=== PATIENT | male | born 1960 | race Caucasian/White ===

== ENCOUNTER 2017-05-21 11:45 | Inpatient (IN) | payer OTHER ==
[2017-05-21 11:50] VITALS: BMI 25.8
--- NOTE | 2017-05-21 14:55 | PDOC ---
History of Present Illness - General Chief Complaint: Wound Infection Stated Complaint: LT TOE INFECTION Time Seen by Provider: 05/21/17 14:30 History Source: Patient Exam Limitations: No Limitations - History of Present Illness Initial Comments: 05/21/17 14:59 56 y.o. M with pmh of cerebellar CVA (residual gait defect) presents with left great toe infection. Patient states 1 month ago he stubbed his toe on a dresser. He began having redness and pain. He went to [facility] and was admitted for 10 days and given IV abx. He underwent xray and MRI and was told he has "fracture and infarction." He also underwent arterial doppler and was told he has arterial insufficiency. He was discharged with plavix. His infection and pain worsened over the last 2 weeks prompting him to come to the ED. Patient also complaining of right lower extremity edema since he was in the hospital. Patient denies fever, chills, n/v/d/c, chest pain, sob, abdominal pain, dysuria , PSH: Left patella surgery Social hx: 40 year smoking hx, 1 ppd, no alcohol use, no drug use PCP:Chasity Aguilar Allergies: nkda Past History - Past Medical History Allergies/Adverse Reactions: Allergies Allergy/AdvReac Type Severity Reaction Status Date / Time No Known Drug Allergies Allergy Verified 05/21/17 11:50 Home Medications: Ambulatory Orders NK [No Known Home Medication] 05/21/17 Anemia: No Asthma: No Cancer: No Cardiac Disorders: No CVA: Yes COPD: No CHF: No Dementia: No Diabetes: No GI Disorders: No Disorders: No HTN: No Hypercholesterolemia: No Liver Disease: No Seizures: No Thyroid Disease: No - Suicide/Smoking/Psychosocial Hx Smoking History: Current every day smoker Have you smoked in the past 12 months: Yes Number of Cigarettes Smoked Daily: 10 Information on smoking cessation initiated: No 'Breaking Loose' booklet given: 03/01/16 Hx Alcohol Use: Yes (SOCIAL) Drug/Substance Use Hx: No Substance Use Type: None Hx Substance Use Treatment: No Review of Systems - Review of Systems Comments:: GENERAL/CONSTITUTIONAL: No fever or chills. No weakness. HEAD, EYES, EARS, NOSE AND THROAT: No change in vision. No ear pain or discharge. No sore throat. CARDIOVASCULAR: No chest pain or shortness of breath RESPIRATORY: No cough, wheezing, or hemoptysis. GASTROINTESTINAL: No nausea, vomiting, diarrhea or constipation. GENITOURINARY: No dysuria, frequency, or change in urination. MUSCULOSKELETAL: No joint or muscle swelling or pain. No neck or back pain. + toe pain, +toe infection SKIN: No rash NEUROLOGIC: No headache, vertigo, loss of consciousness, or change in strength/ sensation. ENDOCRINE: No increased thirst. No abnormal weight change HEMATOLOGIC/LYMPHATIC: No anemia, easy bleeding, or history of blood clots. ALLERGIC/IMMUNOLOGIC: No hives or skin allergy. *Physical Exam - Vital Signs Last Vital Signs Temp Pulse Resp BP Pulse Ox 98.7 F 116 H 20 104/75 97 05/21/17 11:46 05/21/17 11:46 05/21/17 11:46 05/21/17 11:46 05/21/17 11:46 - Physical Exam Comments: 05/21/17 15:11 GENERAL: Awake, alert, and fully oriented, in no acute distress HEAD: No signs of trauma, normocephalic, atraumatic EYES: PERRLA, EOMI, sclera anicteric, conjunctiva clear ENT: Auricles normal inspection, hearing grossly normal, nares patent, oropharynx clear without exudates. Moist mucosa NECK: Normal ROM, supple, no lymphadenopathy, JVD, or masses LUNGS: No distress, speaks full sentences, clear to auscultation bilaterally HEART: Regular rate and rhythm, normal S1 and S2, no murmurs, rubs or gallops, peripheral pulses normal in UE, no palpable pulses in lower extremities. ABDOMEN: Soft, nontender, normoactive bowel sounds. No guarding, no rebound. No masses EXTREMITIES: +necrotic left toe with serosanguinous drainage. 1+ pitting edema in b/l lower extremities, Left foot-cold NEUROLOGICAL: Cranial nerves II through XII grossly intact. Normal speech, no focal sensorimotor deficits ED Treatment Course - LABORATORY CBC & Chemistry Diagram: 05/21/17 16:20 05/21/17 16:20 Medical Decision Making - Medical Decision Making 05/21/17 15:13 A: 56 y.o. M with pmh of cerebellar cva presenting with left toe infection. VS- HR- 118 ddx: Sepsis, wet gangrene of left great toe, DVT, PE, Arterial insufficiency P: CBC, CMP, Lactic acid, Arterial doppler of L leg, b/l venous dopplers, left great toe x ray, Chest CTA, EKG, IVF NS 1 L bolus, 1 dose of vancomycin 05/21/17 17:18 WBC- 11.4, CRP-7.8, BNP-832.06, lactic acid 1.3 05/21/17 17:50 EKG- NSR with occasional PVC, RBBB, HR-87, qtc-480, 05/21/17 18:14 Patient to be admitted. Call placed to hospitalist. Awaiting call back 05/21/17 18:[address] Leach. Patient to be admitted to med-surg. *DC/Admit/Observation/Transfer Diagnosis at time of Disposition: Arterial insufficiency - Discharge Dispostion Admit: Yes
[2017-05-21] MEDS ORDERED: VANCOMYCIN 1 GRAM (PRE-DOCKED) 1,000 MG/250 ML BAG IVPB ONE (14:56)
[2017-05-21] MEDS ORDERED: SODIUM CHLORIDE 1,000 ML IV STA (14:56)
[2017-05-21 16:33] LABS: BASOPHIL 0.5 % (0-2.0); EOSINOPHIL 0.9 % (0-4.5); MCH 34.7 pg (25.7-33.7); MCHC 33.8 g/dl (32.0-35.9); MEAN CELL VOLUME 102.9 fl (80-96); MEAN PLT VOLUME 6.3 fl (7.5-11.1); PLATELET COUNT 663 K/MM3 (134-434); RDW 14.3 % (11.9-15.9); WHITE BLOOD COUNT 11.4 K/mm3 (4.0-10.0)
[2017-05-21] MEDS ORDERED: VANCOMYCIN 1 GRAM (PRE-DOCKED) 250 ML IVPB ONE (16:52)
[2017-05-21 16:58] LABS: ALBUMIN 3.5 g/dl (3.4-5.0); ALK PHOS 105 U/L (45-117); ANION GAP 7 (8-16); BILIRUBIN,TOTAL 0.8 mg/dL (0.2-1.0); CALCIUM 9.1 mg/dL (8.5-10.1); CO2 26 mmol/L (21-32); CREATININE 0.7 mg/dL (0.7-1.3); GLUCOSE,RANDOM 92 mg/dL (74-106); SGOT/AST 10 U/L (15-37); SGPT/ALT 22 U/L (12-78); TOT PROT 7.5 g/dl (6.4-8.2)
--- NOTE | 2017-05-21 17:00 | PDOC ---
Attending Attestation - Resident Resident Name: Santhosh Eason - ED Attending Attestation I have performed the following: I have examined & evaluated the patient, The case was reviewed & discussed with the resident, I agree w/resident's findings & plan, Exceptions are as noted - HPI HPI: 05/21/17 16:54 56 M with h/o prior CVA presents to ER with L 1st toe infection. Pt initially injured it 1 month ago when he stubbed it. It started as a small wound that progressively worsened and reddened. Pt was admitted to [facility] for 1 week and discharged 10 days ago after receiving IV antibiotics. He states that the redness and pain subsided somewhat during admission but over the past 10 days it flared up again. He endorses subjective fevers. - Physicial Exam PE: 05/21/17 16:58 "GENERAL: Awake, alert, and fully oriented, in no acute distress HEAD: No signs of trauma EYES: PERRLA, EOMI, sclera anicteric, conjunctiva clear ENT: Auricles normal inspection, hearing grossly normal, nares patent, oropharynx clear without exudates. Moist mucosa NECK: Nontender, no stepoffs, Normal ROM, supple, no lymphadenopathy, JVD, or masses LUNGS: Breath sounds equal, clear to auscultation bilaterally. No wheezes, and no crackles HEART: Regular rate and rhythm, normal S1 and S2, no murmurs, rubs or gallops ABDOMEN: Soft, nontender, normoactive bowel sounds. No guarding, no rebound. No masses EXTREMITIES: L great toe necrotic with surrounding erythema and crusty serosanguinous discharge, +2 pitting edema in BLE extending to knees NEUROLOGICAL: Cranial nerves II through XII intact. 5/5 strength and sensation in all extremities, Normal speech, normal gait SKIN: Warm, Dry, normal turgor, no rashes or lesions noted. " - Medical Decision Making 05/21/17 17:00 56 M with infected necrotic L 1st toe. Likely 2/2 severe vascular disease. Will evaluate for acute thrombosis. - BLE venous dopplers - Arterial doppler LLE - Labs - XR L foot - Vascular surgery consult - Admit for IV abx 05/21/17 18:51 Dr. Doug Fernández, vascular surgeon motion pictures cartoonist, aware of patient. Agrees with plan to begin empiric abx. Will see pt in AM.
--- NOTE | 2017-05-21 20:18 | PDOC ---
*Physical Exam - Vital Signs Last Vital Signs Temp Pulse Resp BP Pulse Ox 98.7 F 116 H 20 104/75 97 05/21/17 11:46 05/21/17 11:46 05/21/17 11:46 05/21/17 11:46 05/21/17 11:46 ED Treatment Course - LABORATORY CBC & Chemistry Diagram: 05/21/17 16:20 05/21/17 16:20 - ADDITIONAL ORDERS Additional order review: Laboratory Results 05/21/17 05/21/17 05/21/17 16:20 16:20 16:20 Sodium Potassium Chloride Carbon Dioxide Anion Gap BUN Creatinine Creat Clearance w eGFR Random Glucose Lactic Acid 1.3 Calcium Total Bilirubin AST ALT Alkaline Phosphatase C-Reactive Protein 7.8 H B-Natriuretic Peptide 832.06 H Total Protein Albumin 05/21/17 16:20 Sodium 132 L Potassium 4.4 Chloride 99 Carbon Dioxide 26 Anion Gap 7 L BUN 8 D Creatinine 0.7 Creat Clearance w eGFR > 60 Random Glucose 92 Lactic Acid Calcium 9.1 Total Bilirubin 0.8 D AST 10 L D ALT 22 D Alkaline Phosphatase 105 D C-Reactive Protein B-Natriuretic Peptide Total Protein 7.5 Albumin 3.5 05/21/17 16:20 RBC 4.05 MCV 102.9 H MCHC 33.8 RDW 14.3 MPV 6.3 L D Neutrophils % 75.0 Lymphocytes % 17.3 D Monocytes % 6.3 Eosinophils % 0.9 Basophils % 0.5 - Medications Given in the ED: ED Medications Discontinued Medications Generic Name Dose Route Start Last Admin Trade Name Freq PRN Reason Stop Dose Admin Sodium Chloride 1,000 mls @ 1,000 mls/hr 05/21/17 14:56 05/21/17 16:35 Normal Saline - IV 05/21/17 15:55 1,000 mls/hr ASDIR STA Administration Oxycodone/Acetaminophen 1 combo 05/21/17 16:39 05/21/17 16:44 Percocet 5/325 - PO 05/21/17 16:40 1 combo ONCE ONE Administration Vancomycin HCl 1,000 mg 05/21/17 14:56 05/21/17 16:35 Vancomycin (Pre-Docked) IVPB 05/21/17 14:57 1,000 mg ONCE ONE Administration Protocol Medical Decision Making - Medical Decision Making 05/21/17 20:[address] Wall re: this patient's Ultrasound He was unable to reach the primary care team This patient has an arterial US which demonstrated no flow in the distal popliteal artery This was relayed to the Admitting hospitalist at 8:[address] vibha duval aware 05/21/17 20:18 *DC/Admit/Observation/Transfer Diagnosis at time of Disposition: Arterial insufficiency
[2017-05-21] MEDS ORDERED: HEPARIN NA (PORCINE) 5,000 UNITS/ML 1ML VIAL IVPUSH PRN (20:42)
--- NOTE | 2017-05-21 21:04 | HP ---
CHIEF COMPLAINT: Left great toe infection HISTORY OF PRESENT ILLNESS: 56yo M with PMH of CVA in 02/2016 with residual gait disturbance, hypercholesterolemia, current 1 ppd smoker, presents c/o Left great toe infection. Pt stubbed his toe 1 mo ago on a dresser and was admitted to [facility] for IV antibiotics x 7 days. He was discharged on Plavix 2 weeks ago, with the wound healing but not healed. Pt reports pain and infection have been worsening x 2 weeks. Pt stopped taking the Plavix 2 days ago because he was afraid the toe might start bleeding. Pt received a Percocet in the ER which alleviated the pain for a couple hours. Pt c/o tee LE edema to the knees and intense, non-radiating pain to Left foot originating in Left great toe. Pt denies recent travel, sick contacts, fever, chills, chest pain, palpitations, difficulty breathing. ER course was notable for: (1) Percocet, empiric Vancomycin (2) Left LE Artery Duplex US -> occlusion of distal Left popliteal artery. Monophasic waveform in posterior Left tibial artery consistent with inflow obstruction. (3) Tee LE Venous Duplex US -> no DVTs PAST MEDICAL HISTORY: CVA 02/2016 with residual gait disturbance GERD hypercholesterolemia PAST SURGICAL HISTORY: Left patella surgery Social History: Smokin ppd x 40 yrs Alcohol: denies Drugs: denies Family History: mom - pacemaker dad - stroke Allergies No Known Drug Allergies Allergy (Verified 05/21/17 11:50) HOME MEDICATIONS: Home Medications Medication Instructions Recorded NK [No Known Home Medication] 05/21/17 REVIEW OF SYSTEMS CONSTITUTIONAL: Absent: fever, chills, diaphoresis, generalized weakness, malaise, loss of appetite, weight change HEENT: Absent: rhinorrhea, nasal congestion, throat pain, ear pain, eye pain, visual changes CARDIOVASCULAR: Absent: chest pain, syncope, palpitations, irregular heart rate, lightheadedness , peripheral edema RESPIRATORY: Absent: cough, shortness of breath, wheezing, stridor GASTROINTESTINAL: Absent: abdominal pain, abdominal distension, nausea, vomiting, diarrhea, constipation, melena, hematochezia GENITOURINARY: Absent: dysuria, hematuria, flank pain MUSCULOSKELETAL: Present: Left toe infection, Left foot pain Absent: myalgia, arthralgia, back pain, neck pain SKIN: Absent: rash, itching, pallor HEMATOLOGIC/IMMUNOLOGIC: Absent: easy bleeding, easy bruising NEUROLOGIC: Absent: headache, dizziness, mental status changes PHYSICAL EXAMINATION Last Vital Signs Temp Pulse Resp BP Pulse Ox 98.7 F 116 H 20 104/75 97 05/21/17 11:46 05/21/17 11:46 05/21/17 11:46 05/21/17 11:46 05/21/17 11:46 GENERAL: Awake, alert, and fully oriented, in mild distress. HEAD: Normal with no signs of trauma. EYES: Extraocular movements intact, sclera anicteric, conjunctiva clear. No lid lag. EARS, NOSE, THROAT: Moist mucous membranes. NECK: Normal range of motion, supple, trachea midline. LUNGS: Breath sounds equal, clear to auscultation bilaterally. No wheezes, and no crackles. No accessory muscle use. HEART: Regular rate and rhythm, normal S1 and S2 without murmur, rub or gallop. ABDOMEN: Soft, nontender, not distended, normoactive bowel sounds, no guarding, no rebound, no masses. MUSCULOSKELETAL: Normal range of motion. No bony deformities or tenderness. LOWER EXTREMITIES: Left LE - pulses not present, cold, 3+ pitting edema to knee. Sensation intact. Exquisitely painful to palpation. Unable to move toes. Left great toe appears consistent with wet gangrene. Right LE - dorsalis pedis pulse not able to be palpated, warm, 3+ pitting edema to knee. Sensation intact. Non-tender to palpation. Pt able to move all toes. PSYCHIATRIC: Cooperative. Good eye contact. Appropriate mood and affect. SKIN: Other than to tee LE - Warm, dry, normal turgor, no rashes or lesions noted. Laboratory Last Values WBC 11.4 K/mm3 (4.0-10.0) H D 05/21/17 16:20 RBC 4.05 M/mm3 (4.00-5.60) 05/21/17 16:20 Hgb 14.1 GM/dL (11.7-16.9) 05/21/17 16:20 Hct 41.7 % (35.4-49) 05/21/17 16:20 MCV 102.9 fl (80-96) H 05/21/17 16:20 MCH 34.7 pg (25.7-33.7) H 05/21/17 16:20 MCHC 33.8 g/dl (32.0-35.9) 05/21/17 16:20 RDW 14.3 % (11.9-15.9) 05/21/17 16:20 Plt Count 663 K/MM3 (134-434) H D 05/21/17 16:20 MPV 6.3 fl (7.5-11.1) L D 05/21/17 16:20 Neutrophils % 75.0 % (42.8-82.8) 05/21/17 16:20 Lymphocytes % 17.3 % (8-40) D 05/21/17 16:20 Monocytes % 6.3 % (3.8-10.2) 05/21/17 16:20 Eosinophils % 0.9 % (0-4.5) 05/21/17 16:20 Basophils % 0.5 % (0-2.0) 05/21/17 16:20 ESR 80 mm/hr (0-20) H 05/21/17 16:20 Sodium 132 mmol/L (136-145) L 05/21/17 16:20 Potassium 4.4 mmol/L (3.5-5.1) 05/21/17 16:20 Chloride 99 mmol/L (98-107) 05/21/17 16:20 Carbon Dioxide 26 mmol/L (21-32) 05/21/17 16:20 Anion Gap 7 (8-16) L 05/21/17 16:20 BUN 8 mg/dL (7-18) D 05/21/17 16:20 Creatinine 0.7 mg/dL (0.7-1.3) 05/21/17 16:20 Creat Clearance w eGFR > 60 (>60) 05/21/17 16:20 Random Glucose 92 mg/dL (74-106) 05/21/17 16:20 Lactic Acid 1.3 mmol/L (0.4-2.0) 05/21/17 16:20 Calcium 9.1 mg/dL (8.5-10.1) 05/21/17 16:20 Total Bilirubin 0.8 mg/dL (0.2-1.0) D 05/21/17 16:20 AST 10 U/L (15-37) L D 05/21/17 16:20 ALT 22 U/L (12-78) D 05/21/17 16:20 Alkaline Phosphatase 105 U/L (45-117) D 05/21/17 16:20 C-Reactive Protein 7.8 MG/DL (0.00-0.3) H 05/21/17 16:20 B-Natriuretic Peptide 832.06 pg/ml (5-125) H 05/21/17 16:20 Total Protein 7.5 g/dl (6.4-8.2) 05/21/17 16:20 Albumin 3.5 g/dl (3.4-5.0) 05/21/17 16:20 IMAGIN05/21/17 EKG - NSR with occasional PVC, RBBB, QTc 480 05/21/17 CXR - no acute lung pathology 05/21/17 Xray Left foot - questionable osteomyelitis, no soft tissue gas noted. 05/21/17 Duplex US Artery Left LE - occlusion of distal Left popliteal artery. Monophasic waveform in posterior Left tibial artery consistent with inflow obstruction. 05/21/17 Duplex US Venous tee LE - no evidence of DVTs. ASSESSMENT/PLAN: 56yo M with PMH of CVA in 02/2016 with residual gait disturbance, hypercholesterolemia, current 1 ppd smoker, presents c/o Left great toe infection, arterial insufficiency/occlusion. 1) Arterial insufficiency - CTA: Aorta with tee LE runoff -> occlusion of Left popliteal artery in the popliteal fossa with some minimal reconstitution. - Heparin 5,000U bolus given - Heparin drip protocol initiated, 1,000U/hr with PTT and CBC series - Vascular Surgery Consult - type and screen, coags, stool for occult blood - hold Plavix - npo after midnight - Morphine 4mg IVpush q4hr prn for pain control 2) wet gangrene - elevated ESR, CRP - empiric Vancomycin given in ER, 2 doses of Zosyn ordered - ID Consult - Vascular Surgery Consult 3) possible new onset CHF - bnp 832, tee LE edema - echo 4) possible sepsis - tachycardia, continue to monitor - minimal leukocytosis, lactic acid wnl 5) thrombocytosis - continue Heparin 6) macrocytosis - MCV 102.9 - pt denies etoh use - f/u folate, B12 7) hypercholesterolemia - lipid panel - resume Crestor 5mg po daily 8) GERD - resume Pepcid 20mg BID 9) FEN - Fluids: NS @ 42ml/hr - Electrolytes: hyponatremia noted, continue IVFs, continue to monitor - Nutrition: npo after midnight 10) DVT Prophylaxis - Heparin drip Admit to Med-Surg. Visit type - Emergency Visit Emergency Visit: Yes ED Registration Date: 05/21/17 Care time: The patient presented to the Emergency Department on the above date and was hospitalized for further evaluation of their emergent condition. - New Patient This patient is new to me today: Yes Date on this admission: 05/22/17 - Critical Care Critical Care patient: No
--- NOTE | 2017-05-21 21:12 | HP ---
Admitting History and Physical - Admission History of Present Illness: 56M with history of CVA in the past with residual gait defect HLD PAD/PVD smoker presents to the ED with left great toe pain. Patient states he banged his toe a month ago was seen in [facility] ED discharged then seen again a few days later and admitted for about a week for IV Abx. He states the toe never completely fully healed but he showed me a picture from when he was discharged from [facility] and the toe looked like it was starting to heal but never completely healed per patient. he states since his discharge he has started having more pain and redness and started to become cooler. He has been having difficulty moving his toes without pain. He denies nausea vomiting feverc chills chest pain or shortness of breath denies orthopnea or recent change in exercise tolerance. Patient states he stopped taking his plavix 2 days ago. 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 PHYSICIAN: Yes: CVA Cardiovascular: Yes: Hyperlipdemia Additional Past Medical History: PVD/PAD - Smoking History Smoking history: Current every day smoker Have you smoked in the past 12 months: Yes Aproximately how many cigarettes per day: 20 - Alcohol/Substance Use Hx Alcohol Use: Yes (SOCIAL) Home Medications - Allergies Allergies/Adverse Reactions: Allergies Allergy/AdvReac Type Severity Reaction Status Date / Time No Known Drug Allergies Allergy Verified 05/21/17 11:50 - Home Medications Home Medications: Ambulatory Orders NK [No Known Home Medication] 05/21/17 Physical Examination Vital Signs: Vital Signs Temperature 98.7 F 05/21/17 11:46 Pulse Rate 116 H 05/21/17 11:46 Respiratory Rate 20 05/21/17 11:46 Blood Pressure 104/75 05/21/17 11:46 O2 Sat by Pulse Oximetry (%) 97 05/21/17 11:46 Constitutional: Yes: Well Nourished, No Distress Eyes: Yes: Conjunctiva Clear HENT: Yes: Atraumatic Neck: Yes: Supple, Trachea Midline Cardiovascular: Yes: Regular Rate and Rhythm. No: JVD, Murmur Respiratory: Yes: CTA Bilaterally, Diminished Gastrointestinal: Yes: Soft Extremities: Yes: Other (LLE left great toe gangrenous and necrotic other 4 toes with cellulitis extending on dorsal aspect of foot up to ankle. can see patient's toes attempt to move but very painful with minimal motopr strength of toes. Cold foot when compared to right no palpable pulses in B/L LE. no crepitus ). No: Calf Tenderness Edema: Yes Edema: LLE: 2+ (pitting up to knee), RLE: 2+ (pitting up to knee ) Imaging - Results Chest X-ray: Report Reviewed, Image Reviewed X-ray: Report Reviewed, Image Reviewed (toe) Ultrasound: Report Reviewed, Image Reviewed Other: Report Reviewed, Image Reviewed (arterial duples with occluded popliteal artery on left) Assessment/Plan 56M with peripheral arterial disease hld smoker presents with cold LLE and wet gangrene of left great toe Problem list: Peripheral vascular disease peripheral arterial disease HLD Macrocytosis history of CVA Possible new onset CHF Wet gangrene possible osteomyelitis critical limb ischemia Plan: Upon recieving results of arterial duplex Dr. Fernández from vascular immediately notified and receommended hep gtt 5000unit bolus with gtt starting @ 1000units/ hr and immediate CTA of aorta with Lower extremities run off NPO Possible OR in AM Admit to inpatient Trend PTT Trend CBC Admit to med surg ID consult start zosyn already recieved Vanco Hold plavix for now restart statin send lipid panel Case discussed with Attending Dr. Laurent, Dr. Fernández vascular surgeon and Admitting internship Full H&P to follow Visit type - Emergency Visit Emergency Visit: Yes ED Registration Date: 05/21/17 Care time: The patient presented to the Emergency Department on the above date and was hospitalized for further evaluation of their emergent condition. - New Patient This patient is new to me today: Yes Date on this admission: 05/21/17 - Critical Care Critical Care patient: No
[2017-05-21] MEDS ORDERED: HEPARIN NA (PORCINE) 5,000 UNITS/ML 1ML VIAL ONE (21:21)
[2017-05-21] MEDS ORDERED: HEPARIN INFUSION - 500 ML IVPB ONE (21:21)
[2017-05-21] MEDS ORDERED: PIPERACILLIN/TAZOB 3.375 GM/50 ML PRE-DOCKED IVPB SCH (21:30)
[2017-05-21] MEDS: HEPARIN - 25,000 UNIT in SODIUM CHLORIDE 495 ML IV SCH (21:44)
[2017-05-21] MEDS: HEPARIN NA (PORCINE) 5,000 UNITS/ML 1ML VIAL IVPUSH PRN (21:44)
[2017-05-21] MEDS ORDERED: FAMOTIDINE 20 MG/50 ML IVPB 50 ML IVPB ONE (22:39)
[2017-05-21] MEDS ORDERED: PIPERACILLIN/TAZOB 3.375 GM 50 ML IVPB ONE (22:39)
[2017-05-21] MEDS: morphine CARPU-JECT 4 MG/1 ML DISP.SYRIN IVPUSH PRN (22:40)
[2017-05-21] MEDS ORDERED: morphine CARPU-JECT 4 MG/1 ML DISP.SYRIN ONE (22:41)
[2017-05-21] MEDS: PIPERACILLIN/TAZOB 3.375 GM 3.375 GM in DEXTROSE 5%-WATER - 50 ML IVPB SCH (23:01)
--- NOTE | 2017-05-21 23:03 | PN ---
Teaching Attending Note Name of Resident: Diamante Powers ATTENDING PHYSICIAN STATEMENT I saw and evaluated the patient. I reviewed the resident's note and discussed the case with the resident. I agree with the resident's findings and plan as documented. SUBJECTIVE: 56 year old male presents c/o Left foot pain 10/10 associated with left great toe ulceration and dark discoloration x 1 month. It started with trauma to left great toe that was complicated by infection and patient was hospitalized to recieve 10 days of IVAB. At that time was diagnosed with arterial insufficiency . His pain has increased since then and he presented for further evaluation . PMH PVD Smoker CVA Home Medication List Medication Instructions Recorded Confirmed Type NK [No Known Home Medication] 05/21/17 05/21/17 History Active Medications Generic Name Dose Route Start Last Admin Trade Name Freq PRN Reason Stop Dose Admin Heparin Sodium (Porcine) 1,000 unit 05/21/17 20:42 05/21/17 21:44 Heparin - IVPUSH 1,000 unit PRN PRN Administration Heparin Heparin Sodium (Porcine) 5,000 unit 05/21/17 20:42 05/21/17 21:44 Heparin - IVPUSH 5,000 unit PRN PRN Administration Heparin Heparin Sodium (Porcine) 25, 500 mls @ 20 mls/hr 05/21/17 20:45 05/21/17 21:44 000 unit/ Sodium Chloride IV 20 mls/hr TITR KHALIF Administration Protocol 1,000 UNIT/HR Piperacillin Sod/Tazobactam 50 mls @ 100 mls/hr 05/21/17 21:45 05/21/17 23:01 Sod 3.375 gm/ Dextrose IVPB 05/22/17 06:14 100 mls/hr Q8H KHALIF Administration Famotidine/Sodium Chloride 50 mls @ 100 mls/hr 05/21/17 22:00 Pepcid 20 Mg Premixed Ivpb - IVPB BID KHALIF Morphine Sulfate 4 mg 05/21/17 21:56 05/21/17 22:40 Morphine Injection - IVPUSH 4 mg Q4H PRN Administration PAIN Rosuvastatin Calcium 5 mg 05/21/17 22:00 Crestor - PO HS KHALIF OBJECTIVE: Vital Signs Temperature 98.5 F 05/21/17 21:46 Pulse Rate 102 H 05/21/17 21:46 Respiratory Rate 18 05/21/17 21:46 Blood Pressure 103/69 05/21/17 21:46 O2 Sat by Pulse Oximetry (%) 99 05/21/17 21:46 GENERAL: Awake, alert, and fully oriented, in no acute distress HEAD: No signs of trauma, normocephalic, atraumatic EYES: PERRLA, EOMI, sclera anicteric, conjunctiva clear ENT: Auricles normal inspection, hearing grossly normal, nares patent, oropharynx clear without exudates. Moist mucosa NECK: Normal ROM, supple, no lymphadenopathy, JVD, or masses LUNGS: No distress, speaks full sentences, clear to auscultation bilaterally HEART: Regular rate and rhythm, normal S1 and S2, no murmurs, rubs or gallops, peripheral pulses normal in UE, no palpable pulses in lower extremities. ABDOMEN: Soft, nontender, normoactive bowel sounds. No guarding, no rebound. No masses EXTREMITIES: +necrotic left toe with serosanguinous drainage. 1+ pitting edema in b/l lower extremities, Left foot-cold NEUROLOGICAL: Cranial nerves II through XII grossly intact. Normal speech, no focal sensorimotor deficits CBC, BMP 05/21/17 16:20 05/21/17 16:20 Left LE Artery Duplex US -> occlusion of distal Left popliteal artery. Monophasic waveform in posterior Left tibial artery consistent with inflow obstruction. Tee LE Venous Duplex US -> no DVTs Chest X-ray: Report Reviewed, Image Reviewed X-ray: Report Reviewed, Image Reviewed (toe) Ultrasound: Report Reviewed, Image Reviewed Other: Report Reviewed, Image Reviewed (arterial dupplex with occluded popliteal artery on left) CTA - pending ASSESSMENT AND PLAN: 1. Acute arterial occlusion and gangrene of Left great toe - heparin drip initiated -CTA -vascular surgery evaluation / possible need for amputation or debridement - zosyn /vanco 2. Wet gangrene , suspected osteomyelitis - Zosyn /Vanco given 3. RLE pitting edema subacute - ECHO 4. Intractable pain - iv morphine prn while NPO 5. Smoking cessation counselling
[2017-05-21] MEDS: FAMOTIDINE 20 MG/50 ML IVPB 50 ML IVPB SCH (23:36)
[2017-05-22] MEDS: ROSUVASTATIN CA 5 MG TABLET (FP) PO SCH ×2 (00:01→22:09)
[2017-05-22] MEDS: morphine CARPU-JECT 4 MG/1 ML DISP.SYRIN IVPUSH PRN ×3 (02:39→10:30)
[2017-05-22] MEDS: HEPARIN NA (PORCINE) 5,000 UNITS/ML 1ML VIAL IVPUSH PRN (04:08)
[2017-05-22] MEDS: HEPARIN - 25,000 UNIT in SODIUM CHLORIDE 495 ML IV SCH ×2 (04:08→22:07)
[2017-05-22] MEDS ORDERED: PIPERACILLIN/TAZOBACTAM 3.375 GM VIAL IVPB ONE (05:30)
[2017-05-22] MEDS ORDERED: DEXTROSE 5%-WATER - 50 ML IVPB ONE (05:31)
[2017-05-22] MEDS: PIPERACILLIN/TAZOB 3.375 GM 3.375 GM in DEXTROSE 5%-WATER - 50 ML IVPB SCH (05:43)
[2017-05-22] MEDS ORDERED: ACETAMINOPHEN 325 MG TABLET (FP) PO PRN (05:47)
[2017-05-22 07:37] LABS: BASOPHIL 1.4 % (0-2.0); EOSINOPHIL 1.7 % (0-4.5); MCH 35.1 pg (25.7-33.7); MEAN CELL VOLUME 103.3 fl (80-96); MEAN PLT VOLUME 6.7 fl (7.5-11.1); NEUTROPHILS 65.3 % (42.8-82.8); PLATELET COUNT 675 K/MM3 (134-434); RDW 14.4 % (11.9-15.9); WHITE BLOOD COUNT 9.8 K/mm3 (4.0-10.0)
[2017-05-22 09:06] LABS: ALBUMIN 3.2 g/dl (3.4-5.0); ANION GAP 11 (8-16); BILIRUBIN,TOTAL 0.5 mg/dL (0.2-1.0); CALCIUM 8.9 mg/dL (8.5-10.1); CO2 21 mmol/L (21-32); CREATININE 0.8 mg/dL (0.7-1.3); GLUCOSE,RANDOM 96 mg/dL (74-106); SGOT/AST 11 U/L (15-37); SGPT/ALT 21 U/L (12-78); TOT PROT 7.1 g/dl (6.4-8.2)
[2017-05-22 09:07] LABS: ALK PHOS 98 U/L (45-117)
[2017-05-22] MEDS: FAMOTIDINE 20 MG/50 ML IVPB 50 ML IVPB SCH ×2 (10:42→22:10)
--- NOTE | 2017-05-22 10:43 | EKG ---
Test Reason : Blood Pressure : / mmHG Vent. Rate : 097 BPM Atrial Rate : 097 BPM P-R Int : 150 ms QRS Dur : 114 ms QT Int : 378 ms P-R-T Axes : 034 026 032 degrees QTc Int : 480 ms SINUS RHYTHM WITH OCCASIONAL PREMATURE VENTRICULAR COMPLEXES RIGHT BUNDLE BRANCH BLOCK ABNORMAL ECG WHEN COMPARED WITH ECG OF 01-MAR-2016 19:22, PREMATURE VENTRICULAR COMPLEXES ARE NOW PRESENT Confirmed by NEMESIO DAO, DUC ([id number]) on 05/22/2017 10:42:53 AM Referred By: Confirmed By:DUC HERR MD
[2017-05-22 11:46] LABS: PHOSPHOROUS 3.9 mg/dL (2.5-4.9)
[2017-05-22 11:55] LABS: MAGNESIUM 2.2 mg/dL (1.8-2.4)
--- NOTE | 2017-05-22 12:52 | PN ---
Physical Exam: SUBJECTIVE: Patient seen and examined No new complaints, still has pain in left foot. Anxious about what will be done for him Had CTA of aorta with LE runoff. OBJECTIVE: Vital Signs Period Temp Pulse Resp BP Sys/Castillo Pulse Ox Last 24 Hr 98.0 F-98.9 F 93-110 16-18 101-107/68-71 99 GENERAL: The patient is awake, alert, and fully oriented, in no acute distress. HEAD: Normal with no signs of trauma. EYES: PERRL, extraocular movements intact, sclera anicteric, conjunctiva clear. No ptosis. ENT: Ears normal, nares patent, oropharynx clear without exudates, moist mucous membranes. NECK: Trachea midline, full range of motion, supple. LUNGS: Breath sounds equal, clear to auscultation bilaterally, no wheezes, no crackles, no accessory muscle use. HEART: Regular rate and rhythm, S1, S2 without murmur, rub or gallop. ABDOMEN: Soft, nontender, nondistended, normoactive bowel sounds, no guarding, no rebound, no hepatosplenomegaly, no masses. EXTREMITIES: Ankle swelling bilaterally with some erythema . Left big toe is black, and gangrenous more towards the medial aspect, all distal aspect of foot to all five toes are red. Equal sensation both lower extremities up to proximal foot then mildly reduced sensation distally on L distal foot compared to R NEUROLOGICAL: No facial droop, power 5/5 UE bilaterally, and LE bilaterally except for limitation of movement of toes on the left. Normal speech, gait not observed. PSYCH: Normal mood, normal affect. Laboratory Results - last 24 hr 05/22/17 05/22/17 05/22/17 02:30 02:30 06:40 WBC 9.8 RBC 3.92 L Hgb 13.8 Hct 40.5 MCV 103.3 H MCH 35.1 H MCHC 34.0 RDW 14.4 Plt Count 675 H MPV 6.7 L Neutrophils % 65.3 Lymphocytes % 25.4 D Monocytes % 6.2 Eosinophils % 1.7 D Basophils % 1.4 PTT (Actin FS) 39.6 H D Sodium Potassium Chloride Carbon Dioxide Anion Gap BUN Creatinine Creat Clearance w eGFR Random Glucose Calcium Phosphorus Magnesium Total Bilirubin AST ALT Alkaline Phosphatase Total Protein Albumin Triglycerides Cholesterol Total LDL Cholesterol HDL Cholesterol Vitamin B12 Blood Type AB POSITIVE Antibody Screen Negative 05/22/17 05/22/17 05/22/17 06:40 06:40 06:40 WBC RBC Hgb Hct MCV MCH MCHC RDW Plt Count MPV Neutrophils % Lymphocytes % Monocytes % Eosinophils % Basophils % PTT (Actin FS) Sodium 136 Potassium 4.3 Chloride 104 Carbon Dioxide 21 Anion Gap 11 BUN 10 D Creatinine 0.8 Creat Clearance w eGFR > 60 Random Glucose 96 Calcium 8.9 Phosphorus 3.9 Magnesium 2.2 Total Bilirubin 0.5 D AST 11 L ALT 21 Alkaline Phosphatase 98 Total Protein 7.1 Albumin 3.2 L Triglycerides 106 D Cholesterol 146 D Total LDL Cholesterol 80 D HDL Cholesterol 44 Vitamin B12 824 D Blood Type Antibody Screen 05/22/17 07:40 WBC RBC Hgb Hct MCV MCH MCHC RDW Plt Count MPV Neutrophils % Lymphocytes % Monocytes % Eosinophils % Basophils % PTT (Actin FS) 98.4 H D Sodium Potassium Chloride Carbon Dioxide Anion Gap BUN Creatinine Creat Clearance w eGFR Random Glucose Calcium Phosphorus Magnesium Total Bilirubin AST ALT Alkaline Phosphatase Total Protein Albumin Triglycerides Cholesterol Total LDL Cholesterol HDL Cholesterol Vitamin B12 Blood Type Antibody Screen Active Medications Generic Name Dose Route Start Last Admin Trade Name Freq PRN Reason Stop Dose Admin Acetaminophen 650 mg 05/22/17 05:47 05/22/17 05:55 Tylenol - PO 650 mg Q4H PRN Administration PAIN Heparin Sodium (Porcine) 1,000 unit 05/21/17 20:42 05/21/17 21:44 Heparin - IVPUSH 1,000 unit PRN PRN Administration Heparin Heparin Sodium (Porcine) 5,000 unit 05/21/17 20:42 05/22/17 04:08 Heparin - IVPUSH 5,000 unit PRN PRN Administration Heparin Heparin Sodium (Porcine) 25, 500 mls @ 20 mls/hr 05/21/17 20:45 05/22/17 04:08 000 unit/ Sodium Chloride IV 23 mls/hr TITR KHALIF Administration Protocol 1,000 UNIT/HR Famotidine/Sodium Chloride 50 mls @ 100 mls/hr 05/21/17 22:00 05/22/17 10:42 Pepcid 20 Mg Premixed Ivpb - IVPB 100 mls/hr BID KHALIF Administration Morphine Sulfate 4 mg 05/21/17 21:56 05/22/17 10:30 Morphine Injection - IVPUSH 4 mg Q4H PRN Administration PAIN Rosuvastatin Calcium 5 mg 05/21/17 22:00 05/22/17 00:01 Crestor - PO 5 mg HS KHALIF Administration ASSESSMENT/PLAN: 56yo M with PMH of CVA in 02/2016 with residual gait disturbance, hypercholesterolemia, current 1 ppd smoker, presents c/o Left great toe infection, arterial insufficiency/occlusion. 1) Arterial insufficiency- in a chronic active smoker with critical limb ischemia - CTA: Aorta with magalie LE runoff -> occlusion of Left popliteal artery in the popliteal fossa with some minimal reconstitution. - Heparin 5,000U bolus given - Heparin drip protocol initiated, 1,000U/hr - with PTT and CBC series - type and screen, coags, stool for occult blood - hold Plavix - Morphine 4mg IVpush q4hr prn for pain control - Per Vascular Surgery -On angiogram, -- pt's left popliteal artery was occluded with no direct runoff in to foot. - On angiogram, it seems that pt's popliteal artery and beyond is thrombosed with visible clot on angiogram - Operation: Aortogram, LLE angiogram, Tibial artery, popliteal artery angioplasty, with thrombolysis. -. Patient to have tpa overnight to lyse thrombose with possibility of losing his leg -Alteplase 20mg in NaCl at 200mls/hr at once - zofran-4mg - 2) gangrene - elevated ESR, CRP - empiric Vancomycin given in ER, - ID Consult- Dr Son seeing - Patient received 1gm ceftriaxone - Vascular Surgery Consult- patient had angiogram as documented above - Pain max with dilaudid 3) Elevated BNP; - bnp 832, - magalie LE edema, patient has been sleeping with legs down because of the pain which may account for the edema - echo 4) possible sepsis - tachycardia, continue to monitor - minimal leukocytosis, lactic acid wnl 5) thrombocytosis - continue Heparin 6) macrocytosis - MCV 102.9 - pt denies etoh use - f/u folate, B12 7) hypercholesterolemia - lipid panel - Crestor 5mg po daily 8) GERD - resume Pepcid 20mg BID 9) FEN - Fluids: LR @ 42ml/hr - Electrolytes: repelte as needed - Nutrition: npo after midnight 10) DVT Prophylaxis - Heparin drip - GI-Pepcid 20mg IVPB Admit to Med-Surg. At this point it was decided we will lyse with tpa to dissolve thrombus and open outflow. Pt has critical limb ischemia, probably for over a week as a active smoker. Pt will receive 1mg of tpa a hour until duane. Will bring pt back for tpa check duane. A/P Critical limb ischemia 1. Pt understands he might lose his leg. 2. Will lyse overnight and bring pt back for angiogram. Visit type - Emergency Visit Emergency Visit: Yes ED Registration Date: 05/21/17 Care time: The patient presented to the Emergency Department on the above date and was hospitalized for further evaluation of their emergent condition. - New Patient This patient is new to me today: Yes Date on this admission: 05/22/17 - Critical Care Critical Care patient: No - Discharge Referral Referred to [facility] Med P.C.: No
[2017-05-22] MEDS ORDERED: MIDAZOLAM HCL 2 MG/2 ML SINGLE DOSE VIAL ONE ×2 (12:54→13:00)
[2017-05-22] MEDS ORDERED: PROPOFOL 20 ML ONE ×2 (13:01→13:12)
[2017-05-22] MEDS ORDERED: ceFAZolin SODIUM 1 GM VIAL IVPB ONE (13:08)
[2017-05-22] MEDS ORDERED: LIDOCAINE HCL 1%, 10 MG/ML (20ML VIAL) NR ONE (13:09)
[2017-05-22] MEDS ORDERED: ceFAZolin SODIUM 1 GM VIAL ONE ×2 (13:12→18:11)
[2017-05-22] MEDS ORDERED: HEPARIN NA (PORCINE) 5,000 UNITS/ML 1ML VIAL ONE (13:20)
[2017-05-22] MEDS ORDERED: DEXAMETHASONE SOD PHOSPHATE 4 MG/1 ML VIAL ONE (13:49)
[2017-05-22] MEDS ORDERED: HEPARIN INFUSION - 500 ML IVPB ONE (14:03)
[2017-05-22] MEDS ORDERED: ALTEPLASE CVP ONE ×2 (14:30)
[2017-05-22] MEDS ORDERED: SODIUM CHLORIDE CVP ONE ×2 (14:30)
--- NOTE | 2017-05-22 14:52 | PN ---
Progress Note (short form) - Note Progress Note: Vascular Surgery 56 year old male comes in with 2 week history of gangrene of left great and first toe. Pt claims has hospitalized at [facility] for a couple of weeks for infection in his left foot. He is a active smoker -- 1ppd for 40 years. He came to the hospital with pain in his left foot. CTA performed showed occlusion of left popliteal artery. On examination pt had good sensory, and limited motor of his left toes. It was decided he would need a angiogram. On angiogram, -- pt's left popliteal artery was occluded with no direct runoff in to foot. On angiogram, it seems that pt's popliteal artery and beyond is thrombosed with visible clot on angiogram. At this point it was decided we will lyse with tpa to dissolve thrombus and open outflow. Pt has critical limb ischemia, probably for over a week as a active smoker. Pt will receive 1mg of tpa a hour until duane. Will bring pt back for tpa check duane. A/P Critical limb ischemia 1. Pt understands he might lose his leg. 2. Will lyse overnight and bring pt back for angiogram. Doug hale DO
--- NOTE | 2017-05-22 14:54 | OP ---
Operative Note - Note: Operative Date: 05/22/17 Operation: Aortogram, LLE angiogram, Tibial artery, popliteal artery angioplasty , with. thrombolysis. Post-Operative Diagnosis: Same as Pre-op Anesthesia: Fractional Estimated Blood Loss (mls): 50 Operative Report Dictated: Yes
[2017-05-22] MEDS ORDERED: HYDROmorphone HCL CARPU-JECT 2 MG/1 ML DISP.SYRIN ONE ×2 (14:58→15:20)
[2017-05-22] MEDS ORDERED: ONDANSETRON 4 MG/2 ML VIAL IVPUSH PRN (15:02)
[2017-05-22] MEDS: HYDROmorphone HCL CARPU-JECT 1 MG/1 ML DISP.SYRIN IVPUSH PRN ×8 (15:10→16:00)
[2017-05-22] MEDS ORDERED: LORazepam 2 MG/ML SDV VIAL IVPUSH PRN (15:45)
--- NOTE | 2017-05-22 16:51 | PN ---
Progress Note (short form) - Note Progress Note: ID Consult dictated Arterial insufficiency / limb ischemia Gangrene L foot Possible cellulitis R LE Blood c/s Empiric cefazolin
--- NOTE | 2017-05-22 18:01 | CONS ---
INFECTIOUS DISEASE CONSULTATION DATE OF CONSULTATION: DATE OF DICTATION: 05/22/2017 HISTORY OF PRESENT ILLNESS: The patient is a 56-year-old male evaluated for gangrene of the left foot. 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 He was hospitalized at [facility] for approximately 1 week. At which time, he was treated with IV antibiotics for suspected toe infection. He reports being discharged home on a blood thinner. He developed progressively worsening pain in the left foot and began developing discoloration. He presented to the emergency room where he was found to have wet gangrene of the left foot. A CT angiogram was performed and showed complete occlusion of the left popliteal artery from below the knee. Today, he was taken to the operating room where he had catheters inserted and was started on tissue plasminogen activator. He received doses of vancomycin and Zosyn for gangrene of the left foot. He is also noted to have diffuse swelling, erythema, and warmth of the right lower extremity. He has been afebrile with a normal white blood cell count. PAST MEDICAL HISTORY: Positive for stroke and hyperlipidemia. ALLERGIES: No known allergies. MEDICATIONS: Include Zofran, Tylenol, heparin, Pepcid, Crestor, Dilaudid. SOCIAL HISTORY: He is a long-term smoker, approximately 40 years. Lives at home with his . SYSTEMS REVIEW: Neurologic: No loss of consciousness or seizure activity. Positive history of stroke with hemiparesis. Cardiac: Negative chest pain or palpitations. Respiratory: Negative cough or sputum production. Gastrointestinal: Negative vomiting or diarrhea. Genitourinary: Negative for urinary tract infection. LABORATORY DATA: White count 9.8, hematocrit 40.5, platelet count 675. BUN 10, creatinine 0.8. Sedimentation rate 80. C-reactive protein 7.8. Doppler exam negative for DVT. PHYSICAL EXAMINATION: General: He is awake and responsive. He is in no acute distress. Vital Signs: Temperature is 99.3; blood pressure 116/78; pulse 103, regular; respirations 24 per minute. HEENT: Sclerae are anicteric. Heart: Sounds S1, S2. Lungs: Clear. Abdomen: Soft. No tenderness elicited. No mass, rebound, or rigidity. Lower Extremities: There is diffuse swelling, erythema, and warmth of the right lower extremity from below the knee to the foot. Examination of the left lower extremity: There is gangrene present involving the great toe and several of the other toes. There does not appear to be a cellulitic component. IMPRESSION: 1. Gangrene of the left foot. 2. Severe peripheral vascular disease, status post tissue plasminogen activator. 3. Possible cellulitis of the right lower extremity. We will empirically treat for possible cellulitis of the right lower extremity with cefazolin 1 g IV piggyback every 8 hours. He will be transferred to ICU for intravenous tissue plasminogen activator and monitoring. We will follow. Thank you for the kind referral. CRISTAL ELLIOTT M.D. [id number]
--- NOTE | 2017-05-22 19:55 | PN ---
Teaching Attending Note Name of Resident: Tracie Almonte ATTENDING PHYSICIAN STATEMENT I saw and evaluated the patient. I reviewed the resident's note and discussed the case with the resident. I agree with the resident's findings and plan as documented. SUBJECTIVE: Patient is feeling better after the procedure. happy that his left leg got reperfused. OBJECTIVE: Vital Signs Temperature 99.3 F 05/22/17 14:51 Pulse Rate 106 H 05/22/17 18:20 Respiratory Rate 16 05/22/17 18:20 Blood Pressure 108/76 05/22/17 18:20 O2 Sat by Pulse Oximetry (%) 96 05/22/17 18:20 CBCD WBC 9.8 K/mm3 (4.0-10.0) 05/22/17 06:40 RBC 3.92 M/mm3 (4.00-5.60) L 05/22/17 06:40 Hgb 13.8 GM/dL (11.7-16.9) 05/22/17 06:40 Hct 40.5 % (35.4-49) 05/22/17 06:40 MCV 103.3 fl (80-96) H 05/22/17 06:40 MCHC 34.0 g/dl (32.0-35.9) 05/22/17 06:40 RDW 14.4 % (11.9-15.9) 05/22/17 06:40 Plt Count 675 K/MM3 (134-434) H 05/22/17 06:40 MPV 6.7 fl (7.5-11.1) L 05/22/17 06:40 CMP Sodium 136 mmol/L (136-145) 05/22/17 06:40 Potassium 4.3 mmol/L (3.5-5.1) 05/22/17 06:40 Chloride 104 mmol/L (98-107) 05/22/17 06:40 Carbon Dioxide 21 mmol/L (21-32) 05/22/17 06:40 Anion Gap 11 (8-16) 05/22/17 06:40 BUN 10 mg/dL (7-18) D 05/22/17 06:40 Creatinine 0.8 mg/dL (0.7-1.3) 05/22/17 06:40 Creat Clearance w eGFR > 60 (>60) 05/22/17 06:40 Random Glucose 96 mg/dL (74-106) 05/22/17 06:40 Calcium 8.9 mg/dL (8.5-10.1) 05/22/17 06:40 Total Bilirubin 0.5 mg/dL (0.2-1.0) D 05/22/17 06:40 AST 11 U/L (15-37) L 05/22/17 06:40 ALT 21 U/L (12-78) 05/22/17 06:40 Alkaline Phosphatase 98 U/L (45-117) 05/22/17 06:40 Total Protein 7.1 g/dl (6.4-8.2) 05/22/17 06:40 Albumin 3.2 g/dl (3.4-5.0) L 05/22/17 06:40 Current Medications Generic Name Dose Route Start Last Admin Trade Name Freq PRN Reason Stop Dose Admin Acetaminophen 650 mg 05/22/17 05:47 05/22/17 05:55 Tylenol - PO 650 mg Q4H PRN Administration PAIN Heparin Sodium (Porcine) 1,000 unit 05/21/17 20:42 05/21/17 21:44 Heparin - IVPUSH 1,000 unit PRN PRN Administration Heparin Heparin Sodium (Porcine) 5,000 unit 05/21/17 20:42 05/22/17 04:08 Heparin - IVPUSH 5,000 unit PRN PRN Administration Heparin Hydromorphone HCl 0.5 mg 05/22/17 15:02 05/22/17 16:00 Dilaudid Injection - IVPUSH 05/25/17 15:03 0.5 mg [id number] PRN Administration PAIN Hydromorphone HCl 2 mg 05/22/17 16:22 Dilaudid Injection - IVPUSH Q3H PRN PAIN Heparin Sodium (Porcine) 25, 500 mls @ 10 mls/hr 05/21/17 20:45 05/22/17 04:08 000 unit/ Sodium Chloride IV 23 mls/hr TITR KHALIF Administration Protocol 500 UNIT/HR Famotidine/Sodium Chloride 50 mls @ 100 mls/hr 05/21/17 22:00 05/22/17 10:42 Pepcid 20 Mg Premixed Ivpb - IVPB 100 mls/hr BID KHALIF Administration Alteplase, Recombinant 20 mg/ 200 mls @ 10 mls/hr 05/22/17 14:30 Sodium Chloride CVP 05/23/17 10:29 ONCE ONE Lactated Ringer's 1,000 mls @ 125 mls/hr 05/22/17 15:15 Lactated Ringers Solution IV ASDIR KHALIF Sodium Chloride 1,000 mls @ 75 mls/hr 05/22/17 16:30 Normal Saline - IV ASDIR KHALIF Cefazolin Sodium 1 gm/ 50 mls @ 100 mls/hr 05/22/17 18:00 Dextrose IVPB Q8H-IV KHALIF Lorazepam 0.5 mg 05/22/17 15:45 Ativan Injection - IVPUSH 05/24/17 10:01 DAILY PRN AGITATION Morphine Sulfate 4 mg 05/21/17 21:56 05/22/17 10:30 Morphine Injection - IVPUSH 4 mg Q4H PRN Administration PAIN Ondansetron HCl 4 mg 05/22/17 15:02 Zofran Injection IVPUSH 05/22/17 21:03 Q6H PRN NAUSEA AND/OR VOMITING Rosuvastatin Calcium 5 mg 05/21/17 22:00 05/22/17 00:01 Crestor - PO 5 mg HS KHALIF Administration Home Medications Medication Instructions Recorded NK [No Known Home Medication] 05/21/17 PE: gangerous of left big toe, pulses are palpable, warm extremities R>L, cellulitic changes on the right rest of PE per Resident's note CTA performed showed occlusion of left popliteal artery. 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 #Acute left lower extrimity Ischemia with hx of active smoking for 40yrs, As per On angiogram, -- pt's left popliteal artery was occluded with no direct runoff into the foot and was decided by to start TPA 1mg/hr ; treatment to lyse and dissolve the thrombus and open the outflow. Patient transferred to ICU for further care and management. Prior to the procedure patient was initiated Heparin drip. # Tobacco smoking ; discussed with the patient to cease the smoking and patient stated that after this will not smoke any cigarette anymore. # Hx of PAD continue statins # Sepsis due to RLE cellulitis and LLE gangrene on IV antibiotic ,Id on the case #HTN hold BP meds for now # thrombocytosis monitor # Macrocytosis check b12/folic acid level # GERD on Pepcid 20mg BID continue DVT Px: On TPA drip for now
[2017-05-22] MEDS: LACTATED RINGERS SOLUTION 1,000 ML IV SCH (20:15)
[2017-05-22] MEDS: CEFAZOLIN 1 GM in DEXTROSE 5%-WATER - 50 ML IVPB SCH (20:16)
[2017-05-22] MEDS: SODIUM CHLORIDE 1,000 ML IV SCH (20:16)
[2017-05-22] MEDS: HYDROmorphone HCL CARPU-JECT 2 MG/1 ML DISP.SYRIN IVPUSH PRN (20:17)
--- NOTE | 2017-05-22 20:42 | CONSULT ---
Consult Consult Specialty:: Critical Care Reason for Consultation:: Limb ischemia - History of Present Illness History of Present Illness: This is a 56 year old man with HTN, PAD/PVD, active smoker, CVA in the past with residual gait defect who presented to the ED with pain to his left great toe. Reported stubbing his toe approximately 1 month ago and had visited the ED at the time and had been discharged. Re-presented days later with concern for infection and was hospitalized for a week and received IV antibiotics. After he was discharged pain and erythema worsened and his toe became cool to touch. Denied nausea, vomiting, fevers, chillds chest pain, and shortness of breath at time of admission. CTA was performed revealing occlusion of left popliteal artery. No direct runoff to foot. Underwent LLE angiogram, tibial and popliteal artery angioplasty, with thrombolysis. Received Cefazolin intraoperatively. 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 Cardio/Vascular: Yes: Hyperlipdemia - Alcohol/Substance Use Hx Alcohol Use: Yes (SOCIAL) - Smoking History Smoking history: Current every day smoker Have you smoked in the past 12 months: Yes Aproximately how many cigarettes per day: 20 Home Medications - Allergies Allergies/Adverse Reactions: Allergies Allergy/AdvReac Type Severity Reaction Status Date / Time No Known Drug Allergies Allergy Verified 05/21/17 11:50 - Home Medications Home Medications: Ambulatory Orders NK [No Known Home Medication] 05/21/17 Physical Exam Vital Signs: Vital Signs Temperature 98.2 F 05/22/17 19:30 Pulse Rate 108 H 05/22/17 19:30 Respiratory Rate 16 05/22/17 19:30 Blood Pressure 101/70 05/22/17 19:30 O2 Sat by Pulse Oximetry (%) 96 05/22/17 18:20 Constitutional: Yes: Well Nourished, Pallor Eyes: Yes: WNL HENT: Yes: WNL Neck: Yes: WNL Cardiovascular: Yes: Regular Rate and Rhythm Respiratory: Yes: Regular, CTA Bilaterally Gastrointestinal: Yes: Normal Bowel Sounds, Soft Renal/: Yes: WNL Extremities: Yes: Cool (L great toe with ulceration and discoloration. Other toes to LLE are pale. L foot is cool to touch.) Edema: LUE: Trace, RUE: Trace, LLE: Trace, RLE: Trace Wound/Incision: Yes: Reddened Neurological: Yes: WNL, Alert, Oriented ...Motor Strength: WNL Labs: CBC, BMP 05/22/17 06:40 05/22/17 06:40 Assessment/Plan This is a 56 year old man with HTN, PVD/PAD, active smoker with L great toe ulcer found to have arterial thrombosis and critical limb ischemia. S/p LLE angiogram, tibial and popliteal artery angioplasty with thrombolysis. Patient is hemodynamically stable with no respiratory compromise. He is here for close monitoring during TPA. No concerning laboratory values. Good renal function. No lactate. No signs of sepsis. Limb ischemia -Lyse with TPA at 1mg/hr -Angiogram tomorrow -Pain control with Morphine and Dilaudid PRN -Pepcid for GI ppx -Statin
[2017-05-22 21:50] LABS: MCH 35.5 pg (25.7-33.7); MCHC 34.1 g/dl (32.0-35.9); MEAN CELL VOLUME 104.1 fl (80-96); MEAN PLT VOLUME 7.2 fl (7.5-11.1); PLATELET COUNT 465 K/MM3 (134-434); RDW 14.4 % (11.9-15.9); WHITE BLOOD COUNT 7.4 K/mm3 (4.0-10.0)
--- NOTE | 2017-05-22 22:05 | CONSULT ---
Consultation: REQUESTING PROVIDER: Dr Aguilar CONSULT REQUEST: We have been asked to medically evaluate this patient for ( post op ccu management). HISTORY OF PRESENT ILLNESS: This is a 56 yo M current smoker with PMH of HTN, PVD/PAD, who presents with LLE critical limb ischemia and L great toe wet gangrene. CTA with runoff revealed occlusion of L pop artery. Patient underwent LLE angiogram, tibial and popliteal artery angioplasty with tpa thrombolysis. He has been transferred to CCU on Hep infusion for post op management. Patient is resting in bed comfortably NAD. Afebrile and hemodynamically stable. Pain is well controlled. Peripheral pulses dopplerable. Plan to f/u angiogram tomorrow AM. He denies chest pain, sob, palpitations, abd pain, droin pain or increased LLE pain or numbness. REVIEW OF SYSTEMS: CONSTITUTIONAL: Absent: fever, chills, diaphoresis, generalized weakness, malaise, loss of appetite, weight change HEENT: Absent: rhinorrhea, nasal congestion, throat pain, ear pain, eye pain, visual changes CARDIOVASCULAR: Absent: chest pain, syncope, palpitations, irregular heart rate, lightheadedness , peripheral edema RESPIRATORY: Absent: cough, shortness of breath, wheezing, stridor GASTROINTESTINAL: Absent: abdominal pain, abdominal distension, nausea, vomiting, diarrhea, constipation, melena, hematochezia GENITOURINARY: Absent: dysuria, hematuria, flank pain MUSCULOSKELETAL: Present: Left great toe pain Absent: myalgia, arthralgia, back pain, neck pain SKIN: Absent: rash, itching, pallor HEMATOLOGIC/IMMUNOLOGIC: Absent: easy bleeding, easy bruising NEUROLOGIC: Absent: headache, dizziness, mental status changes PHYSICAL EXAMINATION Vital Signs - 24 hr 05/21/17 05/22/17 05/22/17 23:47 06:00 09:00 Temperature 98.0 F 98.9 F Pulse Rate 110 H 104 H Respiratory 16 18 18 Rate Blood Pressure 107/71 101/68 O2 Sat by Pulse 94 L Oximetry (%) 05/22/17 05/22/17 05/22/17 10:00 14:51 15:05 Temperature 98.2 F 99.3 F Pulse Rate 93 H 100 H 99 H Respiratory 18 22 22 Rate Blood Pressure 105/69 131/90 133/77 O2 Sat by Pulse 95 99 Oximetry (%) 05/22/17 05/22/17 05/22/17 15:20 15:35 15:50 Temperature Pulse Rate 97 H 103 H 100 H Respiratory 20 24 14 Rate Blood Pressure 125/73 116/79 101/83 O2 Sat by Pulse 95 98 97 Oximetry (%) 05/22/17 05/22/17 05/22/17 16:05 16:20 16:35 Temperature Pulse Rate 111 H 114 H 108 H Respiratory 16 20 20 Rate Blood Pressure 106/75 105/69 108/76 O2 Sat by Pulse 98 98 99 Oximetry (%) 05/22/17 05/22/17 05/22/17 16:50 17:05 17:20 Temperature Pulse Rate 109 H 108 H 107 H Respiratory 20 20 18 Rate Blood Pressure 103/68 115/69 116/68 O2 Sat by Pulse 99 98 96 Oximetry (%) 05/22/17 05/22/17 05/22/17 17:35 17:50 18:05 Temperature Pulse Rate 103 H 106 H 106 H Respiratory 16 16 16 Rate Blood Pressure 115/70 107/76 101/70 O2 Sat by Pulse 96 96 96 Oximetry (%) 05/22/17 05/22/17 05/22/17 18:20 19:30 21:00 Temperature 98.2 F 98.4 F Pulse Rate 106 H 108 H 112 H Respiratory 16 16 18 Rate Blood Pressure 108/76 101/70 127/84 O2 Sat by Pulse 96 96 Oximetry (%) GENERAL: Awake, alert, and fully oriented, nad HEAD: Normal with no signs of trauma. EYES: Extraocular movements intact, sclera anicteric, conjunctiva clear. EARS, NOSE, THROAT: Moist mucous membranes. NECK: Normal range of motion, supple, trachea midline. LUNGS: Breath sounds equal, clear to auscultation bilaterally. No wheezes, and no crackles. No accessory muscle use. HEART: Regular rate and rhythm, normal S1 and S2 ABDOMEN: Soft, nontender, not distended, normoactive bowel sounds, no guarding, no rebound, no masses. MUSCULOSKELETAL: Normal range of motion. No bony deformities or tenderness. LOWER EXTREMITIES: LLE DP, PT dopplerable, cool foot, Great toe wet gangrene, trace edema to knee. Sensation intact. Exquisitely painful to palpation. Unable to move toes. RLE DP, PT dopplearable, warm, trace pitting edema to knee. Sensation intact. Non-tender to palpation. Pt able to move all toes. PSYCHIATRIC: Cooperative. Good eye contact. Appropriate mood and affect. SKIN: Warm, dry, LLE lesions noted above Laboratory Results - last 24 hr 05/22/17 05/22/17 05/22/17 02:30 02:30 06:40 WBC 9.8 RBC 3.92 L Hgb 13.8 Hct 40.5 MCV 103.3 H MCH 35.1 H MCHC 34.0 RDW 14.4 Plt Count 675 H MPV 6.7 L Neutrophils % 65.3 Lymphocytes % 25.4 D Monocytes % 6.2 Eosinophils % 1.7 D Basophils % 1.4 PTT (Actin FS) 39.6 H D Sodium Potassium Chloride Carbon Dioxide Anion Gap BUN Creatinine Creat Clearance w eGFR Random Glucose Calcium Phosphorus Magnesium Total Bilirubin AST ALT Alkaline Phosphatase Total Protein Albumin Triglycerides Cholesterol Total LDL Cholesterol HDL Cholesterol Vitamin B12 Blood Type AB POSITIVE Antibody Screen Negative 05/22/17 05/22/17 05/22/17 06:40 06:40 06:40 WBC RBC Hgb Hct MCV MCH MCHC RDW Plt Count MPV Neutrophils % Lymphocytes % Monocytes % Eosinophils % Basophils % PTT (Actin FS) Sodium 136 Potassium 4.3 Chloride 104 Carbon Dioxide 21 Anion Gap 11 BUN 10 D Creatinine 0.8 Creat Clearance w eGFR > 60 Random Glucose 96 Calcium 8.9 Phosphorus 3.9 Magnesium 2.2 Total Bilirubin 0.5 D AST 11 L ALT 21 Alkaline Phosphatase 98 Total Protein 7.1 Albumin 3.2 L Triglycerides 106 D Cholesterol 146 D Total LDL Cholesterol 80 D HDL Cholesterol 44 Vitamin B12 824 D Blood Type Antibody Screen 05/22/17 05/22/17 07:40 21:30 WBC 7.4 RBC 3.53 L Hgb 12.5 Hct 36.8 MCV 104.1 H MCH 35.5 H MCHC 34.1 RDW 14.4 Plt Count 465 H D MPV 7.2 L Neutrophils % Lymphocytes % Monocytes % Eosinophils % Basophils % PTT (Actin FS) 98.4 H D Sodium Potassium Chloride Carbon Dioxide Anion Gap BUN Creatinine Creat Clearance w eGFR Random Glucose Calcium Phosphorus Magnesium Total Bilirubin AST ALT Alkaline Phosphatase Total Protein Albumin Triglycerides Cholesterol Total LDL Cholesterol HDL Cholesterol Vitamin B12 Blood Type Antibody Screen Active Medications Generic Name Dose Route Start Last Admin Trade Name Freq PRN Reason Stop Dose Admin Acetaminophen 650 mg 05/22/17 05:47 05/22/17 05:55 Tylenol - PO 650 mg Q4H PRN Administration PAIN Heparin Sodium (Porcine) 1,000 unit 05/21/17 20:42 05/21/17 21:44 Heparin - IVPUSH 1,000 unit PRN PRN Administration Heparin Heparin Sodium (Porcine) 5,000 unit 05/21/17 20:42 05/22/17 04:08 Heparin - IVPUSH 5,000 unit PRN PRN Administration Heparin Hydromorphone HCl 0.5 mg 05/22/17 15:02 05/22/17 16:00 Dilaudid Injection - IVPUSH 05/25/17 15:03 0.5 mg [id number] PRN Administration PAIN Hydromorphone HCl 2 mg 05/22/17 16:22 05/22/17 20:17 Dilaudid Injection - IVPUSH 2 mg Q3H PRN Administration PAIN Heparin Sodium (Porcine) 25, 500 mls @ 10 mls/hr 05/21/17 20:45 05/22/17 04:08 000 unit/ Sodium Chloride IV 23 mls/hr TITR KHALIF Administration Protocol 500 UNIT/HR Famotidine/Sodium Chloride 50 mls @ 100 mls/hr 05/21/17 22:00 05/22/17 10:42 Pepcid 20 Mg Premixed Ivpb - IVPB 100 mls/hr BID KHALIF Administration Alteplase, Recombinant 20 mg/ 200 mls @ 10 mls/hr 05/22/17 14:30 05/22/17 20:14 Sodium Chloride CVP 05/23/17 10:29 Not Given ONCE ONE Lactated Ringer's 1,000 mls @ 125 mls/hr 05/22/17 15:15 05/22/17 20:15 Lactated Ringers Solution IV Not Given ASDIR KHALIF Sodium Chloride 1,000 mls @ 75 mls/hr 05/22/17 16:30 05/22/17 20:16 Normal Saline - IV Not Given ASDIR KHALIF Cefazolin Sodium 1 gm/ 50 mls @ 100 mls/hr 05/22/17 18:00 05/22/17 20:16 Dextrose IVPB Not Given Q8H-IV KHALIF Lorazepam 0.5 mg 05/22/17 15:45 Ativan Injection - IVPUSH 05/24/17 10:01 DAILY PRN AGITATION Morphine Sulfate 4 mg 05/21/17 21:56 05/22/17 10:30 Morphine Injection - IVPUSH 4 mg Q4H PRN Administration PAIN Nicotine 14 mg 05/22/17 21:30 Nicoderm Patch - TD DAILY KHALIF Rosuvastatin Calcium 5 mg 05/21/17 22:00 05/22/17 00:01 Crestor - PO 5 mg HS KHALIF Administration ASSESSMENT/PLAN: This is a 56 yo M current smoker with PMH of HTN, PVD/PAD, who presents with LLE critical limb ischemia and L great toe wet gangrene. CTA with runoff revealed occlusion of L pop artery. Patient underwent LLE angiogram, tibial and popliteal artery angioplasty with tpa thrombolysis. He has been transferred to CCU on Hep infusion for post op management. Neuro -AAOx3 Pulm -stable *smoker -cessation counseling CV *PAD -day 0 s/p LLE angiogram, angioplasty, tpa thrombolysis -continue hep drip -monitor vitals for reperfusion syndrome -periheral pulses to be dopplered q 1 h -pain management with IV morphine 4 q 4 hr and dilaudid 2 q 3 h -plan angiogram in the AM -cefazolin IV -IV hydration *L great toe wet gangrene -monitor for healing with reperfusion -abx as above *HTN -hold BP meds to assure adequate perfusion *HLD -Crestor *Possible CHF -bnp 832, possibly attributable to sepsis -TTE Heme *thrombocytosis -continue Hep -may be attributable to infectious process -evaluate further outpatient *macrocytosis -MCV 102.9 -f/u folate, B12 ID: *sepsis -leukocytosis resolved -abx as above -f/u cultures -ID on case GI *GERD -Pepcid 20mg BID FEN LR @ 125 lytes stable NPO pepcid, hep Dispo: We will continue to follow the patient. Thank you for this consultative opportunity. Problem List - Problems (1) Arterial insufficiency Code(s): I77.1 - STRICTURE OF ARTERY (2) CVA (cerebral vascular accident) Code(s): I63.9 - CEREBRAL INFARCTION, UNSPECIFIED Qualifiers: CVA mechanism: unspecified Qualified Code(s): I63.9 - Cerebral infarction, unspecified (3) Left leg weakness Code(s): M62.81 - MUSCLE WEAKNESS (GENERALIZED) (4) PAD (peripheral artery disease) Code(s): I73.9 - PERIPHERAL VASCULAR DISEASE, UNSPECIFIED (5) Critical lower limb ischemia Code(s): I99.8 - OTHER DISORDER OF CIRCULATORY SYSTEM (6) GERD (gastroesophageal reflux disease) Code(s): K21.9 - GASTRO-ESOPHAGEAL REFLUX DISEASE WITHOUT ESOPHAGITIS (7) HTN (hypertension) Code(s): I10 - ESSENTIAL (PRIMARY) HYPERTENSION (8) HLD (hyperlipidemia) Code(s): E78.5 - HYPERLIPIDEMIA, UNSPECIFIED (9) Smoker Code(s): F17.200 - NICOTINE DEPENDENCE, UNSPECIFIED, UNCOMPLICATED Visit type - Emergency Visit Emergency Visit: Yes ED Registration Date: 05/21/17 Care time: The patient presented to the Emergency Department on the above date and was hospitalized for further evaluation of their emergent condition. - New Patient This patient is new to me today: Yes Date on this admission: 05/22/17 - Critical Care Critical Care patient: Yes Total Critical Care Time (in minutes): 35 Critical Care Statement: The care of this patient involved high complexity decision making to prevent further life threatening deterioration of the patient 's condition and/or to evaluate & treat vital organ system(s) failure or risk of failure.
[2017-05-22] MEDS: NICOTINE 14 MG/24 HOURS TOPICAL PATCH TD SCH (22:10)
[2017-05-22] MEDS ORDERED: HYDROmorphone HCL CARPU-JECT 2 MG/1 ML DISP.SYRIN IVPUSH ONE (22:15)
[2017-05-22 22:35] LABS: ANION GAP 8 (8-16); CALCIUM 8.6 mg/dL (8.5-10.1); CO2 23 mmol/L (21-32); CREATININE 0.5 mg/dL (0.7-1.3); GLUCOSE,RANDOM 111 mg/dL (74-106)
[2017-05-23] MEDS: CEFAZOLIN 1 GM in DEXTROSE 5%-WATER - 50 ML IVPB SCH (01:09)
[2017-05-23] MEDS: HYDROmorphone HCL CARPU-JECT 2 MG/1 ML DISP.SYRIN IVPUSH PRN ×7 (03:01→23:42)
[2017-05-23 03:23] LABS: MCH 35.1 pg (25.7-33.7); MCHC 33.9 g/dl (32.0-35.9); MEAN CELL VOLUME 103.5 fl (80-96); PLATELET COUNT 494 K/MM3 (134-434); RDW 14.5 % (11.9-15.9); WHITE BLOOD COUNT 8.4 K/mm3 (4.0-10.0)
[2017-05-23 03:40] LABS: ANION GAP 9 (8-16); CALCIUM 8.2 mg/dL (8.5-10.1); CO2 26 mmol/L (21-32); CREATININE 0.5 mg/dL (0.7-1.3); GLUCOSE,RANDOM 106 mg/dL (74-106)
[2017-05-23] MEDS ORDERED: PT OWN MED DRAWER 7, Y5N ONE ×3 (09:19→21:57)
[2017-05-23] MEDS: FAMOTIDINE 20 MG/50 ML IVPB 50 ML IVPB SCH ×2 (09:26→22:01)
[2017-05-23] MEDS: NICOTINE 14 MG/24 HOURS TOPICAL PATCH TD SCH (09:26)
[2017-05-23] MEDS ORDERED: SODIUM CHLORIDE CVP ONE (09:30)
[2017-05-23] MEDS ORDERED: ALTEPLASE CVP ONE (09:30)
[2017-05-23] MEDS ORDERED: NICOTINE 14 MG/24 HOURS TOPICAL PATCH TD SCH (10:00)
--- NOTE | 2017-05-23 10:41 | PN ---
Progress Note, Physician History of Present Illness: Complains of pain L foot Receiving tPA infusion No fever/ chills R LE erythema resolved Blood c/s ordered yesterday. Not done. - Current Medication List Current Medications: Active Medications Acetaminophen (Tylenol -) 650 mg PO Q4H PRN PRN Reason: PAIN Last Admin: 05/22/17 05:55 Dose: 650 mg Heparin Sodium (Porcine) (Heparin -) 1,000 unit IVPUSH PRN PRN PRN Reason: Heparin Last Admin: 05/21/17 21:44 Dose: 1,000 unit Heparin Sodium (Porcine) (Heparin -) 5,000 unit IVPUSH PRN PRN PRN Reason: Heparin Last Admin: 05/22/17 04:08 Dose: 5,000 unit Hydromorphone HCl (Dilaudid Injection -) 0.5 mg IVPUSH [id number] PRN PRN Reason: PAIN Stop: 05/25/17 15:03 Last Admin: 05/22/17 16:00 Dose: 0.5 mg Hydromorphone HCl (Dilaudid Injection -) 2 mg IVPUSH Q2H PRN PRN Reason: PAIN Last Admin: 05/23/17 09:00 Dose: 2 mg Heparin Sodium (Porcine) 25, (000 unit/ Sodium Chloride) 500 mls @ 10 mls/hr IV TITR KHALIF; 500 UNIT/HR PRN Reason: Protocol Last Admin: 05/22/17 22:07 Dose: Not Given Famotidine/Sodium Chloride (Pepcid 20 Mg Premixed Ivpb -) 50 mls @ 100 mls/hr IVPB BID KHALIF Last Admin: 05/23/17 09:26 Dose: 100 mls/hr Lactated Ringer's (Lactated Ringers Solution) 1,000 mls @ 125 mls/hr IV ASDIR KHALIF Last Admin: 05/22/17 20:15 Dose: Not Given Sodium Chloride (Normal Saline -) 1,000 mls @ 75 mls/hr IV ASDIR KHALIF Last Admin: 05/22/17 20:16 Dose: Not Given Alteplase, Recombinant 20 mg/ (Sodium Chloride) 200 mls @ 20 mls/hr CVP ONCE ONE Stop: 05/23/17 19:29 Cefazolin Sodium (Ancef 1gm Ivpb (Pre-Docked)) 50 mls @ 100 mls/hr IVPB Q8H-IV KHALIF Lorazepam (Ativan Injection -) 0.5 mg IVPUSH DAILY PRN PRN Reason: AGITATION Stop: 05/24/17 10:01 Morphine Sulfate (Morphine Injection -) 4 mg IVPUSH Q4H PRN PRN Reason: PAIN Last Admin: 05/22/17 10:30 Dose: 4 mg Nicotine (Nicoderm Patch -) 14 mg TD DAILY KHALIF Last Admin: 05/23/17 09:26 Dose: 14 mg Rosuvastatin Calcium (Crestor -) 5 mg PO HS [facility] Last Admin: 05/22/17 22:09 Dose: Not Given - Objective Vital Signs: Vital Signs Temperature 98.4 F 05/23/17 06:00 Pulse Rate 100 H 05/23/17 08:00 Respiratory Rate 16 05/23/17 08:10 Blood Pressure 99/60 05/23/17 08:00 O2 Sat by Pulse Oximetry (%) 96 05/22/17 21:00 Constitutional: Yes: No Distress Cardiovascular: Yes: Regular Rate and Rhythm, S1, S2 Respiratory: Yes: CTA Bilaterally Gastrointestinal: Yes: Normal Bowel Sounds, Soft. No: Tenderness Extremities: Yes: Other (decreased swelling R LE. Erythema resolved. + dry gangrene L foot) Labs: CBC, BMP 05/23/17 03:00 05/23/17 03:00 INR, PTT Fibrinogen 565.0 mg/dL (238-498) H D 05/23/17 03:00 Assessment/Plan Gangrene L foot Ischemic L LE Possible cellulitis R LE- improved Continue cefazolin x 24h
[2017-05-23 10:51] LABS: MCH 35.1 pg (25.7-33.7); MCHC 33.5 g/dl (32.0-35.9); MEAN CELL VOLUME 104.7 fl (80-96); MEAN PLT VOLUME 6.9 fl (7.5-11.1); PLATELET COUNT 483 K/MM3 (134-434); RDW 14.2 % (11.9-15.9); WHITE BLOOD COUNT 10.8 K/mm3 (4.0-10.0)
[2017-05-23 11:05] LABS: ANION GAP 10 (8-16); CALCIUM 8.6 mg/dL (8.5-10.1); CO2 26 mmol/L (21-32); CREATININE 0.5 mg/dL (0.7-1.3); GLUCOSE,RANDOM 80 mg/dL (74-106)
[2017-05-23] MEDS: CEFAZOLIN (PRE-DOCKED) 50 ML IVPB SCH ×2 (11:14→18:02)
--- NOTE | 2017-05-23 12:43 | PN ---
Teaching Attending Note Name of Resident: Kylie Suárez ATTENDING PHYSICIAN STATEMENT I saw and evaluated the patient. I reviewed the resident's note and discussed the case with the resident. I agree with the resident's findings and plan as documented. SUBJECTIVE: Patient seen and examined in the ICU. Awake and alert. Some discomfort and tingling in his right foot. No CP or SOB. For repeat imaging today. Intake & Output 05/20/17 05/21/17 05/22/17 05/23/17 23:59 23:59 23:59 23:59 Intake Total 1460 220 Output Total 1220 400 Balance 240 -180 Weight 169 lb 11.2 oz Last Vital Signs Temp Pulse Resp BP Pulse Ox 97.8 F 100 H 16 97/52 96 05/23/17 10:00 05/23/17 12:00 05/23/17 12:00 05/23/17 12:00 05/22/17 21:00 Active Medications Acetaminophen (Tylenol -) 650 mg PO Q4H PRN PRN Reason: PAIN Last Admin: 05/22/17 05:55 Dose: 650 mg Heparin Sodium (Porcine) (Heparin -) 1,000 unit IVPUSH PRN PRN PRN Reason: Heparin Last Admin: 05/21/17 21:44 Dose: 1,000 unit Heparin Sodium (Porcine) (Heparin -) 5,000 unit IVPUSH PRN PRN PRN Reason: Heparin Last Admin: 05/22/17 04:08 Dose: 5,000 unit Hydromorphone HCl (Dilaudid Injection -) 0.5 mg IVPUSH [id number] PRN PRN Reason: PAIN Stop: 05/25/17 15:03 Last Admin: 05/22/17 16:00 Dose: 0.5 mg Hydromorphone HCl (Dilaudid Injection -) 2 mg IVPUSH Q2H PRN PRN Reason: PAIN Last Admin: 05/23/17 11:08 Dose: 2 mg Heparin Sodium (Porcine) 25, (000 unit/ Sodium Chloride) 500 mls @ 10 mls/hr IV TITR KHALIF; 500 UNIT/HR PRN Reason: Protocol Last Admin: 05/22/17 22:07 Dose: Not Given Famotidine/Sodium Chloride (Pepcid 20 Mg Premixed Ivpb -) 50 mls @ 100 mls/hr IVPB BID KHALIF Last Admin: 05/23/17 09:26 Dose: 100 mls/hr Lactated Ringer's (Lactated Ringers Solution) 1,000 mls @ 125 mls/hr IV ASDIR KHALIF Last Admin: 05/22/17 20:15 Dose: Not Given Sodium Chloride (Normal Saline -) 1,000 mls @ 75 mls/hr IV ASDIR KHALIF Last Admin: 05/22/17 20:16 Dose: Not Given Alteplase, Recombinant 20 mg/ (Sodium Chloride) 200 mls @ 20 mls/hr CVP ONCE ONE Stop: 05/23/17 19:29 Last Admin: 05/23/17 11:09 Dose: 20 mls/hr Cefazolin Sodium (Ancef 1gm Ivpb (Pre-Docked)) 50 mls @ 100 mls/hr IVPB Q8H-IV KHALIF Last Admin: 05/23/17 11:14 Dose: 100 mls/hr Lorazepam (Ativan Injection -) 0.5 mg IVPUSH DAILY PRN PRN Reason: AGITATION Stop: 05/24/17 10:01 Morphine Sulfate (Morphine Injection -) 4 mg IVPUSH Q4H PRN PRN Reason: PAIN Last Admin: 05/22/17 10:30 Dose: 4 mg Nicotine (Nicoderm Patch -) 14 mg TD DAILY [facility] Last Admin: 05/23/17 09:26 Dose: 14 mg Rosuvastatin Calcium (Crestor -) 5 mg PO HS [facility] Last Admin: 05/22/17 22:09 Dose: Not Given Constitutional: Yes: NAD Eyes: Yes: WNL HENT: Yes: WNL Neck: Yes: WNL Cardiovascular: Yes: Regular Rate and Rhythm Respiratory: Yes: CTA Bilaterally Gastrointestinal: Yes: Normal Bowel Sounds, Soft Renal/: Yes: WNL Extremities: Yes: Cool (L great toe with ulceration and discoloration. Other toes to LLE are pale. L foot is cool to touch.) Edema: LUE: Trace, RUE: Trace, LLE: Trace, RLE: Trace Wound/Incision: Yes: Reddened Neurological: Yes: WNL, Alert, Oriented ...Motor Strength: WNL Labs: Laboratory Results - last 24 hr 05/22/17 05/22/17 05/22/17 21:30 21:30 21:30 WBC 7.4 RBC 3.53 L Hgb 12.5 Hct 36.8 MCV 104.1 H MCH 35.5 H MCHC 34.1 RDW 14.4 Plt Count 465 H D MPV 7.2 L PTT (Actin FS) Fibrinogen 403.0 Sodium 133 L Potassium 5.0 Chloride 102 Carbon Dioxide 23 Anion Gap 8 BUN 7 D Creatinine 0.5 L D Random Glucose 111 H Calcium 8.6 05/23/17 05/23/17 05/23/17 03:00 03:00 03:00 WBC 8.4 RBC 3.42 L Hgb 12.0 Hct 35.4 MCV 103.5 H MCH 35.1 H MCHC 33.9 RDW 14.5 Plt Count 494 H MPV 7.0 L PTT (Actin FS) 24.3 L D Fibrinogen 565.0 H D Sodium Potassium Chloride Carbon Dioxide Anion Gap BUN Creatinine Random Glucose Calcium 05/23/17 05/23/17 05/23/17 03:00 09:00 09:00 WBC 10.8 H RBC 3.61 L Hgb 12.7 Hct 37.8 MCV 104.7 H MCH 35.1 H MCHC 33.5 RDW 14.2 Plt Count 483 H MPV 6.9 L PTT (Actin FS) Fibrinogen Sodium 135 L 134 L Potassium 4.8 4.9 Chloride 100 98 Carbon Dioxide 26 26 Anion Gap 9 10 BUN 6 L 6 L Creatinine 0.5 L 0.5 L Random Glucose 106 80 D Calcium 8.2 L 8.6 05/23/17 09:00 WBC RBC Hgb Hct MCV MCH MCHC RDW Plt Count MPV PTT (Actin FS) Fibrinogen 582.0 H Sodium Potassium Chloride Carbon Dioxide Anion Gap BUN Creatinine Random Glucose Calcium Assessment/Plan Arterial Thrombosis and critical limb ischemia HTN PVD/PAD Active smoker with L great toe ulcer S/P LLE angiogram, tibial and popliteal artery angioplasty with thrombolysis. -Lyse with TPA at 1mg/hr -Angiogram today -Pain control with Morphine and Dilaudid PRN -Pepcid for GI ppx -Statin therapy -ICU monitoring Dr Taylor Critical care time spent in reviewing chart, evaluating patient and formulating plan - 35 minutes.
[2017-05-23] MEDS ORDERED: LIDOCAINE HCL 1%, 10 MG/ML (20ML VIAL) ONE (14:23)
[2017-05-23] MEDS ORDERED: HEPARIN NA (PORCINE) 5,000 UNITS/ML 1ML VIAL ONE (14:23)
--- NOTE | 2017-05-23 15:19 | PN ---
Physical Exam: SUBJECTIVE: Patient seen and examined in ICU. C/o of mild L great toe tingling/ discomfort, but overall states pain is well controlled. No fever, chills, SOB or chest pain. OBJECTIVE: Vital Signs Period Temp Pulse Resp BP Sys/Castillo Pulse Ox Last 24 Hr 97.8 F-99.3 F 97-116 14-24 97-133/52-90 95-99 Intake & Output 05/20/17 05/21/17 05/22/17 05/23/17 23:59 23:59 23:59 23:59 Intake Total 1460 1460 Output Total 1220 1100 Balance 240 360 Weight 76.975 kg GENERAL: aaox3, nad EYES: sclera anicteric, conjunctiva clear ENT: moist mucous membranes LUNGS: CTAB, no wheezes, no rhonchi, or rales HEART: rrr, normal S1/S2, no murmur, rub or gallop ABDOMEN: Soft, ntnd LOWER EXTREMITIES: L foot cool to touch, L great toe ulcerated/dark discoloration CBC, BMP 05/23/17 09:00 05/23/17 09:00 Ca - 8.6 Hepatic Panel Total Bilirubin 0.5 mg/dL (0.2-1.0) D 05/22/17 06:40 AST 11 U/L (15-37) L 05/22/17 06:40 ALT 21 U/L (12-78) 05/22/17 06:40 Alkaline Phosphatase 98 U/L (45-117) 05/22/17 06:40 Albumin 3.2 g/dl (3.4-5.0) L 05/22/17 06:40 INR, PTT Fibrinogen 582.0 mg/dL (238-498) H 05/23/17 09:00 Active Medications Acetaminophen (Tylenol -) 650 mg PO Q4H PRN PRN Reason: PAIN Last Admin: 05/22/17 05:55 Dose: 650 mg Heparin Sodium (Porcine) (Heparin -) 1,000 unit IVPUSH PRN PRN PRN Reason: Heparin Last Admin: 05/21/17 21:44 Dose: 1,000 unit Heparin Sodium (Porcine) (Heparin -) 5,000 unit IVPUSH PRN PRN PRN Reason: Heparin Last Admin: 05/22/17 04:08 Dose: 5,000 unit Hydromorphone HCl (Dilaudid Injection -) 0.5 mg IVPUSH [id number] PRN PRN Reason: PAIN Stop: 05/25/17 15:03 Last Admin: 05/22/17 16:00 Dose: 0.5 mg Hydromorphone HCl (Dilaudid Injection -) 2 mg IVPUSH Q2H PRN PRN Reason: PAIN Last Admin: 05/23/17 13:08 Dose: 2 mg Heparin Sodium (Porcine) 25, (000 unit/ Sodium Chloride) 500 mls @ 10 mls/hr IV TITR KHALIF; 500 UNIT/HR PRN Reason: Protocol Last Admin: 05/22/17 22:07 Dose: Not Given Famotidine/Sodium Chloride (Pepcid 20 Mg Premixed Ivpb -) 50 mls @ 100 mls/hr IVPB BID KHALIF Last Admin: 05/23/17 09:26 Dose: 100 mls/hr Lactated Ringer's (Lactated Ringers Solution) 1,000 mls @ 125 mls/hr IV ASDIR KHALIF Last Admin: 05/22/17 20:15 Dose: Not Given Sodium Chloride (Normal Saline -) 1,000 mls @ 75 mls/hr IV ASDIR KHALIF Last Admin: 05/22/17 20:16 Dose: Not Given Alteplase, Recombinant 20 mg/ (Sodium Chloride) 200 mls @ 20 mls/hr CVP ONCE ONE Stop: 05/23/17 19:29 Last Admin: 05/23/17 11:09 Dose: 20 mls/hr Cefazolin Sodium (Ancef 1gm Ivpb (Pre-Docked)) 50 mls @ 100 mls/hr IVPB Q8H-IV KHALIF Last Admin: 05/23/17 11:14 Dose: 100 mls/hr Lorazepam (Ativan Injection -) 0.5 mg IVPUSH DAILY PRN PRN Reason: AGITATION Stop: 05/24/17 10:01 Morphine Sulfate (Morphine Injection -) 4 mg IVPUSH Q4H PRN PRN Reason: PAIN Last Admin: 05/22/17 10:30 Dose: 4 mg Nicotine (Nicoderm Patch -) 14 mg TD DAILY [facility] Last Admin: 05/23/17 09:26 Dose: 14 mg Rosuvastatin Calcium (Crestor -) 5 mg PO HS KHALIF Last Admin: 05/22/17 22:09 Dose: Not Given ASSESSMENT/PLAN: 56yo M current smoker with PMH of HTN, PVD/PAD, who presents with LLE critical limb ischemia and L great toe ulcer. CTA with runoff revealed occlusion of L pop artery. Patient POD1 s/p LLE angiogram, tibial and popliteal artery angioplasty with tpa thrombolysis. ICU monitoring for heparin infusion, and plan for LLE angiogram later today. #CV -tPa lysis at 2mg/hr -Monitor for signs of bleeding -doppler peripheral pulses q1h -angiogram later today -Continue crestor for HLD -Hold home BP meds for now #Neuro -morphine and dilaudid prn for pain #Pulm -O2 therapy to maintain SpO2 >90 -cessation counseling #ID -ID consulted -Antibiotics per ID: Cefazolin IV q8h for 24hr --> d/c tomorrow #Heme -f/u folate, B12 #FEN -LR @ 125cc/hr -lytes wnl -NPO #PPX -DVT - on heparin -GI - pepcid 20mg BID #Dispo: continue ICU monitoring FULL code d/w Dr. Claudia Suárez MD PGY-1 Visit type - Emergency Visit Emergency Visit: No - New Patient This patient is new to me today: Yes Date on this admission: 05/23/17 - Critical Care Critical Care patient: Yes Total Critical Care Time (in minutes): 35 Critical Care Statement: The care of this patient involved high complexity decision making to prevent further life threatening deterioration of the patient 's condition and/or to evaluate & treat vital organ system(s) failure or risk of failure.
[2017-05-23] MEDS ORDERED: MIDAZOLAM HCL 2 MG/2 ML SINGLE DOSE VIAL ONE ×4 (15:36→16:22)
[2017-05-23] MEDS ORDERED: PROPOFOL 20 ML ONE ×2 (15:40→16:13)
[2017-05-23] MEDS ORDERED: ceFAZolin SODIUM 1 GM VIAL IVPB ONE (15:44)
--- NOTE | 2017-05-23 16:09 | PN ---
Physical Exam: SUBJECTIVE: Patient seen and examined Patient had angioplasty yesterday. Still receiving alteplase and heparin this am. Thinks the L foot is colder today than it was immediately after the procedure yesterday. OBJECTIVE: Vital Signs Period Temp Pulse Resp BP Sys/Castillo Pulse Ox Last 24 Hr 97.8 F-98.7 F 99-116 14-20 97-127/52-84 96-99 GENERAL: The patient is awake, alert, and fully oriented, in no acute distress. HEAD: Normal with no signs of trauma. EYES: PERRL, extraocular movements intact, sclera anicteric, conjunctiva clear. No ptosis. ENT: Ears normal, nares patent, oropharynx clear without exudates, moist mucous membranes. NECK: Trachea midline, full range of motion, supple. LUNGS: Breath sounds equal, clear to auscultation bilaterally, no wheezes, no crackles, no accessory muscle use. HEART: Regular rate and rhythm, S1, S2 without murmur, rub or gallop. ABDOMEN: Soft, nontender, nondistended, normoactive bowel sounds, no guarding, no rebound, no hepatosplenomegaly, no masses. EXTREMITIES: Ankle swelling resolved bilaterally. No ankle erythema on R. L foot is cold , left big toe is black, and gangrenous more towards the medial aspect, reduced redness on distal aspect of L foot. Equal sensation both lower extremities up to proximal foot then mildly reduced sensation distally on L distal foot compared to R NEUROLOGICAL: No facial droop, power 5/5 UE bilaterally, and LE bilaterally except for limitation of movement of toes on the left. Normal speech, gait not observed. PSYCH: Normal mood, normal affect. Laboratory Results - last 24 hr 05/22/17 05/22/17 05/22/17 21:30 21:30 21:30 WBC 7.4 RBC 3.53 L Hgb 12.5 Hct 36.8 MCV 104.1 H MCH 35.5 H MCHC 34.1 RDW 14.4 Plt Count 465 H D MPV 7.2 L PTT (Actin FS) Fibrinogen 403.0 Sodium 133 L Potassium 5.0 Chloride 102 Carbon Dioxide 23 Anion Gap 8 BUN 7 D Creatinine 0.5 L D Random Glucose 111 H Calcium 8.6 05/23/17 05/23/17 05/23/17 03:00 03:00 03:00 WBC 8.4 RBC 3.42 L Hgb 12.0 Hct 35.4 MCV 103.5 H MCH 35.1 H MCHC 33.9 RDW 14.5 Plt Count 494 H MPV 7.0 L PTT (Actin FS) 24.3 L D Fibrinogen 565.0 H D Sodium Potassium Chloride Carbon Dioxide Anion Gap BUN Creatinine Random Glucose Calcium 05/23/17 05/23/17 05/23/17 03:00 09:00 09:00 WBC 10.8 H RBC 3.61 L Hgb 12.7 Hct 37.8 MCV 104.7 H MCH 35.1 H MCHC 33.5 RDW 14.2 Plt Count 483 H MPV 6.9 L PTT (Actin FS) Fibrinogen Sodium 135 L 134 L Potassium 4.8 4.9 Chloride 100 98 Carbon Dioxide 26 26 Anion Gap 9 10 BUN 6 L 6 L Creatinine 0.5 L 0.5 L Random Glucose 106 80 D Calcium 8.2 L 8.6 05/23/17 09:00 WBC RBC Hgb Hct MCV MCH MCHC RDW Plt Count MPV PTT (Actin FS) Fibrinogen 582.0 H Sodium Potassium Chloride Carbon Dioxide Anion Gap BUN Creatinine Random Glucose Calcium Active Medications Generic Name Dose Route Start Last Admin Trade Name Freq PRN Reason Stop Dose Admin Acetaminophen 650 mg 05/22/17 05:47 05/22/17 05:55 Tylenol - PO 650 mg Q4H PRN Administration PAIN Heparin Sodium (Porcine) 1,000 unit 05/21/17 20:42 05/21/17 21:44 Heparin - IVPUSH 1,000 unit PRN PRN Administration Heparin Heparin Sodium (Porcine) 5,000 unit 05/21/17 20:42 05/22/17 04:08 Heparin - IVPUSH 5,000 unit PRN PRN Administration Heparin Hydromorphone HCl 0.5 mg 05/22/17 15:02 05/22/17 16:00 Dilaudid Injection - IVPUSH 05/25/17 15:03 0.5 mg [id number] PRN Administration PAIN Hydromorphone HCl 2 mg 05/23/17 09:05 05/23/17 13:08 Dilaudid Injection - IVPUSH 2 mg Q2H PRN Administration PAIN Heparin Sodium (Porcine) 25, 500 mls @ 10 mls/hr 05/21/17 20:45 05/22/17 22:07 000 unit/ Sodium Chloride IV Not Given TITR KHALIF Protocol 500 UNIT/HR Famotidine/Sodium Chloride 50 mls @ 100 mls/hr 05/21/17 22:00 05/23/17 09:26 Pepcid 20 Mg Premixed Ivpb - IVPB 100 mls/hr BID KHALIF Administration Lactated Ringer's 1,000 mls @ 125 mls/hr 05/22/17 15:15 05/22/17 20:15 Lactated Ringers Solution IV Not Given ASDIR KHALIF Sodium Chloride 1,000 mls @ 75 mls/hr 05/22/17 16:30 05/22/17 20:16 Normal Saline - IV Not Given ASDIR KHALIF Alteplase, Recombinant 20 mg/ 200 mls @ 20 mls/hr 05/23/17 09:30 05/23/17 11:09 Sodium Chloride CVP 05/23/17 19:29 20 mls/hr ONCE ONE Administration Cefazolin Sodium 50 mls @ 100 mls/hr 05/23/17 09:31 05/23/17 11:14 Ancef 1gm Ivpb (Pre-Docked) IVPB 100 mls/hr Q8H-IV KHALIF Administration Lorazepam 0.5 mg 05/22/17 15:45 Ativan Injection - IVPUSH 05/24/17 10:01 DAILY PRN AGITATION Morphine Sulfate 4 mg 05/21/17 21:56 05/22/17 10:30 Morphine Injection - IVPUSH 4 mg Q4H PRN Administration PAIN Nicotine 14 mg 05/22/17 21:30 05/23/17 09:26 Nicoderm Patch - TD 14 mg DAILY KHALIF Administration Rosuvastatin Calcium 5 mg 05/21/17 22:00 05/22/17 22:09 Crestor - PO Not Given HS KHALIF ASSESSMENT/PLAN: Arterial insufficiency- in a chronic active smoker with critical limb ischemia - Heparin 5,000U bolus given - Heparin drip protocol initiated, 1,000U/hr - with PTT and CBC series - hold Plavix - pain control - zofran-4mg - Per Vascular Surgery- patient had LLE angiogram, popliteal artery stent placement with angioplasty, tibial artery angioplasty with palpation of his pulses -Heparin 2)ischemic L big toe - patient had LLE angiogram, popliteal artery stent placement with angioplasty, tibial artery angioplasty with palpation of his pulses - ID Consult- Dr Son seeing - Continue 1gm ceftriaxone - Pain max 3) Elevated BNP; - bnp 832, - magalie LE edema, patient has been sleeping with legs down because of the pain which may account for the edema - echo 4) possible sepsis - tachycardia, continue to monitor - minimal leukocytosis, lactic acid wnl 5) thrombocytosis - continue Heparin 6) macrocytosis - MCV 102.9 - pt denies etoh use - f/u folate, B12 7) hypercholesterolemia - lipid panel - Crestor 5mg po daily 8) GERD - resume Pepcid 20mg BID 9) Nausea: - Zofran 10) FEN - Fluids: LR @ 42ml/hr - Electrolytes: replete as needed - Nutrition: npo after midnight 10) DVT Prophylaxis - Heparin drip - GI-Pepcid 20mg IVPB Visit type - Emergency Visit Emergency Visit: Yes ED Registration Date: 05/21/17 Care time: The patient presented to the Emergency Department on the above date and was hospitalized for further evaluation of their emergent condition. - New Patient This patient is new to me today: No - Critical Care Critical Care patient: Yes Total Critical Care Time (in minutes): 40 Critical Care Statement: The care of this patient involved high complexity decision making to prevent further life threatening deterioration of the patient 's condition and/or to evaluate & treat vital organ system(s) failure or risk of failure. - Discharge Referral Referred to [facility] No
[2017-05-23] MEDS: SODIUM CHLORIDE 1,000 ML IV SCH (17:00)
[2017-05-23] MEDS: LACTATED RINGERS SOLUTION 1,000 ML IV SCH ×2 (17:00→18:20)
--- NOTE | 2017-05-23 17:07 | OP ---
Operative Note - Note: Operative Date: 05/23/17 Pre-Operative Diagnosis: Left foot ischemia Operation: LLE angiogram, popliteal artery stent placement with angioplasty, tibial artery angioplasty Post-Operative Diagnosis: Same as Pre-op Surgeon: Doug Fernández Anesthesia: Fractional Estimated Blood Loss (mls): 50 Operative Report Dictated: Yes
[2017-05-23] MEDS ORDERED: ONDANSETRON 4 MG/2 ML VIAL IVPUSH PRN (17:09)
[2017-05-23] MEDS ORDERED: HEPARIN NA (PORCINE) 5,000 UNITS/ML 1ML VIAL IVPUSH PRN ×2 (17:09)
[2017-05-23] MEDS ORDERED: PROMETHAZINE HCL 25 MG/1 ML VIAL IVPUSH PRN (17:09)
--- NOTE | 2017-05-23 17:23 | PN ---
Progress Note (short form) - Note Progress Note: Vascular Surgery S/P popliteal artery stent with angioplasty. Palpable PT pulse. Started IV heparin at 1000 units a hour. follow protocol. Will need life long AC. Doug Fernández DO
[2017-05-23] MEDS: HEPARIN INFUSION - 500 ML IVPB SCH (18:05)
[2017-05-23] MEDS ORDERED: HYDROmorphone HCL CARPU-JECT 1 MG/1 ML DISP.SYRIN IVPUSH PRN (18:20)
[2017-05-23] MEDS ORDERED: ACETAMINOPHEN 325 MG TABLET (FP) PO PRN (18:20)
[2017-05-23] MEDS ORDERED: morphine CARPU-JECT 4 MG/1 ML DISP.SYRIN IVPUSH PRN (18:20)
[2017-05-23] MEDS ORDERED: SODIUM CHLORIDE 1,000 ML IV SCH (18:20)
[2017-05-23] MEDS ORDERED: LACTATED RINGERS SOLUTION 1,000 ML IV SCH (19:15)
--- NOTE | 2017-05-23 21:25 | PN ---
Teaching Attending Note Name of Resident: Tracie Almonte ATTENDING PHYSICIAN STATEMENT I saw and evaluated the patient. I reviewed the resident's note and discussed the case with the resident. I agree with the resident's findings and plan as documented. SUBJECTIVE: Patient's left foot feels cooler today . No fever or chills, no shortness of breath. OBJECTIVE: Vital Signs Temperature 97.9 F 05/23/17 18:37 Pulse Rate 91 H 05/23/17 18:37 Respiratory Rate 18 05/23/17 18:37 Blood Pressure 122/80 05/23/17 18:37 O2 Sat by Pulse Oximetry (%) 97 05/23/17 18:37 CBCD WBC 10.8 K/mm3 (4.0-10.0) H 05/23/17 09:00 RBC 3.61 M/mm3 (4.00-5.60) L 05/23/17 09:00 Hgb 12.7 GM/dL (11.7-16.9) 05/23/17 09:00 Hct 37.8 % (35.4-49) 05/23/17 09:00 MCV 104.7 fl (80-96) H 05/23/17 09:00 MCHC 33.5 g/dl (32.0-35.9) 05/23/17 09:00 RDW 14.2 % (11.9-15.9) 05/23/17 09:00 Plt Count 483 K/MM3 (134-434) H 05/23/17 09:00 MPV 6.9 fl (7.5-11.1) L 05/23/17 09:00 CMP Sodium 134 mmol/L (136-145) L 05/23/17 09:00 Potassium 4.9 mmol/L (3.5-5.1) 05/23/17 09:00 Chloride 98 mmol/L (98-107) 05/23/17 09:00 Carbon Dioxide 26 mmol/L (21-32) 05/23/17 09:00 Anion Gap 10 (8-16) 05/23/17 09:00 BUN 6 mg/dL (7-18) L 05/23/17 09:00 Creatinine 0.5 mg/dL (0.7-1.3) L 05/23/17 09:00 Creat Clearance w eGFR > 60 (>60) 05/22/17 06:40 Random Glucose 80 mg/dL (74-106) D 05/23/17 09:00 Calcium 8.6 mg/dL (8.5-10.1) 05/23/17 09:00 Total Bilirubin 0.5 mg/dL (0.2-1.0) D 05/22/17 06:40 AST 11 U/L (15-37) L 05/22/17 06:40 ALT 21 U/L (12-78) 05/22/17 06:40 Alkaline Phosphatase 98 U/L (45-117) 05/22/17 06:40 Total Protein 7.1 g/dl (6.4-8.2) 05/22/17 06:40 Albumin 3.2 g/dl (3.4-5.0) L 05/22/17 06:40 Current Medications Generic Name Dose Route Start Last Admin Trade Name Freq PRN Reason Stop Dose Admin Acetaminophen 650 mg 05/23/17 18:20 Tylenol - PO Q4H PRN PAIN Fentanyl 50 mcg 05/23/17 17:09 Sublimaze Injection - IVPUSH 05/26/17 17:10 [id number] PRN PAIN Heparin Sodium (Porcine) 1,000 unit 05/23/17 17:09 Heparin - IVPUSH PRN PRN Heparin Heparin Sodium (Porcine) 5,000 unit 05/23/17 17:09 Heparin - IVPUSH PRN PRN Heparin Hydromorphone HCl 0.5 mg 05/23/17 18:20 Dilaudid Injection - IVPUSH 05/25/17 15:03 [id number] PRN PAIN Hydromorphone HCl 2 mg 05/23/17 18:20 Dilaudid Injection - IVPUSH Q2H PRN PAIN Heparin Sodium/Dextrose 500 mls @ 20 mls/hr 05/23/17 17:15 05/23/17 18:05 Heparin Infusion - IVPB 20 mls/hr TITR KHALIF Administration Protocol 1,000 UNITS/HR Cefazolin Sodium 50 mls @ 100 mls/hr 05/24/17 02:00 Ancef 1gm Ivpb (Pre-Docked) IVPB Q8H-IV KHALIF Lactated Ringer's 1,000 mls @ 125 mls/hr 05/23/17 18:20 05/23/17 18:20 Lactated Ringers Solution IV 125 mls/hr ASDIR KHALIF Administration Famotidine/Sodium Chloride 50 mls @ 100 mls/hr 05/23/17 22:00 Pepcid 20 Mg Premixed Ivpb - IVPB BID KHALIF Morphine Sulfate 4 mg 05/23/17 18:20 Morphine Injection - IVPUSH Q4H PRN PAIN Nicotine 14 mg 05/24/17 10:00 Nicoderm Patch - TD DAILY KHALIF Ondansetron HCl 4 mg 05/23/17 17:09 Zofran Injection IVPUSH 05/23/17 23:10 Q6H PRN NAUSEA AND/OR VOMITING Promethazine HCl 12.5 mg 05/23/17 17:09 Phenergan Injection - IVPUSH 05/23/17 23:10 Q6H PRN NAUSEA-FOR RESCUE AFTER 15 MIN Rosuvastatin Calcium 5 mg 05/23/17 22:00 Crestor - PO HS KHALIF Home Medications Medication Instructions Recorded NK [No Known Home Medication] 05/21/17 Laboratory Tests 05/22/17 05/22/17 06:40 06:40 Vitamin B12 824 D Folate 1159 Folate Hemolysate 444.0 PE: gangerous of left big toe, pulses are palpable, warm extremities R>L, cellulitic changes on the right, left foot feels cooler today rest of PE per Resident's note CTA performed showed occlusion of left popliteal artery. 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 #Acute left lower extrimity Ischemia with hx of active smoking for 40yrs, Patient went back to OR s/p angioplasty. Patient was restarted heparin drip. will continue # Gangrene of left big toe , Antibiotic was stopped by ID s/p angioplasty of left foot. # Tobacco smoking ; discussed with the patient to cease the smoking and patient stated that after this will not smoke any cigarette anymore. # Hx of PAD continue statins #HTN hold BP meds for now # thrombocytosis monitor # Macrocytosis ,b12/folic acid are as above # GERD on Pepcid 20mg BID continue DVT Px: On heparin drip for now
[2017-05-23] MEDS: ROSUVASTATIN CA 5 MG TABLET (FP) PO SCH (22:48)
[2017-05-24] MEDS ORDERED: CEFAZOLIN (PRE-DOCKED) 50 ML IVPB SCH (02:00)
[2017-05-24] MEDS: HYDROmorphone HCL CARPU-JECT 2 MG/1 ML DISP.SYRIN IVPUSH PRN ×6 (04:10→22:00)
[2017-05-24 05:53] LABS: MCH 36.4 pg (25.7-33.7); MCHC 34.9 g/dl (32.0-35.9); MEAN CELL VOLUME 104.1 fl (80-96); MEAN PLT VOLUME 7.2 fl (7.5-11.1); PLATELET COUNT 442 K/MM3 (134-434); RDW 14.3 % (11.9-15.9); WHITE BLOOD COUNT 8.6 K/mm3 (4.0-10.0)
[2017-05-24 06:29] LABS: ALBUMIN 2.3 g/dl (3.4-5.0); ALK PHOS 80 U/L (45-117); ANION GAP 8 (8-16); BILIRUBIN,TOTAL 0.3 mg/dL (0.2-1.0); CALCIUM 7.9 mg/dL (8.5-10.1); CO2 30 mmol/L (21-32); CREATININE 0.5 mg/dL (0.7-1.3); GLUCOSE,RANDOM 98 mg/dL (74-106); MAGNESIUM 1.8 mg/dL (1.8-2.4); PHOSPHOROUS 3.1 mg/dL (2.5-4.9); SGOT/AST 10 U/L (15-37); SGPT/ALT 12 U/L (12-78); TOT PROT 5.4 g/dl (6.4-8.2)
--- NOTE | 2017-05-24 07:25 | PN ---
Progress Note, Physician Chief Complaint: ID S/P LLE angioplasty Still on antibiotic Cefazolin - Current Medication List Current Medications: Active Medications Acetaminophen (Tylenol -) 650 mg PO Q4H PRN PRN Reason: PAIN Fentanyl (Sublimaze Injection -) 50 mcg IVPUSH [id number] PRN PRN Reason: PAIN Stop: 05/26/17 17:10 Heparin Sodium (Porcine) (Heparin -) 1,000 unit IVPUSH PRN PRN PRN Reason: Heparin Heparin Sodium (Porcine) (Heparin -) 5,000 unit IVPUSH PRN PRN PRN Reason: Heparin Hydromorphone HCl (Dilaudid Injection -) 0.5 mg IVPUSH [id number] PRN PRN Reason: PAIN Stop: 05/25/17 15:03 Hydromorphone HCl (Dilaudid Injection -) 2 mg IVPUSH Q2H PRN PRN Reason: PAIN Last Admin: 05/24/17 04:10 Dose: 2 mg Heparin Sodium/Dextrose (Heparin Infusion -) 500 mls @ 20 mls/hr IVPB TITR KHALIF ; 1,000 UNITS/HR PRN Reason: Protocol Last Admin: 05/23/17 18:05 Dose: 20 mls/hr Cefazolin Sodium (Ancef 1gm Ivpb (Pre-Docked)) 50 mls @ 100 mls/hr IVPB Q8H-IV KHALIF Last Admin: 05/24/17 02:00 Dose: 100 mls/hr Lactated Ringer's (Lactated Ringers Solution) 1,000 mls @ 125 mls/hr IV ASDIR KHALIF Last Admin: 05/23/17 18:20 Dose: 125 mls/hr Famotidine/Sodium Chloride (Pepcid 20 Mg Premixed Ivpb -) 50 mls @ 100 mls/hr IVPB BID KHALIF Last Admin: 05/23/17 22:01 Dose: 100 mls/hr Morphine Sulfate (Morphine Injection -) 4 mg IVPUSH Q4H PRN PRN Reason: PAIN Nicotine (Nicoderm Patch -) 14 mg TD DAILY KHALIF Rosuvastatin Calcium (Crestor -) 5 mg PO HS KHALIF Last Admin: 05/23/17 22:48 Dose: 5 mg - Objective Vital Signs: Vital Signs Temperature 98.4 F 05/24/17 06:00 Pulse Rate 88 05/24/17 06:00 Respiratory Rate 16 05/24/17 06:00 Blood Pressure 136/78 05/24/17 06:00 O2 Sat by Pulse Oximetry (%) 97 05/23/17 21:00 Constitutional: Yes: No Distress Neck: Yes: WNL, Supple Cardiovascular: Yes: Regular Rate and Rhythm, S1, S2. No: Murmur Respiratory: Yes: WNL, Regular, CTA Bilaterally Gastrointestinal: Yes: WNL, Normal Bowel Sounds, Soft. No: Tenderness Extremities: Yes: Other (Gangrene great toe LLE erythema foot) Labs: CBC, BMP 05/24/17 05:00 05/24/17 05:00 INR, PTT Fibrinogen 582.0 mg/dL (238-498) H 05/23/17 09:00 Assessment/Plan Laboratory Tests 05/24/17 05/24/17 05:00 05:00 WBC 8.6 RBC 3.20 L Plt Count 442 H BUN 6 L Creatinine 0.5 L Creat Clearance w eGFR > 60 Assessment Vascular insufficiency post angioplasty Dr Fernández 05/22 Plan NO reason now to continue antibiotic will stop Kelsey DAO
[2017-05-24 08:07] LABS: HEMATOCRIT 38.3 % (37.5-51.0)
--- NOTE | 2017-05-24 09:23 | PN ---
Progress Note (short form) - Note Progress Note: PULM/CCM SUBJECTIVE: Patient seen and examined in the ICU. -S/p tPA -improved exam, doppler -pain controlled -cefzolin d/c by ID -sub therapeutic heparin, being uptitrated now Active Medications Acetaminophen (Tylenol -) 650 mg PO Q4H PRN PRN Reason: PAIN Fentanyl (Sublimaze Injection -) 50 mcg IVPUSH [id number] PRN PRN Reason: PAIN Stop: 05/26/17 17:10 Heparin Sodium (Porcine) (Heparin -) 1,000 unit IVPUSH PRN PRN PRN Reason: Heparin Heparin Sodium (Porcine) (Heparin -) 5,000 unit IVPUSH PRN PRN PRN Reason: Heparin Hydromorphone HCl (Dilaudid Injection -) 0.5 mg IVPUSH [id number] PRN PRN Reason: PAIN Stop: 05/25/17 15:03 Hydromorphone HCl (Dilaudid Injection -) 2 mg IVPUSH Q2H PRN PRN Reason: PAIN Last Admin: 05/24/17 07:19 Dose: 2 mg Heparin Sodium/Dextrose (Heparin Infusion -) 500 mls @ 20 mls/hr IVPB TITR KHALIF ; 1,000 UNITS/HR PRN Reason: Protocol Last Admin: 05/23/17 18:05 Dose: 20 mls/hr Lactated Ringer's (Lactated Ringers Solution) 1,000 mls @ 125 mls/hr IV ASDIR [facility] Last Admin: 05/23/17 18:20 Dose: 125 mls/hr Famotidine/Sodium Chloride (Pepcid 20 Mg Premixed Ivpb -) 50 mls @ 100 mls/hr IVPB BID [facility] Last Admin: 05/23/17 22:01 Dose: 100 mls/hr Morphine Sulfate (Morphine Injection -) 4 mg IVPUSH Q4H PRN PRN Reason: PAIN Nicotine (Nicoderm Patch -) 14 mg TD DAILY [facility] Rosuvastatin Calcium (Crestor -) 5 mg PO HS [facility] Last Admin: 05/23/17 22:48 Dose: 5 mg Constitutional: Yes: NAD Eyes: Yes: WNL HENT: Yes: WNL Neck: Yes: WNL Cardiovascular: Yes: Regular Rate and Rhythm Respiratory: Yes: CTA Bilaterally Gastrointestinal: Yes: Normal Bowel Sounds, Soft Renal/: Yes: WNL Extremities: Yes: L Warm, DP present, pink, L great toe with ulceration and necrotic tissue Edema: LUE: Trace, RUE: Trace, LLE: Trace, RLE: Trace Wound/Incision: Yes: Reddened Neurological: Yes: WNL, Alert, Oriented, pain controlled ...Motor Strength: WNL Labs: Assessment/Plan Arterial Thrombosis and critical limb ischemia, resolved HTN PVD/PAD Active smoker with L great toe ulcer S/P LLE angiogram, tibial and popliteal artery angioplasty s/p tPA thrombolysis. -heparin gtt for full therapeutic, transition to oral agent once clear no further re-op -cont reg doppler exam -Pain control with Morphine and Dilaudid PRN -Pepcid for GI ppx -Statin therapy -ok for med surg Omer Nichols ACNP [id number]
--- NOTE | 2017-05-24 09:41 | PN ---
Progress Note, Physician Chief Complaint: Pt. comfortable, pain controlled, no anesthesia complaints. - Current Medication List Current Medications: Active Medications Acetaminophen (Tylenol -) 650 mg PO Q4H PRN PRN Reason: PAIN Fentanyl (Sublimaze Injection -) 50 mcg IVPUSH [id number] PRN PRN Reason: PAIN Stop: 05/26/17 17:10 Heparin Sodium (Porcine) (Heparin -) 1,000 unit IVPUSH PRN PRN PRN Reason: Heparin Heparin Sodium (Porcine) (Heparin -) 5,000 unit IVPUSH PRN PRN PRN Reason: Heparin Hydromorphone HCl (Dilaudid Injection -) 0.5 mg IVPUSH [id number] PRN PRN Reason: PAIN Stop: 05/25/17 15:03 Hydromorphone HCl (Dilaudid Injection -) 2 mg IVPUSH Q2H PRN PRN Reason: PAIN Last Admin: 05/24/17 07:19 Dose: 2 mg Heparin Sodium/Dextrose (Heparin Infusion -) 500 mls @ 20 mls/hr IVPB TITR KHALIF ; 1,000 UNITS/HR PRN Reason: Protocol Last Admin: 05/23/17 18:05 Dose: 20 mls/hr Lactated Ringer's (Lactated Ringers Solution) 1,000 mls @ 125 mls/hr IV ASDIR KHALIF Last Admin: 05/23/17 18:20 Dose: 125 mls/hr Famotidine/Sodium Chloride (Pepcid 20 Mg Premixed Ivpb -) 50 mls @ 100 mls/hr IVPB BID KHALIF Last Admin: 05/23/17 22:01 Dose: 100 mls/hr Morphine Sulfate (Morphine Injection -) 4 mg IVPUSH Q4H PRN PRN Reason: PAIN Nicotine (Nicoderm Patch -) 14 mg TD DAILY KHALIF Rosuvastatin Calcium (Crestor -) 5 mg PO HS [facility] [place] Last Admin: 05/23/17 22:48 Dose: 5 mg - Objective Vital Signs: Vital Signs Temperature 98.4 F 05/24/17 06:00 Pulse Rate 88 05/24/17 06:00 Respiratory Rate 16 05/24/17 09:00 Blood Pressure 136/78 05/24/17 06:00 O2 Sat by Pulse Oximetry (%) 97 05/23/17 21:00 Constitutional: Yes: Well Nourished, No Distress, Calm Neurological: Yes: WNL, Alert, Oriented Labs: CBC, BMP 05/24/17 05:00 05/24/17 05:00 INR, PTT Fibrinogen 582.0 mg/dL (238-498) H 05/23/17 09:00 Assessment/Plan POD#1 s/p angiogram/angioplasty of left leg. Doing well. D/C from anesthesia care.
[2017-05-24] MEDS ORDERED: PT OWN MED DRAWER 7, Y5N ONE (10:04)
[2017-05-24] MEDS: NICOTINE 14 MG/24 HOURS TOPICAL PATCH TD SCH (10:05)
[2017-05-24] MEDS: FAMOTIDINE 20 MG/50 ML IVPB 50 ML IVPB SCH ×2 (10:05→21:25)
--- NOTE | 2017-05-24 10:30 | PN ---
Physical Exam: SUBJECTIVE: Patient seen and examined Patient is feeling better post procedure. No fever or chills, no shortness of breath. OBJECTIVE: Vital Signs Temperature 98.4 F 05/24/17 06:00 Pulse Rate 88 05/24/17 06:00 Respiratory Rate 16 05/24/17 09:00 Blood Pressure 136/78 05/24/17 06:00 O2 Sat by Pulse Oximetry (%) 97 05/23/17 21:00 GENERAL: The patient is awake, alert, and fully oriented, in no acute distress. HEAD: Normal with no signs of trauma. EYES: PERRL, extraocular movements intact, sclera anicteric, conjunctiva clear. ENT: Ears normal, oropharynx clear without exudates, moist mucous membranes. NECK: Trachea midline, full range of motion, supple. LUNGS: Breath sounds equal, clear to auscultation bilaterally, no wheezes, no crackles, no accessory muscle use. HEART: Regular rate and rhythm, S1, S2 without murmur, rub or gallop. ABDOMEN: Soft, nontender, nondistended, normoactive bowel sounds, no guarding, no rebound, no hepatosplenomegaly, no masses. EXTREMITIES: 2+ pulses, warm, well-perfused, no edema. NEUROLOGICAL: Cranial nerves II through XII grossly intact. Normal speech, gait not observed. PSYCH: Normal mood, normal affect. SKIN: Warm, dry, normal turgor, no rashes or lesions noted PE: gangerous of left big and 2nd toe, pulses are palpable, right leg is warm today with palpable pulses . CBCD WBC 8.6 K/mm3 (4.0-10.0) 05/24/17 05:00 RBC 3.20 M/mm3 (4.00-5.60) L 05/24/17 05:00 Hgb 11.6 GM/dL (11.7-16.9) L 05/24/17 05:00 Hct 33.3 % (35.4-49) L 05/24/17 05:00 MCV 104.1 fl (80-96) H 05/24/17 05:00 MCHC 34.9 g/dl (32.0-35.9) 05/24/17 05:00 RDW 14.3 % (11.9-15.9) 05/24/17 05:00 Plt Count 442 K/MM3 (134-434) H 05/24/17 05:00 MPV 7.2 fl (7.5-11.1) L 05/24/17 05:00 CMP Sodium 136 mmol/L (136-145) 05/24/17 05:00 Potassium 4.2 mmol/L (3.5-5.1) 05/24/17 05:00 Chloride 98 mmol/L (98-107) 05/24/17 05:00 Carbon Dioxide 30 mmol/L (21-32) 05/24/17 05:00 Anion Gap 8 (8-16) 05/24/17 05:00 BUN 6 mg/dL (7-18) L 05/24/17 05:00 Creatinine 0.5 mg/dL (0.7-1.3) L 05/24/17 05:00 Creat Clearance w eGFR > 60 (>60) 05/24/17 05:00 Random Glucose 98 mg/dL (74-106) D 05/24/17 05:00 Calcium 7.9 mg/dL (8.5-10.1) L 05/24/17 05:00 Total Bilirubin 0.3 mg/dL (0.2-1.0) D 05/24/17 05:00 AST 10 U/L (15-37) L 05/24/17 05:00 ALT 12 U/L (12-78) D 05/24/17 05:00 Alkaline Phosphatase 80 U/L (45-117) 05/24/17 05:00 Total Protein 5.4 g/dl (6.4-8.2) L D 05/24/17 05:00 Albumin 2.3 g/dl (3.4-5.0) L D 05/24/17 05:00 Active Medications Generic Name Dose Route Start Last Admin Trade Name Freq PRN Reason Stop Dose Admin Acetaminophen 650 mg 05/23/17 18:20 Tylenol - PO Q4H PRN PAIN Fentanyl 50 mcg 05/23/17 17:09 Sublimaze Injection - IVPUSH 05/26/17 17:10 [id number] PRN PAIN Heparin Sodium (Porcine) 1,000 unit 05/23/17 17:09 Heparin - IVPUSH PRN PRN Heparin Heparin Sodium (Porcine) 5,000 unit 05/23/17 17:09 05/24/17 10:01 Heparin - IVPUSH 5,000 unit PRN PRN Administration Heparin Hydromorphone HCl 0.5 mg 05/23/17 18:20 Dilaudid Injection - IVPUSH 05/25/17 15:03 [id number] PRN PAIN Hydromorphone HCl 2 mg 05/23/17 18:20 05/24/17 07:19 Dilaudid Injection - IVPUSH 2 mg Q2H PRN Administration PAIN Heparin Sodium/Dextrose 500 mls @ 20 mls/hr 05/23/17 17:15 05/23/17 18:05 Heparin Infusion - IVPB 20 mls/hr TITR KHALIF Administration Protocol 1,000 UNITS/HR Lactated Ringer's 1,000 mls @ 125 mls/hr 05/23/17 18:20 05/23/17 18:20 Lactated Ringers Solution IV 125 mls/hr ASDIR KHALIF Administration Famotidine/Sodium Chloride 50 mls @ 100 mls/hr 05/23/17 22:00 05/24/17 10:05 Pepcid 20 Mg Premixed Ivpb - IVPB 100 mls/hr BID KHALIF Administration Morphine Sulfate 4 mg 05/23/17 18:20 05/24/17 10:00 Morphine Injection - IVPUSH 4 mg Q4H PRN Administration PAIN Nicotine 14 mg 05/24/17 10:00 05/24/17 10:05 Nicoderm Patch - TD 14 mg DAILY KHALIF Administration Rosuvastatin Calcium 5 mg 05/23/17 22:00 05/23/17 22:48 Crestor - PO 5 mg HS KHALIF Administration Home Medications Medication Instructions Recorded NK [No Known Home Medication] 05/21/17 CTA performed showed occlusion of left popliteal artery. 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 #Acute left lower extremity Ischemia with hx of active smoking for 40yrs, Patient went back to OR s/p angioplasty. Patient was restarted heparin drip by Dr. Fernández further management by vascular surgeon # Gangrene of left big and 2nd toe , Antibiotic was stopped by ID s/p angioplasty of left foot. # Tobacco smoking ; discussed with the patient to cease the smoking and patient stated that after this will not smoke any cigarette anymore. # Hx of PAD continue statins #HTN hold BP meds for now, monitor for now # Macrocytosis ,b12/folic acid level within normal level # GERD on Pepcid 20mg BID continue DVT Px: On heparin drip for now Visit type - Emergency Visit Emergency Visit: Yes ED Registration Date: 05/21/17 Care time: The patient presented to the Emergency Department on the above date and was hospitalized for further evaluation of their emergent condition. - New Patient This patient is new to me today: No - Critical Care Critical Care patient: No
--- NOTE | 2017-05-24 11:33 | PN ---
Progress Note (short form) - Note Progress Note: [facility] Pt seen and examined. Left foot warm, pink. Palpable PT pulse. Motor and sensory intact. Cont iv heparin. start coumadin. Doug hale DO
[2017-05-24 15:17] LABS: INR 1.15 (0.82-1.09); PROTHROMBIN TIME (PATIENT) 12.7 SEC (9.98-11.88)
[2017-05-24] MEDS ORDERED: WARFARIN NA 5 MG TABLET (UD) PO ONE (18:00)
[2017-05-24] MEDS: HEPARIN INFUSION - 500 ML IVPB SCH (18:46)
[2017-05-24] MEDS: LACTATED RINGERS SOLUTION 1,000 ML IV SCH (18:48)
[2017-05-24] MEDS: ROSUVASTATIN CA 5 MG TABLET (FP) PO SCH (21:25)
[2017-05-25] MEDS: HYDROmorphone HCL CARPU-JECT 2 MG/1 ML DISP.SYRIN IVPUSH PRN ×7 (01:39→21:19)
[2017-05-25 06:12] LABS: MCH 35.4 pg (25.7-33.7); MEAN CELL VOLUME 104.1 fl (80-96); MEAN PLT VOLUME 7.2 fl (7.5-11.1); PLATELET COUNT 445 K/MM3 (134-434); RDW 14.4 % (11.9-15.9); WHITE BLOOD COUNT 7.5 K/mm3 (4.0-10.0)
[2017-05-25 06:32] LABS: INR 1.24 (0.82-1.09); PROTHROMBIN TIME (PATIENT) 13.7 SEC (9.98-11.88)
[2017-05-25] MEDS ORDERED: PT OWN MED DRAWER 7, Y5N ONE ×3 (08:49→21:15)
[2017-05-25] MEDS: FAMOTIDINE 20 MG/50 ML IVPB 50 ML IVPB SCH (09:30)
[2017-05-25] MEDS: HEPARIN INFUSION - 500 ML IVPB SCH ×3 (09:36→18:40)
[2017-05-25] MEDS ORDERED: PANTOPRAZOLE 20 MG TABLET (FP) PO SCH (10:00)
--- NOTE | 2017-05-25 10:42 | PN ---
Progress Note, Physician Chief Complaint: Patient feels improved less pain and swelling no fevewr. History of Present Illness: 56 yrs old man smoker H/O CVA and Dyslipedemia admitted with Left Ist and 2nd toe gangrene with acute arterial insufficiency underwent angiplasty currently on AC - Current Medication List Current Medications: Active Medications Acetaminophen (Tylenol -) 650 mg PO Q4H PRN PRN Reason: PAIN Fentanyl (Sublimaze Injection -) 50 mcg IVPUSH [id number] PRN PRN Reason: PAIN Stop: 05/26/17 17:10 Heparin Sodium (Porcine) (Heparin -) 1,000 unit IVPUSH PRN PRN PRN Reason: Heparin Last Admin: 05/25/17 08:51 Dose: 1,000 unit Heparin Sodium (Porcine) (Heparin -) 5,000 unit IVPUSH PRN PRN PRN Reason: Heparin Last Admin: 05/24/17 10:01 Dose: 5,000 unit Hydromorphone HCl (Dilaudid Injection -) 0.5 mg IVPUSH [id number] PRN PRN Reason: PAIN Stop: 05/25/17 15:03 Hydromorphone HCl (Dilaudid Injection -) 2 mg IVPUSH Q2H PRN PRN Reason: PAIN Last Admin: 05/25/17 08:44 Dose: 2 mg Heparin Sodium/Dextrose (Heparin Infusion -) 500 mls @ 20 mls/hr IVPB TITR KHALIF ; 1,000 UNITS/HR PRN Reason: Protocol Last Admin: 05/25/17 09:36 Dose: 27 mls/hr Lactated Ringer's (Lactated Ringers Solution) 1,000 mls @ 125 mls/hr IV ASDIR KHALIF Last Admin: 05/24/17 18:48 Dose: Not Given Morphine Sulfate (Morphine Injection -) 4 mg IVPUSH Q4H PRN PRN Reason: PAIN Last Admin: 05/24/17 10:00 Dose: 4 mg Nicotine (Nicoderm Patch -) 14 mg TD DAILY KHALIF Last Admin: 05/24/17 10:05 Dose: 14 mg Pantoprazole Sodium (Protonix -) 20 mg PO BID KHAL[facility] Rosuvastatin Calcium (Crestor -) 5 mg PO HS [facility] Last Admin: 05/24/17 21:25 Dose: 5 mg - Objective Vital Signs: Vital Signs Temperature 98.9 F 05/25/17 06:00 Pulse Rate 111 H 05/25/17 08:11 Respiratory Rate 20 05/25/17 08:11 Blood Pressure 102/71 05/25/17 08:11 O2 Sat by Pulse Oximetry (%) 97 05/24/17 20:00 Constitutional: Yes: Well Nourished, No Distress Eyes: Yes: WNL, EOM Intact HENT: Yes: WNL, Atraumatic, Normocephalic Neck: Yes: WNL, Supple, Trachea Midline Cardiovascular: Yes: Regular Rate and Rhythm, S1, S2. No: Bruit, JVD, Murmur, Rub Respiratory: Yes: WNL, Regular, CTA Bilaterally Gastrointestinal: Yes: Normal Bowel Sounds, Soft. No: Tenderness, Epigastrium Extremities: Yes: Other (Left Ist and 2nd Toe gangrenous changes Pulses + at marked area) Edema: Yes Edema: LLE: 1+, RLE: 1+ Integumentary: Yes: Other (Rt Foot 1sst and 2nd Toe Gangrenous changes) Labs: CBC, BMP 05/25/17 05:00 05/24/17 05:00 INR, PTT INR 1.24 (0.82-1.09) H 05/25/17 05:00 Fibrinogen 582.0 mg/dL (238-498) H 05/23/17 09:00 Assessment/Plan ASSESSMENT AND PLAN: 56 yrs old man with H/O CVS , smoker admitted with Left LE gangrene s/p angioplasty on Heparin drip 1. Acute left lower extremity Ischemia: S/P angiplast, circulation is improving on Heparin drip and Coumadin overlap cont coumadin 5 mg F/U INR in am. with hx of active smoking for 40yrs, Patient went back to OR s/p angioplasty. Patient was restarted heparin drip by Dr. Fernández further management by vascular surgeon, on Statin 2.Gangrene of Left Ist and 2nd toe: due to ischemia off abx. 3. High MCV: on Thiamine and Folic acid 4. HTN : Off BP meds for now, monitor for now 5. HERD on Famotidine F/U CBC, BMP INR in am
[2017-05-25] MEDS: NICOTINE 14 MG/24 HOURS TOPICAL PATCH TD SCH (11:43)
--- NOTE | 2017-05-25 13:35 | PN ---
Progress Note (short form) - Note Progress Note: PULM / CCM Pt Seen & Examined in the ICU, CA+OX3, ORA, NAD, pt confirms good pain control w / Dilaudid regimen Active Medications Acetaminophen (Tylenol -) 650 mg PO Q4H PRN PRN Reason: PAIN Fentanyl (Sublimaze Injection -) 50 mcg IVPUSH [id number] PRN PRN Reason: PAIN Stop: 05/26/17 17:10 Heparin Sodium (Porcine) (Heparin -) 1,000 unit IVPUSH PRN PRN PRN Reason: Heparin Last Admin: 05/25/17 08:51 Dose: 1,000 unit Heparin Sodium (Porcine) (Heparin -) 5,000 unit IVPUSH PRN PRN PRN Reason: Heparin Last Admin: 05/24/17 10:01 Dose: 5,000 unit Hydromorphone HCl (Dilaudid Injection -) 2 mg IVPUSH Q2H PRN PRN Reason: PAIN Last Admin: 05/25/17 15:11 Dose: 2 mg Heparin Sodium/Dextrose (Heparin Infusion -) 500 mls @ 20 mls/hr IVPB TITR KAHLIF ; 1,000 UNITS/HR PRN Reason: Protocol Last Admin: 05/25/17 11:46 Dose: 27 mls/hr Lactated Ringer's (Lactated Ringers Solution) 1,000 mls @ 125 mls/hr IV ASDIR [facility] Last Admin: 05/24/17 18:48 Dose: Not Given Morphine Sulfate (Morphine Injection -) 4 mg IVPUSH Q4H PRN PRN Reason: PAIN Last Admin: 05/24/17 10:00 Dose: 4 mg Nicotine (Nicoderm Patch -) 14 mg TD DAILY KHALIF Last Admin: 05/25/17 11:43 Dose: 14 mg Pantoprazole Sodium (Protonix -) 20 mg PO BID KHAL[facility] Last Admin: 05/25/17 15:12 Dose: Not Given Rosuvastatin Calcium (Crestor -) 5 mg PO HS [facility] Last Admin: 05/24/17 21:25 Dose: 5 mg V/S Temp 98.3 F 05/25/17 14:21 Pulse 98 H 05/25/17 14:21 Resp 20 05/25/17 14:21 BP 106/73 05/25/17 14:21 Pulse Ox 97 05/24/17 20:00 I's & O's 05/24/17 05/25/17 05/25/17 23:59 11:59 23:59 Intake Total 350 400 461 Output Total 825 1250 375 Balance -475 -850 86 Intake: IV 300 261 heparin drip 300 salien lock 261 IVPB 50 50 Oral 300 50 200 Output: Urine 825 1250 375 Void 825 1250 375 Other: Voiding Method Urinal Urinal Urinal # Unmeasured Voids Void 2 Bowel Movement No No Yes # Bowel Movements 0 0 1 GEN: Middle Aged man sitting upright in bed, C + A, NAD HEENT: PERRL, an-icteric, poor dentition PULM: CTAB CV: nml S1 S2, RR, no m/r/g EXT: Left 1st and 2nd toe w/ obvious gangrene --> L foot otherwise warm & pink w/ palpable PT pulse, motor & sensory intact CBC, BMP 05/25/17 05:00 05/24/17 05:00 MICRO 05/23/17 10:41 Blood - Peripheral Venous Blood Culture - Preliminary NO GROWTH OBTAINED AFTER 48 HOURS, INCUBATION TO CONTINUE FOR 3 DAYS. 05/23/17 10:41 Blood - Peripheral Venous Blood Culture - Preliminary NO GROWTH OBTAINED AFTER 48 HOURS, INCUBATION TO CONTINUE FOR 3 DAYS. RECENT STUDIES TO NOTE: CTA 05/21: L popliteal artery occlusion. ASSESS: -HTN -HL -PVD/PAD -CVA -Active smoker w/ L foot gangrene -S/P LLE angiogram, tibial and popliteal artery angioplasty s/p tPA thrombolysis PLAN: -Cont heparin gtt for full therapeutic -Start Coumadin PO today -Trend L foot doppler exam -Pain control with Morphine and Dilaudid PRN -Pepcid for GI ppx -Statin therapy -Transfer immediately out of the ICU --> med surg Merlin Sue, ACNP-[facility] ICU [id number] PULM / CCM Critical Care Total Critical Care Time (in minutes): 38 Critical Care Statement: The care of this patient involved high complexity decision making to prevent further life threatening deterioration of the patient 's condition and/or to evaluate & treat vital organ system(s) failure or risk of failure.
[2017-05-25] MEDS ORDERED: ACETAMINOPHEN 325 MG TABLET (FP) PO PRN (17:02)
[2017-05-25] MEDS ORDERED: LACTATED RINGERS SOLUTION 1,000 ML IV SCH (17:02)
[2017-05-25] MEDS ORDERED: HEPARIN NA (PORCINE) 5,000 UNITS/ML 1ML VIAL IVPUSH PRN ×4 (17:02)
[2017-05-25] MEDS ORDERED: morphine CARPU-JECT 4 MG/1 ML DISP.SYRIN IVPUSH PRN (17:02)
[2017-05-25] MEDS ORDERED: WARFARIN NA 5 MG TABLET (UD) PO SCH ×2 (18:00)
[2017-05-25] MEDS: PANTOPRAZOLE 20 MG TABLET (FP) PO SCH (21:19)
[2017-05-25] MEDS ORDERED: ROSUVASTATIN CA 5 MG TABLET (FP) PO SCH (22:00)
[2017-05-26] MEDS: HYDROmorphone HCL CARPU-JECT 2 MG/1 ML DISP.SYRIN IVPUSH PRN ×5 (00:23→11:01)
[2017-05-26 05:36] LABS: BASOPHIL 0.9 % (0-2.0); EOSINOPHIL 1.3 % (0-4.5); MCH 35.5 pg (25.7-33.7); MCHC 34.2 g/dl (32.0-35.9); MEAN CELL VOLUME 103.7 fl (80-96); MEAN PLT VOLUME 7.3 fl (7.5-11.1); NEUTROPHILS 62.4 % (42.8-82.8); PLATELET COUNT 460 K/MM3 (134-434); RDW 14.4 % (11.9-15.9); WHITE BLOOD COUNT 8.2 K/mm3 (4.0-10.0)
[2017-05-26 05:44] LABS: INR 2.82 (0.82-1.09); PROTHROMBIN TIME (PATIENT) 31.7 SEC (9.98-11.88)
[2017-05-26 06:06] LABS: ANION GAP 11 (8-16); CALCIUM 8.7 mg/dL (8.5-10.1); CO2 28 mmol/L (21-32); CREATININE 0.5 mg/dL (0.7-1.3); GLUCOSE,RANDOM 103 mg/dL (74-106)
[2017-05-26] MEDS: HEPARIN INFUSION - 500 ML IVPB SCH ×2 (08:03→14:35)
--- NOTE | 2017-05-26 09:14 | PN ---
Progress Note (short form) - Note Progress Note: [facility]scular Surgery Pt seen and examined. Left foot warm, pink. Palpable Pt pulse. Cont IV heparin. Even though InR is 2.8, the jump is inappropriate from 1.24 in one day. Repeat INR to make sure its between 2-3 before we discontinue the IV heparin. Transfer to floor Doug Fernández DO
[2017-05-26] MEDS ORDERED: PT OWN MED DRAWER 7, Y5N ONE ×3 (09:19→21:12)
[2017-05-26] MEDS ORDERED: NICOTINE 14 MG/24 HOURS TOPICAL PATCH TD SCH (10:00)
--- NOTE | 2017-05-26 12:37 | PN ---
Teaching Attending Note Name of Resident: Tracie Almonte ATTENDING PHYSICIAN STATEMENT I saw and evaluated the patient. I reviewed the resident's note and discussed the case with the resident. I agree with the resident's findings and plan as documented. SUBJECTIVE:c/o intermittent L foot pain that is controlled with pain medications. denies CP, SOB, fever, chills, N/V/C/D OBJECTIVE: Last Vital Signs Temp Pulse Resp BP Pulse Ox 98.2 F 94 H 16 104/66 96 05/26/17 10:00 05/26/17 12:16 05/26/17 12:16 05/26/17 12:16 05/26/17 09:46 General NAD CV S1 S2 RRR no murmur/rub/gallop Lungs CTA B/L No wheezing/rales/rhonchi Extremities LLE dry gangrene to 1st and 2nd digit. + Post tibial pulse with doppler. 1+ pitting edema limited to foot. digits and forefoot are tender. RLE warm, non tender +DP pulse with doppler ASSESSMENT AND PLAN: 56 yrs old man with H/O CVS , smoker admitted with Left LE gangrene s/p angioplasty on Heparin drip 1. Acute left lower extremity Ischemia: S/P angioplasty x2 (05/22 and 05/23) on hep ggt. started on coumadin yesterday with INR therapeutic after 1 dose. will reduce coumadin to 2.5mg monitor for bleeding. cont hep ggt for now. vascular surgery on board. OOB to chair. PT evaluation. pain control. on statin 2. Macrocytic anemia- Hgb remains stable. folate and Vit B12 stable. monitor for bleeding. no indicaton for txn 3. HTN- controlled off medicaton. monitor 4. GERD- Famotidine 5. continuous nicotine dependence- counseled on need to stop smoking. nicotine patch 6. DVT ppx- hep- coumadin bridge 7. stable for trasnfer to floors The care of this patient involved high complexity decision making to prevent further life threatening deterioration of the patient's condition and/or to evaluate & treat vital organ system(s) failure or risk of failure. 40 minutes
--- NOTE | 2017-05-26 12:59 | PN ---
Teaching Attending Note Name of Resident: Ronald James ATTENDING PHYSICIAN STATEMENT I saw and evaluated the patient. I reviewed the resident's note and discussed the case with the resident. I agree with the resident's findings and plan as documented. SUBJECTIVE: Patient seen and examined in the ICU. Awake and alert. Some discomfort and tingling in his foot. Appears pink and warm. No CP or SOB. Intake & Output 05/23/17 05/24/17 05/25/17 05/26/17 23:59 23:59 23:59 23:59 Intake Total 1860 1704 1011 374 Output Total 1100 1825 2125 900 Balance 760 -121 -1114 -526 Last Vital Signs Temp Pulse Resp BP Pulse Ox 98.2 F 94 H 16 104/66 96 05/26/17 10:00 05/26/17 12:16 05/26/17 12:16 05/26/17 12:16 05/26/17 09:46 Active Medications Acetaminophen (Tylenol -) 650 mg PO Q4H PRN PRN Reason: PAIN Fentanyl (Sublimaze Injection -) 50 mcg IVPUSH [id number] PRN PRN Reason: PAIN Stop: 05/26/17 17:10 Heparin Sodium (Porcine) (Heparin -) 1,000 unit IVPUSH PRN PRN PRN Reason: Heparin Heparin Sodium (Porcine) (Heparin -) 5,000 unit IVPUSH PRN PRN PRN Reason: Heparin Heparin Sodium/Dextrose (Heparin Infusion -) 500 mls @ 20 mls/hr IVPB TITR KHALIF ; 1,000 UNITS/HR PRN Reason: Protocol Last Admin: 05/26/17 08:03 Dose: 0.54 mls/hr Lactated Ringer's (Lactated Ringers Solution) 1,000 mls @ 125 mls/hr IV ASDIR [facility] Last Admin: 05/25/17 17:47 Dose: Not Given Morphine Sulfate (Morphine Injection -) 4 mg IVPUSH Q4H PRN PRN Reason: PAIN Nicotine (Nicoderm Patch -) 14 mg TD DAILY [facility] Last Admin: 05/26/17 09:20 Dose: 14 mg Pantoprazole Sodium (Protonix -) 20 mg PO BID [facility] Last Admin: 05/25/17 21:19 Dose: 20 mg Rosuvastatin Calcium (Crestor -) 5 mg PO HS [facility] Last Admin: 05/25/17 21:19 Dose: 5 mg Warfarin Sodium (Coumadin -) 2.5 mg PO DAILY@1800 KHAL[facility] Constitutional: Yes: NAD Eyes: Yes: WNL HENT: Yes: WNL Neck: Yes: WNL Cardiovascular: Yes: Regular Rate and Rhythm Respiratory: Yes: CTA Bilaterally Gastrointestinal: Yes: Normal Bowel Sounds, Soft Renal/: Yes: WNL Extremities: Yes: gangrene, other areas are warm/pink Edema: LUE: Trace, RUE: Trace, LLE: Trace, RLE: Trace Wound/Incision: Yes: Reddened Neurological: Yes: WNL, Alert, Oriented ...Motor Strength: WNL Labs: Laboratory Results - last 24 hr 05/25/17 05/26/17 05/26/17 19:30 05:00 05:00 WBC 8.2 RBC 3.45 L Hgb 12.3 Hct 35.8 MCV 103.7 H MCH 35.5 H MCHC 34.2 RDW 14.4 Plt Count 460 H MPV 7.3 L Neutrophils % 62.4 Lymphocytes % 25.4 Monocytes % 10.0 Eosinophils % 1.3 Basophils % 0.9 PT with INR INR PTT (Actin FS) 56.0 H 56.5 H Sodium Potassium Chloride Carbon Dioxide Anion Gap BUN Creatinine Random Glucose Calcium 05/26/17 05/26/17 05:00 05:00 WBC RBC Hgb Hct MCV MCH MCHC RDW Plt Count MPV Neutrophils % Lymphocytes % Monocytes % Eosinophils % Basophils % PT with INR 31.70 H INR 2.82 H D PTT (Actin FS) Sodium 135 L Potassium 4.3 Chloride 96 L Carbon Dioxide 28 Anion Gap 11 BUN 6 L Creatinine 0.5 L Random Glucose 103 Calcium 8.7 Assessment/Plan Arterial Thrombosis and critical limb ischemia HTN PVD/PAD Active smoker with L great toe ulcer S/P LLE angiogram, tibial and popliteal artery angioplasty with thrombolysis. -IV Heparin with Coumadin bridge for at least until tomorrow depending on INR -Pain control -Pepcid for GI ppx -Statin therapy -Floor Dr Taylor
--- NOTE | 2017-05-26 13:06 | PN ---
Physical Exam: SUBJECTIVE: 56 yo M with h/o CVA ( 05/21), HLD, 40 y PPD tobacco use, PAD, s/p left sided tibial/popliteal angioplasty and tPA thrombolysis following 2 weeks of gangrenous left big toe 2/2 arterial insufficiency as confirmed on CTA (05/21) with left popliteal artery occlusion. Overnight no acute events. Patients reports improvement of pain with 4 mg IV Morphine PRN. Endorses ongoing left sided distal extremity burning/tingling. Denies chest pain, fevers/chills, N/V, SOB, consitpation/diahrrea. Tolerating PO intake. OBJECTIVE: Vital Signs Period Temp Pulse Resp BP Sys/Castillo Pulse Ox Last 24 Hr 98.2 F-98.9 F 94-112 16-22 101-130/63-86 96-96 GENERAL: The patient is awake, alert, and fully oriented, in no acute distress. HEAD: Normal with no signs of trauma. NECK: Trachea midline, full range of motion, supple. LUNGS: Breath sounds equal, clear to auscultation bilaterally, no wheezes, no crackles, no accessory muscle use. HEART: Regular rate and rhythm, S1, S2 without murmur, rub or gallop. EXTREMITIES: Palpable 2+ dorsal pedal and posterior tibial pulses BL. 1 + pitting edema BL LE. Left foot is warm and slightly erythematous. Gangrenous color change of 1st and 2nd toes. NEUROLOGICAL: Cranial nerves II through XII grossly intact. Normal speech, gait not observed. PSYCH: Normal mood, normal affect. SKIN: Warm, dry, normal turgor, no rashes or lesions noted Laboratory Results - last 24 hr 05/25/17 05/26/17 05/26/17 19:30 05:00 05:00 WBC 8.2 RBC 3.45 L Hgb 12.3 Hct 35.8 MCV 103.7 H MCH 35.5 H MCHC 34.2 RDW 14.4 Plt Count 460 H MPV 7.3 L Neutrophils % 62.4 Lymphocytes % 25.4 Monocytes % 10.0 Eosinophils % 1.3 Basophils % 0.9 PT with INR INR PTT (Actin FS) 56.0 H 56.5 H Sodium Potassium Chloride Carbon Dioxide Anion Gap BUN Creatinine Random Glucose Calcium 05/26/17 05/26/17 05:00 05:00 WBC RBC Hgb Hct MCV MCH MCHC RDW Plt Count MPV Neutrophils % Lymphocytes % Monocytes % Eosinophils % Basophils % PT with INR 31.70 H INR 2.82 H D PTT (Actin FS) Sodium 135 L Potassium 4.3 Chloride 96 L Carbon Dioxide 28 Anion Gap 11 BUN 6 L Creatinine 0.5 L Random Glucose 103 Calcium 8.7 Active Medications Generic Name Dose Route Start Last Admin Trade Name Freq PRN Reason Stop Dose Admin Acetaminophen 650 mg 05/25/17 17:02 Tylenol - PO Q4H PRN PAIN Fentanyl 50 mcg 05/25/17 17:02 Sublimaze Injection - IVPUSH 05/26/17 17:10 [id number] PRN PAIN Heparin Sodium (Porcine) 1,000 unit 05/25/17 17:02 Heparin - IVPUSH PRN PRN Heparin Heparin Sodium (Porcine) 5,000 unit 05/25/17 17:02 Heparin - IVPUSH PRN PRN Heparin Heparin Sodium/Dextrose 500 mls @ 20 mls/hr 05/25/17 17:02 05/26/17 08:03 Heparin Infusion - IVPB 0.54 mls/hr TITR KHALIF Administration Protocol 1,000 UNITS/HR Lactated Ringer's 1,000 mls @ 125 mls/hr 05/25/17 17:02 05/25/17 17:47 Lactated Ringers Solution IV Not Given ASDIR KHALIF Morphine Sulfate 4 mg 05/25/17 17:02 Morphine Injection - IVPUSH Q4H PRN PAIN Nicotine 14 mg 05/26/17 10:00 05/26/17 09:20 Nicoderm Patch - TD 14 mg DAILY KHALIF Administration Pantoprazole Sodium 20 mg 05/25/17 22:00 05/25/17 21:19 Protonix - PO 20 mg BID KHALIF Administration Rosuvastatin Calcium 5 mg 05/25/17 22:00 05/25/17 21:19 Crestor - PO 5 mg HS KHALIF Administration Warfarin Sodium 2.5 mg 05/26/17 18:00 Coumadin - PO DAILY@1800 [facility] ASSESSMENT/PLAN: ASSESSMENT AND PLAN: 56 yo M with h/o CVA ( 05/21), HLD, 40 y PPD tobacco use, PAD, s/p left sided tibial/popliteal angioplasty and tPA thrombolysis following 2 weeks of gangrenous left big toe 2/2 arterial insufficiency as confirmed on CTA (05/21) with left popliteal artery occlusion. LLE Ischemia: Day 2 left sided tibial/popliteal angioplasty. Patient on hep ggt. Started on Coumadin 2.5 mg PO QD (05/25). Plan: - INR 1.24--> 2.82 ( 05/26 ) - Pain control with Fentanyl 50 mcg Q5, Morphine 4 mg Q4 PRN. Macrocytic anemia: Hgb Stable. Folate and Vit. B12 stable. Plan: - Routine CBC HTN: Hypertension is controlled off of medication. SBP 101-130 Plan: - Continue to monitor BP Tobacco cessation: Patient with h/o ongoing nicotine dependence- Plan: - Cont nicotine patch FEN: IV fluids. Lytes PRN, PO intake Reg Diet PPx: Famotidine, Heparin, Coumadin brideg Dispo: Med/Surg transfer Visit type - Emergency Visit Emergency Visit: Yes ED Registration Date: 05/21/17 Care time: The patient presented to the Emergency Department on the above date and was hospitalized for further evaluation of their emergent condition. - New Patient This patient is new to me today: Yes Date on this admission: 05/26/17 - Critical Care Critical Care patient: Yes Total Critical Care Time (in minutes): 30 Critical Care Statement: The care of this patient involved high complexity decision making to prevent further life threatening deterioration of the patient 's condition and/or to evaluate & treat vital organ system(s) failure or risk of failure.
[2017-05-26] MEDS: PANTOPRAZOLE 20 MG TABLET (FP) PO SCH ×2 (13:10→21:16)
[2017-05-26] MEDS ORDERED: HEPARIN NA (PORCINE) 5,000 UNITS/ML 1ML VIAL IVPUSH PRN ×4 (13:42)
[2017-05-26] MEDS ORDERED: LACTATED RINGERS SOLUTION 1,000 ML IV SCH (13:42)
--- NOTE | 2017-05-26 16:11 | PN ---
Physical Exam: SUBJECTIVE: Patient seen and examined c/o of pain of L foot controlled with pain medication OBJECTIVE: Vital Signs Period Temp Pulse Resp BP Sys/Castillo Pulse Ox Last 24 Hr 97.7 F-98.9 F 94-112 16-22 101-130/63-86 96-96 GENERAL: The patient is awake, alert, and fully oriented, in no acute distress. HEAD: Normal with no signs of trauma. EYES: PERRL, extraocular movements intact, sclera anicteric, conjunctiva clear. No ptosis. ENT: Ears normal, nares patent, oropharynx clear without exudates, moist mucous membranes. NECK: Trachea midline, full range of motion, supple. LUNGS: Breath sounds equal, clear to auscultation bilaterally, no wheezes, no crackles, no accessory muscle use. HEART: Regular rate and rhythm, S1, S2 without murmur, rub or gallop. ABDOMEN: Soft, nontender, nondistended, normoactive bowel sounds, no guarding, no rebound, no hepatosplenomegaly, no masses. EXTREMITIES: Mild ankle swelling resolved bilaterally. No ankle erythema on R. L foot is cold , left big toe is black, and gangrenous more towards the medial aspect, reduced redness on distal aspect of L foot. Equal sensation both lower extremities up to proximal foot then mildly reduced sensation distally on L distal foot compared to R NEUROLOGICAL: No facial droop, power 5/5 UE bilaterally, and LE bilaterally except for limitation of movement of toes on the left. Normal speech, gait not observed. PSYCH: Normal mood, normal affect. Laboratory Results - last 24 hr 05/25/17 05/26/17 05/26/17 19:30 05:00 05:00 WBC 8.2 RBC 3.45 L Hgb 12.3 Hct 35.8 MCV 103.7 H MCH 35.5 H MCHC 34.2 RDW 14.4 Plt Count 460 H MPV 7.3 L Neutrophils % 62.4 Lymphocytes % 25.4 Monocytes % 10.0 Eosinophils % 1.3 Basophils % 0.9 PT with INR INR PTT (Actin FS) 56.0 H 56.5 H Sodium Potassium Chloride Carbon Dioxide Anion Gap BUN Creatinine Random Glucose Calcium 05/26/17 05/26/17 05:00 05:00 WBC RBC Hgb Hct MCV MCH MCHC RDW Plt Count MPV Neutrophils % Lymphocytes % Monocytes % Eosinophils % Basophils % PT with INR 31.70 H INR 2.82 H D PTT (Actin FS) Sodium 135 L Potassium 4.3 Chloride 96 L Carbon Dioxide 28 Anion Gap 11 BUN 6 L Creatinine 0.5 L Random Glucose 103 Calcium 8.7 Active Medications Generic Name Dose Route Start Last Admin Trade Name Freq PRN Reason Stop Dose Admin Acetaminophen 650 mg 05/26/17 13:42 Tylenol - PO Q4H PRN PAIN Fentanyl 50 mcg 05/26/17 13:42 Sublimaze Injection - IVPUSH 05/26/17 17:10 [id number] PRN PAIN Heparin Sodium (Porcine) 5,000 unit 05/26/17 13:42 Heparin - IVPUSH PRN PRN Heparin Heparin Sodium (Porcine) 1,000 unit 05/26/17 13:42 Heparin - IVPUSH PRN PRN Heparin Heparin Sodium/Dextrose 500 mls @ 20 mls/hr 05/26/17 13:42 05/26/17 14:35 Heparin Infusion - IVPB 27 mls/hr TITR [facility] Administration Protocol 1,000 UNITS/HR Morphine Sulfate 4 mg 05/26/17 13:42 Morphine Injection - IVPUSH Q4H PRN PAIN Nicotine 14 mg 05/27/17 10:00 Nicoderm Patch - TD DAILY [facility] Pantoprazole Sodium 20 mg 05/26/17 22:00 Protonix - PO BID KHALIF Rosuvastatin Calcium 5 mg 05/26/17 22:00 Crestor - PO HS [facility] Warfarin Sodium 2.5 mg 05/26/17 18:00 Coumadin - PO DAILY@1800 [facility] ASSESSMENT/PLAN: 56 year old smoker with PMHx of CVA, PAD, HLD, GERD, admitted for ischemia of L foot now s/p angioplasty #Arterial insufficiency- in a chronic active smoker with critical limb ischemia - Heparin IV - per vascular - with PTT and CBC series - pain control - zofran-4mg - coumadin reduced from 5mg to 2.5 because of rapid jump in INR, will continue to bridge with heparin #ischemic L big toe - patient had LLE angiogram, popliteal artery stent placement with angioplasty, tibial artery angioplasty with palpation of his pulses - ID Consult- Dr Son seeing - ceftriaxone completed - Pain management #Elevated BNP; - resolving magalie LE edema, patient has been sleeping with legs down because of the pain which may account for the edema - echo # sepsis : resolved #Hypoxemia: Sating well off oxygen #thrombocytosis - continue Heparin #macrocytosis - MCV 102.9 - pt denies etoh use - f/u folate, B12 #hypercholesterolemia - lipid panel - Crestor 5mg po daily #GERD - resume Pepcid 20mg BID #Nausea:resolved - Zofran # Deconditioning: -PT #Smoker: -Nicotine patch # FEN - Fluids: oral fluids - Electrolytes: replete as needed - Nutrition: regular diet #DVT Prophylaxis:Heparin iv - GI-Pepcid 20mg IVPB #Dispo: Transfer to Med -Surg Visit type - Emergency Visit Emergency Visit: Yes ED Registration Date: 05/21/17 Care time: The patient presented to the Emergency Department on the above date and was hospitalized for further evaluation of their emergent condition. - New Patient This patient is new to me today: No - Critical Care Critical Care patient: No - Discharge Referral [facility] No
[2017-05-26] MEDS: morphine CARPU-JECT 4 MG/1 ML DISP.SYRIN IVPUSH PRN ×2 (17:02→21:15)
[2017-05-26] MEDS ORDERED: WARFARIN NA 2.5 MG TABLET (FP) PO SCH (18:00)
[2017-05-26] MEDS ORDERED: WARFARIN NA 5 MG TABLET (UD) PO SCH (18:00)
[2017-05-26] MEDS: ROSUVASTATIN CA 5 MG TABLET (FP) PO SCH (21:48)
[2017-05-27] MEDS: HEPARIN INFUSION - 500 ML IVPB SCH ×2 (00:34→09:27)
[2017-05-27] MEDS: morphine CARPU-JECT 4 MG/1 ML DISP.SYRIN IVPUSH PRN ×4 (01:14→21:17)
[2017-05-27 06:57] LABS: MCH 34.8 pg (25.7-33.7); MCHC 33.7 g/dl (32.0-35.9); MEAN CELL VOLUME 103.4 fl (80-96); MEAN PLT VOLUME 7.2 fl (7.5-11.1); PLATELET COUNT 535 K/MM3 (134-434); RDW 14.4 % (11.9-15.9); WHITE BLOOD COUNT 10.3 K/mm3 (4.0-10.0)
[2017-05-27 08:04] LABS: ANION GAP 6 (8-16); CALCIUM 9.3 mg/dL (8.5-10.1); CO2 30 mmol/L (21-32); CREATININE 0.7 mg/dL (0.7-1.3); GLUCOSE,RANDOM 103 mg/dL (74-106)
[2017-05-27 08:12] LABS: PROTHROMBIN TIME (PATIENT) 49.1 SEC (9.98-11.88)
[2017-05-27] MEDS ORDERED: DOCUSATE SODIUM 100 MG CAPSULE (FP) PO PRN (08:30)
[2017-05-27] MEDS ORDERED: SODIUM CHLORIDE 1,000 ML IV SCH (08:45)
[2017-05-27 08:58] LABS: INR 4.33 (0.82-1.09)
[2017-05-27] MEDS ORDERED: HYDROmorphone HCL 2 MG TABLET ONE ×2 (09:19→13:14)
[2017-05-27] MEDS: PANTOPRAZOLE 20 MG TABLET (FP) PO SCH ×2 (09:26→21:12)
[2017-05-27] MEDS: NICOTINE 14 MG/24 HOURS TOPICAL PATCH TD SCH (09:34)
--- NOTE | 2017-05-27 13:09 | PN ---
Physical Exam: SUBJECTIVE: Patient seen and examined C/o of pain. OBJECTIVE: Vital Signs Period Temp Pulse Resp BP Sys/Castillo Pulse Ox Last 24 Hr 97.7 F-98.6 F 102-114 19-20 106-128/66-78 95-96 GENERAL: The patient is awake, alert, and fully oriented, in no acute distress. HEAD: Normal with no signs of trauma. EYES: PERRL, extraocular movements intact, sclera anicteric, conjunctiva clear. No ptosis. ENT: Ears normal, nares patent, oropharynx clear without exudates, moist mucous membranes. NECK: Trachea midline, full range of motion, supple. LUNGS: Breath sounds equal, clear to auscultation bilaterally, no wheezes, no crackles, no accessory muscle use. HEART: Regular rate and rhythm, S1, S2 without murmur, rub or gallop. ABDOMEN: Soft, nontender, nondistended, normoactive bowel sounds, no guarding, no rebound, no hepatosplenomegaly, no masses. EXTREMITIES: Ankle swelling resolved bilaterally. No ankle erythema on R. L foot is cold , left big toe is black, and gangrenous more towards the medial aspect, reduced redness on distal aspect of L foot. Equal sensation both lower extremities up to proximal foot then mildly reduced sensation distally on L distal foot compared to R. Pulse+ on doppler. NEUROLOGICAL: No facial droop, power 5/5 UE bilaterally, and LE bilaterally except for limitation of movement of toes on the left. Normal speech, gait not observed. PSYCH: Normal mood, normal affect. Laboratory Results - last 24 hr 05/27/17 05/27/17 05/27/17 06:15 06:15 07:45 WBC 10.3 H RBC 3.27 L Hgb 11.4 L Hct 33.9 L MCV 103.4 H MCH 34.8 H MCHC 33.7 RDW 14.4 Plt Count 535 H MPV 7.2 L PT with INR 49.10 H INR 4.33 H* D PTT (Actin FS) 50.0 H Sodium Potassium Chloride Carbon Dioxide Anion Gap BUN Creatinine Random Glucose Calcium 05/27/17 07:45 WBC RBC Hgb Hct MCV MCH MCHC RDW Plt Count MPV PT with INR INR PTT (Actin FS) Sodium 133 L Potassium 4.7 Chloride 97 L Carbon Dioxide 30 Anion Gap 6 L BUN 10 D Creatinine 0.7 D Random Glucose 103 Calcium 9.3 Active Medications Generic Name Dose Route Start Last Admin Trade Name Freq PRN Reason Stop Dose Admin Acetaminophen 650 mg 05/26/17 13:42 Tylenol - PO Q4H PRN PAIN Docusate Sodium 100 mg 05/27/17 08:30 Colace - PO Q8H PRN CONSTIPATION Furosemide 20 mg 05/27/17 12:45 Lasix Injection - IVPUSH DAILY KHALIF Hydromorphone HCl 4 mg 05/27/17 08:30 05/27/17 09:26 Dilaudid - PO 4 mg Q4H PRN Administration PAIN Morphine Sulfate 4 mg 05/26/17 13:42 05/27/17 05:13 Morphine Injection - IVPUSH 4 mg Q4H PRN Administration PAIN Nicotine 14 mg 05/27/17 10:00 05/27/17 09:34 Nicoderm Patch - TD 14 mg DAILY KHALIF Administration Pantoprazole Sodium 20 mg 05/26/17 22:00 05/27/17 09:26 Protonix - PO 20 mg BID KHALIF Administration Rosuvastatin Calcium 5 mg 05/26/17 22:00 05/26/17 21:48 Crestor - PO 5 mg HS KHALIF Administration Warfarin Sodium 2.5 mg 05/26/17 18:00 05/26/17 17:03 Coumadin - PO 2.5 mg DAILY@1800 KHALIF Administration ASSESSMENT/PLAN: A 56 year old smoker with PMHx of CVA, PAD, HLD admitted for Sepsis with ischemia of L great toe now s/p thrombectomy #Sepsis 2/2 to Arterial insufficiency- in a chronic active smoker with ischemic L big toe - Stop heparin drip -Hold warfarin - INR CBC - hold Plavix - pain control- Pain mx consult- Dr Lopez - zofran-4mg - Per Vascular Surgery- s/p thrombectomy - CBC #Intractable pain: Was unable to sleep at night on iv morphine -cont Iv morphine 4mg Q4H -add Tabs dilaudid 4mg Q4H -Consult-Pain Mx Dr Lopez #Smoker -Nicotine patch 14 mg TDS #Tachycardia _Likely secondary to pain -Pain mx -consult sent -Continue dilaudid and morphine for now -Monitor #Hyponatremia: With volume overload- has been on drips for about 5 days -IV lasix 20mg stat #Supratherapeutic on warfarin following heparin bridge - Stop Heparin - Hold warfarin 2.5 mg today to restart at 1mg daily -PT/INR # hypercholesterolemia - lipid panel - Crestor 5mg po daily # GERD - resume Pepcid 20mg BID # Nausea: resolved - Zofran #FEN - Oral fluids - Electrolytes: replete as needed - Nutrition: regular diet # Prophylaxis DVT-warfarin GI-Pepcid 20mg IVPB Visit type - Emergency Visit Emergency Visit: Yes ED Registration Date: 05/21/17 Care time: The patient presented to the Emergency Department on the above date and was hospitalized for further evaluation of their emergent condition. - New Patient This patient is new to me today: No - Critical Care Critical Care patient: No - Discharge Referral Referred to [facility] Med P.C.: No
[2017-05-27] MEDS: FUROSEMIDE 40 MG/4 ML INJECTABLE VIAL IVPUSH SCH (13:19)
[2017-05-27] MEDS ORDERED: HYDROmorphone HCL 2 MG TABLET PO PRN (13:24)
--- NOTE | 2017-05-27 13:24 | PN ---
Teaching Attending Note Name of Resident: Tracie Almonte ATTENDING PHYSICIAN STATEMENT I saw and evaluated the patient. I reviewed the resident's note and discussed the case with the resident. I agree with the resident's findings and plan as documented. SUBJECTIVE:c/o excruciating pain in the foot not relieved with pain medications. not aggravated with anything just sudden onset. no relief with pain medications so far. denies CP, SOB, fever, chills, N/V/C/D OBJECTIVE: Last Vital Signs Temp Pulse Resp BP Pulse Ox 98.2 F 102 H 20 106/73 95 05/27/17 08:46 05/27/17 08:46 05/27/17 10:00 05/27/17 08:46 05/27/17 10:00 General NAD Lungs CTA B/L no wheezing/rales/rhonchi Extremities dry gangrene of 1st and 2nd digit. +tender to light touch DP pulse appreciated with doppler. 2+ pitting edema limited to the foot, no calf tenderness or swelling ASSESSMENT AND PLAN: 56 yrs old man with H/O CVS , smoker admitted with Left LE gangrene s/p angioplasty on Heparin drip 1. Acute left lower extremity Ischemia: S/P angioplasty x2 (05/22 and 05/23) on hep- coumadin bridge. INR supratherapeutic after reduced dose of coumadin will hold tonights dose and repeat tomorrow. adjust coumadin accordingly. d/c hep ggt. OOB to chair. PT assessment. statin therapy. Vascular surgery on board. 2. Intractable foot pain- limited to the foot. likely reperfusion pain but this should be improving at this point. pt also has limited edema. will give lasix 20mg IVP x1 and monitor if improves. toes will eventually require amputation. spoke with surgical PA with no intervention at this time, will start dilaudid for now and monitor for improvement. pain management consult. no calf swelling or tenderness and low concern for DVT. 3. Tachycardia- likley pain induced. will attempt to improve pain control. 4. Macrocytic anemia- Hgb remains stable. folate and Vit B12 stable. monitor for bleeding. no indicaton for txn 5. HTN- controlled off medicaton. monitor 6. GERD- Famotidine 7. continuous nicotine dependence- counseled on need to stop smoking. nicotine patch 8. DVT ppx- coumadin
[2017-05-27] MEDS: ROSUVASTATIN CA 5 MG TABLET (FP) PO SCH (21:12)
--- NOTE | 2017-05-27 22:36 | CONSULT ---
Consult Consult Specialty:: pain medicine Reason for Consultation:: foot pain - History of Present Illness Chief Complaint: foot pain History of Present Illness: 56 yrs old man with H/O CVS , smoker admitted with Left LE gangrene : S/P angioplasty x2 (05/22 and 05/23) The patient reports the morphine IV is helping significantly. He continues to have pain despite recent angioplasty. Pain score 9/10 - Past Medical History [employer]: Yes: CVA Cardio/Vascular: Yes: Hyperlipdemia - Alcohol/Substance Use Hx Alcohol Use: Yes (SOCIAL) - Smoking History Smoking history: Current every day smoker Have you smoked in the past 12 months: Yes Aproximately how many cigarettes per day: 20 Home Medications - Allergies Allergies/Adverse Reactions: Allergies Allergy/AdvReac Type Severity Reaction Status Date / Time No Known Drug Allergies Allergy Verified 05/21/17 11:50 - Home Medications Home Medications: Ambulatory Orders Clopidogrel Bisulfate [Clopidogrel] 75 mg PO DAILY #30 tablet 05/27/17 Ranitidine [Zantac -] 150 mg PO BID #30 tablet 05/27/17 Physical Exam Vital Signs: Vital Signs Temperature 98.2 F 05/27/17 18:00 Pulse Rate 109 H 05/27/17 18:00 Respiratory Rate 22 05/27/17 20:05 Blood Pressure 106/56 05/27/17 18:00 O2 Sat by Pulse Oximetry (%) 96 05/27/17 20:05 Extremities: Yes: Other (left foot pain) Labs: CBC, BMP 05/27/17 06:15 05/27/17 07:45 Assessment/Plan Left foot pain secondary to ischemia/reperfusion 1. Patient is currently on IV morphine which is helping. I would continue with this until there is a outpatient plan. 2. Consider percocet 5/325 q4h PO prn pain when transitioning to orals 3. Bowel regimen 4. Vascular surgery follow up
[2017-05-28] MEDS: morphine CARPU-JECT 4 MG/1 ML DISP.SYRIN IVPUSH PRN ×5 (02:03→23:09)
[2017-05-28 08:08] LABS: EOSINOPHIL 1.8 % (0-4.5); MCH 34.8 pg (25.7-33.7); MCHC 33.9 g/dl (32.0-35.9); MEAN CELL VOLUME 102.9 fl (80-96); PLATELET COUNT 471 K/MM3 (134-434); RDW 14.2 % (11.9-15.9); WHITE BLOOD COUNT 9.3 K/mm3 (4.0-10.0)
[2017-05-28 08:44] LABS: ANION GAP 11 (8-16); CALCIUM 9.7 mg/dL (8.5-10.1); CO2 28 mmol/L (21-32); CREATININE 0.6 mg/dL (0.7-1.3); GLUCOSE,RANDOM 97 mg/dL (74-106); MAGNESIUM 2.4 mg/dL (1.8-2.4)
[2017-05-28 09:28] LABS: INR 2.79 (0.82-1.09); PROTHROMBIN TIME (PATIENT) 31.3 SEC (9.98-11.88)
[2017-05-28] MEDS: FUROSEMIDE 40 MG/4 ML INJECTABLE VIAL IVPUSH SCH (09:39)
[2017-05-28] MEDS: PANTOPRAZOLE 20 MG TABLET (FP) PO SCH ×2 (09:39→21:35)
[2017-05-28] MEDS: NICOTINE 14 MG/24 HOURS TOPICAL PATCH TD SCH (09:39)
--- NOTE | 2017-05-28 13:03 | PN ---
Progress Note (short form) - Note Progress Note: vascular Surgery Pt seen and examined. Doing well Left foot warm to touch. minimal pain. Palpable pulse -- PT Will watch foot as it heals. No need for amputation right now. Please dress foot with dry dressing. physical therapy. Cont AC Doug Fernández DO
[2017-05-28] MEDS: oxyCODONE HCL 5 MG TABLET PO PRN ×2 (14:26→20:30)
[2017-05-28] MEDS: ACETAMINOPHEN 325 MG TABLET (FP) PO PRN ×2 (14:26→20:30)
[2017-05-28] MEDS ORDERED: WARFARIN NA 2 MG TABLET (UD) PO SCH (18:00)
--- NOTE | 2017-05-28 18:10 | PN ---
Physical Exam: SUBJECTIVE: Patient seen and examined Still c/o of pain. Received the morphine around the clock. OBJECTIVE: Vital Signs Period Temp Pulse Resp BP Sys/Castillo Pulse Ox Last 24 Hr 97.6 F-98.1 F 95-110 20-22 115-138/74-75 96-96 GENERAL: The patient is awake, alert, and fully oriented, in mild painful distress. HEAD: Normal with no signs of trauma. NECK: Trachea midline, full range of motion, supple. LUNGS: Breath sounds equal, clear to auscultation bilaterally, no wheezes, no crackles, no accessory muscle use. HEART: Regular rate and rhythm, S1, S2 without murmur, rub or gallop. ABDOMEN: Soft, nontender, nondistended, normoactive bowel sounds, no guarding, no rebound, no hepatosplenomegaly, no masses. EXTREMITIES: Ankle edema on on R. Reduced edema on L foot/ankle. Warm L foot , tender to touch with gangrenous L big toe NEUROLOGICAL: Cranial nerves II through XII grossly intact. Normal speech, gait not observed. PSYCH: Normal mood, normal affect. Laboratory Results - last 24 hr 05/28/17 05/28/17 05/28/17 06:45 06:45 06:45 WBC 9.3 RBC 3.77 L Hgb 13.1 D Hct 38.8 MCV 102.9 H MCH 34.8 H MCHC 33.9 RDW 14.2 Plt Count 471 H MPV 7.0 L Neutrophils % 68.0 Lymphocytes % 17.0 D Monocytes % 12.2 H Eosinophils % 1.8 Basophils % 1.0 PT with INR 31.30 H INR 2.79 H D PTT (Actin FS) 36.9 H Sodium Potassium Chloride Carbon Dioxide Anion Gap BUN Creatinine Random Glucose Calcium Phosphorus Magnesium 05/28/17 06:45 WBC RBC Hgb Hct MCV MCH MCHC RDW Plt Count MPV Neutrophils % Lymphocytes % Monocytes % Eosinophils % Basophils % PT with INR INR PTT (Actin FS) Sodium 133 L Potassium 4.8 Chloride 94 L Carbon Dioxide 28 Anion Gap 11 BUN 14 D Creatinine 0.6 L Random Glucose 97 Calcium 9.7 Phosphorus 5.0 H D Magnesium 2.4 D Active Medications Generic Name Dose Route Start Last Admin Trade Name Freq PRN Reason Stop Dose Admin Acetaminophen 650 mg 05/26/17 13:42 Tylenol - PO Q4H PRN PAIN Acetaminophen 325 mg 05/28/17 11:38 05/28/17 14:26 Tylenol - PO 05/31/17 11:37 325 mg Q4H PRN Administration PAIN Docusate Sodium 100 mg 05/27/17 08:30 Colace - PO Q8H PRN CONSTIPATION Furosemide 20 mg 05/27/17 12:45 05/28/17 09:39 Lasix Injection - IVPUSH 20 mg DAILY KHALIF Administration Morphine Sulfate 4 mg 05/28/17 11:23 05/28/17 16:42 Morphine Injection - IVPUSH 4 mg Q6H PRN Administration PAIN Nicotine 14 mg 05/27/17 10:00 05/28/17 09:39 Nicoderm Patch - TD 14 mg DAILY KHALIF Administration Oxycodone HCl 5 mg 05/28/17 11:38 05/28/17 14:26 Roxicodone - PO 5 mg Q4H PRN Administration PAIN Pantoprazole Sodium 20 mg 05/26/17 22:00 05/28/17 09:39 Protonix - PO 20 mg BID KHALIF Administration Rosuvastatin Calcium 5 mg 05/26/17 22:00 05/27/17 21:12 Crestor - PO 5 mg HS KHALIF Administration Warfarin Sodium 2 mg 05/28/17 18:00 Coumadin - PO DAILY@1800 [facility] ASSESSMENT/PLAN: A 56 year old smoker with PMHx of CVA, PAD, HLD admitted for Sepsis with ischemia of L great toe now s/p thrombectomy #Sepsis 2/2 to Arterial insufficiency- in a chronic active smoker with ischemic L big toe - warfarin 2mg - INR CBC - hold Plavix - pain control - Pain mx per Dr Lopez- - percocet 5/325 q4h PO prn, - continue Morphine 4mg Q6H PRN - zofran-4mg - Podiatry consult- Dr. Simpson #Intractable pain: Improving on morphine, will watch with percocet -cont Iv morphine 4mg Q6H percocet 5/325 q4h PO prn, #Smoker -Nicotine patch 14 mg TDS #Tachycardia _Likely secondary to pain -Will monitor #Hyponatremia: -Will monitor #Supratherapeutic INR -Improved - Resume warfarin 2mg daily -PT/INR # hypercholesterolemia - Crestor 5mg po daily # GERD - resume Pepcid 20mg BID # Nausea: resolved - Zofran #FEN - Oral fluids - Electrolytes: replete as needed - Nutrition: regular diet # Prophylaxis DVT-warfarin GI-Pepcid 20mg IVPB Visit type - Emergency Visit Emergency Visit: Yes ED Registration Date: 05/21/17 Care time: The patient presented to the Emergency Department on the above date and was hospitalized for further evaluation of their emergent condition. - New Patient This patient is new to me today: No - Critical Care Critical Care patient: No - Discharge Referral Referred to [facility] Med P.C.: No
--- NOTE | 2017-05-28 18:24 | PN ---
Teaching Attending Note Name of Resident: Tracie Almonte ATTENDING PHYSICIAN STATEMENT I saw and evaluated the patient. I reviewed the resident's note and discussed the case with the resident. I agree with the resident's findings and plan as documented. SUBJECTIVE: no fever or chills. stil has pain in 1st, and second toes , and to a lesser extent in L foot OBJECTIVE: NAD CV : RRR Lungs : CTAB Ext: L leg circumference is smaller than R . decreased hair on L leg. DP 1+ b /l . PT 2+ b/l . erythema in L foot and lower leg. warm to touch, and has nl range of motion . TTP over foot and severely ovr 1st, 2nd toes which are colored black RLE with 1+ edema ASSESSMENT AND PLAN: 56 y/o man with h/o smoking, CVA , and HTN who presented with L foot pain and was found to have acute arterial insufficiency and a dry gangrene of L foot toes 1- Acute arterial insufficiency and a dry gangrene of L foot toes.Likely atherosclerotic in nature. S/p angioplasty and stent placement Echo with no - cont coumadin , give 2 mg - start percoet q 4 hr, and decrease frequency of morphine - due to persistent pain , will ask Podiatry if amputation will help 2- macrocytic anemia : monitor 3- h/o HTN: not on any meds 4- smoking: counseled - cont nicotine patch 5- Possible dc in 1-2 days. depending on pain control and Podiatry eval
[2017-05-28] MEDS: ROSUVASTATIN CA 5 MG TABLET (FP) PO SCH (21:35)
[2017-05-28] MEDS ORDERED: morphine CARPU-JECT 2 MG/1 ML DISP.SYRIN IVPUSH PRN (23:16)
[2017-05-29] MEDS: oxyCODONE HCL 5 MG TABLET PO PRN ×4 (02:58→21:26)
[2017-05-29] MEDS: ACETAMINOPHEN 325 MG TABLET (FP) PO PRN ×5 (02:58→21:27)
[2017-05-29 07:23] LABS: MCH 34.6 pg (25.7-33.7); MCHC 33.3 g/dl (32.0-35.9); MEAN CELL VOLUME 104.1 fl (80-96); PLATELET COUNT 503 K/MM3 (134-434); RDW 14.1 % (11.9-15.9); WHITE BLOOD COUNT 8.2 K/mm3 (4.0-10.0)
--- NOTE | 2017-05-29 07:24 | OP ---
DATE OF OPERATION: 05/22/2017 PREOPERATIVE DIAGNOSIS: Left lower extremity ischemia. POSTOPERATIVE DIAGNOSIS: Left lower extremity ischemia. PROCEDURE PERFORMED: Aortogram, left lower extremity angiogram, popliteal artery angioplasty, tibial artery angioplasty, thrombolysis. SURGEON: Doug Caban DO ANESTHESIA: Fractional. BLOOD LOSS: 50 mL. INDICATIONS: The patient is a 56-year-old male who came in with a 2-1/2-week history of left foot gangrene of his 1st and 2nd toes, with ischemia. He claims that he was at [facility] with cellulitis of his left foot and was in the hospital for about a week. They treated him with IV antibiotics. He then went home and started to develop discoloration of his toe which started to progress to gangrene. He said that his foot was starting to feel cold, and this probably started about 10 to 15 days ago. He now comes in to [facility], because he does not want to go back to [facility], for evaluation. The patient was examined and the patient's left foot was cool to touch. The patient had motor intact and sensory intact at the time. The patient had a preoperative CTA performed in the emergency room, showing that he has a popliteal artery occlusion and has no runoff beyond the popliteal artery in the left lower extremity. It was decided that he would need a diagnostic angiogram, with intervention. DESCRIPTION OF PROCEDURE: The patient was consented for the procedure, understanding all risks, benefits and alternatives. He was then taken to the operating room. Once in the operating suite, the patient was laid on the operating table in the supine manner. The areas of the right and left groin were prepped and draped in a sterile surgical manner. We then injected 10 mL of lidocaine 1% over the right common femoral artery. We then took our Micropuncture needle and punctured the right common femoral artery. Micropuncture wire was inserted. Micropuncture sheath was inserted. An additional 5-Faroese sheath was inserted. An 0.035 floppy guidewire was inserted into the aorta, followed by an Omni Flush catheter. We then shot an aortogram by hand injection, showing that aorta and iliac arteries were without any disease. We then placed an 0.035 floppy guidewire into the left common femoral artery and our Omni Flush catheter followed. We then shot an angiogram of the left lower extremity, showing that the common femoral artery and the profunda were patent. The SFA was patent. The above-knee popliteal artery down to the below-knee popliteal artery was completely occluded. There was minimal runoff. We could see a hint of the posterior tibial artery at its origin, and there was minimal runoff getting into the foot. At this point we went ahead and placed an 0.035 stiff guidewire into the SFA. We took out our Omni Flush catheter, and went ahead and placed a 6 x 45 Crossover sheath. Then 5000 units of IV heparin was administered to the patient. We then placed a 0.035 Quick-Cross catheter down to the popliteal artery, followed by an 0.035 stiff guidewire, and we were able to selectively cannulate the posterior tibial artery. The wire went in nice and smooth, making us think that there might be thrombosis in the artery and in the whole arterial system below the knee. We were able to place the wire into the posterior tibial artery into the foot. We then exchanged for an 0.014 wire. We then went ahead and ballooned with a 2 x 220 tibial balloon. We then brought the balloon up and exchanged the balloon for a 4 x 10 Ultraverse balloon and ballooned the popliteal artery. Completion angiogram now showed that there was still thrombosis, there was still occlusion below the knee and nothing had opened up. At this point we went ahead and placed a thrombolysis catheter to the above-knee popliteal artery, and then went ahead and ordered tPA. The tPA was ordered so that we can transfuse 1 mg of tPA an hour. We then went ahead and placed a sterile dressing over our catheter site in the right groin. With the tPA perfusing through the catheter and IV heparin perfusing peripherally, the patient was transferred to the intensive care unit. We will monitor the patient on tPA and bring the patient back for a thrombolysis check tomorrow. Total blood loss was 50 mL. The patient was transferred to the ICU in a stable manner. DOUG CABAN DO [id number]
--- NOTE | 2017-05-29 07:32 | OP ---
DATE OF OPERATION: 05/23/2017 PREOPERATIVE DIAGNOSIS: Left foot ischemia. POSTOPERATIVE DIAGNOSIS: Left foot ischemia. PROCEDURE PERFORMED: Left lower extremity angiogram, popliteal artery angioplasty with stent placement, tibial artery angioplasty. SURGEON: Doug Caban DO ANESTHESIA: Fractional. BLOOD LOSS: 50 mL. INDICATIONS: The patient is a 56-year-old male who came in with a 2-week history of left foot ischemia. He was taken to the operating room yesterday, where we found thrombosis of his entire arterial system below the knee, and he was started on tPA thrombolysis. He has now had thrombolysis for probably close to 20 hours, and is brought back now for a thrombolysis check. The patient's left foot is still cool to touch. DESCRIPTION OF PROCEDURE: At this point the patient was consented for the procedure, understanding all risks, benefits and alternatives. He was then brought to the operating room. Once in the operating room, the patient was laid on the operating table in the supine manner. Our thrombolysis catheter was removed. We then went ahead and placed a 0.035 floppy guidewire through our sheath and a Quick-Cross catheter was brought down to the above-knee popliteal artery. We then shot an aortogram of the left lower extremity, showing that there was still sluggish flow in the arterial system and the popliteal artery was still occluded. There was minimal flow in the tibial arteries. At this point we went ahead and placed an 0.035 floppy guidewire into the posterior tibial artery and went ahead and exchanged the wire for an 0.014 wire and performed angioplasty of the tibial artery using a 2.5 x 220 balloon. We were able to place the balloon all the way into the plantar foot and perform angioplasty. We then went ahead and used a 6 x 8 LifeStent and placed the stent across the popliteal artery occlusion, and ballooned that in place using a 5 x 8 balloon. Completion angiogram now showed that the popliteal artery was patent and there was good flow straight into the posterior tibial artery with good outflow into the plantar foot. At this point we examined the foot, and the foot was starting to change color and become nice and pink. The patient had a palpable PT pulse. At this point we bloused the patient another 5000 units of IV heparin and continued the IV heparin drip. We went ahead and removed our sheath, and a StarClose device was deployed in the right common femoral artery. The area was wet and dried, and Dermabond was placed. The patient tolerated the procedure with no complication. The patient was transferred to the PACU in stable condition, with a palpable pulse. DOUG CABAN DO [id number]
[2017-05-29 07:48] LABS: INR 1.77 (0.82-1.09); PROTHROMBIN TIME (PATIENT) 19.7 SEC (9.98-11.88)
[2017-05-29 07:50] LABS: ACTIVATED PTT 32.7 SECONDS (26.9-34.4)
[2017-05-29] MEDS ORDERED: WARFARIN NA 2 MG TABLET (UD) PO ONE (08:00)
[2017-05-29 08:02] LABS: ANION GAP 8 (8-16); CALCIUM 9.8 mg/dL (8.5-10.1); CO2 29 mmol/L (21-32); CREATININE 0.7 mg/dL (0.7-1.3); GLUCOSE,RANDOM 90 mg/dL (74-106); MAGNESIUM 2.6 mg/dL (1.8-2.4); PHOSPHOROUS 4.3 mg/dL (2.5-4.9)
[2017-05-29] MEDS: PANTOPRAZOLE 20 MG TABLET (FP) PO SCH ×2 (08:59→21:27)
[2017-05-29] MEDS: NICOTINE 14 MG/24 HOURS TOPICAL PATCH TD SCH (09:00)
[2017-05-29] MEDS ORDERED: HEPARIN NA (PORCINE) 5,000 UNITS/ML 1ML VIAL IVPUSH ONE (09:15)
[2017-05-29] MEDS ORDERED: HEPARIN NA (PORCINE) 5,000 UNITS/ML 1ML VIAL IVPUSH PRN (09:17)
[2017-05-29] MEDS: HEPARIN - 25,000 UNIT in SODIUM CHLORIDE 495 ML IV SCH (11:30)
--- NOTE | 2017-05-29 12:13 | CONSULT ---
Consult - text type - Consultation Consultation Note: Podiatry Consultation: 56 year old M, active smoker, presented to hospital for admission for acute pain secondary to critical limb ischemia. S/p LLE angio x [address] Fernández. Guarded prognosis for limb salvage given extent of occlusion in LLE. Denies F/V/N/C/SOB/CP. Does have persistent strikethrough pain L foot. Gangrenous changes to hallux and 2nd digit secondary to trauma about 4 weeks ago. PMHx: CVA, HTN, active smoker Meds: noted in chart ALL: NKMA SHARON: L foot: dry gangrenous changes to hallux and 2nd digit. Ischemic blistering to 3rd, 4th digits. Delayed capillary fill to all digits. There is duskiness exhibited to the plantar forefoot. There is mild erythema to the forefoot. There is no purulence, no fluctuance, no streaking cellulitis, no soft tissue crepitus, no signs of active infection. There is significant tenderness to palpation of the entire forefoot. WBC: 8.2 Blood Cx: no growth x 5 days Imp: 56 year old M, active smoker, with L foot gangrenous changes secondary to CLI LLE 1. IV abx per Infectious Disease 2. Discussed case at length with Dr. Fernández. Would like to allow gangrenous changes of the foot to demarcate. Hopefully things will improve now that he had revascularization. I discussed at length with patient guarded prognosis for limb salvage, and the fact he may need trans-metatarsal amputation in the future. He understands and is prepared. 3. Pain control. 4. Vascular management per Dr. Fernández. 5. Thank you for the courtesy of this consultation. Lillian Simpson DPM
[2017-05-29] MEDS ORDERED: oxyCODONE HCL 5 MG TABLET PO ONE (12:45)
[2017-05-29] MEDS ORDERED: ACETAMINOPHEN 325 MG TABLET (FP) PO ONE (12:45)
--- NOTE | 2017-05-29 14:25 | PN ---
Progress Note (short form) - Note Progress Note: VAscular Surgery Pt seen and examined. Left foot is warm. INR is not therapeutic. IV heparin restarted. Coumadin tonight. Palpable PT pulse. Doug Fernández DO
--- NOTE | 2017-05-29 15:41 | PN ---
Teaching Attending Note Name of Resident: Tracie Almonte ATTENDING PHYSICIAN STATEMENT I saw and evaluated the patient. I reviewed the resident's note and discussed the case with the resident. I agree with the resident's findings and plan as documented. SUBJECTIVE: no fever or chills, has improved pain in L foot . OBJECTIVE: NAD CV : RRR Lungs : CTAB Ext: L leg circumference is smaller than R. decreased hair on L leg. DP 1+ b/ l . PT 2+ b/l . erythema in L foot and lower leg improved. warm to touch, and has nl range of motion in ankle , limited in toes . TTP over foot and severely over 1st, 2nd toes which are colored black RLE with 1+ edema ASSESSMENT AND PLAN: 56 y/o man with h/o smoking, CVA , and HTN who presented with L foot pain and was found to have acute arterial insufficiency and a dry gangrene of L foot toes 1- Acute arterial insufficiency and a dry gangrene of L foot toes.Likely atherosclerotic in nature. S/p angioplasty and stent placement - Subtherapeutic INR today. start heparin gtt - coumadin tonight - increase percocet to 2 tab q 4 hr. Dc Morphine - D/W Dr. Fernández and Dr. Simpson 2- Macrocytic anemia: monitor 3- H/o HTN: not on any meds 4- Nicotine dependence - cont nicotine patch Remains HLOC due to subtherapeutic INR in setting of acute ischemia .
[2017-05-29] MEDS ORDERED: WARFARIN NA 2 MG TABLET (UD) PO SCH ×2 (18:00)
[2017-05-29] MEDS ORDERED: WARFARIN NA 3 MG TABLET PO SCH (18:00)
[2017-05-29] MEDS ORDERED: WARFARIN NA 5 MG TABLET (UD) PO SCH (18:00)
[2017-05-29] MEDS: HEPARIN NA (PORCINE) 5,000 UNITS/ML 1ML VIAL IVPUSH PRN (18:32)
[2017-05-29] MEDS ORDERED: PT OWN MED DRAWER 7, Y5N ONE (21:24)
[2017-05-29] MEDS: ROSUVASTATIN CA 5 MG TABLET (FP) PO SCH (21:27)
--- NOTE | 2017-05-29 21:31 | PN ---
Physical Exam: SUBJECTIVE: Patient seen and examined Had less pain overnight, now c/o of itch of left foot OBJECTIVE: Vital Signs Period Temp Pulse Resp BP Sys/Castillo Pulse Ox Last 24 Hr 97.6 F-98.4 F 100-107 20-22 117-121/64-81 97 GENERAL: The patient is awake, alert, and fully oriented, in no acute distress. ENT: moist mucous membranes. LUNGS: Breath sounds equal, clear to auscultation bilaterally, no wheezes, no crackles, no accessory muscle use. HEART: Regular rate and rhythm, S1, S2 without murmur, rub or gallop. ABDOMEN: Soft, nontender, nondistended, normoactive bowel sounds, no guarding, no rebound, no hepatosplenomegaly, no masses. EXTREMITIES: R ankle, slightly erythematous, non pitting edema, non tender. L foot, less hyperemic, non swollen, mild tenderness, palpable dorsales pedis pulse, warm to touch. L big toe gangrene. NEUROLOGICAL: Cranial nerves II through XII grossly intact. Normal speech, gait not observed. PSYCH: Normal mood, normal affect. Laboratory Results - last 24 hr 05/29/17 05/29/17 05/29/17 06:45 06:45 06:45 WBC 8.2 RBC 3.74 L Hgb 13.0 Hct 39.0 MCV 104.1 H MCH 34.6 H MCHC 33.3 RDW 14.1 Plt Count 503 H MPV 7.0 L PT with INR 19.70 H INR 1.77 H D PTT (Actin FS) 32.7 Sodium 132 L Potassium 5.0 Chloride 95 L Carbon Dioxide 29 Anion Gap 8 BUN 18 D Creatinine 0.7 Random Glucose 90 Calcium 9.8 Phosphorus 4.3 Magnesium 2.6 H 05/29/17 17:00 WBC RBC Hgb Hct MCV MCH MCHC RDW Plt Count MPV PT with INR INR PTT (Actin FS) 37.2 H Sodium Potassium Chloride Carbon Dioxide Anion Gap BUN Creatinine Random Glucose Calcium Phosphorus Magnesium Active Medications Generic Name Dose Route Start Last Admin Trade Name Freq PRN Reason Stop Dose Admin Acetaminophen 650 mg 05/26/17 13:42 05/29/17 16:52 Tylenol - PO 650 mg Q4H PRN Administration PAIN Acetaminophen 650 mg 05/29/17 12:14 Tylenol - PO 06/01/17 12:13 Q4H PRN PAIN Docusate Sodium 100 mg 05/27/17 08:30 05/29/17 09:00 Colace - PO 100 mg Q8H PRN Administration CONSTIPATION Heparin Sodium (Porcine) 1,000 unit 05/29/17 09:17 Heparin - IVPUSH PRN PRN Heparin Heparin Sodium (Porcine) 5,000 unit 05/29/17 09:17 05/29/17 18:32 Heparin - IVPUSH 5,000 unit PRN PRN Administration Heparin Heparin Sodium (Porcine) 25, 500 mls @ 20 mls/hr 05/29/17 09:30 05/29/17 18:32 000 unit/ Sodium Chloride IV 1,150 unit/hr TITR KHALIF Titration Protocol 1,000 UNIT/HR Nicotine 14 mg 05/27/17 10:00 05/29/17 09:00 Nicoderm Patch - TD 14 mg DAILY KHALIF Administration Oxycodone HCl 10 mg 05/29/17 12:14 05/29/17 16:52 Roxicodone - PO 10 mg Q4H PRN Administration PAIN LEVEL 6-10 Pantoprazole Sodium 20 mg 05/26/17 22:00 05/29/17 08:59 Protonix - PO 20 mg BID KHALIF Administration Rosuvastatin Calcium 5 mg 05/26/17 22:00 05/28/17 21:35 Crestor - PO 5 mg HS KHALIF Administration Warfarin Sodium 3 mg 05/29/17 18:00 05/29/17 17:55 Coumadin - PO 3 mg DAILY@1800 KHALIF Administration ASSESSMENT/PLAN: A 56 year old smoker with PMHx of CVA, PAD, HLD admitted for Sepsis with ischemia of L great toe now s/p thrombectomy #Sepsis 2/2 to Arterial insufficiency - in a chronic active smoker with ischemic L big toe s/p thrombectomy - warfarin fell off, INR subtherapeuti today - INR CBC - Heparin drip resumed per vascular - To resume 3mg warfarin tomorrow -PTT- heparin protocol #Intractable pain: - percocet 10/650 q4h PO prn, - pain better controlled -Stop Morphine 4mg Q6H PRN #Smoker -Nicotine patch 14 mg TDS #Tachycardia _Likely secondary to pain -Will monitor #Hyponatremia: -Will monitor # INR -Now subtherapeutic - warfarin fell off, INR subtherapeuti today - INR CBC - Heparin drip resumed per vascular - To resume 3mg warfarin tomorrow -PT/INR # hypercholesterolemia - Crestor 5mg po daily # GERD - resume Pepcid 20mg BID # Nausea: resolved - Zofran #FEN - Oral fluids - Electrolytes: replete as needed - Nutrition: regular diet # Prophylaxis DVT-warfarin GI-Tabs pantoprazole #Dispo -For discharge home when therapeutic INR Visit type - Emergency Visit Emergency Visit: Yes ED Registration Date: 05/21/17 Care time: The patient presented to the Emergency Department on the above date and was hospitalized for further evaluation of their emergent condition. - New Patient This patient is new to me today: No - Critical Care Critical Care patient: No - Discharge Referral Referred to [facility] Med P.C.: No
[2017-05-30] MEDS: HEPARIN - 25,000 UNIT in SODIUM CHLORIDE 495 ML IV SCH ×2 (01:20→09:35)
[2017-05-30] MEDS: ACETAMINOPHEN 325 MG TABLET (FP) PO PRN ×5 (01:23→23:36)
[2017-05-30] MEDS: oxyCODONE HCL 5 MG TABLET PO PRN ×5 (01:24→23:35)
[2017-05-30 08:56] LABS: ALBUMIN 2.9 g/dl (3.4-5.0); ANION GAP 6 (8-16); CALCIUM 9.1 mg/dL (8.5-10.1); CO2 28 mmol/L (21-32); CREATININE 0.7 mg/dL (0.7-1.3); GLUCOSE,RANDOM 83 mg/dL (74-106); SGOT/AST 22 U/L (15-37); SGPT/ALT 44 U/L (12-78)
[2017-05-30 08:58] LABS: ALK PHOS 87 U/L (45-117); BILIRUBIN,TOTAL 0.5 mg/dL (0.2-1.0); TOT PROT 6.9 g/dl (6.4-8.2)
[2017-05-30 09:29] LABS: INR 1.67 (0.82-1.09); PROTHROMBIN TIME (PATIENT) 18.6 SEC (9.98-11.88)
[2017-05-30] MEDS ORDERED: PT OWN MED DRAWER 7, Y5N ONE (09:33)
[2017-05-30] MEDS: PANTOPRAZOLE 20 MG TABLET (FP) PO SCH ×2 (10:17→22:07)
[2017-05-30] MEDS: NICOTINE 14 MG/24 HOURS TOPICAL PATCH TD SCH (10:17)
[2017-05-30] MEDS: HEPARIN NA (PORCINE) 5,000 UNITS/ML 1ML VIAL IVPUSH PRN (12:07)
[2017-05-30] MEDS ORDERED: morphine CARPU-JECT 2 MG/1 ML DISP.SYRIN IVPUSH ONE (13:42)
[2017-05-30 13:47] LABS: MCH 34.1 pg (25.7-33.7); MCHC 32.7 g/dl (32.0-35.9); MEAN CELL VOLUME 104.3 fl (80-96); MEAN PLT VOLUME 7.8 fl (7.5-11.1); PLATELET COUNT 491 K/MM3 (134-434); RDW 14.4 % (11.9-15.9); WHITE BLOOD COUNT 7.3 K/mm3 (4.0-10.0)
--- NOTE | 2017-05-30 13:49 | PN ---
Teaching Attending Note Name of Resident: Tracie Almonte ATTENDING PHYSICIAN STATEMENT I saw and evaluated the patient. I reviewed the resident's note and discussed the case with the resident. I agree with the resident's findings and plan as documented. SUBJECTIVE: cont with pain in L toes . no N/V , no fever . reports serosanguinous drainage from under skin of L 2nd toe. OBJECTIVE: NAD CV : RRR Lungs : CTAB Ext: L leg circumference is smaller than R. decreased hair on L leg. DP 1+ b/ l . erythema in L foot and lower leg much improved. warm to touch, and has nl range of motion in ankle , limited in toes . TTP over foot and severely over 1st , 2nd toes which are colored black . possible pus collection under skin at tip of L 3rd and 4th toes with increased tenderness. RLE with 1+ edema ASSESSMENT AND PLAN: 56 y/o man with h/o smoking, CVA , and HTN who presented with L foot pain and was found to have acute arterial insufficiency and a dry gangrene of L foot toes 1- Acute arterial insufficiency and a dry gangrene of L foot toes.Likely atherosclerotic in nature. S/p angioplasty and stent placement today there is a concern on exam for developing infection of the toes. INR is still subtherapeutic - COnt heparin gtt ,and cont with coumadin , give 3 mg today - cont percocet fro pain - will d/w Dr. Fernández and Josephine about the possible developing infection in toes. ? further surgical intervention - will d/w ID about Abx 2- Macrocytic anemia: monitor 3- Nicotine dependence - cont nicotine patch Remains HLOC due to subtherapeutic INR in setting of acute ischemia adn possible infection .
--- NOTE | 2017-05-30 14:33 | PN ---
Progress Note (short form) - Note Progress Note: asked to followup by hospitalist service complaining of severe foot pain no fevers or chills Vital Signs Period Temp Pulse Resp BP Sys/Castillo Pulse Ox Last 24 Hr 98.0 F-98.3 F 97-101 16-20 102-121/56-73 96 left foot is cool dp pulse not palpable first two toes are gangrenous third/fourth toes with ischemic blisters at the tips minimal erythema of the entire foot CBC, BMP 05/30/17 08:00 05/30/17 08:00 Microbiology 05/23/17 10:41 Blood - Peripheral Venous Blood Culture - Final NO GROWTH AFTER 5 DAYS INCUBATION 05/23/17 10:41 Blood - Peripheral Venous Blood Culture - Final NO GROWTH AFTER 5 DAYS INCUBATION a/p ongoing ischemia of the foot, doubt infection d/w Dr Fernández, he will evaluate
[2017-05-30] MEDS ORDERED: HYDROmorphone HCL CARPU-JECT 1 MG/1 ML DISP.SYRIN IVPB PRN (14:42)
--- NOTE | 2017-05-30 14:55 | HOSP ---
Subjective - Review of Symptoms Events since last encounter: Pt seen again. increased amount of pain. L foot is pale, cold and DP is not palpable. PT 1+ . Dr. hale at bedside. make NPO, for angiplasty this evening add dialudid for pain . Heparin gtt dose increased at 12:30 , now he is getting 18/unit/kg after the increase. repeat PTT at 6 pm D/W Dr. hale, will give lovenox after procedure monitor closely Physical Examination Vital Signs: Vital Signs Temperature 98.3 F 05/30/17 08:00 Pulse Rate 101 H 05/30/17 08:00 Respiratory Rate 16 05/30/17 08:00 Blood Pressure 105/56 05/30/17 08:00 O2 Sat by Pulse Oximetry (%) 96 05/29/17 22:00 Labs: CBC, BMP 05/30/17 08:00 05/30/17 08:00
--- NOTE | 2017-05-30 15:20 | PN ---
Progress Note (short form) - Note Progress Note: Vascular Surgery Pt seen and examined. Left foot pale and cool to touch Pt has 1+ PT pulse. Having rest pain. Will watch closely. Will need angiogram later tonight. Doug Fernández DO
--- NOTE | 2017-05-30 15:48 | PN ---
Physical Exam: SUBJECTIVE: Patient seen and examined Patient was seen several times today. In the am, he had improved pain on percocet alone and was seen using the stroller to walk with PT without weight bearing on the foot. This afternoon he was in so much pain, that he received intravenous pain medications and bolus heparin per Dr Fernández in addition to the heparin gtt and he seems to be improving. OBJECTIVE: Vital Signs Period Temp Pulse Resp BP Sys/Castillo Pulse Ox Last 24 Hr 98.0 F-98.3 F 97-101 16-20 102-121/56-73 96 GENERAL: The patient is awake, in mild painful distress. EYES: sclera anicteric, conjunctiva clear. ENT: moist mucous membranes. LUNGS: Breath sounds equal, clear to auscultation bilaterally HEART: Regular rate and rhythm, S1, S2 without murmur. ABDOMEN: Soft, nontender, nondistended, normoactive bowel sounds, no masses. EXTREMITIES: ankle edema on r foot. DP pulse was present with warmth in the am. Pale distal L foot this afternoon, cold really black great and second toe and extremely pale 3rd to 5th, before the heparin bolus. After the heparin bolus the L dorsalis pedis pulse is palpable and the foot is warmer and brighter pink in color. NEUROLOGICAL: Normal speech PSYCH: Normal mood, normal affect. Laboratory Results - last 24 hr 05/29/17 05/29/17 05/30/17 17:00 23:20 08:00 WBC 7.3 RBC 3.58 L Hgb 12.2 Hct 37.3 MCV 104.3 H MCH 34.1 H MCHC 32.7 RDW 14.4 Plt Count 491 H MPV 7.8 D PT with INR INR PTT (Actin FS) 37.2 H 40.8 H Sodium Potassium Chloride Carbon Dioxide Anion Gap BUN Creatinine Creat Clearance w eGFR Random Glucose Calcium Total Bilirubin AST ALT Alkaline Phosphatase Total Protein Albumin 05/30/17 05/30/17 05/30/17 08:00 08:00 08:00 WBC RBC Hgb Hct MCV MCH MCHC RDW Plt Count MPV PT with INR 18.60 H INR 1.67 H PTT (Actin FS) 36.8 H Sodium 133 L Potassium 4.6 Chloride 99 Carbon Dioxide 28 Anion Gap 6 L BUN 14 D Creatinine 0.7 Creat Clearance w eGFR > 60 Random Glucose 83 Calcium 9.1 Total Bilirubin 0.5 D AST 22 D ALT 44 D Alkaline Phosphatase 87 Total Protein 6.9 D Albumin 2.9 L D Active Medications Generic Name Dose Route Start Last Admin Trade Name Freq PRN Reason Stop Dose Admin Acetaminophen 650 mg 05/26/17 13:42 05/30/17 13:48 Tylenol - PO 650 mg Q4H PRN Administration PAIN Acetaminophen 650 mg 05/29/17 12:14 05/30/17 01:23 Tylenol - PO 06/01/17 12:13 650 mg Q4H PRN Administration PAIN Docusate Sodium 100 mg 05/27/17 08:30 05/29/17 09:00 Colace - PO 100 mg Q8H PRN Administration CONSTIPATION Heparin Sodium (Porcine) 1,000 unit 05/29/17 09:17 Heparin - IVPUSH PRN PRN Heparin Heparin Sodium (Porcine) 5,000 unit 05/29/17 09:17 05/30/17 12:07 Heparin - IVPUSH 5,000 unit PRN PRN Administration Heparin Hydromorphone HCl 1 mg 05/30/17 14:42 05/30/17 14:55 Dilaudid Injection - IVPB 1 mg Q3H PRN Administration PAIN Heparin Sodium (Porcine) 25, 500 mls @ 20 mls/hr 05/29/17 09:30 05/30/17 12:14 000 unit/ Sodium Chloride IV 1,400 unit/hr TITR KHALIF Titration Protocol 1,000 UNIT/HR Nicotine 14 mg 05/27/17 10:00 05/30/17 10:17 Nicoderm Patch - TD 14 mg DAILY KHALIF Administration Oxycodone HCl 10 mg 05/29/17 12:14 05/30/17 13:47 Roxicodone - PO 10 mg Q4H PRN Administration PAIN LEVEL 6-10 Pantoprazole Sodium 20 mg 05/26/17 22:00 05/30/17 10:17 Protonix - PO 20 mg BID KHALIF Administration Rosuvastatin Calcium 5 mg 05/26/17 22:00 05/29/17 21:27 Crestor - PO 5 mg HS KHALIF Administration Warfarin Sodium 4 mg 05/30/17 18:00 Coumadin - PO DAILY@1800 [facility] ASSESSMENT/PLAN: A 56 year old smoker with PMHx of CVA, PAD, HLD admitted for Sepsis with ischemia of L great toe now s/p thrombectomy #Sepsis 2/2 to Arterial insufficiency - in a chronic active smoker with ischemic L big toe s/p thrombectomy - Heparin drip contd per vascular - Received bolus heparin after the L foot pain and paleness increased - To resume 4mg warfarin -PTT- heparin protocol -For likely thrombectomy today -per vascular #Intractable pain: - percocet 10/650 q4h PO prn, - pain better controlled - 1mg dilaudid iv Q3H -Oxycodone 10mg PO given #Smoker -Nicotine patch 14 mg TDS #Tachycardia _Likely secondary to pain -Will monitor #Hyponatremia: -Will monitor # INR - warfarin 4mg for today - INR CBC - Heparin drip resumed per vascular - To resume 4mg warfarin tomorrow -PT/INR # hypercholesterolemia - Crestor 5mg po daily # GERD - resume pantoprazole 20mg BID #FEN - Oral fluids - Electrolytes: replete as needed - Nutrition: regular diet # Prophylaxis DVT-warfarin GI-Tabs pantoprazole #Dispo Med Surg Visit type - Emergency Visit Emergency Visit: Yes ED Registration Date: 05/21/17 Care time: The patient presented to the Emergency Department on the above date and was hospitalized for further evaluation of their emergent condition. - New Patient This patient is new to me today: No - Critical Care Critical Care patient: No
[2017-05-30] MEDS ORDERED: HEPARIN NA (PORCINE) 5,000 UNITS/ML 1ML VIAL SQ ONE (16:00)
[2017-05-30] MEDS ORDERED: MIDAZOLAM HCL 2 MG/2 ML SINGLE DOSE VIAL ONE ×2 (17:53→18:30)
[2017-05-30] MEDS ORDERED: LIDOCAINE HCL 1%, 10 MG/ML (20ML VIAL) ONE (17:55)
[2017-05-30] MEDS ORDERED: HEPARIN NA (PORCINE) 5,000 UNITS/ML 1ML VIAL ONE ×2 (17:55→18:46)
[2017-05-30] MEDS ORDERED: WARFARIN NA 2 MG TABLET (UD) PO SCH ×2 (18:00)
[2017-05-30] MEDS ORDERED: ceFAZolin SODIUM 1 GM VIAL IVPB ONE (18:25)
[2017-05-30] MEDS ORDERED: ceFAZolin SODIUM 1 GM VIAL ONE (18:27)
[2017-05-30] MEDS ORDERED: LIDOCAINE HCL 1%, 10 MG/ML (50 mL VIAL) IJ ONE (18:30)
[2017-05-30] MEDS ORDERED: HYDROmorphone HCL/PF 1 MG/ML VIAL (FOR PYXIS CHARGING ONLY) ONE ×2 (18:45→19:24)
--- NOTE | 2017-05-30 19:40 | OP ---
Operative Note - Note: Operative Date: 05/30/17 Pre-Operative Diagnosis: LLE ischemia Operation: Aortogram, LLE angiogram, Tibial artery angioplasty Post-Operative Diagnosis: Same as Pre-op Surgeon: Doug Fernández Anesthesia: Fractional Estimated Blood Loss (mls): 50 Operative Report Dictated: Yes
[2017-05-30] MEDS ORDERED: HEPARIN NA (PORCINE) 5,000 UNITS/ML 1ML VIAL IVPUSH PRN ×2 (19:41)
[2017-05-30] MEDS ORDERED: LACTATED RINGERS SOLUTION 1,000 ML IV SCH (19:45)
[2017-05-30] MEDS ORDERED: HYDROmorphone HCL CARPU-JECT 2 MG/1 ML DISP.SYRIN ONE (19:59)
[2017-05-30] MEDS: HYDROmorphone HCL CARPU-JECT 1 MG/1 ML DISP.SYRIN IVPUSH PRN ×4 (20:00→20:30)
[2017-05-30] MEDS ORDERED: ACETAMINOPHEN 325 MG TABLET (FP) PO PRN (20:04)
[2017-05-30] MEDS ORDERED: DOCUSATE SODIUM 100 MG CAPSULE (FP) PO PRN (20:04)
[2017-05-30] MEDS ORDERED: WARFARIN NA 2 MG TABLET (UD) PO ONE (21:37)
[2017-05-30] MEDS: HEPARIN INFUSION - 500 ML IVPB SCH (22:05)
[2017-05-30] MEDS: ROSUVASTATIN CA 5 MG TABLET (FP) PO SCH (22:07)
--- NOTE | 2017-05-30 22:22 | CONSULT ---
Consult Consult Specialty:: PULM / CCM Referred by:: Dr. Yinka Laurent Reason for Consultation:: LLE ischemia - History of Present Illness Chief Complaint: LLE ischemia History of Present Illness: Mr. Echols is a 56 y/o man w/ HTN, HL, PAD/PVD, active smoker, CVA in the past w/ residual gait defect who presented to the ED on 05/21 w/ 1010 pain to his L great toe. A/p report, the pt's Left foot pain started w/ trauma to the L great toe that was c/b infection requiring hospitalization & IV Abx X 10 Days. CTA showed occlusion of L popliteal artery. On 05/22 the pt underwent L tibial and popliteal artery angioplasty & thrombolysis and was doing well convalescing on the floor in process of Heparin --> Coumadin conversion when L foot suddenly became blue & cold once again. W/u revealed re-occlusion of the LLE Tibial artery. Pt is now s/p Re-Op: LLE Tibial artery angioplasty by Dr. Doug Fernández. 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 - Alcohol/Substance Use Hx Alcohol Use: Yes (SOCIAL) - Smoking History Smoking history: Current every day smoker Have you smoked in the past 12 months: Yes Aproximately how many cigarettes per day: 20 - Social History History of Recent Travel: No Home Medications - Allergies Allergies/Adverse Reactions: Allergies Allergy/AdvReac Type Severity Reaction Status Date / Time No Known Drug Allergies Allergy Verified 05/21/17 11:50 - Home Medications Home Medications: Ambulatory Orders Clopidogrel Bisulfate [Clopidogrel] 75 mg PO DAILY #30 tablet 05/27/17 Ranitidine [Zantac -] 150 mg PO BID #30 tablet 05/27/17 Family Disease History - Family Disease History Family History: Denies Review of Systems - Review of Systems Constitutional: reports: No Symptoms Eyes: reports: No Symptoms HENT: reports: No Symptoms Neck: reports: No Symptoms Cardiovascular: reports: No Symptoms Respiratory: reports: No Symptoms Gastrointestinal: reports: No Symptoms Genitourinary: reports: No Symptoms Breasts: reports: No Symptoms Reported Musculoskeletal: reports: Extremity Pain Integumentary: reports: Erythema (R LE) Neurological: reports: No Symptoms Endocrine: reports: No Symptoms Hematology/Lymphatic: reports: No Symptoms Psychiatric: reports: No Symptoms Pain Intensity: 10 Physical Exam Vital Signs: Vital Signs Temperature 98.2 F 05/30/17 20:55 Pulse Rate 102 H 05/30/17 20:55 Respiratory Rate 18 05/30/17 20:55 Blood Pressure 133/39 05/30/17 20:55 O2 Sat by Pulse Oximetry (%) 97 05/30/17 20:55 Constitutional: Yes: Well Nourished, No Distress, Calm Eyes: Yes: Conjunctiva Clear, EOM Intact HENT: Yes: WNL, Atraumatic, Normocephalic Neck: Yes: WNL, Supple, Trachea Midline Cardiovascular: Yes: WNL, Regular Rate and Rhythm Respiratory: Yes: WNL, Regular, CTA Bilaterally Gastrointestinal: Yes: WNL, Normal Bowel Sounds, Soft ...Rectal Exam: Yes: Deferred Renal/: Yes: WNL Breast(s): Yes: WNL Musculoskeletal: Yes: WNL Extremities: Yes: Other (Left 1st and 2nd toe w/ obvious gangrene --> L foot otherwise warm & pink w/ palpable PT pulse, motor & sensory intact.) Edema: Yes Edema: RLE: 4+ Peripheral Pulses WNL: Yes Integumentary: Yes: Tattoos Wound/Incision: Yes: Clean/Dry, Well Approximated Neurological: Yes: WNL, Alert, Oriented ...Motor Strength: WNL Psychiatric: Yes: WNL, Alert, Oriented Labs: CBC, BMP 05/30/17 08:00 05/30/17 08:00 INR, PTT INR 1.67 (0.82-1.09) H 05/30/17 08:00 Fibrinogen 582.0 mg/dL (238-498) H 05/23/17 09:00 Microbiology 05/23/17 10:41 Blood - Peripheral Venous Blood Culture - Final NO GROWTH AFTER 5 DAYS INCUBATION 05/23/17 10:41 Blood - Peripheral Venous Blood Culture - Final NO GROWTH AFTER 5 DAYS INCUBATION Imaging - Results Chest X-ray: Image Reviewed (05/24: COPD, otherwise Clear (My Read).) Cat Scan: Image Reviewed (CTA 05/21: L popliteal artery occlusion.) Problem List - Problems (1) Arterial insufficiency Code(s): I77.1 - STRICTURE OF ARTERY (2) Critical lower limb ischemia Code(s): I99.8 - OTHER DISORDER OF CIRCULATORY SYSTEM (3) Smoker Code(s): F17.200 - NICOTINE DEPENDENCE, UNSPECIFIED, UNCOMPLICATED (4) PAD (peripheral artery disease) Code(s): I73.9 - PERIPHERAL VASCULAR DISEASE, UNSPECIFIED (5) HLD (hyperlipidemia) Code(s): E78.5 - HYPERLIPIDEMIA, UNSPECIFIED Assessment/Plan ASSESS: This is a 56 y/o man w/ a long Hx/o smoking, (active smoker) HTN, CVA, PVD/PAD, HLD was on floor convalescing s/p L LE tibial and popliteal artery tPA thrombolysis & subsequent angioplasty admitted to the ICU now s/p re-op w/ a NEW fresh tibial artery angioplasty by Dr. Doug Fernández. PLAN: -Heparin drip for full therapeutic PTT -Resume PO Coumadin -Once INR is 2-3 X 2 Days --> D/c Heparin -Trend INR -Tylenol for mild Pain -Oxycodone for moderate pain -IV Dilaudid for breakthrough pain -Trend L foot doppler exam -R LE Duplex for swelling -IV Vanc for Red hot swollen RLE -Nicotine patch 14 mg TDS -Crestor 5mg po daily -Advanced Diet a/p Vasc -BR -PPI -Transfer immediately out of the ICU --> med surg -To be followed on Med-Surg for standard transition from IV Heparin --> PO Coumadin & D/c --> Home [facility] [id number] PULM / CCM
[2017-05-30] MEDS: HYDROmorphone HCL CARPU-JECT 1 MG/1 ML DISP.SYRIN IVPB PRN (22:42)
[2017-05-30] MEDS ORDERED: VANCOMYCIN 1 GRAM (PRE-DOCKED) 250 ML IVPB ONE (22:55)
[2017-05-31] MEDS: HYDROmorphone HCL CARPU-JECT 1 MG/1 ML DISP.SYRIN IVPB PRN ×3 (02:45→15:42)
[2017-05-31] MEDS: oxyCODONE HCL 5 MG TABLET PO PRN ×3 (05:50→18:00)
[2017-05-31] MEDS: ACETAMINOPHEN 325 MG TABLET (FP) PO PRN ×2 (05:51→18:00)
[2017-05-31] MEDS ORDERED: VANCOMYCIN 1,000 MG in DEXTROSE 5%-WATER - 250 ML IVPB ONE (06:00)
[2017-05-31] MEDS ORDERED: VANCOMYCIN 1 GRAM (PRE-DOCKED) 1,000 MG/250 ML BAG IVPB ONE (06:00)
[2017-05-31 06:07] LABS: MCH 34.9 pg (25.7-33.7); MCHC 33.6 g/dl (32.0-35.9); MEAN CELL VOLUME 103.9 fl (80-96); MEAN PLT VOLUME 7.1 fl (7.5-11.1); PLATELET COUNT 356 K/MM3 (134-434); RDW 14.2 % (11.9-15.9); WHITE BLOOD COUNT 6.8 K/mm3 (4.0-10.0)
[2017-05-31 06:18] LABS: INR 1.91 (0.82-1.09); PROTHROMBIN TIME (PATIENT) 21.3 SEC (9.98-11.88)
[2017-05-31 06:36] LABS: ANION GAP 7 (8-16); CALCIUM 9.1 mg/dL (8.5-10.1); CO2 30 mmol/L (21-32); CREATININE 0.6 mg/dL (0.7-1.3); GLUCOSE,RANDOM 81 mg/dL (74-106)
--- NOTE | 2017-05-31 07:38 | PN ---
Progress Note (short form) - Note Progress Note: PULM / CCM Pt Seen & examined in the ICU. Pt CA+OX3, on Heparin gtt. Pt states feeling much better. R LE Duplex O/N is NEGATIVE for ANY DVT. Pt started on PO Coumadin. Active Medications Acetaminophen (Tylenol -) 650 mg PO Q4H PRN PRN Reason: PAIN Last Admin: 05/31/17 05:51 Dose: 650 mg Acetaminophen (Tylenol -) 650 mg PO Q4H PRN PRN Reason: PAIN Stop: 06/01/17 12:13 Docusate Sodium (Colace -) 100 mg PO Q8H PRN PRN Reason: CONSTIPATION Heparin Sodium (Porcine) (Heparin -) 1,000 unit IVPUSH PRN PRN PRN Reason: Heparin Heparin Sodium (Porcine) (Heparin -) 5,000 unit IVPUSH PRN PRN PRN Reason: Heparin Hydromorphone HCl (Dilaudid Injection -) 1 mg IVPB Q3H PRN PRN Reason: PAIN Last Admin: 05/31/17 02:45 Dose: 1 mg Heparin Sodium/Dextrose (Heparin Infusion -) 500 mls @ 20 mls/hr IVPB TITR KHALIF ; 1,000 UNITS/HR PRN Reason: Protocol Last Admin: 05/30/17 22:05 Dose: Not Given Lactated Ringer's (Lactated Ringers Solution) 1,000 mls @ 125 mls/hr IV ASDIR KHALIF Last Admin: 05/30/17 22:00 Dose: 125 mls/hr Nicotine (Nicoderm Patch -) 14 mg TD DAILY KHALIF Oxycodone HCl (Roxicodone -) 10 mg PO Q4H PRN PRN Reason: PAIN LEVEL 6-10 Last Admin: 05/31/17 05:50 Dose: 10 mg Pantoprazole Sodium (Protonix -) 20 mg PO BID KHALIF Last Admin: 05/30/17 22:07 Dose: 20 mg Rosuvastatin Calcium (Crestor -) 5 mg PO HS [facility] Last Admin: 05/30/17 22:07 Dose: 5 mg Vancomycin HCl (Vancomycin (Pre-Docked)) 1,000 mg IVPB DAILY KHALIF PRN Reason: Protocol Stop: 06/24/17 07:00 Warfarin Sodium (Coumadin -) 4 mg PO DAILY@1800 KHALIF PE: V/S Temp 98.1 F 05/31/17 06:00 Pulse 82 05/31/17 06:00 Resp 10 L 05/31/17 06:00 BP 125/77 05/31/17 06:00 Pulse Ox 98 05/30/17 22:00 I'S & O's 05/30/17 05/30/17 05/31/17 11:59 23:59 11:59 Intake Total 588 1733 1530 Output Total 1400 650 400 Balance -812 1083 1130 Weight 73.482 kg 77.519 kg Intake: IV 288 1613 1160 Heparin - 25,000 Unit In 288 333 160 Normal Saline - 495 ml @ 1,000 UNIT/HR 20 mls/hr IV TITR KHALIF Rx#: [id number] Lactated Ringers Solution 250 1000 1,000 ml @ 125 mls/hr IV ASDIR KHALIF Rx#: [id number] IVPB 250 Oral 300 120 120 Output: Urine 1400 600 400 Void 1400 600 400 Estimated Blood Loss 50 Other: Voiding Method Urinal Bowel Movement No No # Bowel Movements 1 Weight Measurement Method Built in [facility] Built in [facility] GEN: Middle Aged man sitting upright in bed, C + A, NAD HEENT: PERRL, an-icteric, poor dentition PULM: CTAB CV: nml S1 S2, RR, no m/r/g ABD: + BS S/S N/T N/D X4Q EXT: Left 1st and 2nd toe w/ obvious gangrene --> L foot cool but pink w/ palpable PT pulses CBC, BMP 05/31/17 05:45 05/31/17 05:45 INR, PTT INR 1.91 (0.82-1.09) H 05/31/17 05:45 Fibrinogen 582.0 mg/dL (238-498) H 05/23/17 09:00 MICRO 05/23/17 10:41 Blood - Peripheral Venous Blood Culture - Final NO GROWTH AFTER 5 DAYS INCUBATION 05/23/17 10:41 Blood - Peripheral Venous Blood Culture - Final NO GROWTH AFTER 5 DAYS INCUBATION RECENT STUDIES TO NOTE: RLE DUPLEX: NEGATIVE DVT. CTA 05/21: L popliteal artery occlusion. ASSESS: -HTN -HL -PVD/PAD -CVA -Active smoker w/ L foot gangrene -S/P LLE angiogram, tibial and popliteal artery angioplasty s/p tPA thrombolysis (05/22) -Now s/p Re-Op (05/30) Repeat L tibial artery angioplasty by Dr. Doug Fernández. PLAN: -Cont heparin gtt for full therapeutic -PO Coumadin for an INR 2.5 - 3.0 -Once Target INR is achieved cont Heparin gtt X 24Hrs & then D/c -INR QD -PO Coumadin QD -Trend L foot doppler exam -Pain control w/ Morphine and Dilaudid PRN -Pepcid for GI ppx -Statin therapy -Vasc Surgery to follow -Transfer immediately out of the ICU --> med surg Merlin Sue, ACNP-[facility] ICU [id number] PULM / CCM Critical Care Total Critical Care Time (in minutes): 39 Critical Care Statement: The care of this patient involved high complexity decision making to prevent further life threatening deterioration of the patient 's condition and/or to evaluate & treat vital organ system(s) failure or risk of failure. Problem List - Problems (1) Arterial insufficiency Code(s): I77.1 - STRICTURE OF ARTERY (2) Critical lower limb ischemia Code(s): I99.8 - OTHER DISORDER OF CIRCULATORY SYSTEM (3) Smoker Code(s): F17.200 - NICOTINE DEPENDENCE, UNSPECIFIED, UNCOMPLICATED (4) PAD (peripheral artery disease) Code(s): I73.9 - PERIPHERAL VASCULAR DISEASE, UNSPECIFIED (5) HLD (hyperlipidemia) Code(s): E78.5 - HYPERLIPIDEMIA, UNSPECIFIED
--- NOTE | 2017-05-31 08:30 | PN ---
Teaching Attending Note Name of Resident: Israel Rodriguez ATTENDING PHYSICIAN STATEMENT I saw and evaluated the patient. I reviewed the resident's note and discussed the case with the resident. I agree with the resident's findings and plan as documented. SUBJECTIVE: no fever or chills, pain is minimal in L foot. has no SOB or CP OBJECTIVE: NAD Cv : RRR Lungs : CTAB Ext: L foot is warm, 1+ DP, 2+ PT, slight erythema from ankle down. pale/ whitish spots on tip of L 3rd, 4th toes. L 1st, 2nd toes with black discoloration. R leg with 2+ edema , DP 1+ , and 2+ PT ASSESSMENT AND PLAN: 56 y/o man with h/o smoking, CVA , and HTN who presented with L foot pain and was found to have acute arterial insufficiency and a dry gangrene of L foot toes 1- Acute arterial insufficiency : s/p revascularization x 2 . Foot is warm again, with decreased pain, and 1+ Dp, 2+ PT . - cont heparin gtt. will change PTT goal to 60-80. - give 4 mg of coumadin tonight . INR 1.9 - will start hypercoagulable w/u as he had CVA in past and now arterial ischemia . - can't check Protein C, S , antithrombin levels as on AC now . check Prthrombin II gene mutation, antiphospholipid Abs and Anti-cardiolipin abs. will obtain prior auth if possible. - d/w ID , no evidenc eof infection 2- 2- Macrocytic anemia: monitor 3- Nicotine dependence - cont nicotine patch
[2017-05-31] MEDS: PANTOPRAZOLE 20 MG TABLET (FP) PO SCH ×2 (09:04→21:34)
[2017-05-31] MEDS: NICOTINE 14 MG/24 HOURS TOPICAL PATCH TD SCH (10:00)
--- NOTE | 2017-05-31 10:45 | PN ---
Progress Note (short form) - Note Progress Note: s/p angioplasty last nigh much less pain today Vital Signs Period Temp Pulse Resp BP Sys/Castillo Pulse Ox Last 24 Hr 98.1 F-99.1 F 82-107 10-23 112-152/39-93 96-100 cor-rrr lungs clear abd soft,nt ext bilateral lower ext edema left foot now warm, +dry gangrene CBC, BMP 05/31/17 05:45 05/31/17 05:45 Microbiology 05/23/17 10:41 Blood - Peripheral Venous Blood Culture - Final NO GROWTH AFTER 5 DAYS INCUBATION 05/23/17 10:41 Blood - Peripheral Venous Blood Culture - Final NO GROWTH AFTER 5 DAYS INCUBATION Current Medications Acetaminophen (Tylenol -) 650 mg PO Q4H PRN PRN Reason: PAIN Last Admin: 05/31/17 05:51 Dose: 650 mg Acetaminophen (Tylenol -) 650 mg PO Q4H PRN PRN Reason: PAIN Stop: 06/01/17 12:13 Docusate Sodium (Colace -) 100 mg PO Q8H PRN PRN Reason: CONSTIPATION Heparin Sodium (Porcine) (Heparin -) 1,000 unit IVPUSH PRN PRN PRN Reason: Heparin Heparin Sodium (Porcine) (Heparin -) 5,000 unit IVPUSH PRN PRN PRN Reason: Heparin Hydromorphone HCl (Dilaudid Injection -) 1 mg IVPB Q3H PRN PRN Reason: PAIN Last Admin: 05/31/17 09:03 Dose: 1 mg Heparin Sodium/Dextrose (Heparin Infusion -) 500 mls @ 20 mls/hr IVPB TITR KHALIF ; 1,000 UNITS/HR PRN Reason: Protocol Last Admin: 05/30/17 22:05 Dose: Not Given Lactated Ringer's (Lactated Ringers Solution) 1,000 mls @ 125 mls/hr IV ASDIR KHALIF Last Admin: 05/30/17 22:00 Dose: 125 mls/hr Nicotine (Nicoderm Patch -) 14 mg TD DAILY KHALIF Oxycodone HCl (Roxicodone -) 10 mg PO Q4H PRN PRN Reason: PAIN LEVEL 6-10 Last Admin: 05/31/17 05:50 Dose: 10 mg Pantoprazole Sodium (Protonix -) 20 mg PO BID KHALIF Last Admin: 05/31/17 09:04 Dose: 20 mg Rosuvastatin Calcium (Crestor -) 5 mg PO HS [facility] Last Admin: 05/30/17 22:07 Dose: 5 mg Vancomycin HCl (Vancomycin (Pre-Docked)) 1,000 mg IVPB DAILY [facility] PRN Reason: Protocol Stop: 06/24/17 07:00 Warfarin Sodium (Coumadin -) 4 mg PO DAILY@1800 [facility] a/p s/p angioplasty of the left foot no signs cellulitis or infection received vancomycin this am can d/c antibiotics d/w Hospitalist
--- NOTE | 2017-05-31 11:45 | PN ---
Progress Note (short form) - Note Progress Note: POD #1 - s/p angiogram/angioplasty left lower extremity under MAC. Pt. doing better, sitting up comfortably in chair. No complaints. Good pain control. No apparent anesthetic complications noted. Continue current care.
[2017-05-31] MEDS: VANCOMYCIN 1 GRAM (PRE-DOCKED) 1,000 MG/250 ML BAG IVPB SCH (12:24)
[2017-05-31] MEDS ORDERED: PT OWN MED DRAWER 7, Y5N ONE (12:27)
[2017-05-31] MEDS ORDERED: WARFARIN NA 2 MG TABLET (UD) PO SCH (18:00)
--- NOTE | 2017-05-31 19:04 | PN ---
Physical Exam: SUBJECTIVE: Patient seen and examined. No acute events overnight. Pt reports that he has 5/10 pain in his L foot and is warm, markedly improved compared to before repeat angioplasty. OBJECTIVE: Vital Signs Period Temp Pulse Resp BP Sys/Castillo Pulse Ox Last 24 Hr 98.1 F-99.1 F 82-106 10-23 89-152/39-93 96-100 GENERAL: The patient is awake, alert, and fully oriented, in no acute distress. HEAD: Normal with no signs of trauma. EYES: PERRL, extraocular movements intact, sclera anicteric, conjunctiva clear. No ptosis. ENT: Ears normal, nares patent, oropharynx clear without exudates, moist mucous membranes. NECK: Trachea midline, full range of motion, supple. LUNGS: Breath sounds equal, clear to auscultation bilaterally, no wheezes, no crackles, no accessory muscle use. HEART: Regular rate and rhythm, S1, S2 without murmur, rub or gallop. ABDOMEN: Soft, nontender, nondistended, normoactive bowel sounds, no guarding, no rebound, no hepatosplenomegaly, no masses. EXTREMITIES: L foot 1st and 2nd digit are gangrenous, erythema over dorsal foot , very tender to palpation near gangrenous digits. foot is warm to touch. 1+ DP pulse and 2+ PT pulse. NEUROLOGICAL: Cranial nerves II through XII grossly intact. Normal speech, gait not observed. PSYCH: Normal mood, normal affect. Laboratory Results - last 24 hr 05/30/17 05/31/17 05/31/17 18:00 01:50 05:45 WBC RBC Hgb Hct MCV MCH MCHC RDW Plt Count MPV PT with INR INR PTT (Actin FS) 163.8 H D 69.0 H D Sodium Potassium Chloride Carbon Dioxide Anion Gap BUN Creatinine Random Glucose Calcium Vancomycin Pre-Dose < 0.800 L* 05/31/17 05/31/17 05/31/17 05:45 05:45 05:45 WBC 6.8 RBC 3.46 L Hgb 12.1 Hct 35.9 MCV 103.9 H MCH 34.9 H MCHC 33.6 RDW 14.2 Plt Count 356 D MPV 7.1 L PT with INR 21.30 H INR 1.91 H PTT (Actin FS) 57.3 H Sodium Potassium Chloride Carbon Dioxide Anion Gap BUN Creatinine Random Glucose Calcium Vancomycin Pre-Dose 05/31/17 05:45 WBC RBC Hgb Hct MCV MCH MCHC RDW Plt Count MPV PT with INR INR PTT (Actin FS) Sodium 136 Potassium 4.4 Chloride 99 Carbon Dioxide 30 Anion Gap 7 L BUN 8 D Creatinine 0.6 L Random Glucose 81 Calcium 9.1 Vancomycin Pre-Dose Active Medications Generic Name Dose Route Start Last Admin Trade Name Freq PRN Reason Stop Dose Admin Acetaminophen 650 mg 05/30/17 20:04 05/31/17 18:00 Tylenol - PO 650 mg Q4H PRN Administration PAIN Acetaminophen 650 mg 05/30/17 20:04 05/31/17 12:31 Tylenol - PO 06/01/17 12:13 650 mg Q4H PRN Administration PAIN Docusate Sodium 100 mg 05/30/17 20:04 Colace - PO Q8H PRN CONSTIPATION Heparin Sodium (Porcine) 1,000 unit 05/30/17 19:41 Heparin - IVPUSH PRN PRN Heparin Heparin Sodium (Porcine) 5,000 unit 05/30/17 19:41 Heparin - IVPUSH PRN PRN Heparin Hydromorphone HCl 0.5 mg 05/31/17 11:11 05/31/17 15:42 Dilaudid Injection - IVPB 0.5 mg Q8H PRN Administration PAIN Heparin Sodium/Dextrose 500 mls @ 20 mls/hr 05/30/17 19:45 05/30/17 22:05 Heparin Infusion - IVPB Not Given TITR [facility] Protocol 1,000 UNITS/HR Nicotine 14 mg 05/31/17 10:00 05/31/17 10:00 Nicoderm Patch - TD 14 mg DAILY KHALIF Administration Oxycodone HCl 10 mg 05/30/17 20:04 05/31/17 18:00 Roxicodone - PO 10 mg Q4H PRN Administration PAIN LEVEL 6-10 Pantoprazole Sodium 20 mg 05/30/17 22:00 05/31/17 09:04 Protonix - PO 20 mg BID KHALIF Administration Rosuvastatin Calcium 5 mg 05/30/17 22:00 05/30/17 22:07 Crestor - PO 5 mg HS KHALIF Administration Warfarin Sodium 4 mg 05/31/17 18:00 05/31/17 18:00 Coumadin - PO 4 mg DAILY@1800 KHALIF Administration ASSESSMENT/PLAN: 56M smoker with PMHx of CVA, PAD, HLD admitted for Sepsis with ischemia of L great toe, s/p angioplasty and thrombolysis on 05/22, developed increased pain and coldness in left foot on 05/30, underwent repeat L tibial artery angioplasty , is now improving. #Sepsis 2/2 to Arterial insufficiency - in a chronic active smoker with ischemic L big toe - continue Heparin drip and 4mg warfarin. PT 1.91 today -abx discontinued as per ID -hypercoagulability workup initiated, f/u results #Intractable pain: - percocet 10/650 q4h PO prn, - dilaudid changed to 0.5mg q8h #Smoker -Nicotine patch 14 mg TDS #Tachycardia Likely secondary to pain -Will monitor #Hyponatremia: -Na of 136 this am -Will monitor # INR - warfarin 4mg for today - INR CBC - Heparin drip resumed per vascular -PT/INR # hypercholesterolemia - Crestor 5mg po daily # GERD - continue pantoprazole 20mg BID #FEN - LR at 125cc/hr - Electrolytes wnl - Nutrition: regular diet # Prophylaxis DVT-warfarin GI-Tabs pantoprazole #Dispo -to remain in ICU as per vascular -Israel Rodriguez MD PGY1 Visit type - Emergency Visit Emergency Visit: Yes ED Registration Date: 05/21/17 Care time: The patient presented to the Emergency Department on the above date and was hospitalized for further evaluation of their emergent condition. - New Patient This patient is new to me today: Yes Date on this admission: 05/31/17 - Critical Care Critical Care patient: Yes Total Critical Care Time (in minutes): 39 Critical Care Statement: The care of this patient involved high complexity decision making to prevent further life threatening deterioration of the patient 's condition and/or to evaluate & treat vital organ system(s) failure or risk of failure.
[2017-05-31] MEDS: HEPARIN INFUSION - 500 ML IVPB SCH (20:40)
[2017-05-31] MEDS ORDERED: HYDROmorphone HCL CARPU-JECT 2 MG/1 ML DISP.SYRIN IVPUSH ONE (21:55)
[2017-05-31] MEDS: ROSUVASTATIN CA 5 MG TABLET (FP) PO SCH (22:10)
[2017-06-01] MEDS: oxyCODONE HCL 5 MG TABLET PO PRN ×5 (01:56→22:09)
[2017-06-01] MEDS: ACETAMINOPHEN 325 MG TABLET (FP) PO PRN ×5 (01:56→22:08)
[2017-06-01] MEDS: HYDROmorphone HCL CARPU-JECT 1 MG/1 ML DISP.SYRIN IVPB PRN ×3 (05:38→23:38)
[2017-06-01 06:17] LABS: BASOPHIL 0.8 % (0-2.0); EOSINOPHIL 1.2 % (0-4.5); MCH 34.8 pg (25.7-33.7); MCHC 33.7 g/dl (32.0-35.9); MEAN CELL VOLUME 103.2 fl (80-96); MEAN PLT VOLUME 7.3 fl (7.5-11.1); NEUTROPHILS 57.5 % (42.8-82.8); PLATELET COUNT 312 K/MM3 (134-434); RDW 14.3 % (11.9-15.9); WHITE BLOOD COUNT 7.5 K/mm3 (4.0-10.0)
[2017-06-01 06:38] LABS: INR 3.28 (0.82-1.09)
--- NOTE | 2017-06-01 08:15 | PN ---
Progress Note (short form) - Note Progress Note: Subjective: has mild pain in L foot. slept well , denies any SOB or fever , has no CP . Objective: Vital Signs: Last Vital Signs Temp Pulse Resp BP Pulse Ox 97.3 F L 86 19 126/95 98 06/01/17 06:00 06/01/17 06:00 06/01/17 06:00 06/01/17 06:00 06/01/17 08:00 Laboratory Results - last 24 hr 05/31/17 06/01/17 06/01/17 18:15 02:15 06:00 WBC RBC Hgb Hct MCV MCH MCHC RDW Plt Count MPV Neutrophils % Lymphocytes % Monocytes % Eosinophils % Basophils % PT with INR INR PTT (Actin FS) 36.6 H D 68.1 H D 59.4 H 06/01/17 06/01/17 06:00 06:00 WBC 7.5 RBC 3.05 L Hgb 10.6 L D Hct 31.5 L MCV 103.2 H MCH 34.8 H MCHC 33.7 RDW 14.3 Plt Count 312 MPV 7.3 L Neutrophils % 57.5 Lymphocytes % 28.6 D Monocytes % 11.9 H Eosinophils % 1.2 Basophils % 0.8 PT with INR 37.00 H INR 3.28 H D PTT (Actin FS) Physical Exam: NAD Cv : RRR Lungs : CTAB Ext: L foot is warm, 1+ DP, 2+ PT, slight erythema from ankle down. pale/ whitish spots on tip of L 3rd, 4th toes. L 1st, 2nd toes with black discoloration. R leg with 2+ edema , DP 1+, and 2+ PT. ASSESSMENT AND PLAN: 56 y/o man with h/o smoking, CVA , and HTN who presented with L foot pain and was found to have acute arterial insufficiency and a dry gangrene of L foot toes 1- Acute arterial insufficiency : s/p revascularization x 2 . Foot is warm today with 1+ DP, 2+ PT -INR 3.2 today, cont heparin gtt x 24h . - Give 2.5 mg of coumadin today - PTT goal 60-80 - given his stroke and now arterial LE thrombosis , hypercoagulable w/u started . prothrombin II gene mutation pending. V leiden gene mutation, anticardiolipin ABs and antiphospholipid Abs are pending autherization. Slick 2 and [facility] tests as out pt . - Can't check Protein C, S , antithrombin levels as on AC now . 2- 2- Macrocytic anemia: monitor . Hb dropped slightly, but no evidence of bleed 3- Nicotine dependence - cont nicotine patch Monitor in ICU Visit type - Emergency Visit Emergency Visit: Yes ED Registration Date: 05/21/17 Care time: The patient presented to the Emergency Department on the above date and was hospitalized for further evaluation of their emergent condition. - New Patient This patient is new to me today: No - Critical Care Critical Care patient: Yes Total Critical Care Time (in minutes): 35 Critical Care Statement: The care of this patient involved high complexity decision making to prevent further life threatening deterioration of the patient 's condition and/or to evaluate & treat vital organ system(s) failure or risk of failure.
--- NOTE | 2017-06-01 09:29 | PN ---
Progress Note (short form) - Note Progress Note: Seen and examined in ICU s/p angioplasty of foot w/ improved pain on heparin->coumadin bridge ABX d/c per ID Denies: GONZALEZ/CP/SOB/cough/n/v Current Medications Acetaminophen (Tylenol -) 650 mg PO Q4H PRN PRN Reason: PAIN Last Admin: 06/01/17 06:19 Dose: 650 mg Acetaminophen (Tylenol -) 650 mg PO Q4H PRN PRN Reason: PAIN Stop: 06/01/17 12:13 Last Admin: 05/31/17 12:31 Dose: 650 mg Docusate Sodium (Colace -) 100 mg PO Q8H PRN PRN Reason: CONSTIPATION Heparin Sodium (Porcine) (Heparin -) 1,000 unit IVPUSH PRN PRN PRN Reason: Heparin Heparin Sodium (Porcine) (Heparin -) 5,000 unit IVPUSH PRN PRN PRN Reason: Heparin Last Admin: 05/31/17 20:39 Dose: 5,000 unit Hydromorphone HCl (Dilaudid Injection -) 0.5 mg IVPB Q8H PRN PRN Reason: PAIN Last Admin: 06/01/17 05:38 Dose: 0.5 mg Heparin Sodium/Dextrose (Heparin Infusion -) 500 mls @ 20 mls/hr IVPB TITR KHALIF ; 1,000 UNITS/HR PRN Reason: Protocol Last Admin: 05/31/17 20:40 Dose: 23 mls/hr Nicotine (Nicoderm Patch -) 14 mg TD DAILY [facility] Last Admin: 05/31/17 10:00 Dose: 14 mg Oxycodone HCl (Roxicodone -) 10 mg PO Q4H PRN PRN Reason: PAIN LEVEL 6-10 Last Admin: 06/01/17 06:18 Dose: 10 mg Pantoprazole Sodium (Protonix -) 20 mg PO BID [facility] Last Admin: 05/31/17 21:34 Dose: 20 mg Rosuvastatin Calcium (Crestor -) 5 mg PO HS [facility] Last Admin: 05/31/17 22:10 Dose: 5 mg Warfarin Sodium (Coumadin -) 2.5 mg PO DAILY@1800 KHALIF Vital Signs Period Temp Pulse Resp BP Sys/Castillo Pulse Ox Last 24 Hr 97.3 F-98.8 F 85-108 12-19 89-149/65-95 98-98 Intake & Output 05/29/17 05/30/17 05/31/17 06/01/17 23:59 23:59 23:59 23:59 Intake Total 600 2491 2481 120 Output Total 1300 2049 2100 800 Balance -700 972 381 -680 Weight 73.709 kg 73.482 kg 77.519 kg 76.113 kg Gen: awake, alert and cooperative c/o mild foot pain CV: RRR Pulm: CTA Ext: LE edmea left foot: necrotic 1 &2 toes, erythemia mid foot, warm, + pulses CBCD WBC 7.5 K/mm3 (4.0-10.0) 06/01/17 06:00 RBC 3.05 M/mm3 (4.00-5.60) L 06/01/17 06:00 Hgb 10.6 GM/dL (11.7-16.9) L D 06/01/17 06:00 Hct 31.5 % (35.4-49) L 06/01/17 06:00 MCV 103.2 fl (80-96) H 06/01/17 06:00 MCHC 33.7 g/dl (32.0-35.9) 06/01/17 06:00 RDW 14.3 % (11.9-15.9) 06/01/17 06:00 Plt Count 312 K/MM3 (134-434) 06/01/17 06:00 MPV 7.3 fl (7.5-11.1) L 06/01/17 06:00 CMP Sodium 136 mmol/L (136-145) 05/31/17 05:45 Potassium 4.4 mmol/L (3.5-5.1) 05/31/17 05:45 Chloride 99 mmol/L (98-107) 05/31/17 05:45 Carbon Dioxide 30 mmol/L (21-32) 05/31/17 05:45 Anion Gap 7 (8-16) L 05/31/17 05:45 BUN 8 mg/dL (7-18) D 05/31/17 05:45 Creatinine 0.6 mg/dL (0.7-1.3) L 05/31/17 05:45 Creat Clearance w eGFR > 60 (>60) 05/30/17 08:00 Random Glucose 81 mg/dL (74-106) 05/31/17 05:45 Calcium 9.1 mg/dL (8.5-10.1) 05/31/17 05:45 Total Bilirubin 0.5 mg/dL (0.2-1.0) D 05/30/17 08:00 AST 22 U/L (15-37) D 05/30/17 08:00 ALT 44 U/L (12-78) D 05/30/17 08:00 Alkaline Phosphatase 87 U/L (45-117) 05/30/17 08:00 Total Protein 6.9 g/dl (6.4-8.2) D 05/30/17 08:00 Albumin 2.9 g/dl (3.4-5.0) L D 05/30/17 08:00 Problem List - Problems (1) Arterial insufficiency Code(s): I77.1 - STRICTURE OF ARTERY (2) Critical lower limb ischemia Code(s): I99.8 - OTHER DISORDER OF CIRCULATORY SYSTEM (3) Smoker Code(s): F17.200 - NICOTINE DEPENDENCE, UNSPECIFIED, UNCOMPLICATED (4) PAD (peripheral artery disease) Code(s): I73.9 - PERIPHERAL VASCULAR DISEASE, UNSPECIFIED (5) HLD (hyperlipidemia) Code(s): E78.5 - HYPERLIPIDEMIA, UNSPECIFIED ASSESS: -HTN -HL -PVD/PAD -CVA -Active smoker w/ L foot gangrene -S/P LLE angiogram, tibial and popliteal artery angioplasty s/p tPA thrombolysis (05/22) -Now s/p Re-Op (05/30) Repeat L tibial artery angioplasty by Dr. Doug Fernández. PLAN: -Cont heparin gtt w/ transition to coumadin -PO Coumadin for an INR 2.5 - 3.0 -INR QD -Trend L foot doppler exam -Pain control w/ Morphine and Dilaudid PRN -Pepcid for GI ppx -Statin therapy -Vasc Surgery to follow -stable for floor transfer NEGIN Araiza- PULM / [facility] Critical Care Total Critical Care Time (in minutes): 35 Critical Care Statement: The care of this patient involved high complexity decision making to prevent further life threatening deterioration of the patient 's condition and/or to evaluate & treat vital organ system(s) failure or risk of failure.
[2017-06-01] MEDS: NICOTINE 14 MG/24 HOURS TOPICAL PATCH TD SCH (10:30)
[2017-06-01] MEDS: PANTOPRAZOLE 20 MG TABLET (FP) PO SCH ×2 (10:33→22:10)
[2017-06-01] MEDS ORDERED: PT OWN MED DRAWER 7, Y5N ONE (13:17)
[2017-06-01] MEDS: HEPARIN INFUSION - 500 ML IVPB SCH ×2 (18:00→20:37)
[2017-06-01] MEDS ORDERED: WARFARIN NA 2.5 MG TABLET (FP) PO SCH (18:00)
[2017-06-01] MEDS: ROSUVASTATIN CA 5 MG TABLET (FP) PO SCH (22:10)
[2017-06-02] MEDS: oxyCODONE HCL 5 MG TABLET PO PRN ×5 (01:43→23:36)
[2017-06-02] MEDS: ACETAMINOPHEN 325 MG TABLET (FP) PO PRN ×5 (01:44→23:35)
[2017-06-02] MEDS ORDERED: HYDROmorphone HCL CARPU-JECT 1 MG/1 ML DISP.SYRIN IVPUSH ONE ×2 (04:56→05:15)
[2017-06-02 06:02] LABS: BASOPHIL 1.1 % (0-2.0); EOSINOPHIL 1.4 % (0-4.5); MCH 34.6 pg (25.7-33.7); MCHC 33.5 g/dl (32.0-35.9); MEAN CELL VOLUME 103.6 fl (80-96); MEAN PLT VOLUME 7.2 fl (7.5-11.1); NEUTROPHILS 58.5 % (42.8-82.8); PLATELET COUNT 327 K/MM3 (134-434); RDW 14.3 % (11.9-15.9); WHITE BLOOD COUNT 8.9 K/mm3 (4.0-10.0)
[2017-06-02 06:12] LABS: PROTHROMBIN TIME (PATIENT) 47.8 SEC (9.98-11.88)
[2017-06-02 06:33] LABS: INR 4.22 (0.82-1.09)
--- NOTE | 2017-06-02 08:54 | PN ---
Progress Note (short form) - Note Progress Note: Vascular Surgery Pt seen and examined. Left foot -- warm, palpable PT pulses. INR is 4.2. Forefoot cool to touch because not getting adequate flow there from collaterals of posterior tibial artery. Spoke to pt that in future will need toe amputations, but very concerned with whether that will heal. He understands that. Will watch for demarcation Cont RON hale DO
--- NOTE | 2017-06-02 08:55 | PN ---
Physical Exam: SUBJECTIVE: Patient seen and examined in ICU. Pain in L foot, but feels better controlled with oxycodone q6h to q4h with hydromorphone 0.5mg breakthrough. Denies SOB, chest pain, fever, chills. OBJECTIVE: Vital Signs Period Temp Pulse Resp BP Sys/Castillo Pulse Ox Last 24 Hr 98.1 F-98.7 F 86-110 12-20 98-140/69-99 95-100 Intake & Output 05/30/17 05/31/17 06/01/17 06/02/17 23:59 23:59 23:59 23:59 Intake Total 2321 2481 1728 324 Output Total 2050 2100 2650 1000 Balance [phone] -[phone] -941 Weight 73.482 kg 77.519 kg 76.113 kg 76.022 kg GENERAL: aaox3, nad EYES: sclera anicteric, conjunctiva clear ENT: moist mucous membranes LUNGS: CTAB, no no wheezes or crackles HEART: RRR, normal S1/S2, no murmur, rub or gallop ABDOMEN: Soft, ntnd LOWER EXTR: L leg warm, forefoot cool; L great toe & 2nd toe dark discoloration ; L PT palpable, DP dopplerable; RLE 1+ edema, 1+ palpable DP and PT CBC, BMP 06/02/17 05:40 05/31/17 05:45 INR, PTT INR 4.22 (0.82-1.09) H* 06/02/17 05:40 Fibrinogen 582.0 mg/dL (238-498) H 05/23/17 09:00 Hepatic Panel Total Bilirubin 0.5 mg/dL (0.2-1.0) D 05/30/17 08:00 AST 22 U/L (15-37) D 05/30/17 08:00 ALT 44 U/L (12-78) D 05/30/17 08:00 Alkaline Phosphatase 87 U/L (45-117) 05/30/17 08:00 Albumin 2.9 g/dl (3.4-5.0) L D 05/30/17 08:00 Active Medications Acetaminophen (Tylenol -) 650 mg PO Q4H PRN PRN Reason: PAIN Last Admin: 06/02/17 01:44 Dose: 650 mg Docusate Sodium (Colace -) 100 mg PO Q8H PRN PRN Reason: CONSTIPATION Last Admin: 06/01/17 10:33 Dose: 100 mg Heparin Sodium (Porcine) (Heparin -) 1,000 unit IVPUSH PRN PRN PRN Reason: Heparin Heparin Sodium (Porcine) (Heparin -) 5,000 unit IVPUSH PRN PRN PRN Reason: Heparin Last Admin: 05/31/17 20:39 Dose: 5,000 unit Hydromorphone HCl (Dilaudid Injection -) 0.5 mg IVPB Q8H PRN PRN Reason: PAIN Last Admin: 06/01/17 23:38 Dose: 0.5 mg Nicotine (Nicoderm Patch -) 14 mg TD DAILY KHALIF Last Admin: 06/01/17 10:30 Dose: 14 mg Oxycodone HCl (Roxicodone -) 10 mg PO Q4H PRN PRN Reason: PAIN LEVEL 6-10 Last Admin: 06/02/17 01:43 Dose: 10 mg Pantoprazole Sodium (Protonix -) 20 mg PO BID KHALIF Last Admin: 06/01/17 22:10 Dose: 20 mg Rosuvastatin Calcium (Crestor -) 5 mg PO HS KHALIF Last Admin: 06/01/17 22:10 Dose: 5 mg ASSESSMENT/PLAN: 56yo M current smoker with PMH of CVA, HTN, HLD, PVD/PAD, who presented with sepsis and LLE critical limb ischemia, s/p L tibial and popliteal angioplasty and thrombolysis on 05/22, developed increased pain and coldness in left foot on 05/30 requiring repeat L tibial artery angioplasty, and is now improving. Patient completed heparin to coumadin bridge (heparin gtt d/c); continue with Coumadin, INR goal 2-3. #Arterial insufficiency -heparin gtt d/c -held coumadin this AM - supratherapeutic with INR 4.22 -abx discontinued as per ID #Pain: - roxicodone 10mg PO q4h PRN - dilaudid 0.5 mg IVPB Q8H PRN #Smoker -Nicotine patch 14 mg TDS #HLD -Cont home Crestor 5mg po daily #GERD -cont pantoprazole 20mg BID #FEN -Hold IVF -lytes wnl -Na/Diabetic diet #PPX -DVT - on warfarin -GI - on pantoprazole #Dispo: transfer to M/S FULL code d/w Dr. Chris Suárez MD PGY-1 Visit type - Emergency Visit Emergency Visit: No - New Patient This patient is new to me today: No - Critical Care Critical Care patient: Yes Total Critical Care Time (in minutes): 35 Critical Care Statement: The care of this patient involved high complexity decision making to prevent further life threatening deterioration of the patient 's condition and/or to evaluate & treat vital organ system(s) failure or risk of failure.
[2017-06-02] MEDS ORDERED: PT OWN MED DRAWER 7, Y5N ONE ×3 (10:41→21:08)
[2017-06-02] MEDS: NICOTINE 14 MG/24 HOURS TOPICAL PATCH TD SCH (10:45)
[2017-06-02] MEDS: PANTOPRAZOLE 20 MG TABLET (FP) PO SCH ×2 (10:46→21:17)
--- NOTE | 2017-06-02 10:46 | PN ---
Physical Exam: SUBJECTIVE: Patient seen and examined. Complained about pain overnight, although receiving his pain medications. OBJECTIVE: Vital Signs Period Temp Pulse Resp BP Sys/Castillo Pulse Ox Last 24 Hr 98.1 F-98.7 F 88-110 12-20 98-140/69-99 95-100 GENERAL: The patient is awake, alert, and fully oriented, in mild painful distress. ENT: moist mucous membranes. LUNGS: Breath sounds equal, clear to auscultation bilaterally, no wheezes, no crackles, no accessory muscle use. Still had NC post procedure on. HEART: Regular rate and rhythm, S1, S2 without murmur, rub or gallop. ABDOMEN: Soft, nontender, nondistended, normoactive bowel sounds, no guarding, no rebound, no hepatosplenomegaly, no masses. EXTREMITIES: R ankle with 2+chronically pitting edema, warm to touch, no ulcers or gangrene seen, pink in color. Warm, L foot, TP pulse 2+ palpable pulses, DP pulse not palpable, but dopplerable. Tenderness to palpation over distal dorsal and plantar surfaces of L foot. Deep [place] color from L ankle fading gradually to security professionals pink in distal foot. Gangrene of L great toe, medially and on plantar surface, second L toe, Medially and on plantar surface and purplish discoloration of 3rd and 4th toes plantar surfaces, with purplish discoloration of L heel medially, and black patch on L heel laterally. No edema of L foot. NEUROLOGICAL: Normal speech, gait not observed. PSYCH: Normal mood, normal affect. Laboratory Results - last 24 hr 06/01/17 06/02/17 06/02/17 09:55 05:40 05:40 WBC 8.9 RBC 3.60 L Hgb 12.5 D Hct 37.3 D MCV 103.6 H MCH 34.6 H MCHC 33.5 RDW 14.3 Plt Count 327 MPV 7.2 L Neutrophils % 58.5 Lymphocytes % 27.1 Monocytes % 11.9 H Eosinophils % 1.4 Basophils % 1.1 PT with INR INR PTT (Actin FS) 65.4 H Vancomycin Pre-Dose 1.415 L* D 06/02/17 05:40 WBC RBC Hgb Hct MCV MCH MCHC RDW Plt Count MPV Neutrophils % Lymphocytes % Monocytes % Eosinophils % Basophils % PT with INR 47.80 H INR 4.22 H* PTT (Actin FS) Vancomycin Pre-Dose Active Medications Generic Name Dose Route Start Last Admin Trade Name Freq PRN Reason Stop Dose Admin Acetaminophen 650 mg 05/30/17 20:04 06/02/17 08:42 Tylenol - PO 650 mg Q4H PRN Administration PAIN Docusate Sodium 100 mg 05/30/17 20:04 06/01/17 10:33 Colace - PO 100 mg Q8H PRN Administration CONSTIPATION Hydromorphone HCl 0.5 mg 06/02/17 09:15 Dilaudid Injection - IVPB Q4H PRN PAIN Nicotine 14 mg 05/31/17 10:00 06/01/17 10:30 Nicoderm Patch - TD 14 mg DAILY KHALIF Administration Oxycodone HCl 10 mg 05/30/17 20:04 06/02/17 08:47 Roxicodone - PO 10 mg Q4H PRN Administration PAIN LEVEL 6-10 Pantoprazole Sodium 20 mg 05/30/17 22:00 06/01/17 22:10 Protonix - PO 20 mg BID KHALIF Administration Rosuvastatin Calcium 5 mg 05/30/17 22:00 06/01/17 22:10 Crestor - PO 5 mg HS KHALIF Administration Warfarin Sodium 2.5 mg 06/02/17 18:00 Coumadin - PO DAILY@1800 [facility] ASSESSMENT/PLAN: A 56 year old smoker with PMHx of CVA, PAD, HLD admitted for Sepsis with ischemia of L great toe now s/p thrombectomy # Arterial insufficiency - in a chronic active smoker with ischemic L big toe s/ p thrombectomy (05/22, 05/23, 05/30) - Heparin drip stopped - Supratherapeutic INR-4.22, likely due to interaction with heparin drip - received 2.5mg warfarin yesterday, D/W Dr Fernández and Dr Simpson- continue 2.5mg Coumadin today - Received percocet 10/650 q4h PO round the clock - pain not yet well controlled- due to reduced vascularization of limb - 0.5mg dilaudid increased to iv Q4H from Q8H #Nasal cannular:S/p thrombectomy -Not in acute respiratory distress, not hypoxic, discontinue #Smoker -Nicotine patch 14 mg TDS- not craving, continue #Tachycardia: Improved _Likely secondary to pain -Will monitor, on new pain med regimen # hypercholesterolemia - Crestor 5mg po daily # GERD - Continue pantoprazole 20mg BID #FEN - Oral fluids - Electrolytes: replete as needed - Nutrition: regular diet # Prophylaxis DVT-warfarin GI-Tabs pantoprazole #Dispo Transfer from ICU to Med Surg Visit type - Emergency Visit Emergency Visit: Yes ED Registration Date: 05/21/17 Care time: The patient presented to the Emergency Department on the above date and was hospitalized for further evaluation of their emergent condition. - New Patient This patient is new to me today: No - Critical Care Critical Care patient: No - Discharge Referral Referred to [facility] Med P.C.: No
--- NOTE | 2017-06-02 11:54 | PN ---
Teaching Attending Note Name of Resident: Tracie Almonte ATTENDING PHYSICIAN STATEMENT I saw and evaluated the patient. I reviewed the resident's note and discussed the case with the resident. I agree with the resident's findings and plan as documented. SUBJECTIVE: no fever or chills, has no abd pain , has no SOB. L foot with pain, poorly controlled on current regimen OBJECTIVE: NAD Cv : RRR Lungs : CTAB Ext: L foot is warm, cool over toes . 2+ PT, DP could not be palpated, but doplarable . Slight erythema from ankle down. pale/whitish spots on tip of L 3rd, 4th toes. L 1st, 2nd toes with black discoloration. R leg with 2+ edema , DP 1+, and 2+ PT. ASSESSMENT AND PLAN: 56 y/o man with h/o smoking, CVA , and HTN who presented with L foot pain and was found to have acute arterial insufficiency and a dry gangrene of L foot toes 1- Acute arterial insufficiency : s/p revascularization x 2 . Foot is warm today with 1+ DP, 2+ PT. -INR 4.22 . - DC Hepain gtt and give 2.5 of coumadin - Hypercoagulable w/u started . prothrombin II gene mutation pending. V leiden gene mutation, anticardiolipin ABs and antiphospholipid Abs are pending autherization. Slick 2 and [facility] tests as out pt . - Can't check Protein C, S , antithrombin levels as on AC now . - need heme f/u as out pt - increase frequency of dilaudid , cont oxycodone 2- Macrocytic anemia: stable HB 3- Nicotine dependence - cont nicotine patch Dispo : tx to med surg
[2017-06-02] MEDS: HYDROmorphone HCL CARPU-JECT 1 MG/1 ML DISP.SYRIN IVPB PRN ×3 (12:31→21:17)
--- NOTE | 2017-06-02 13:25 | PN ---
Teaching Attending Note Name of Resident: Kylie Suárez ATTENDING PHYSICIAN STATEMENT I saw and evaluated the patient. I reviewed the resident's note and discussed the case with the resident. I agree with the resident's findings and plan as documented. SUBJECTIVE: Pt seen and examined in the ICU. Pain controlled. No shortness of breath or chest pain. Dopplers positive. OBJECTIVE: Last Vital Signs Temp Pulse Resp BP Pulse Ox 98.4 F 96 H 12 107/69 96 06/02/17 10:33 06/02/17 12:07 06/02/17 12:07 06/02/17 12:07 06/02/17 09:59 Intake & Output 05/30/17 05/31/17 06/01/17 06/02/17 23:59 23:59 23:59 23:59 Intake Total 2321 2481 1728 324 Output Total 2050 2100 2650 1000 Balance 271 932 -922 -676 Weight 162 lb 170 lb 14.4 oz 167 lb 12.8 oz 167 lb 9.6 oz Gen: NAD at rest Heart: RRR Lung: decreased breath sounds at the bases Abd: soft, nontender Ext: L toes gangrenous CBC, BMP 06/02/17 05:40 05/31/17 05:45 Active Medications Acetaminophen (Tylenol -) 650 mg PO Q4H PRN PRN Reason: PAIN Last Admin: 06/02/17 08:42 Dose: 650 mg Docusate Sodium (Colace -) 100 mg PO Q8H PRN PRN Reason: CONSTIPATION Last Admin: 06/01/17 10:33 Dose: 100 mg Hydromorphone HCl (Dilaudid Injection -) 0.5 mg IVPB Q4H PRN PRN Reason: PAIN Last Admin: 06/02/17 12:31 Dose: 0.5 mg Nicotine (Nicoderm Patch -) 14 mg TD DAILY KHALIF Last Admin: 06/02/17 10:45 Dose: 14 mg Oxycodone HCl (Roxicodone -) 10 mg PO Q4H PRN PRN Reason: PAIN LEVEL 6-10 Last Admin: 06/02/17 08:47 Dose: 10 mg Pantoprazole Sodium (Protonix -) 20 mg PO BID KHALIF Last Admin: 06/02/17 10:46 Dose: 20 mg Rosuvastatin Calcium (Crestor -) 5 mg PO HS [facility] Last Admin: 06/01/17 22:10 Dose: 5 mg Warfarin Sodium (Coumadin -) 2.5 mg PO DAILY@1800 [facility] ASSESSMENT AND PLAN: PAD s/p LLE angiogram/angioplasty/thrombolysis s/p re-op L Tibial Angioplasty HTN h/o CVA Hyperlipidemia - continue anticoagulation - doppler checks - pain control - statin - surgery f/u - wound care - can monitor on floor
[2017-06-02] MEDS ORDERED: DOCUSATE SODIUM 100 MG CAPSULE (FP) PO PRN (17:22)
[2017-06-02] MEDS ORDERED: WARFARIN NA 2.5 MG TABLET (FP) PO SCH ×2 (18:00)
[2017-06-02] MEDS ORDERED: INSULIN (NOVOLOG) ASPART 100 UNITS/ML 10ML VIAL ONE (21:07)
[2017-06-02] MEDS: ROSUVASTATIN CA 5 MG TABLET (FP) PO SCH (21:17)
[2017-06-03] MEDS: HYDROmorphone HCL CARPU-JECT 1 MG/1 ML DISP.SYRIN IVPB PRN ×3 (02:02→20:18)
[2017-06-03] MEDS: ACETAMINOPHEN 325 MG TABLET (FP) PO PRN ×4 (04:33→22:20)
[2017-06-03] MEDS: oxyCODONE HCL 5 MG TABLET PO PRN ×5 (04:34→22:19)
[2017-06-03 08:14] LABS: MCH 33.9 pg (25.7-33.7); MCHC 33.2 g/dl (32.0-35.9); MEAN CELL VOLUME 102.3 fl (80-96); MEAN PLT VOLUME 7.1 fl (7.5-11.1); PLATELET COUNT 346 K/MM3 (134-434); RDW 14.2 % (11.9-15.9); WHITE BLOOD COUNT 8.8 K/mm3 (4.0-10.0)
[2017-06-03 08:16] LABS: BASOPHIL 1.1 % (0-2.0); EOSINOPHIL 1.5 % (0-4.5); MCH 34.1 pg (25.7-33.7); MCHC 33.3 g/dl (32.0-35.9); MEAN CELL VOLUME 102.3 fl (80-96); MEAN PLT VOLUME 7.1 fl (7.5-11.1); NEUTROPHILS 66.8 % (42.8-82.8); PLATELET COUNT 337 K/MM3 (134-434); RDW 14.4 % (11.9-15.9); WHITE BLOOD COUNT 8.5 K/mm3 (4.0-10.0)
[2017-06-03 08:35] LABS: ALBUMIN 3.1 g/dl (3.4-5.0); ANION GAP 10 (8-16); CALCIUM 9.4 mg/dL (8.5-10.1); CO2 27 mmol/L (21-32); CREATININE 0.6 mg/dL (0.7-1.3); GLUCOSE,RANDOM 95 mg/dL (74-106); INR 3.01 (0.82-1.09); MAGNESIUM 2.4 mg/dL (1.8-2.4); PHOSPHOROUS 4.8 mg/dL (2.5-4.9); PROTHROMBIN TIME (PATIENT) 33.1 SEC (9.98-11.88); SGOT/AST 16 U/L (15-37); SGPT/ALT 31 U/L (12-78)
[2017-06-03 08:36] LABS: ALK PHOS 97 U/L (45-117); BILIRUBIN,TOTAL 0.5 mg/dL (0.2-1.0); TOT PROT 7.2 g/dl (6.4-8.2)
[2017-06-03] MEDS: PANTOPRAZOLE 20 MG TABLET (FP) PO SCH ×2 (10:14→22:20)
[2017-06-03] MEDS: NICOTINE 14 MG/24 HOURS TOPICAL PATCH TD SCH (10:15)
--- NOTE | 2017-06-03 15:15 | PN ---
Physical Exam: SUBJECTIVE: Patient seen and examined Still having pain. Received both oral and iv pain meds. No new c/o, no fever or chills. OBJECTIVE: Vital Signs Period Temp Pulse Resp BP Sys/Castillo Pulse Ox Last 24 Hr 98.2 F-99 F 98-105 18-20 113-146/72-82 96-99 GENERAL: The patient is awake, alert, and fully oriented, in mild painful distress distress. ENT: moist mucous membranes. LUNGS: Breath sounds equal, clear to auscultation bilaterally HEART: Regular rate and rhythm, S1, S2 without murmur, rub or gallop. ABDOMEN: Soft, nontender, nondistended, normoactive bowel sounds, no guarding, no rebound, no hepatosplenomegaly, no masses. EXTREMITIES: Warm, 2+ TP pulse on R, with pitting pedal edema on R, normal pink color. L foot, warm, TP 2+ pulse, mild swelling mid foot with increased redness , 1+ palpable DP pulse. Gangrene of L great and second L toes, with cold digits. Tenderness to palpation from mid foot distally. NEUROLOGICAL: No facial droop. Normal speech, gait not observed. PSYCH: Normal mood, normal affect. Laboratory Results - last 24 hr 06/03/17 06/03/17 06/03/17 07:00 07:00 07:00 WBC 8.8 RBC 3.55 L Hgb 12.1 Hct 36.3 MCV 102.3 H MCH 33.9 H MCHC 33.2 RDW 14.2 Plt Count 346 MPV 7.1 L Neutrophils % Lymphocytes % Monocytes % Eosinophils % Basophils % PT with INR 33.10 H INR 3.01 H PTT (Actin FS) 37.8 H D Sodium Potassium Chloride Carbon Dioxide Anion Gap BUN Creatinine Creat Clearance w eGFR Random Glucose Calcium Phosphorus Magnesium Total Bilirubin AST ALT Alkaline Phosphatase Total Protein Albumin 06/03/17 06/03/17 07:00 07:00 WBC 8.5 RBC 3.53 L Hgb 12.0 Hct 36.1 MCV 102.3 H MCH 34.1 H MCHC 33.3 RDW 14.4 Plt Count 337 MPV 7.1 L Neutrophils % 66.8 Lymphocytes % 20.8 D Monocytes % 9.8 Eosinophils % 1.5 Basophils % 1.1 PT with INR INR PTT (Actin FS) Sodium 134 L Potassium 4.5 Chloride 97 L Carbon Dioxide 27 Anion Gap 10 BUN 12 D Creatinine 0.6 L Creat Clearance w eGFR > 60 Random Glucose 95 Calcium 9.4 Phosphorus 4.8 Magnesium 2.4 Total Bilirubin 0.5 AST 16 D ALT 31 D Alkaline Phosphatase 97 Total Protein 7.2 Albumin 3.1 L Active Medications Generic Name Dose Route Start Last Admin Trade Name Freq PRN Reason Stop Dose Admin Acetaminophen 650 mg 06/02/17 17:22 06/03/17 12:31 Tylenol - PO 650 mg Q4H PRN Administration PAIN Docusate Sodium 100 mg 06/02/17 17:22 Colace - PO Q8H PRN CONSTIPATION Hydromorphone HCl 0.5 mg 06/02/17 17:22 06/03/17 14:53 Dilaudid Injection - IVPB 0.5 mg Q4H PRN Administration PAIN Nicotine 14 mg 06/03/17 10:00 06/03/17 10:15 Nicoderm Patch - TD 14 mg DAILY KHALIF Administration Oxycodone HCl 10 mg 06/02/17 17:22 06/03/17 12:30 Roxicodone - PO 10 mg Q4H PRN Administration PAIN LEVEL 6-10 Pantoprazole Sodium 20 mg 06/02/17 22:00 06/03/17 10:14 Protonix - PO 20 mg BID KHALIF Administration Rosuvastatin Calcium 5 mg 06/02/17 22:00 06/02/17 21:17 Crestor - PO 5 mg HS KHALIF Administration Warfarin Sodium 4 mg 06/03/17 18:00 Coumadin - PO DAILY@1800 [facility] ASSESSMENT/PLAN: A 56 year old smoker with PMHx of CVA, PAD, HLD admitted for Sepsis with ischemia of L great toe now s/p thrombectomy # Arterial insufficiency - in a chronic active smoker with ischemic L big toe s/ p thrombectomy (05/22, 05/23, 05/30) - Supratherapeutic INR-3.01, likely due to interaction with heparin drip - received 2.5mg warfarin yesterday, continue 4mg Coumadin today - Continue percocet 10/650 q4h PO round the clock - Continue 0.5mg dilaudid increased to iv Q4H from Q8H - per Dr Simpson- given his stroke and now arterial LE thrombosis , hypercoagulable w/u started . - prothrombin II gene mutation pending. V leiden gene mutation, anticardiolipin ABs and antiphospholipid Abs are pending autherization. - Slick 2 and [facility] tests as out pt . - Can't check Protein C, S , antithrombin levels as on AC now . #Smoker -Nicotine patch 14 mg TDS- not craving, continue #Tachycardia: _Likely secondary to pain -Will monitor, on pain med regimen # hypercholesterolemia - Crestor 5mg po daily # GERD - Continue pantoprazole 20mg BID #FEN - Oral fluids - Electrolytes: replete as needed - Nutrition: regular diet # Prophylaxis DVT-warfarin GI-Tabs pantoprazole #Dispo Med Surg Visit type - Emergency Visit Emergency Visit: Yes ED Registration Date: 05/21/17 Care time: The patient presented to the Emergency Department on the above date and was hospitalized for further evaluation of their emergent condition. - New Patient This patient is new to me today: No - Critical Care Critical Care patient: No - Discharge Referral Referred to [facility] Med P.C.: No
[2017-06-03] MEDS: WARFARIN NA 2 MG TABLET (UD) PO SCH (17:43)
--- NOTE | 2017-06-03 18:26 | PN ---
Teaching Attending Note Name of Resident: Tracie Almonte ATTENDING PHYSICIAN STATEMENT I saw and evaluated the patient. I reviewed the resident's note and discussed the case with the resident. I agree with the resident's findings and plan as documented. SUBJECTIVE: no fever or chills, has pain in foot which being controlled by pain meds OBJECTIVE: NAD Cv : RRR Lungs : CTAB Ext: L foot is warm, cool over toes . 2+ PT, DP 1+ . Slight erythema from ankle down. darker erythema over anterior dorsal foot . pale/whitish spots on tip of L 3rd, 4th toes. L 1st, 2nd toes with black discoloration. R leg with 2+ edema , DP 1+, and 2+ PT. ASSESSMENT AND PLAN: 56 y/o man with h/o smoking, CVA , and HTN who presented with L foot pain and was found to have acute arterial insufficiency and a dry gangrene of L foot toes 1- Acute arterial insufficiency : s/p revascularization x 2 . stable exam. -INR 3.1 - give 4 mg of coumadin today - Hypercoagulable w/u started . prothrombin II gene mutation pending. V leiden gene mutation, anticardiolipin ABs and antiphospholipid Abs are pending autherization. Slick 2 and [facility] tests as out pt . - Can't check Protein C, S , antithrombin levels as on AC now . - need heme f/u as out pt - cont current pain regimen . dilaudid , cont oxycodone . hopefully dilaudid can be dc tomorrow 2- Macrocytic anemia: stable HB. 3- Nicotine dependence - cont nicotine patch Dispo :HLOC due to severe pain requiring iV pain meds and the need to stabilize his INR . at dc pt declines rehab and wants to go home with VNS hopefully in 1-2 days
--- NOTE | 2017-06-03 19:34 | PN ---
Progress Note (short form) - Note Progress Note: Vascular Surgery Pt seen and examined. Left foot warm. Demarcating. Palpable PT pulse. INR is 3.0 Awaiting demarcation for amputation of toes. Doug Fernández DO
[2017-06-03] MEDS: ROSUVASTATIN CA 5 MG TABLET (FP) PO SCH (22:20)
[2017-06-04] MEDS: HYDROmorphone HCL CARPU-JECT 1 MG/1 ML DISP.SYRIN IVPB PRN ×4 (00:41→21:38)
[2017-06-04] MEDS: ACETAMINOPHEN 325 MG TABLET (FP) PO PRN ×5 (02:20→19:49)
[2017-06-04] MEDS: oxyCODONE HCL 5 MG TABLET PO PRN ×5 (02:20→19:50)
[2017-06-04 06:49] LABS: MCH 33.9 pg (25.7-33.7); MCHC 32.8 g/dl (32.0-35.9); MEAN CELL VOLUME 103.3 fl (80-96); MEAN PLT VOLUME 6.8 fl (7.5-11.1); PLATELET COUNT 356 K/MM3 (134-434); RDW 14.5 % (11.9-15.9); WHITE BLOOD COUNT 8.1 K/mm3 (4.0-10.0)
[2017-06-04 07:14] LABS: INR 2.89 (0.82-1.09); PROTHROMBIN TIME (PATIENT) 31.8 SEC (9.98-11.88)
--- NOTE | 2017-06-04 07:30 | PN ---
Physical Exam: SUBJECTIVE: Patient seen and examined OBJECTIVE: Vital Signs Period Temp Pulse Resp BP Sys/Castillo Pulse Ox Last 24 Hr 97.6 F-99.4 F 90-99 20-20 115-128/72-80 97-97 GENERAL: The patient is awake, alert, and fully oriented, in no acute distress. EYES: sclera anicteric, conjunctiva clear. ENT: moist mucous membranes. LUNGS: Breath sounds equal, clear to auscultation bilaterally, no wheezes, no crackles HEART: Regular rate and rhythm, S1, S2 without murmur, rub or gallop. ABDOMEN: Soft, nontender, nondistended, normoactive bowel sounds EXTREMITIES: Evenly pink colored, non tender, warm 2+ pulses TP on R lower limb ankle pitting edema 2+. L foot, warm, TP pulse 2+. Dorsalis pedis difficult to palpate on L. More even color from proximal to distal foot. Resolving redness and mild swelling distal foot dorsally, proximal to toes. Healing bruises (from doppler use overnight). Mild tenderness from plantar surface of L midfoot. Gangrenous first, second toes and pale cold, colored 3rd to 5th toes. NEUROLOGICAL: Normal speech, gait not observed. PSYCH: Normal mood, normal affect. Laboratory Results - last 24 hr 06/03/17 06/03/17 06/03/17 07:00 07:00 07:00 WBC 8.8 RBC 3.55 L Hgb 12.1 Hct 36.3 MCV 102.3 H MCH 33.9 H MCHC 33.2 RDW 14.2 Plt Count 346 MPV 7.1 L Neutrophils % Lymphocytes % Monocytes % Eosinophils % Basophils % PT with INR 33.10 H INR 3.01 H PTT (Actin FS) 37.8 H D Sodium Potassium Chloride Carbon Dioxide Anion Gap BUN Creatinine Creat Clearance w eGFR Random Glucose Calcium Phosphorus Magnesium Total Bilirubin AST ALT Alkaline Phosphatase Total Protein Albumin 06/03/17 06/03/17 06/04/17 07:00 07:00 06:15 WBC 8.5 8.1 RBC 3.53 L 3.52 L Hgb 12.0 11.9 Hct 36.1 36.3 MCV 102.3 H 103.3 H MCH 34.1 H 33.9 H MCHC 33.3 32.8 RDW 14.4 14.5 Plt Count 337 356 MPV 7.1 L 6.8 L Neutrophils % 66.8 Lymphocytes % 20.8 D Monocytes % 9.8 Eosinophils % 1.5 Basophils % 1.1 PT with INR INR PTT (Actin FS) Sodium 134 L Potassium 4.5 Chloride 97 L Carbon Dioxide 27 Anion Gap 10 BUN 12 D Creatinine 0.6 L Creat Clearance w eGFR > 60 Random Glucose 95 Calcium 9.4 Phosphorus 4.8 Magnesium 2.4 Total Bilirubin 0.5 AST 16 D ALT 31 D Alkaline Phosphatase 97 Total Protein 7.2 Albumin 3.1 L 06/04/17 06:15 WBC RBC Hgb Hct MCV MCH MCHC RDW Plt Count MPV Neutrophils % Lymphocytes % Monocytes % Eosinophils % Basophils % PT with INR 31.80 H INR 2.89 H PTT (Actin FS) Sodium Potassium Chloride Carbon Dioxide Anion Gap BUN Creatinine Creat Clearance w eGFR Random Glucose Calcium Phosphorus Magnesium Total Bilirubin AST ALT Alkaline Phosphatase Total Protein Albumin Active Medications Generic Name Dose Route Start Last Admin Trade Name Freq PRN Reason Stop Dose Admin Acetaminophen 650 mg 06/02/17 17:22 06/04/17 06:38 Tylenol - PO 650 mg Q4H PRN Administration PAIN Docusate Sodium 100 mg 06/02/17 17:22 Colace - PO Q8H PRN CONSTIPATION Hydromorphone HCl 0.5 mg 06/02/17 17:22 06/04/17 04:49 Dilaudid Injection - IVPB 0.5 mg Q4H PRN Administration PAIN Nicotine 14 mg 06/03/17 10:00 06/03/17 10:15 Nicoderm Patch - TD 14 mg DAILY KHALIF Administration Oxycodone HCl 10 mg 06/02/17 17:22 06/04/17 06:37 Roxicodone - PO 10 mg Q4H PRN Administration PAIN LEVEL 6-10 Pantoprazole Sodium 20 mg 06/02/17 22:00 06/03/17 22:20 Protonix - PO 20 mg BID KHALIF Administration Rosuvastatin Calcium 5 mg 06/02/17 22:00 06/03/17 22:20 Crestor - PO 5 mg HS KHALIF Administration Warfarin Sodium 4 mg 06/03/17 18:00 06/03/17 17:43 Coumadin - PO 4 mg DAILY@1800 KHALIF Administration ASSESSMENT/PLAN: A 56 year old smoker with PMHx of CVA, PAD, HLD admitted for Sepsis with ischemia of L great toe now s/p thrombectomy # Arterial insufficiency - in a chronic active smoker with ischemic L big toe s/ p thrombectomy (05/22, 05/23, 05/30) - Therapeutic INR-2.89 today - On 4mg Coumadin D/W Dr Fernández- to observe closely on 4mg since the INR dropped today, and likely escalate to 5mg if it continues to drop - Continue percocet 10/650 q4h PO -patient received pain meds round the clock - To try to wean off 0.5mg dilaudid by reducing to Q8H - per Dr Simpson- hypercoagulable w/u , I needed preauthorization and had to speak with a Pathologist- Dr Echols who discouraged progressing with the tests - Per Dr Echols - Hypercoagulable work up is better done as an outpatient procedure, as the in patient has been on anticoagulation, and the results of the tests will not be accurate since the factors have been consumed or are being homeostatically compensated for - a color buffer on board is needed to advice as to the best tests - in the case of this patient, with gangrene of the toe, it is most likely due to artherosclerosis and the work up may not be useful - Any tests that were ordered on line would already have gone through #Smoker -Nicotine patch 14 mg TDS- not craving, continue #Tachycardia: _Likely secondary to pain -Will monitor, on pain med regimen # hypercholesterolemia - Crestor 5mg po daily # GERD - Continue pantoprazole 20mg BID #FEN - Oral fluids - Electrolytes: replete as needed - Nutrition: regular diet # Prophylaxis DVT-warfarin GI-Tabs pantoprazole #Dispo Med Surg Visit type - Emergency Visit Emergency Visit: Yes ED Registration Date: 05/21/17 Care time: The patient presented to the Emergency Department on the above date and was hospitalized for further evaluation of their emergent condition. - New Patient This patient is new to me today: No - Critical Care Critical Care patient: No - Discharge Referral Referred to [facility] Med P.C.: No
[2017-06-04 07:39] LABS: ANION GAP 9 (8-16); CALCIUM 9.6 mg/dL (8.5-10.1); CO2 30 mmol/L (21-32); CREATININE 0.8 mg/dL (0.7-1.3); GLUCOSE,RANDOM 91 mg/dL (74-106)
[2017-06-04] MEDS: NICOTINE 14 MG/24 HOURS TOPICAL PATCH TD SCH (09:52)
[2017-06-04] MEDS: PANTOPRAZOLE 20 MG TABLET (FP) PO SCH ×2 (09:52→21:40)
--- NOTE | 2017-06-04 13:07 | PN ---
Teaching Attending Note Name of Resident: Tracie Almonte ATTENDING PHYSICIAN STATEMENT I saw and evaluated the patient. I reviewed the resident's note and discussed the case with the resident. I agree with the resident's findings and plan as documented. SUBJECTIVE: Patient is feeling better with no acute distress. OBJECTIVE: Vital Signs Temperature 98.3 F 06/04/17 08:48 Pulse Rate 93 H 06/04/17 08:48 Respiratory Rate 14 06/04/17 08:48 Blood Pressure 115/71 06/04/17 08:48 O2 Sat by Pulse Oximetry (%) 97 06/03/17 21:00 CBCD WBC 8.1 K/mm3 (4.0-10.0) 06/04/17 06:15 RBC 3.52 M/mm3 (4.00-5.60) L 06/04/17 06:15 Hgb 11.9 GM/dL (11.7-16.9) 06/04/17 06:15 Hct 36.3 % (35.4-49) 06/04/17 06:15 MCV 103.3 fl (80-96) H 06/04/17 06:15 MCHC 32.8 g/dl (32.0-35.9) 06/04/17 06:15 RDW 14.5 % (11.9-15.9) 06/04/17 06:15 Plt Count 356 K/MM3 (134-434) 06/04/17 06:15 MPV 6.8 fl (7.5-11.1) L 06/04/17 06:15 CMP Sodium 135 mmol/L (136-145) L 06/04/17 06:15 Potassium 4.2 mmol/L (3.5-5.1) 06/04/17 06:15 Chloride 96 mmol/L (98-107) L 06/04/17 06:15 Carbon Dioxide 30 mmol/L (21-32) 06/04/17 06:15 Anion Gap 9 (8-16) 06/04/17 06:15 BUN 13 mg/dL (7-18) 06/04/17 06:15 Creatinine 0.8 mg/dL (0.7-1.3) D 06/04/17 06:15 Creat Clearance w eGFR > 60 (>60) 06/03/17 07:00 Random Glucose 91 mg/dL (74-106) 06/04/17 06:15 Calcium 9.6 mg/dL (8.5-10.1) 06/04/17 06:15 Total Bilirubin 0.5 mg/dL (0.2-1.0) 06/03/17 07:00 AST 16 U/L (15-37) D 06/03/17 07:00 ALT 31 U/L (12-78) D 06/03/17 07:00 Alkaline Phosphatase 97 U/L (45-117) 06/03/17 07:00 Total Protein 7.2 g/dl (6.4-8.2) 06/03/17 07:00 Albumin 3.1 g/dl (3.4-5.0) L 06/03/17 07:00 Current Medications Generic Name Dose Route Start Last Admin Trade Name Freq PRN Reason Stop Dose Admin Acetaminophen 650 mg 06/02/17 17:22 06/04/17 10:00 Tylenol - PO 650 mg Q4H PRN Administration PAIN Docusate Sodium 100 mg 06/02/17 17:22 Colace - PO Q8H PRN CONSTIPATION Hydromorphone HCl 0.5 mg 06/04/17 10:09 Dilaudid Injection - IVPB Q8H PRN PAIN Nicotine 14 mg 06/03/17 10:00 06/04/17 09:52 Nicoderm Patch - TD 14 mg DAILY KHALIF Administration Oxycodone HCl 10 mg 06/02/17 17:22 06/04/17 09:53 Roxicodone - PO 10 mg Q4H PRN Administration PAIN LEVEL 6-10 Pantoprazole Sodium 20 mg 06/02/17 22:00 06/04/17 09:52 Protonix - PO 20 mg BID KHALIF Administration Rosuvastatin Calcium 5 mg 06/02/17 22:00 06/03/17 22:20 Crestor - PO 5 mg HS KHALIF Administration Warfarin Sodium 4 mg 06/03/17 18:00 06/03/17 17:43 Coumadin - PO 4 mg DAILY@1800 KHALIF Administration Home Medications Medication Instructions Recorded Clopidogrel Bisulfate [Clopidogrel] 75 mg PO DAILY #30 tablet 05/27/17 Ranitidine [Zantac -] 150 mg PO BID #30 tablet 05/27/17 PE: per resident's note ASSESSMENT AND PLAN: Patient is a 56 y/o man with h/o smoking, CVA , and HTN who presented with L foot pain and was found to have acute arterial insufficiency and a dry gangrenous of Left foot toes (4th and 5th) # Acute arterial Iscemia : s/p revascularization x 3 . stable at this time. Needs life long AC. Vascular surgeon on the case to continue with warfarin with 4mg po daily for now, will repeat INR in am. Hypercoagulable w/u started . prothrombin II gene mutation pending. V leiden gene mutation, anticardiolipin ABs and antiphospholipid Abs as an outpatient Slick 2 and PN tests as out pt , Protein C, S , antithrombin levels As per pathologist the work up will not be accurate if we order the tests since the patient is on anticoagulation. cont current pain regimen .will decrease his pain meds IV dilaudid to every 8hrs , cont oxycodone. Hem.consult appreciated . # Macrocytic anemia: stable HB. check ,b12,folic acid level, TSh # Nicotine dependence cont nicotine patch pt would like to go home. with VNS .
[2017-06-04] MEDS ORDERED: DOCUSATE SODIUM 100 MG CAPSULE (FP) PO PRN (14:15)
[2017-06-04] MEDS: WARFARIN NA 2 MG TABLET (UD) PO SCH (17:35)
[2017-06-04] MEDS ORDERED: PT OWN MED DRAWER 7, Y5N ONE (21:33)
[2017-06-04] MEDS: ROSUVASTATIN CA 5 MG TABLET (FP) PO SCH (21:40)
[2017-06-04] MEDS: DOCUSATE SODIUM 100 MG CAPSULE (FP) PO SCH (21:40)
[2017-06-05] MEDS: oxyCODONE HCL 5 MG TABLET PO PRN ×6 (00:13→21:19)
[2017-06-05] MEDS: ACETAMINOPHEN 325 MG TABLET (FP) PO PRN ×6 (00:14→21:20)
[2017-06-05] MEDS: DOCUSATE SODIUM 100 MG CAPSULE (FP) PO SCH ×3 (05:43→21:18)
[2017-06-05] MEDS: HYDROmorphone HCL CARPU-JECT 1 MG/1 ML DISP.SYRIN IVPB PRN (05:43)
[2017-06-05 07:26] LABS: MCH 33.7 pg (25.7-33.7); MEAN CELL VOLUME 102.2 fl (80-96); MEAN PLT VOLUME 6.9 fl (7.5-11.1); PLATELET COUNT 413 K/MM3 (134-434); RDW 14.2 % (11.9-15.9); WHITE BLOOD COUNT 8.7 K/mm3 (4.0-10.0)
[2017-06-05 07:31] LABS: INR 3.73 (0.82-1.09); PROTHROMBIN TIME (PATIENT) 42.1 SEC (9.98-11.88)
[2017-06-05 08:01] LABS: ANION GAP 9 (8-16); CALCIUM 9.4 mg/dL (8.5-10.1); CO2 27 mmol/L (21-32); CREATININE 0.7 mg/dL (0.7-1.3); GLUCOSE,RANDOM 91 mg/dL (74-106)
--- NOTE | 2017-06-05 10:34 | PN ---
Progress Note (short form) - Note Progress Note: Still with pain issues. No CP or SOB. No acute events overnight. Intake & Output 06/02/17 06/03/17 06/04/17 06/05/17 23:59 23:59 23:59 23:59 Intake Total 804 1320 1750 50 Output Total 2650 601 500 200 Balance -3114 183 3137 -150 Weight 167 lb 9.6 oz 163 lb 6 oz 164 lb 1 oz Last Vital Signs Temp Pulse Resp BP Pulse Ox 98.2 F 88 20 133/79 96 06/05/17 08:59 06/05/17 08:59 06/05/17 08:59 06/05/17 08:59 06/04/17 21:00 Active Medications Acetaminophen (Tylenol -) 650 mg PO Q4H PRN PRN Reason: PAIN Last Admin: 06/05/17 08:26 Dose: 650 mg Docusate Sodium (Colace -) 100 mg PO TID [facility] Last Admin: 06/05/17 05:43 Dose: 100 mg Nicotine (Nicoderm Patch -) 14 mg TD DAILY [facility] Last Admin: 06/04/17 09:52 Dose: 14 mg Oxycodone HCl (Roxicodone -) 10 mg PO Q4H PRN PRN Reason: PAIN LEVEL 6-10 Last Admin: 06/05/17 08:27 Dose: 10 mg Pantoprazole Sodium (Protonix -) 20 mg PO BID [facility] Last Admin: 06/04/17 21:40 Dose: 20 mg Rosuvastatin Calcium (Crestor -) 5 mg PO HS [facility] Last Admin: 06/04/17 21:40 Dose: 5 mg Warfarin Sodium (Coumadin -) 3 mg PO DAILY@1800 [facility] Gen: NAD at rest Heart: RRR Lung: decreased breath sounds at the bases Abd: soft, nontender Ext: gangrene Laboratory Results - last 24 hr 06/05/17 06/05/17 06/05/17 06:25 06:25 06:25 WBC 8.7 RBC 3.55 L Hgb 12.0 Hct 36.3 MCV 102.2 H MCH 33.7 MCHC 33.0 RDW 14.2 Plt Count 413 MPV 6.9 L PT with INR 42.10 H INR 3.73 H Sodium 134 L Potassium 4.4 Chloride 98 Carbon Dioxide 27 Anion Gap 9 BUN 13 Creatinine 0.7 Random Glucose 91 Calcium 9.4 ASSESSMENT AND PLAN: PAD s/p LLE angiogram/angioplasty/thrombolysis s/p re-op L Tibial Angioplasty HTN h/o CVA Hyperlipidemia - continue anticoagulation - doppler checks - pain control - statin - local wound care per surgery Dr Taylor
[2017-06-05] MEDS: PANTOPRAZOLE 20 MG TABLET (FP) PO SCH ×2 (10:59→21:19)
[2017-06-05] MEDS: NICOTINE 14 MG/24 HOURS TOPICAL PATCH TD SCH (11:00)
[2017-06-05] MEDS ORDERED: WARFARIN NA 3 MG TABLET PO SCH (18:00)
--- NOTE | 2017-06-05 18:02 | PN ---
Teaching Attending Note Name of Resident: Tracie Almonte ATTENDING PHYSICIAN STATEMENT I saw and evaluated the patient. I reviewed the resident's note and discussed the case with the resident. I agree with the resident's findings and plan as documented. SUBJECTIVE: Patient has no complains, comfortable with no acute distress. OBJECTIVE: Vital Signs Temperature 97.9 F 06/05/17 14:49 Pulse Rate 104 H 06/05/17 14:49 Respiratory Rate 20 06/05/17 14:49 Blood Pressure 159/85 06/05/17 14:49 O2 Sat by Pulse Oximetry (%) 96 06/04/17 21:00 CBCD WBC 8.7 K/mm3 (4.0-10.0) 06/05/17 06:25 RBC 3.55 M/mm3 (4.00-5.60) L 06/05/17 06:25 Hgb 12.0 GM/dL (11.7-16.9) 06/05/17 06:25 Hct 36.3 % (35.4-49) 06/05/17 06:25 MCV 102.2 fl (80-96) H 06/05/17 06:25 MCHC 33.0 g/dl (32.0-35.9) 06/05/17 06:25 RDW 14.2 % (11.9-15.9) 06/05/17 06:25 Plt Count 413 K/MM3 (134-434) 06/05/17 06:25 MPV 6.9 fl (7.5-11.1) L 06/05/17 06:25 CMP Sodium 134 mmol/L (136-145) L 06/05/17 06:25 Potassium 4.4 mmol/L (3.5-5.1) 06/05/17 06:25 Chloride 98 mmol/L (98-107) 06/05/17 06:25 Carbon Dioxide 27 mmol/L (21-32) 06/05/17 06:25 Anion Gap 9 (8-16) 06/05/17 06:25 BUN 13 mg/dL (7-18) 06/05/17 06:25 Creatinine 0.7 mg/dL (0.7-1.3) 06/05/17 06:25 Creat Clearance w eGFR > 60 (>60) 06/03/17 07:00 Random Glucose 91 mg/dL (74-106) 06/05/17 06:25 Calcium 9.4 mg/dL (8.5-10.1) 06/05/17 06:25 Total Bilirubin 0.5 mg/dL (0.2-1.0) 06/03/17 07:00 AST 16 U/L (15-37) D 06/03/17 07:00 ALT 31 U/L (12-78) D 06/03/17 07:00 Alkaline Phosphatase 97 U/L (45-117) 06/03/17 07:00 Total Protein 7.2 g/dl (6.4-8.2) 06/03/17 07:00 Albumin 3.1 g/dl (3.4-5.0) L 06/03/17 07:00 Current Medications Generic Name Dose Route Start Last Admin Trade Name Freq PRN Reason Stop Dose Admin Acetaminophen 650 mg 06/02/17 17:22 06/05/17 17:05 Tylenol - PO 650 mg Q4H PRN Administration PAIN Docusate Sodium 100 mg 06/04/17 22:00 06/05/17 13:11 Colace - PO Not Given TID KHALIF Nicotine 14 mg 06/03/17 10:00 06/05/17 11:00 Nicoderm Patch - TD 14 mg DAILY KHALIF Administration Oxycodone HCl 10 mg 06/02/17 17:22 06/05/17 17:04 Roxicodone - PO 10 mg Q4H PRN Administration PAIN LEVEL 6-10 Pantoprazole Sodium 20 mg 06/02/17 22:00 06/05/17 10:59 Protonix - PO 20 mg BID KHALIF Administration Rosuvastatin Calcium 5 mg 06/02/17 22:00 06/04/17 21:40 Crestor - PO 5 mg HS KHALIF Administration Warfarin Sodium 3 mg 06/05/17 18:00 06/05/17 17:05 Coumadin - PO 3 mg DAILY@1800 KHALIF Administration Home Medications Medication Instructions Recorded Clopidogrel Bisulfate [Clopidogrel] 75 mg PO DAILY #30 tablet 05/27/17 Ranitidine [Zantac -] 150 mg PO BID #30 tablet 05/27/17 Laboratory Tests 05/22/17 05/22/17 06:40 06:40 Vitamin B12 824 D Folate 1159 Folate Hemolysate 444.0 PE: per resident's note LLE: positive for faint doppler pulse, warm to touch. ASSESSMENT AND PLAN: Patient is a 56 y/o man with h/o smoking, CVA , and HTN who presented with L foot pain and was found to have acute arterial insufficiency and a dry gangrenous of Left foot toes (4th and 5th) # Acute left arterial Iscemia : s/p revascularization x 3 . stable at this time. Needs life long AC. Vascular surgeon on the case. INR 3.73 today will lower coumadin to 3mg po daily for now, will repeat INR in am. Hypercoagulable w/u started . prothrombin II gene mutation pending. V leiden gene mutation, anticardiolipin ABs and antiphospholipid Abs as an outpatient Slick 2 and [facility] tests as out pt , Protein C, S , antithrombin levels As per pathologist the work up will not be accurate if we order the tests since the patient is on anticoagulation. cont current pain regimen .will d/c IV dilaudid ,will cont oxycodone. Hem.consult appreciated . # Macrocytic anemia: stable HB. # Nicotine dependence cont nicotine patch pt would like to go home. with VNS .
--- NOTE | 2017-06-05 18:28 | PN ---
Progress Note (short form) - Note Progress Note: VAscular surgery Pt seen and examined. Left foot warm, pink. foot is demarcating. Still has pain. INR is 3.7 coumadin dose now 3mg. Will follow Doug Fernández DO
[2017-06-05] MEDS ORDERED: PT OWN MED DRAWER 7, Y5N ONE (20:08)
[2017-06-05] MEDS: ROSUVASTATIN CA 5 MG TABLET (FP) PO SCH (21:18)
[2017-06-06] MEDS: oxyCODONE HCL 5 MG TABLET PO PRN ×7 (01:18→23:08)
[2017-06-06] MEDS: ACETAMINOPHEN 325 MG TABLET (FP) PO PRN ×5 (01:19→23:08)
[2017-06-06] MEDS: DOCUSATE SODIUM 100 MG CAPSULE (FP) PO SCH ×3 (05:28→21:10)
--- NOTE | 2017-06-06 07:01 | PN ---
Physical Exam: SUBJECTIVE: Patient seen and examined Pain was relatively well manged with both iv and po meds. Noticed redddish substance between L first and second toes OBJECTIVE: Vital Signs Period Temp Pulse Resp BP Sys/Castillo Pulse Ox Last 24 Hr 97.9 F-98.9 F 85-104 18-20 118-159/64-85 96 GENERAL: The patient is awake, alert, and fully oriented, in mild painful distress. HEAD: Normal with no signs of trauma. EYES: sclera anicteric, conjunctiva clear ENT: moist mucous membranes. LUNGS: Breath sounds equal, clear to auscultation bilaterally, no wheezes, no crackles HEART: Regular rate and rhythm, S1, S2 without murmur ABDOMEN: Soft, nontender, nondistended, normoactive bowel sounds EXTREMITIES: 2+ pulses, warm, well-perfused, ankle edema on R foot. L foot- PT pulse 2+, warm up to midfoot. Distal foot and toes cold, gangrene of 1st, 2nd and medial aspect of third toe. Pale 4th and 5th toes. DP on L dopplerable, not palpable. Dark hard substance between 1st and second toes, likely demarcated. NEUROLOGICAL: No facial droop. Normal speech, gait not observed. PSYCH: Normal mood, normal affect. Laboratory Results - last 24 hr 05/31/17 06/05/17 06/05/17 08:35 06:25 06:25 WBC 8.7 RBC 3.55 L Hgb 12.0 Hct 36.3 MCV 102.2 H MCH 33.7 MCHC 33.0 RDW 14.2 Plt Count 413 MPV 6.9 L PT with INR 42.10 H INR 3.73 H Sodium Potassium Chloride Carbon Dioxide Anion Gap BUN Creatinine Random Glucose Calcium Prothrombin [id number] Mut Factor II DNA Comment 06/05/17 06:25 WBC RBC Hgb Hct MCV MCH MCHC RDW Plt Count MPV PT with INR INR Sodium 134 L Potassium 4.4 Chloride 98 Carbon Dioxide 27 Anion Gap 9 BUN 13 Creatinine 0.7 Random Glucose 91 Calcium 9.4 Prothrombin [id number] Mut Factor II DNA Comment Active Medications Generic Name Dose Route Start Last Admin Trade Name Freq PRN Reason Stop Dose Admin Acetaminophen 650 mg 06/02/17 17:22 06/06/17 05:29 Tylenol - PO 650 mg Q4H PRN Administration PAIN Docusate Sodium 100 mg 06/04/17 22:00 06/06/17 05:28 Colace - PO 100 mg TID KHALIF Administration Nicotine 14 mg 06/03/17 10:00 06/05/17 11:00 Nicoderm Patch - TD 14 mg DAILY KHALIF Administration Oxycodone HCl 10 mg 06/02/17 17:22 06/06/17 05:28 Roxicodone - PO 10 mg Q4H PRN Administration PAIN LEVEL 6-10 Pantoprazole Sodium 20 mg 06/02/17 22:00 06/05/17 21:19 Protonix - PO 20 mg BID KHALIF Administration Rosuvastatin Calcium 5 mg 06/02/17 22:00 06/05/17 21:18 Crestor - PO 5 mg HS KHALIF Administration Warfarin Sodium 3 mg 06/05/17 18:00 06/05/17 17:05 Coumadin - PO 3 mg DAILY@1800 KHALIF Administration ASSESSMENT/PLAN: A 56 year old smoker with PMHx of CVA, PAD, HLD admitted for Sepsis with ischemia of L great toe now s/p thrombectomy # Arterial insufficiency - in a chronic active smoker with ischemic L big toe s/ p thrombectomy (05/22, 05/23, 05/30) - Supratherapeutic INR-3.73 - Give 3mg Coumadin - Continue percocet 10/650 q4h PO -patient received pain meds round the clock - Stopped iv 0.5mg dilaudid - per Dr Simpson-will follow up outpatient with hematology #Smoker -Nicotine patch 14 mg TDS- not craving, continue #Tachycardia: _Likely secondary to pain -Will monitor, on pain med regimen # hypercholesterolemia - Crestor 5mg po daily # GERD - Continue pantoprazole 20mg BID #FEN - Oral fluids - Electrolytes: replete as needed - Nutrition: regular diet # Prophylaxis DVT-warfarin GI-Tabs pantoprazole Visit type - Emergency Visit Emergency Visit: Yes ED Registration Date: 05/21/17 Care time: The patient presented to the Emergency Department on the above date and was hospitalized for further evaluation of their emergent condition. - New Patient This patient is new to me today: No - Critical Care Critical Care patient: No - Discharge Referral Referred to [facility] No
[2017-06-06 07:17] LABS: BASOPHIL 0.9 % (0-2.0); EOSINOPHIL 1.3 % (0-4.5); MCH 34.2 pg (25.7-33.7); MCHC 33.6 g/dl (32.0-35.9); MEAN CELL VOLUME 101.7 fl (80-96); MEAN PLT VOLUME 7.1 fl (7.5-11.1); NEUTROPHILS 71.2 % (42.8-82.8); PLATELET COUNT 455 K/MM3 (134-434); RDW 14.5 % (11.9-15.9); WHITE BLOOD COUNT 9.4 K/mm3 (4.0-10.0)
[2017-06-06 07:30] LABS: ANION GAP 8 (8-16); CALCIUM 9.4 mg/dL (8.5-10.1); CO2 31 mmol/L (21-32); CREATININE 0.7 mg/dL (0.7-1.3); GLUCOSE,RANDOM 91 mg/dL (74-106); MAGNESIUM 2.4 mg/dL (1.8-2.4); PHOSPHOROUS 4.3 mg/dL (2.5-4.9)
[2017-06-06 07:39] LABS: PROTHROMBIN TIME (PATIENT) 46.1 SEC (9.98-11.88)
[2017-06-06 07:57] LABS: INR 4.08 (0.82-1.09)
--- NOTE | 2017-06-06 08:21 | PN ---
Physical Exam: SUBJECTIVE: Patient seen and examined Feels pain was poorly controlled overnight, on percocet. OBJECTIVE: Vital Signs Period Temp Pulse Resp BP Sys/Castillo Pulse Ox Last 24 Hr 97.5 F-98.9 F 85-104 18-20 105-159/64-85 96 GENERAL: The patient is awake, alert, and fully oriented, in moderate painful distress. EYES: sclera anicteric, conjunctiva clear ENT: moist mucous membranes. LUNGS: Breath sounds equal, clear to auscultation bilaterally HEART: Regular rate and rhythm, S1, S2 without murmur ABDOMEN: Soft, nontender, nondistended, normoactive bowel sounds EXTREMITIES: Stollings, R lower limb 2+ PT pulse, warm, well-perfused, pitting ankle edema. L lower limb, warm, up to mid foot. Tender++ mid foot dorsally and plantar surface. PT pulse 2+, DP on L not palpable but dopplorable 2+. Mild swelling distal foot, with gangrene of 1st , 2nd and mid 3rd toe, appearing more gangenous-increased demarcation. NEUROLOGICAL: No facial droop. Normal speech, gait not observed. PSYCH: Normal mood, normal affect. Laboratory Results - last 24 hr 05/31/17 06/06/17 06/06/17 08:35 06:25 06:25 WBC 9.4 RBC 3.64 L Hgb 12.4 Hct 37.0 MCV 101.7 H MCH 34.2 H MCHC 33.6 RDW 14.5 Plt Count 455 H MPV 7.1 L Neutrophils % 71.2 Lymphocytes % 18.0 Monocytes % 8.6 Eosinophils % 1.3 Basophils % 0.9 PT with INR 46.10 H INR 4.08 H* Sodium Potassium Chloride Carbon Dioxide Anion Gap BUN Creatinine Random Glucose Calcium Phosphorus Magnesium Prothrombin [id number] Mut Factor II DNA Comment 06/06/17 06:25 WBC RBC Hgb Hct MCV MCH MCHC RDW Plt Count MPV Neutrophils % Lymphocytes % Monocytes % Eosinophils % Basophils % PT with INR INR Sodium 136 Potassium 4.5 Chloride 97 L Carbon Dioxide 31 Anion Gap 8 BUN 15 Creatinine 0.7 Random Glucose 91 Calcium 9.4 Phosphorus 4.3 Magnesium 2.4 Prothrombin [id number] Mut Factor II DNA Comment Active Medications Generic Name Dose Route Start Last Admin Trade Name Freq PRN Reason Stop Dose Admin Acetaminophen 650 mg 06/02/17 17:22 06/06/17 05:29 Tylenol - PO 650 mg Q4H PRN Administration PAIN Docusate Sodium 100 mg 06/04/17 22:00 06/06/17 05:28 Colace - PO 100 mg TID KHALIF Administration Nicotine 14 mg 06/03/17 10:00 06/05/17 11:00 Nicoderm Patch - TD 14 mg DAILY KHALIF Administration Oxycodone HCl 10 mg 06/02/17 17:22 06/06/17 05:28 Roxicodone - PO 10 mg Q4H PRN Administration PAIN LEVEL 6-10 Pantoprazole Sodium 20 mg 06/02/17 22:00 06/05/17 21:19 Protonix - PO 20 mg BID KHALIF Administration Rosuvastatin Calcium 5 mg 06/02/17 22:00 06/05/17 21:18 Crestor - PO 5 mg HS KHALIF Administration ASSESSMENT/PLAN: A 56 year old smoker with PMHx of CVA, PAD, HLD admitted for Sepsis with ischemia of L great toe now s/p thrombectomy # Arterial insufficiency - in a chronic active smoker with ischemic L big toe s/ p thrombectomy (05/22, 05/23, 05/30) - Supratherapeutic INR-4.08 - Reduce to 2mg Coumadin - change percocet 5/325 q6h PO - Start PO oxycodone 10mg q12H - will follow up outpatient with hematology - Colace 100mg tids #Smoker -Nicotine patch 14 mg TDS- not craving, continue #Tachycardia: _Likely secondary to pain -Will monitor, on pain med regimen # hypercholesterolemia - Crestor 5mg po daily # GERD - Continue pantoprazole 20mg BID #FEN - Oral fluids - Electrolytes: replete as needed - Nutrition: regular diet # Prophylaxis DVT-warfarin GI-Tabs pantoprazole Visit type - Emergency Visit Emergency Visit: Yes ED Registration Date: 05/21/17 Care time: The patient presented to the Emergency Department on the above date and was hospitalized for further evaluation of their emergent condition. - New Patient This patient is new to me today: No - Critical Care Critical Care patient: No - Discharge Referral Referred to [facility] Med P.C.: No
[2017-06-06] MEDS ORDERED: PT OWN MED DRAWER 7, Y5N ONE ×2 (09:35→20:53)
[2017-06-06] MEDS: PANTOPRAZOLE 20 MG TABLET (FP) PO SCH ×2 (09:45→21:12)
[2017-06-06] MEDS: NICOTINE 14 MG/24 HOURS TOPICAL PATCH TD SCH (09:46)
[2017-06-06] MEDS ORDERED: oxyCODONE HCL 10 MG SUSTAINED ACTING TABLET PO SCH (10:00)
[2017-06-06] MEDS ORDERED: WARFARIN NA 2 MG TABLET (UD) PO ONE (18:00)
--- NOTE | 2017-06-06 19:45 | PN ---
Teaching Attending Note Name of Resident: Tracie Almonte ATTENDING PHYSICIAN STATEMENT I saw and evaluated the patient. I reviewed the resident's note and discussed the case with the resident. I agree with the resident's findings and plan as documented. SUBJECTIVE: Patient is feeling better, no acute distress. OBJECTIVE: Vital Signs Temperature 97.9 F 06/06/17 14:58 Pulse Rate 100 H 06/06/17 14:58 Respiratory Rate 18 06/06/17 14:58 Blood Pressure 126/83 06/06/17 14:58 O2 Sat by Pulse Oximetry (%) 96 06/06/17 09:00 CBCD WBC 9.4 K/mm3 (4.0-10.0) 06/06/17 06:25 RBC 3.64 M/mm3 (4.00-5.60) L 06/06/17 06:25 Hgb 12.4 GM/dL (11.7-16.9) 06/06/17 06:25 Hct 37.0 % (35.4-49) 06/06/17 06:25 MCV 101.7 fl (80-96) H 06/06/17 06:25 MCHC 33.6 g/dl (32.0-35.9) 06/06/17 06:25 RDW 14.5 % (11.9-15.9) 06/06/17 06:25 Plt Count 455 K/MM3 (134-434) H 06/06/17 06:25 MPV 7.1 fl (7.5-11.1) L 06/06/17 06:25 CMP Sodium 136 mmol/L (136-145) 06/06/17 06:25 Potassium 4.5 mmol/L (3.5-5.1) 06/06/17 06:25 Chloride 97 mmol/L (98-107) L 06/06/17 06:25 Carbon Dioxide 31 mmol/L (21-32) 06/06/17 06:25 Anion Gap 8 (8-16) 06/06/17 06:25 BUN 15 mg/dL (7-18) 06/06/17 06:25 Creatinine 0.7 mg/dL (0.7-1.3) 06/06/17 06:25 Creat Clearance w eGFR > 60 (>60) 06/03/17 07:00 Random Glucose 91 mg/dL (74-106) 06/06/17 06:25 Calcium 9.4 mg/dL (8.5-10.1) 06/06/17 06:25 Total Bilirubin 0.5 mg/dL (0.2-1.0) 06/03/17 07:00 AST 16 U/L (15-37) D 06/03/17 07:00 ALT 31 U/L (12-78) D 06/03/17 07:00 Alkaline Phosphatase 97 U/L (45-117) 06/03/17 07:00 Total Protein 7.2 g/dl (6.4-8.2) 06/03/17 07:00 Albumin 3.1 g/dl (3.4-5.0) L 06/03/17 07:00 Current Medications Generic Name Dose Route Start Last Admin Trade Name Freq PRN Reason Stop Dose Admin Acetaminophen 650 mg 06/02/17 17:22 06/06/17 13:51 Tylenol - PO 650 mg Q4H PRN Administration PAIN Docusate Sodium 100 mg 06/04/17 22:00 06/06/17 13:49 Colace - PO 100 mg TID KHALIF Administration Nicotine 14 mg 06/03/17 10:00 06/06/17 09:46 Nicoderm Patch - TD 14 mg DAILY KHALIF Administration Oxycodone HCl 5 mg 06/06/17 08:34 06/06/17 16:55 Roxicodone - PO 5 mg Q6H PRN Administration PAIN Oxycodone HCl 10 mg 06/06/17 22:00 Oxycontin - PO BID KHALIF Pantoprazole Sodium 20 mg 06/02/17 22:00 06/06/17 09:45 Protonix - PO 20 mg BID KHALIF Administration Rosuvastatin Calcium 5 mg 06/02/17 22:00 06/05/17 21:18 Crestor - PO 5 mg HS KHALIF Administration Home Medications Medication Instructions Recorded Clopidogrel Bisulfate [Clopidogrel] 75 mg PO DAILY #30 tablet 05/27/17 Ranitidine [Zantac -] 150 mg PO BID #30 tablet 05/27/17 PE: per resident's note LLE: positive for doppler pulse, LLE warm to touch. no erythema ASSESSMENT AND PLAN: Patient is a 56 y/o man with h/o smoking, CVA , and HTN who presented with L foot pain and was found to have acute arterial insufficiency and a dry gangrenous of Left foot toes (4th and 5th) # Acute left arterial Iscemia : s/p revascularization x 3 . stable at this time. Needs life long AC. Vascular surgeon on the case. INR 3.73-->4.08 today will lower coumadin to 2mg po daily will repeat INR in am. Once stable will discharge the patient home. Hypercoagulable w/u as an outpatient; prothrombin II gene mutation pending. V leiden gene mutation, anticardiolipin ABs and antiphospholipid Abs as an outpatient Slick 2 and [facility] tests as out pt , Protein C, S , antithrombin levels As per pathologist the work up will not be accurate if we order the tests since the patient is on anticoagulation. will start on Oxycontin 10mg po bid with break through pain oxycodone. # Macrocytic anemia: stable HB. # Nicotine dependence cont nicotine patch pt would like to go home. with VNS when ready vs rehab.
[2017-06-06] MEDS: oxyCODONE HCL 10 MG SUSTAINED ACTING TABLET PO SCH (21:11)
[2017-06-06] MEDS: ROSUVASTATIN CA 5 MG TABLET (FP) PO SCH (21:12)
[2017-06-07] MEDS: diphenhydrAMINE HCL 25 MG CAPSULE (FP) PO ONE ×2 (00:51→23:23)
[2017-06-07] MEDS: oxyCODONE HCL 5 MG TABLET PO PRN ×3 (05:07→17:07)
[2017-06-07] MEDS: ACETAMINOPHEN 325 MG TABLET (FP) PO PRN ×3 (05:08→17:08)
[2017-06-07] MEDS: DOCUSATE SODIUM 100 MG CAPSULE (FP) PO SCH ×3 (06:19→21:57)
[2017-06-07 08:05] LABS: MCH 33.9 pg (25.7-33.7); MCHC 33.2 g/dl (32.0-35.9); MEAN CELL VOLUME 101.9 fl (80-96); MEAN PLT VOLUME 7.1 fl (7.5-11.1); PLATELET COUNT 513 K/MM3 (134-434); WHITE BLOOD COUNT 9.5 K/mm3 (4.0-10.0)
[2017-06-07 08:15] LABS: INR 3.73 (0.82-1.09); PROTHROMBIN TIME (PATIENT) 42.1 SEC (9.98-11.88)
[2017-06-07] MEDS: PANTOPRAZOLE 20 MG TABLET (FP) PO SCH ×2 (09:05→21:57)
[2017-06-07] MEDS: oxyCODONE HCL 10 MG SUSTAINED ACTING TABLET PO SCH (09:06)
[2017-06-07] MEDS: NICOTINE 14 MG/24 HOURS TOPICAL PATCH TD SCH (09:06)
--- NOTE | 2017-06-07 13:56 | PN ---
Progress Note, Physician - Current Medication List Current Medications: Active Medications Acetaminophen (Tylenol -) 650 mg PO Q4H PRN PRN Reason: PAIN Last Admin: 06/07/17 11:09 Dose: 650 mg Docusate Sodium (Colace -) 100 mg PO TID [facility] Last Admin: 06/07/17 13:24 Dose: 100 mg Nicotine (Nicoderm Patch -) 14 mg TD DAILY [facility] Last Admin: 06/07/17 09:06 Dose: 14 mg Oxycodone HCl (Roxicodone -) 5 mg PO Q6H PRN PRN Reason: PAIN Last Admin: 06/07/17 11:10 Dose: 5 mg Oxycodone HCl (Oxycontin -) 10 mg PO BID [facility] Last Admin: 06/07/17 09:06 Dose: 10 mg Pantoprazole Sodium (Protonix -) 20 mg PO BID [facility] Last Admin: 06/07/17 09:05 Dose: 20 mg Rosuvastatin Calcium (Crestor -) 5 mg PO HS [facility] Last Admin: 06/06/17 21:12 Dose: 5 mg Warfarin Sodium (Coumadin -) 2 mg PO ONCE@1800 ONE Stop: 06/07/17 18:01 - Objective Vital Signs: Vital Signs Temperature 98.2 F 06/07/17 10:00 Pulse Rate 95 H 06/07/17 10:00 Respiratory Rate 20 06/07/17 10:00 Blood Pressure 117/72 06/07/17 10:00 O2 Sat by Pulse Oximetry (%) 95 06/07/17 09:00 Constitutional: Yes: Well Nourished, Anxious, Mild Distress Eyes: Yes: WNL, Conjunctiva Clear HENT: Yes: WNL, Atraumatic, Normocephalic Neck: Yes: WNL Cardiovascular: Yes: WNL, Regular Rate and Rhythm Respiratory: Yes: WNL, Regular, CTA Bilaterally Gastrointestinal: Yes: WNL, Normal Bowel Sounds, Soft Extremities: Yes: Other (patient has discoloration of the left two toes with erythema on the dorsum of the foot) Labs: CBC, BMP 06/07/17 06:00 06/06/17 06:25 INR, PTT INR 3.73 (0.82-1.09) H 06/07/17 06:00 Fibrinogen 582.0 mg/dL (238-498) H 05/23/17 09:00 Problem List - Problems (1) Arterial insufficiency Assessment/Plan: patient is on warfarin with supratheraputic INR vascular surgery evaluation Code(s): I77.1 - STRICTURE OF ARTERY (2) Critical lower limb ischemia Assessment/Plan: vascular surgery evaluation for possible amputation pain management Code(s): I99.8 - OTHER DISORDER OF CIRCULATORY SYSTEM (3) GERD (gastroesophageal reflux disease) Assessment/Plan: c/w PPI Code(s): K21.9 - GASTRO-ESOPHAGEAL REFLUX DISEASE WITHOUT ESOPHAGITIS (4) HLD (hyperlipidemia) Assessment/Plan: start the patient on high intensity statin Code(s): E78.5 - HYPERLIPIDEMIA, UNSPECIFIED (5) PAD (peripheral artery disease) Assessment/Plan: warfarin 2mg tonight c/w INR monitoring pain management with oxycodone Code(s): I73.9 - PERIPHERAL VASCULAR DISEASE, UNSPECIFIED (6) Smoker Assessment/Plan: nicotine patches Code(s): F17.200 - NICOTINE DEPENDENCE, UNSPECIFIED, UNCOMPLICATED (7) Arteriosclerotic gangrene Code(s): I70.269 - ATHSCL COWLITZ ARTERIES OF EXTRM W GANGRENE, UNSP EXTREMITY
[2017-06-07] MEDS ORDERED: WARFARIN NA 2 MG TABLET (UD) PO ONE (18:00)
[2017-06-07] MEDS: morphine SO4 SUSTAINED ACTING 15 MG TABLET.SA PO SCH (21:56)
[2017-06-07] MEDS: ROSUVASTATIN CA 5 MG TABLET (FP) PO SCH (21:58)
[2017-06-07] MEDS ORDERED: diphenhydrAMINE HCL 50 MG CAPSULE PO ONE (23:11)
[2017-06-07] MEDS ORDERED: diphenhydrAMINE HCL 25 MG CAPSULE (FP) PO ONE (23:21)
[2017-06-08] MEDS: oxyCODONE HCL 5 MG TABLET PO PRN ×5 (00:44→23:40)
[2017-06-08] MEDS: ACETAMINOPHEN 325 MG TABLET (FP) PO PRN ×5 (00:45→23:40)
[2017-06-08] MEDS: DOCUSATE SODIUM 100 MG CAPSULE (FP) PO SCH ×3 (06:14→21:33)
[2017-06-08] MEDS: NICOTINE 14 MG/24 HOURS TOPICAL PATCH TD SCH (09:15)
[2017-06-08] MEDS: PANTOPRAZOLE 20 MG TABLET (FP) PO SCH ×2 (09:15→21:34)
[2017-06-08] MEDS: morphine SO4 SUSTAINED ACTING 15 MG TABLET.SA PO SCH ×2 (09:15→21:33)
[2017-06-08 11:09] LABS: INR 3.57 (0.82-1.09); PROTHROMBIN TIME (PATIENT) 40.3 SEC (9.98-11.88)
--- NOTE | 2017-06-08 11:58 | PN ---
Progress Note, Physician - Current Medication List Current Medications: Active Medications Acetaminophen (Tylenol -) 650 mg PO Q4H PRN PRN Reason: PAIN Last Admin: 06/08/17 06:17 Dose: 650 mg Docusate Sodium (Colace -) 100 mg PO TID [facility] Last Admin: 06/08/17 06:14 Dose: 100 mg Morphine Sulfate (Ms Contin -) 15 mg PO BID [facility] Last Admin: 06/08/17 09:15 Dose: 15 mg Nicotine (Nicoderm Patch -) 14 mg TD DAILY [facility] Last Admin: 06/08/17 09:15 Dose: 14 mg Oxycodone HCl (Roxicodone -) 5 mg PO Q6H PRN PRN Reason: PAIN Last Admin: 06/08/17 06:17 Dose: 5 mg Pantoprazole Sodium (Protonix -) 20 mg PO BID [facility] Last Admin: 06/08/17 09:15 Dose: 20 mg Rosuvastatin Calcium (Crestor -) 5 mg PO HS [facility] Last Admin: 06/07/17 21:58 Dose: 5 mg Warfarin Sodium (Coumadin -) 2 mg PO ONCE@1800 ONE Stop: 06/08/17 18:01 - Objective Vital Signs: Vital Signs Temperature 98.6 F 06/08/17 09:27 Pulse Rate 100 H 06/08/17 09:27 Respiratory Rate 18 06/08/17 09:27 Blood Pressure 108/64 06/08/17 09:27 O2 Sat by Pulse Oximetry (%) 96 06/08/17 09:00 Constitutional: Yes: Well Nourished, No Distress, Calm Eyes: Yes: WNL, Conjunctiva Clear HENT: Yes: WNL, Atraumatic, Normocephalic Neck: Yes: WNL, Supple, Trachea Midline Cardiovascular: Yes: WNL, Regular Rate and Rhythm Respiratory: Yes: WNL, Regular, CTA Bilaterally Gastrointestinal: Yes: WNL, Normal Bowel Sounds, Soft Extremities: Yes: Other (patient left toe digit 1 and 2 gangrenous, erythema on the dorsum of the foot noted, tenderness to touch.) Labs: CBC, BMP 06/07/17 06:00 06/06/17 06:25 INR, PTT INR 3.57 (0.82-1.09) H 06/08/17 08:00 Fibrinogen 582.0 mg/dL (238-498) H 05/23/17 09:00 Problem List - Problems (1) Arterial insufficiency Assessment/Plan: patient is being managed by vascular surgery for amputation of the demarcation Code(s): I77.1 - STRICTURE OF ARTERY (2) Critical lower limb ischemia Assessment/Plan: pain management Code(s): I99.8 - OTHER DISORDER OF CIRCULATORY SYSTEM (3) GERD (gastroesophageal reflux disease) Assessment/Plan: c/w PPI Code(s): K21.9 - GASTRO-ESOPHAGEAL REFLUX DISEASE WITHOUT ESOPHAGITIS (4) HLD (hyperlipidemia) Assessment/Plan: c/w high donse statin Code(s): E78.5 - HYPERLIPIDEMIA, UNSPECIFIED (5) PAD (peripheral artery disease) Code(s): I73.9 - PERIPHERAL VASCULAR DISEASE, UNSPECIFIED (6) Smoker Assessment/Plan: patient is on nicotine patches Code(s): F17.200 - NICOTINE DEPENDENCE, UNSPECIFIED, UNCOMPLICATED (7) Arteriosclerotic gangrene Code(s): I70.269 - ATHSCL [place] ARTERIES OF EXTRM W GANGRENE, UNSP EXTREMITY
[2017-06-08] MEDS ORDERED: WARFARIN NA 2 MG TABLET (UD) PO ONE (18:00)
[2017-06-08] MEDS: ROSUVASTATIN CA 5 MG TABLET (FP) PO SCH (21:34)
[2017-06-08] MEDS: diphenhydrAMINE HCL 25 MG CAPSULE (FP) PO PRN (23:34)
[2017-06-09] MEDS: ACETAMINOPHEN 325 MG TABLET (FP) PO PRN (05:40)
[2017-06-09] MEDS: DOCUSATE SODIUM 100 MG CAPSULE (FP) PO SCH ×3 (05:41→21:23)
[2017-06-09] MEDS: oxyCODONE HCL 5 MG TABLET PO PRN ×4 (05:41→23:43)
[2017-06-09 07:33] LABS: INR 3.35 (0.82-1.09); PROTHROMBIN TIME (PATIENT) 37.8 SEC (9.98-11.88)
[2017-06-09] MEDS: morphine SO4 SUSTAINED ACTING 15 MG TABLET.SA PO SCH ×2 (09:38→21:22)
[2017-06-09] MEDS: NICOTINE 14 MG/24 HOURS TOPICAL PATCH TD SCH (09:39)
[2017-06-09] MEDS: PANTOPRAZOLE 20 MG TABLET (FP) PO SCH ×2 (09:39→21:23)
--- NOTE | 2017-06-09 15:58 | PN ---
Progress Note (short form) - Note Progress Note: Vascular Surgery Pt seen and examined. Left foot is warm, good palpable pulses. Pt cannot walk on his foot. pt also does not have any insurance. So he cannot go to SNF If he goes home he has to be able to purchase coumadin, and visit a doctor for INR checks. Spoke to pt about TMA, will ask podiatry opinion. Also spoke to pt about possible bka if tma is not a option. cont AC Doug Fernández DO
--- NOTE | 2017-06-09 16:28 | PN ---
Teaching Attending Note Name of Resident: Tracie Almonte ATTENDING PHYSICIAN STATEMENT I saw and evaluated the patient. I reviewed the resident's note and discussed the case with the resident. I agree with the resident's findings and plan as documented. SUBJECTIVE: LLE pain unable to ambulate OBJECTIVE: Vital Signs Temperature 97.7 F 06/09/17 15:38 Pulse Rate 102 H 06/09/17 15:38 Respiratory Rate 18 06/09/17 15:38 Blood Pressure 121/58 06/09/17 15:38 O2 Sat by Pulse Oximetry (%) 96 06/08/17 21:00 LUNGS: Breath sounds equal, clear to auscultation bilaterally, no wheezes, no crackles HEART: Regular rate and rhythm, S1, S2 without murmur, rub or gallop. ABDOMEN: Soft, nontender, nondistended, normoactive bowel sounds EXTREMITIES: Evenly pink colored, non tender, warm 2+ pulses TP on R lower limb ankle pitting edema 2+. L foot, warm, TP pulse 2+. Dorsalis pedis difficult to palpate on L. More even color from proximal to distal foot. Resolving redness and mild swelling distal foot dorsally, proximal to toes. Healing bruises (from doppler use overnight). Mild tenderness from plantar surface of L midfoot. Gangrenous 1-5th toes CBC, BMP 06/07/17 06:00 06/06/17 06:25 ASSESSMENT AND PLAN: 1. 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 Currently on anticoagulation with coumadin , INR is theraputic . 2. Left foot gangrene 2/2 #1 - due to lack of insurance , risk of non compliance with anticoagulation and therefore risk of recurrent thrombosis , decision is made by Dr Fernández to plan for TMA vs possible BKA . This would improve chances for functional recovery . Coumadin will need to be placed on hold and heparin drip initiated . Dispo : planned for TMA vs BKA medically optimized
--- NOTE | 2017-06-09 16:44 | PN ---
Physical Exam: SUBJECTIVE: Patient seen and examined Still c/o of pain, worse at night. Sleeps a bit better with benadryl. OBJECTIVE: Vital Signs Period Temp Pulse Resp BP Sys/Castillo Pulse Ox Last 24 Hr 97.4 F-98.6 F 96-106 18-20 121-141/56-97 96 GENERAL: The patient is awake, alert, in mild painful distress. EYES: PERRL, extraocular movements intact, sclera anicteric, conjunctiva clear. No ptosis. ENT: moist mucous membranes. LUNGS: Breath sounds equal, clear to auscultation bilaterally, no wheezes, no crackles HEART: Tachycardic, S1, S2 ABDOMEN: Soft, nontender, nondistended, normoactive bowel sounds EXTREMITIES: Swollen R ankle and foot, pink with 2+ pitting edema. L lower limb , swollen mid distal forefoot, pink and warm. DP pulse dopplerable. Gangrenous and bl;ack 1st to 3rd toes. Pale 4th and 5th toes. Tender plantar and dorsal distal foot on L. NEUROLOGICAL: Normal speech, gait not observed. PSYCH: Normal mood, normal affect. Laboratory Results - last 24 hr 06/09/17 06:30 PT with INR 37.80 H INR 3.35 H Active Medications Generic Name Dose Route Start Last Admin Trade Name Jarrodq PRN Reason Stop Dose Admin Acetaminophen 650 mg 06/02/17 17:22 06/09/17 05:40 Tylenol - PO 650 mg Q4H PRN Administration PAIN Diphenhydramine HCl 50 mg 06/08/17 17:31 06/08/17 23:34 Benadryl - PO 50 mg HS PRN Administration INSOMNIA Docusate Sodium 100 mg 06/04/17 22:00 06/09/17 14:26 Colace - PO Not Given TID KHALIF Morphine Sulfate 15 mg 06/07/17 22:00 06/09/17 09:38 Ms Contin - PO 15 mg BID [facility] Administration Nicotine 14 mg 06/03/17 10:00 06/09/17 09:39 Nicoderm Patch - TD 14 mg DAILY [facility] Administration Oxycodone HCl 5 mg 06/06/17 08:34 06/09/17 11:42 Roxicodone - PO 5 mg Q6H PRN Administration PAIN Pantoprazole Sodium 20 mg 06/02/17 22:00 06/09/17 09:39 Protonix - PO 20 mg BID KHALIF Administration Rosuvastatin Calcium 5 mg 06/02/17 22:00 06/08/17 21:34 Crestor - PO 5 mg HS KHALIF Administration Warfarin Sodium 2 mg 06/09/17 18:00 Coumadin - PO DAILY@1800 KHALIF ASSESSMENT/PLAN: A 56 year old smoker with PMHx of CVA, PAD, HLD admitted for Sepsis with ischemia of L great toe now s/p thrombectomy # Arterial insufficiency - in a chronic active smoker with ischemic L big toe s/ p thrombectomy and angioplasty (05/22, 05/23, 05/30) - INR-3.35 today - Received 2mg Coumadin yesterday - Started 15 mg morphine PO bid - Was on oxycontin and oxycodone and felt pain was not adequately controlled - per Dr Fernández and Dr Laurent- Since pat has no insurance and is likely not going to comply with INR monitoring for coumadin, with risk for re- occlusion, he is being offered transmetatarsal amputation or below the knee amputation - [employer] will be put in the picture - coumadin will be held and heaparin drip started #Smoker -Nicotine patch 14 mg TDS- not craving, continue #Tachycardia: _Likely secondary to pain -Will monitor, on pain med regimen # hypercholesterolemia - Crestor 5mg po daily # GERD - Continue pantoprazole 20mg BID Visit type - Emergency Visit Emergency Visit: Yes ED Registration Date: 05/21/17 Care time: The patient presented to the Emergency Department on the above date and was hospitalized for further evaluation of their emergent condition. - New Patient This patient is new to me today: No - Critical Care Critical Care patient: No - Discharge Referral Referred to [facility] Med P.C.: No
[2017-06-09] MEDS ORDERED: WARFARIN NA 2 MG TABLET (UD) PO SCH (18:00)
[2017-06-09] MEDS: ROSUVASTATIN CA 5 MG TABLET (FP) PO SCH (21:23)
[2017-06-09] MEDS: diphenhydrAMINE HCL 25 MG CAPSULE (FP) PO PRN (22:29)
[2017-06-10] MEDS: oxyCODONE HCL 5 MG TABLET PO PRN ×4 (05:52→21:57)
[2017-06-10] MEDS: DOCUSATE SODIUM 100 MG CAPSULE (FP) PO SCH (05:54)
--- NOTE | 2017-06-10 08:34 | PN ---
Physical Exam: SUBJECTIVE: Patient seen and examined Still feels like pain is not controlled. Yet to start heparin OBJECTIVE: Vital Signs Period Temp Pulse Resp BP Sys/Castillo Pulse Ox Last 24 Hr 97.7 F-99.1 F 98-106 18-18 121-131/58-88 94-99 GENERAL: The patient is awake, alert, and fully oriented, in mild painful distress. EYES: sclera anicteric, conjunctiva clear. ENT: moist mucous membranes. LUNGS: Breath sounds equal, clear to auscultation bilaterally, no wheezes, no crackles, HEART: Regular rate and rhythm, S1, S2 without murmur ABDOMEN: Soft, nontender, nondistended, normoactive bowel sounds EXTREMITIES:Warm, R ankle edema, pitting 2+, pink, PT artery palpable on R. Left foot warm except digits . Dopplorable DP artery on L. [place] color with swelling over dorsum of L foot, midfoot. Black and gangrenous 1st 2nd and 3rd toes. $th and 5th toes pale. NEUROLOGICAL: Normal speech, gait not observed. PSYCH: Some anxiety Active Medications Generic Name Dose Route Start Last Admin Trade Name Freq PRN Reason Stop Dose Admin Acetaminophen 650 mg 06/02/17 17:22 06/09/17 05:40 Tylenol - PO 650 mg Q4H PRN Administration PAIN Diphenhydramine HCl 50 mg 06/08/17 17:31 06/09/17 22:29 Benadryl - PO 50 mg HS PRN Administration INSOMNIA Docusate Sodium 100 mg 06/10/17 12:00 Colace - PO Q6HPO KHALIF Morphine Sulfate 15 mg 06/07/17 22:00 06/09/17 21:22 Ms Contin - PO 15 mg BID [facility] Administration Nicotine 14 mg 06/03/17 10:00 06/09/17 09:39 Nicoderm Patch - TD 14 mg DAILY [facility] Administration Oxycodone HCl 5 mg 06/06/17 08:34 06/10/17 05:52 Roxicodone - PO 5 mg Q6H PRN Administration PAIN Pantoprazole Sodium 20 mg 06/02/17 22:00 06/09/17 21:23 Protonix - PO 20 mg BID [facility] Administration Rosuvastatin Calcium 5 mg 06/02/17 22:00 06/09/17 21:23 Crestor - PO 5 mg HS KHALIF Administration ASSESSMENT/PLAN: A 56 year old smoker with PMHx of CVA, PAD, HLD admitted for Sepsis with ischemia of L great toe now s/p thrombectomy # Arterial insufficiency - in a chronic active smoker with ischemic L big toe s/ p thrombectomy and angioplasty (05/22, 05/23, 05/30) - INR-3.35 today - Received 2mg Coumadin yesterday - Started 15 mg morphine PO bid - Change oxycodone from Q6H to Q4H - Heparin drip started - Coumadin held yesterday #Smoker -Nicotine patch 14 mg TDS- not craving, continue #Tachycardia: _Likely secondary to pain -Will monitor, on pain med regimen # hypercholesterolemia - Crestor 5mg po daily # GERD - Continue pantoprazole 20mg BID Visit type - Emergency Visit Emergency Visit: Yes ED Registration Date: 05/21/17 Care time: The patient presented to the Emergency Department on the above date and was hospitalized for further evaluation of their emergent condition. - New Patient This patient is new to me today: No - Critical Care Critical Care patient: No - Discharge Referral Referred to [facility] Med P.C.: No
[2017-06-10 08:42] LABS: INR 2.34 (0.82-1.09); PROTHROMBIN TIME (PATIENT) 26.4 SEC (9.98-11.88)
[2017-06-10] MEDS: morphine SO4 SUSTAINED ACTING 15 MG TABLET.SA PO SCH ×2 (09:41→21:56)
[2017-06-10] MEDS: NICOTINE 14 MG/24 HOURS TOPICAL PATCH TD SCH (09:42)
[2017-06-10] MEDS: PANTOPRAZOLE 20 MG TABLET (FP) PO SCH ×2 (09:42→21:57)
[2017-06-10] MEDS ORDERED: HEPARIN NA (PORCINE) 5,000 UNITS/ML 1ML VIAL IVPUSH PRN ×2 (10:33)
[2017-06-10] MEDS ORDERED: DOCUSATE SODIUM 100 MG CAPSULE (FP) PO PRN (11:48)
[2017-06-10] MEDS ORDERED: DOCUSATE SODIUM 100 MG CAPSULE (FP) PO SCH ×2 (12:00→14:00)
[2017-06-10] MEDS: ACETAMINOPHEN 325 MG TABLET (FP) PO PRN ×3 (12:29→21:56)
[2017-06-10 13:09] LABS: BASOPHIL 0.8 % (0-2.0); EOSINOPHIL 1.2 % (0-4.5); MCH 33.8 pg (25.7-33.7); MCHC 33.4 g/dl (32.0-35.9); MEAN CELL VOLUME 101.4 fl (80-96); MEAN PLT VOLUME 6.7 fl (7.5-11.1); NEUTROPHILS 68.5 % (42.8-82.8); PLATELET COUNT 566 K/MM3 (134-434); RDW 14.4 % (11.9-15.9); WHITE BLOOD COUNT 9.4 K/mm3 (4.0-10.0)
[2017-06-10] MEDS ORDERED: PT OWN MED DRAWER 7, Y5N ONE ×2 (13:25→21:51)
[2017-06-10] MEDS: HEPARIN - 25,000 UNIT in SODIUM CHLORIDE 495 ML IV SCH (14:41)
--- NOTE | 2017-06-10 14:52 | PN ---
Progress Note (short form) - Note Progress Note: Podiatry F/u: Patient seen/evaluated at bedside, NAD. Pain improved to L foot, controlled with analgesics. Denies F/V/N/C/SOB/CP. S/p LLE revascularization x 2 for critical limb ischemia with Dr. Fernández. Afebrile, VSS. SHARON: L foot: dry forefoot gangrene of hallux and 2nd digit, dusky 3rd digit, ischemic blistering of 4th digit, necrotic patch to medial 1st MTPJ. There is no purulence, no fluctuance, no periwound erythema, no ascending cellulitis, no signs of acute infection. Moderate pedal edema. WBC 9.4 INR: 2.34 Imp: 56 year old PVD M with L forefoot dry gangrene 1. C/w IV abx per Infectious Disease 2. Discussed treatment options at length with patient, he would like to attempt limb salvage with trans-metatarsal amputation. I advised him of risks of worsening gangrene, infection and possibility of BKA in the future. He understands and wishes to proceed with TMA. I also explained at length the importance of smoking cessation, especially given his critical limb ischemia. 3. Plan for TMA once INR decreases. 4. Will follow. Lillian Simpson DPM
--- NOTE | 2017-06-10 16:02 | PN ---
Teaching Attending Note Name of Resident: Tracie Almonte ATTENDING PHYSICIAN STATEMENT I saw and evaluated the patient. I reviewed the resident's note and discussed the case with the resident. I agree with the resident's findings and plan as documented. SUBJECTIVE: Patient complains of pain in left foot. OBJECTIVE: Vital Signs Period Temp Pulse Resp BP Sys/Castillo Pulse Ox Last 24 Hr 98.2 F-99.1 F 98-103 18-20 124-131/69-88 99 HEART: S1S2, RRR LUNGS: Clear ABDOMEN: Soft, non-tender, non-distended, normal BS EXTREMITIES: Trace edema LLE. 1+ edema RLE. Gangrene of left 1st and 2nd toes Current Medications Generic Name Dose Route Start Last Admin Trade Name Freq PRN Reason Stop Dose Admin Acetaminophen 650 mg 06/02/17 17:22 06/09/17 05:40 Tylenol - PO 650 mg Q4H PRN Administration PAIN Acetaminophen 325 mg 06/10/17 11:58 06/10/17 12:29 Tylenol - PO 06/13/17 11:57 325 mg Q4H PRN Administration PAIN Diphenhydramine HCl 50 mg 06/08/17 17:31 06/09/17 22:29 Benadryl - PO 50 mg HS PRN Administration INSOMNIA Docusate Sodium 100 mg 06/10/17 11:48 Colace - PO TID PRN CONSTIPATION Heparin Sodium (Porcine) 1,000 unit 06/10/17 10:33 Heparin - IVPUSH PRN PRN Heparin Heparin Sodium (Porcine) 5,000 unit 06/10/17 10:33 Heparin - IVPUSH PRN PRN Heparin Heparin Sodium (Porcine) 25, 500 mls @ 20 mls/hr 06/10/17 11:00 06/10/17 14:41 000 unit/ Sodium Chloride IV 20 mls/hr TITR KHALIF Administration Protocol 1,000 UNIT/HR Morphine Sulfate 15 mg 06/07/17 22:00 06/10/17 09:41 Ms Contin - PO 15 mg BID [facility] Administration Nicotine 14 mg 06/03/17 10:00 06/10/17 09:42 Nicoderm Patch - TD 14 mg DAILY K[facility] Administration Oxycodone HCl 5 mg 06/10/17 11:58 06/10/17 12:25 Roxicodone - PO 5 mg Q4H PRN Administration PAIN Pantoprazole Sodium 20 mg 06/02/17 22:00 06/10/17 09:42 Protonix - PO 20 mg BID KHALIF Administration Rosuvastatin Calcium 5 mg 06/02/17 22:00 06/09/17 21:23 Crestor - PO 5 mg HS KHALIF Administration ASSESSMENT AND PLAN: 1. Gangrene of left 1st and 2nd toes - Pain control - Plan for left TMA 2. PAD - s/p left tibial artery and left popliteal artery angioplasty with thrombolysis 05/22 - s/p left popliteal artery angioplasty and stent placement, left tibial artery angioplasty 05/23 - s/p left tibial artery angioplasty 05/30 - Coumadin held for TMA - Heparin IV started 3. HTN 4. Hyperlipidemia - Continue Crestor 5. GERD 6. History of CVA 7. Nicotine dependence - Continue nicotine patch
[2017-06-10] MEDS: ROSUVASTATIN CA 5 MG TABLET (FP) PO SCH (21:57)
[2017-06-11] MEDS: diphenhydrAMINE HCL 25 MG CAPSULE (FP) PO PRN ×2 (00:42→22:56)
[2017-06-11] MEDS: ACETAMINOPHEN 325 MG TABLET (FP) PO PRN ×6 (02:07→22:19)
[2017-06-11] MEDS: oxyCODONE HCL 5 MG TABLET PO PRN ×6 (02:07→22:18)
[2017-06-11 07:19] LABS: BASOPHIL 0.9 % (0-2.0); EOSINOPHIL 1.9 % (0-4.5); MCH 34.1 pg (25.7-33.7); MCHC 33.6 g/dl (32.0-35.9); MEAN CELL VOLUME 101.4 fl (80-96); MEAN PLT VOLUME 6.9 fl (7.5-11.1); NEUTROPHILS 61.9 % (42.8-82.8); PLATELET COUNT 537 K/MM3 (134-434); WHITE BLOOD COUNT 8.7 K/mm3 (4.0-10.0)
[2017-06-11 07:55] LABS: ANION GAP 6 (8-16); CO2 29 mmol/L (21-32); CREATININE 0.6 mg/dL (0.7-1.3); GLUCOSE,RANDOM 84 mg/dL (74-106); MAGNESIUM 2.2 mg/dL (1.8-2.4); PHOSPHOROUS 4.2 mg/dL (2.5-4.9)
--- NOTE | 2017-06-11 08:11 | PN ---
Physical Exam: SUBJECTIVE: Patient seen and examined No new c/o in the am before 7am. Patient seen sleeping with lower limbs dependent. Pain said to be better controlled at Q4H. Initial examination documented first and later examination documented after. Patient was seen later with attending at around 10.45am and 11.55am. OBJECTIVE: Vital Signs Period Temp Pulse Resp BP Sys/Castillo Pulse Ox Last 24 Hr 97.1 F-98.5 F 93-101 18-20 103-136/58-87 97-97 GENERAL: The patient is awake, alert, and fully oriented, in no obvious painful distress. EYES: sclera anicteric, conjunctiva clear. ENT: oropharynx clear without exudates, moist mucous membranes. LUNGS: Breath sounds equal, clear to auscultation bilaterally HEART: Regular rate and rhythm, S1, S2 without murmur ABDOMEN: Soft, nontender, nondistended, normoactive bowel sounds EXTREMITIES: R limb with 2+ pitting edema up to shins, pink, warm, non tender. R PT pulse palpable. Left lower limb, PTpulse palpable, foot is warm. DP pulse dopplorable. Mildly tender, more distally than proximally. [place] with mild swelling over mid foot. Dry gangrene, black color over 1st, 2nd and mid 3rd toes. Pale 4th and 5th toes. NEUROLOGICAL: Normal speech, gait not observed. PSYCH: Normal mood, normal affect. At around 10.45am, L foot was less warm (more like lukewarm) than before, and more pale in color. PT artery was only dopplorable at that point. At around 11.55am foot was pinker and warm again. Laboratory Results - last 24 hr 06/10/17 06/10/17 06/10/17 06:50 12:40 12:40 WBC 9.4 RBC 3.62 L Hgb 12.3 Hct 36.7 MCV 101.4 H MCH 33.8 H MCHC 33.4 RDW 14.4 Plt Count 566 H MPV 6.7 L Neutrophils % 68.5 Lymphocytes % 20.9 Monocytes % 8.6 Eosinophils % 1.2 Basophils % 0.8 PT with INR 26.40 H INR 2.34 H D PTT (Actin FS) 34.4 06/10/17 06/11/17 06/11/17 21:00 04:10 06:27 WBC 8.7 RBC 3.45 L Hgb 11.8 Hct 35.0 L MCV 101.4 H MCH 34.1 H MCHC 33.6 RDW 14.0 Plt Count 537 H MPV 6.9 L Neutrophils % 61.9 Lymphocytes % 27.7 D Monocytes % 7.6 Eosinophils % 1.9 Basophils % 0.9 PT with INR INR PTT (Actin FS) 34.2 40.7 H Active Medications Generic Name Dose Route Start Last Admin Trade Name Freq PRN Reason Stop Dose Admin Acetaminophen 650 mg 06/02/17 17:22 06/09/17 05:40 Tylenol - PO 650 mg Q4H PRN Administration PAIN Acetaminophen 325 mg 06/10/17 11:58 06/11/17 05:55 Tylenol - PO 06/13/17 11:57 325 mg Q4H PRN Administration PAIN Diphenhydramine HCl 50 mg 06/08/17 17:31 06/11/17 00:42 Benadryl - PO 50 mg HS PRN Administration INSOMNIA Docusate Sodium 100 mg 06/10/17 11:48 Colace - PO TID PRN CONSTIPATION Heparin Sodium (Porcine) 1,000 unit 06/10/17 10:33 06/11/17 05:00 Heparin - IVPUSH 1,000 unit PRN PRN Administration Heparin Heparin Sodium (Porcine) 5,000 unit 06/10/17 10:33 06/10/17 21:57 Heparin - IVPUSH 5,000 unit PRN PRN Administration Heparin Heparin Sodium (Porcine) 25, 500 mls @ 20 mls/hr 06/10/17 11:00 06/11/17 05:00 000 unit/ Sodium Chloride IV 1,250 unit/hr TITR KHALIF Titration Protocol 1,000 UNIT/HR Morphine Sulfate 15 mg 06/07/17 22:00 06/10/17 21:56 Ms Contin - PO 15 mg BID KHALIF Administration Nicotine 14 mg 06/03/17 10:00 06/10/17 09:42 Nicoderm Patch - TD 14 mg DAILY KHALIF Administration Oxycodone HCl 5 mg 06/10/17 11:58 06/11/17 05:55 Roxicodone - PO 5 mg Q4H PRN Administration PAIN Pantoprazole Sodium 20 mg 06/02/17 22:00 06/10/17 21:57 Protonix - PO 20 mg BID KHALIF Administration Rosuvastatin Calcium 5 mg 06/02/17 22:00 06/10/17 21:57 Crestor - PO 5 mg HS KHALIF Administration ASSESSMENT/PLAN: A 56 year old smoker with PMHx of CVA, PAD, HLD admitted for Sepsis with ischemia of L great toe now s/p thrombectomy # Arterial insufficiency - in a chronic active smoker with ischemic L big toe s/ p thrombectomy and angioplasty (05/22, 05/23, 05/30) - On 15 mg morphine PO bid - On oxycodone Q4H - On Heparin drip - Coumadin discontinued -To follow INR for when it is subtherapeutic for likely TMA per Dr Clancy - Patient would prefer TMA to BKA - He has had discussions with both Dr Fernández and Dr Clancy regarding both options-per their notes - INR today was 1.58, PTT-40.7 - PTT was checked stat before 11.am-32.9 _ Pt received 6,000u bolus of heparin and his infusion rate was increased 28490R/hr -He has been scheduled for surgery _follow PTT and INR _Monitor foot #Smoker -Nicotine patch 14 mg TDS- not craving, continue #Tachycardia: _Likely secondary to pain -Will monitor, on pain med regimen # hypercholesterolemia - Crestor 5mg po daily # GERD - Continue pantoprazole 20mg BID #FEN Oral fluids Electrolytes stable Regular Diet #Dispo Med surg Visit type - Emergency Visit Emergency Visit: Yes ED Registration Date: 05/21/17 Care time: The patient presented to the Emergency Department on the above date and was hospitalized for further evaluation of their emergent condition. - New Patient This patient is new to me today: No - Critical Care Critical Care patient: No - Discharge Referral Referred to [facility] Med P.C.: No
[2017-06-11 09:43] LABS: INR 1.58 (0.82-1.09); PROTHROMBIN TIME (PATIENT) 17.8 SEC (9.98-11.88)
[2017-06-11] MEDS: morphine SO4 SUSTAINED ACTING 15 MG TABLET.SA PO SCH ×2 (10:15→22:17)
[2017-06-11] MEDS: PANTOPRAZOLE 20 MG TABLET (FP) PO SCH ×2 (10:16→22:18)
[2017-06-11] MEDS: NICOTINE 14 MG/24 HOURS TOPICAL PATCH TD SCH (10:16)
--- NOTE | 2017-06-11 11:58 | PN ---
Teaching Attending Note Name of Resident: Tracie Almonte ATTENDING PHYSICIAN STATEMENT I saw and evaluated the patient. I reviewed the resident's note and discussed the case with the resident. I agree with the resident's findings and plan as documented. SUBJECTIVE: seen at 10:45 and again at 11:55 Am no fever or chills. pain in foot is better controlled OBJECTIVE: NAd CV: RRR, no MRG Lungs ; CTAB ext : L foot with gangrenous 1st and 2nr toes with greenish discharge between 1st and second toes. At 10:45 Am: pt had cool foot , and left DP , PT are not palpable. using doppler, L DP was not detected and PT was detected At 11:55: L foot feels warm again, and still no palpable Dp or PT. Using doppler , PT is detected and DP is still not detected . ASSESSMENT AND PLAN: 56 y/o man with h/o smoking, CVA , and HTN who presented with L foot pain and was found to have acute arterial insufficiency and gangrene of L foot toes 1- Acute arterial insufficiency : s/p revascularization Coumadin was stopped yesterday and heparin gtt was started . This morning INR is 1.58 and PTT is subtherapeutic at 10:45 foot was cool and DP was not palpable or detected with doppler . at 11 :55 am, foot is warmer but DP is still not detected with doppler . PT is present with doppler - repeat PTT stat . - change goal of PTT from 50-70 to 60-80. - will bolus depending on PTT level - Dr. 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 rest of w/u as out pt 2- Nicotine dependence - cont nicotine patch HLOC
[2017-06-11] MEDS ORDERED: HEPARIN NA (PORCINE) 5,000 UNITS/ML 1ML VIAL IVPUSH ONE ×3 (12:10→20:30)
[2017-06-11] MEDS: HEPARIN - 25,000 UNIT in SODIUM CHLORIDE 495 ML IV SCH (12:21)
--- NOTE | 2017-06-11 13:37 | PN ---
Progress Note (short form) - Note Progress Note: Vascular Surgery Pt seen and examined. Foot is warm, still has pain. Dopplerable DP pulse. Podiatry evaluated pt for TMA Will book. If TMA is unsuccessful , pt will need bka for definitive treatment. Doug Fernández DO
[2017-06-11] MEDS ORDERED: HEPARIN - 25,000 UNIT in SODIUM CHLORIDE 495 ML IV SCH (20:32)
[2017-06-11] MEDS ORDERED: PT OWN MED DRAWER 7, Y5N ONE (21:31)
[2017-06-11] MEDS: ROSUVASTATIN CA 5 MG TABLET (FP) PO SCH (22:17)
[2017-06-12] MEDS ORDERED: LORazepam 2 MG/ML SDV VIAL IVPUSH ONE (01:43)
[2017-06-12] MEDS ORDERED: HEPARIN NA (PORCINE) 5,000 UNITS/ML 1ML VIAL IVPUSH ONE ×2 (01:48→17:43)
[2017-06-12] MEDS: ACETAMINOPHEN 325 MG TABLET (FP) PO PRN ×5 (02:15→21:36)
[2017-06-12] MEDS: oxyCODONE HCL 5 MG TABLET PO PRN ×5 (02:15→21:33)
--- NOTE | 2017-06-12 07:27 | PN ---
Physical Exam: SUBJECTIVE: Patient seen and examined this am prior to surgery. Slept better at night after receiving Ativan. Was NPO last night for likely TMA today. Was also seen in recovery room and after he went back to the floors. OBJECTIVE: Vital Signs Period Temp Pulse Resp BP Sys/Castillo Pulse Ox Last 24 Hr 97.9 F-98.4 F 103-112 18-20 104-149/55-99 98-98 GENERAL: The patient is awake, alert, and fully oriented, in mild painful distress. EYES: PERRL, extraocular movements intact, sclera anicteric, conjunctiva clear. No ptosis. ENT: moist mucous membranes. LUNGS: Breath sounds equal, clear to auscultation bilaterally HEART: Regular rate and rhythm, S1, S2 without murmur, rub or gallop. ABDOMEN: Soft, nontender, nondistended, normoactive bowel sounds EXTREMITIES: R lower limb pitting edema, pink, 2+ pulses, warm, well-perfused. Warm, L lower limb, pink . Dopplorable Dp and TP pulses this am. Mid tenderness. Dry gangrene L great toe extending to plantar surface of toe, dry gangrene of 2nd and 3rd toes. Pale 4th and 5th toes. Mild tenderness over dorsum of L foot. NEUROLOGICAL: Cranial nerves II through XII grossly intact. Normal speech, gait not observed. PSYCH: Normal mood, normal affect. SKIN: Warm, dry, normal turgor, no rashes or lesions noted After the surgery; He had L foot wrapped in bandage. R foot to thigh edematous with groin discomfort Laboratory Results - last 24 hr 06/11/17 06/11/17 06/11/17 06:27 06:27 09:20 WBC 8.7 RBC 3.45 L Hgb 11.8 Hct 35.0 L MCV 101.4 H MCH 34.1 H MCHC 33.6 RDW 14.0 Plt Count 537 H MPV 6.9 L Neutrophils % 61.9 Lymphocytes % 27.7 D Monocytes % 7.6 Eosinophils % 1.9 Basophils % 0.9 PT with INR 17.80 H INR 1.58 H D PTT (Actin FS) Sodium 138 Potassium 4.3 Chloride 103 Carbon Dioxide 29 Anion Gap 6 L BUN 14 Creatinine 0.6 L Random Glucose 84 Calcium 9.0 Phosphorus 4.2 Magnesium 2.2 Stool Occult Blood 06/11/17 06/11/17 06/11/17 09:25 11:00 17:00 WBC RBC Hgb Hct MCV MCH MCHC RDW Plt Count MPV Neutrophils % Lymphocytes % Monocytes % Eosinophils % Basophils % PT with INR INR PTT (Actin FS) 32.9 44.0 H D Sodium Potassium Chloride Carbon Dioxide Anion Gap BUN Creatinine Random Glucose Calcium Phosphorus Magnesium Stool Occult Blood Negative 06/12/17 00:10 WBC RBC Hgb Hct MCV MCH MCHC RDW Plt Count MPV Neutrophils % Lymphocytes % Monocytes % Eosinophils % Basophils % PT with INR INR PTT (Actin FS) 59.0 H D Sodium Potassium Chloride Carbon Dioxide Anion Gap BUN Creatinine Random Glucose Calcium Phosphorus Magnesium Stool Occult Blood Active Medications Generic Name Dose Route Start Last Admin Trade Name Freq PRN Reason Stop Dose Admin Acetaminophen 650 mg 06/02/17 17:22 06/09/17 05:40 Tylenol - PO 650 mg Q4H PRN Administration PAIN Acetaminophen 325 mg 06/10/17 11:58 06/12/17 06:16 Tylenol - PO 06/13/17 11:57 325 mg Q4H PRN Administration PAIN Diphenhydramine HCl 50 mg 06/08/17 17:31 06/11/17 22:56 Benadryl - PO 50 mg HS PRN Administration INSOMNIA Docusate Sodium 100 mg 06/10/17 11:48 Colace - PO TID PRN CONSTIPATION Heparin Sodium (Porcine) 1,000 unit 06/10/17 10:33 06/11/17 05:00 Heparin - IVPUSH 1,000 unit PRN PRN Administration Heparin Heparin Sodium (Porcine) 5,000 unit 06/10/17 10:33 06/10/17 21:57 Heparin - IVPUSH 5,000 unit PRN PRN Administration Heparin Heparin Sodium (Porcine) 25, 500 mls @ 24 mls/hr 06/11/17 20:32 06/11/17 22:16 000 unit/ Sodium Chloride IV 24 mls/hr TITR KHALIF Administration Protocol 1,200 UNIT/HR Morphine Sulfate 15 mg 06/07/17 22:00 06/11/17 22:17 Ms Contin - PO 15 mg BID KHALIF Administration Nicotine 14 mg 06/03/17 10:00 06/11/17 10:16 Nicoderm Patch - TD 14 mg DAILY KHALIF Administration Oxycodone HCl 5 mg 06/10/17 11:58 06/12/17 06:15 Roxicodone - PO 5 mg Q4H PRN Administration PAIN Pantoprazole Sodium 20 mg 06/02/17 22:00 06/11/17 22:18 Protonix - PO 20 mg BID KHALIF Administration Rosuvastatin Calcium 5 mg 06/02/17 22:00 06/11/17 22:17 Crestor - PO 5 mg HS KHALIF Administration ASSESSMENT/PLAN: A 56 year old smoker with PMHx of CVA, PAD, HLD admitted for Sepsis with ischemia of L great toe, s/p thrombectomy, now s/p TMA # Arterial insufficiency - in a chronic active smoker with ischemic L big toe s/ p thrombectomy and angioplasty (05/22, 05/23, 05/30), TMA 06/12/17 - On 15 mg morphine PO bid - On oxycodone Q3H - Iv push morphine 4mg Q3H - On Heparin drip - Goal is PTT 60-80, at 1500/hr - Coumadin on hold for now D/W Dr Clancy, since there was poor perfusion distal to the metatarsals, wound is going to be monitored for signs of poor healing/infection for probable revision to BKA by Friday - Pt received 6,000u bolus of heparin stat - Had surgery- TMA - follow PTT every 6 hours- if subtherapeutic or every 24hrs if therapeutic - Note heparin protocol in order set is not being followed because the PTT goal in the order set is inadequate - Manual orders for PTT and direct orders for boluses to nurses is needed - Monitor foot #Swollen R limb -Patient sleeps dependent, has had swollen R lower limb since presentation but appears more swollen today -Pt has been on anticoagulation for most of his stay with brief periods of being subtherapeutic -R LE duplex R/O DVT #Smoker -Nicotine patch 14 mg TDS- not craving, continue #Tachycardia: _Likely secondary to pain -Will monitor, on pain med regimen # hypercholesterolemia - Crestor 5mg po daily # GERD - Continue pantoprazole 20mg BID #FEN -Oral fluids -Electrolytes stable -Regular Diet Visit type - Emergency Visit Emergency Visit: Yes ED Registration Date: 05/21/17 Care time: The patient presented to the Emergency Department on the above date and was hospitalized for further evaluation of their emergent condition. - New Patient This patient is new to me today: No - Critical Care Critical Care patient: No - Discharge Referral Referred to [facility] Med P.C.: No
[2017-06-12 07:35] LABS: MCH 32.9 pg (25.7-33.7); MCHC 32.8 g/dl (32.0-35.9); MEAN CELL VOLUME 100.4 fl (80-96); MEAN PLT VOLUME 6.6 fl (7.5-11.1); PLATELET COUNT 503 K/MM3 (134-434); RDW 13.9 % (11.9-15.9); WHITE BLOOD COUNT 11.7 K/mm3 (4.0-10.0)
[2017-06-12] MEDS ORDERED: ONDANSETRON 4 MG/2 ML VIAL IVPUSH PRN ×2 (07:37→09:49)
[2017-06-12 07:45] LABS: INR 1.19 (0.82-1.09); PROTHROMBIN TIME (PATIENT) 13.5 SEC (9.98-11.88)
[2017-06-12] MEDS ORDERED: LACTATED RINGERS SOLUTION 1,000 ML IV SCH ×2 (07:45→09:49)
--- NOTE | 2017-06-12 07:45 | PN ---
Progress Note (short form) - Note Progress Note: Podiatry Pre-op: Patient seen and examined at bedside in pre-op holding. Risks, benefits and alternatives to surgery discussed at length with patient. Namely, if there is stump necrosis of TMA site he will likely need BKA. In addition, I discussed that due to tissue loss he will likely have open stump wound medially. All questions answered. Informed consent obtained. Patient fully understands and wishes to proceed with TMA, attempting limb salvage prior to BKA. Lillian Simpson DPM
[2017-06-12] MEDS ORDERED: LIDOCAINE HCL/PF 2% SDV 5ML VIAL ONE (07:51)
[2017-06-12] MEDS ORDERED: ceFAZolin SODIUM 1 GM VIAL ONE (07:51)
[2017-06-12] MEDS ORDERED: LIDOCAINE HCL 1%, 10 MG/ML (20ML VIAL) ONE (07:52)
[2017-06-12] MEDS ORDERED: PROPOFOL 20 ML ONE ×2 (07:52)
[2017-06-12] MEDS ORDERED: MIDAZOLAM HCL 2 MG/2 ML SINGLE DOSE VIAL ONE (07:52)
[2017-06-12] MEDS ORDERED: ceFAZolin SODIUM 1 GM VIAL IVPB ONE (07:56)
[2017-06-12] MEDS ORDERED: LIDOCAINE HCL 1%, 10 MG/ML (20ML VIAL) PNB ONE ×2 (08:02)
[2017-06-12] MEDS ORDERED: DEXAMETHASONE SOD PHOSPHATE 4 MG/1 ML VIAL ONE (08:08)
[2017-06-12 08:10] LABS: ANION GAP 9 (8-16); CO2 29 mmol/L (21-32); CREATININE 0.6 mg/dL (0.7-1.3); GLUCOSE,RANDOM 95 mg/dL (74-106); MAGNESIUM 2.2 mg/dL (1.8-2.4); PHOSPHOROUS 3.9 mg/dL (2.5-4.9)
[2017-06-12 08:29] LABS: BASOPHIL 0.1 % (0-2.0); EOSINOPHIL 0.9 % (0-4.5); MCH 33.1 pg (25.7-33.7); MEAN CELL VOLUME 100.4 fl (80-96); MEAN PLT VOLUME 7.2 fl (7.5-11.1); NEUTROPHILS 72.4 % (42.8-82.8); PLATELET COUNT 513 K/MM3 (134-434); RDW 14.3 % (11.9-15.9); WHITE BLOOD COUNT 11.3 K/mm3 (4.0-10.0)
[2017-06-12] MEDS ORDERED: PHENYLEPHRINE HCL 10 MG/1 ML SINGLE DOSE VIAL ONE (09:08)
--- NOTE | 2017-06-12 09:25 | OP ---
Operative Note - Note: Operative Date: 06/12/17 Pre-Operative Diagnosis: Gangrene, forefoot ischemia left foot Operation: Left foot trans-metatarsal amputation Findings: Poor peripheral circulation distal to metatarsals Post-Operative Diagnosis: Same as Pre-op Surgeon: Vineet Simpson Anesthesia: General, Local Specimens Removed: Bone and soft tissue left foot Estimated Blood Loss (mls): 20 Drains & Tubes with Location: 08/28" zack drain, left foot Operative Report Dictated: Yes
[2017-06-12] MEDS ORDERED: HEPARIN - 25,000 UNIT in SODIUM CHLORIDE 495 ML IV SCH (09:49)
[2017-06-12] MEDS ORDERED: ACETAMINOPHEN 325 MG TABLET (FP) PO PRN (09:49)
[2017-06-12] MEDS ORDERED: HEPARIN NA (PORCINE) 5,000 UNITS/ML 1ML VIAL IVPUSH PRN ×4 (09:49)
[2017-06-12] MEDS: HEPARIN - 25,000 UNIT in SODIUM CHLORIDE 495 ML IV SCH ×3 (10:00→18:03)
--- NOTE | 2017-06-12 10:03 | OP ---
DATE OF OPERATION: 06/12/2017 PREOPERATIVE DIAGNOSIS: Forefoot gangrene, left foot. POSTOPERATIVE DIAGNOSIS: Forefoot gangrene, left foot. PROCEDURE: Left foot transmetatarsal amputation. SURGEON: Vineet Simpson DPM FINANCIAL AID MANAGER: Dr. Jamison, PGY-4, [facility] ANESTHESIA: General and local. HEMOSTASIS: Surgical dissection. ESTIMATED BLOOD LOSS: Minimal. PATHOLOGY: Bone and soft tissue, left foot. COMPLICATIONS: None. DESCRIPTION OF PROCEDURE: Patient was brought to the operating room and placed on the operating table in the supine position. Following the induction of general anesthesia, local anesthesia was achieved with 20 mL of 2% lidocaine plain. The left foot was then scrubbed, prepped, and draped in the usual aseptic fashion. I elected to not use a tourniquet during the course of the procedure. Attention was directed to the left forefoot where a dry gangrenous mummified 1st and 2nd digit with forefoot ischemia was visualized and appreciated. I began by making a circumferential incision overlying the metatarsophalangeal joints throughout the entirety of the foot, leaving a longer plantar stump. Of note, there was a large medial necrotic patch along the metatarsophalangeal joint of the 1st toe. This was excised as the tissue was devitalized. Next, the incision was deepened using sharp and blunt dissection, taking care to retract vital neural and vascular structures. Of note, there was minimal bleeding in this area of the forefoot. Next, the toes 1 through 5 were disarticulated at the level of the metatarsophalangeal joints. The toes were removed as a single flap and sent to Pathology for analysis. Next, the periosteal tissue was reflected from the metatarsal heads 1 through 5. The sagittal saw was used to resect the distal aspects of the metatarsals, paying mind to metatarsal parabola. Next, all flexor and extensor tendons were subsequently removed from the surgical site. The surgical site was copiously irrigated with sterile saline. An appropriate soft tissue culture was obtained. The plantar flap was flapped over dorsally and coapted and maintained utilizing 3-0 nylon in a simple interrupted suture fashion. A 1/4-inch Lang drain was used for space and exited medially. Of note, there was a small opening medially where, due to skin tension, it was unable to be closed. Following the conclusion of the procedure, the surgical site was covered with Xeroform, and a sterile compressive dressing was applied to the left foot, consisting of sterile gauze, Nik, Kerlix, abdominal pad, and Ambrosio wrap. The patient tolerated the procedure and anesthesia well, without complications. He was transferred from the operating room to the recovery unit with vital signs stable and neurovasculature intact to the left foot. MERA PEDERSON/[id number] cc: [facility]
[2017-06-12] MEDS: HEPARIN NA (PORCINE) 5,000 UNITS/ML 1ML VIAL IVPUSH ONE ×2 (10:12→11:30)
[2017-06-12] MEDS ORDERED: morphine CARPU-JECT 4 MG/1 ML DISP.SYRIN IVPUSH SCH (10:30)
[2017-06-12] MEDS ORDERED: ACETAMINOPHEN 325 MG TABLET (FP) ONE (10:45)
[2017-06-12] MEDS ORDERED: oxyCODONE HCL 5 MG TABLET ONE (10:46)
[2017-06-12] MEDS: morphine SO4 SUSTAINED ACTING 15 MG TABLET.SA PO SCH ×2 (11:25→21:34)
[2017-06-12] MEDS: PANTOPRAZOLE 20 MG TABLET (FP) PO SCH ×2 (12:03→21:35)
[2017-06-12] MEDS: NICOTINE 14 MG/24 HOURS TOPICAL PATCH TD SCH (12:03)
[2017-06-12] MEDS: morphine CARPU-JECT 4 MG/1 ML DISP.SYRIN IVPUSH PRN ×3 (13:17→20:17)
--- NOTE | 2017-06-12 14:34 | PN ---
Teaching Attending Note Name of Resident: Tracie Almonte ATTENDING PHYSICIAN STATEMENT I saw and evaluated the patient. I reviewed the resident's note and discussed the case with the resident. I agree with the resident's findings and plan as documented. SUBJECTIVE: sen at 10 am in recovery room no fever or chills. has some pain in L foot . has pain and discomfort in R upper thigh . OBJECTIVE: NAD CV: RRR, no MRG Lungs; CTAB Ext : L foot in a surgical dressing , L leg with no edema R leg with increased edema and erythema on lower leg. increased circumference of R thigh with mild dicomfort with palpation of thigh. DP could not be felt due to edema . ASSESSMENT AND PLAN: 56 y/o man with h/o smoking, CVA , and HTN who presented with L foot pain and was found to have acute arterial insufficiency and gangrene of L foot toes 1- Acute arterial insufficiency : s/p revascularization and s/p TMA 06/12 - Started heparin infusion at 1500 units /hr and gave a bolus of 6000 units . 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 rest of w/u as out pt 2- Nicotine dependence - cont nicotine patch HLOC
[2017-06-12] MEDS ORDERED: PT OWN MED DRAWER 7, Y5N ONE (21:30)
[2017-06-12] MEDS: ROSUVASTATIN CA 5 MG TABLET (FP) PO SCH (21:35)
[2017-06-13] MEDS: diphenhydrAMINE HCL 25 MG CAPSULE (FP) PO PRN ×2 (00:06→21:40)
[2017-06-13] MEDS: morphine CARPU-JECT 4 MG/1 ML DISP.SYRIN IVPUSH PRN ×5 (00:36→20:15)
[2017-06-13] MEDS: oxyCODONE HCL 5 MG TABLET PO PRN ×3 (06:17→18:27)
[2017-06-13] MEDS: HEPARIN - 25,000 UNIT in SODIUM CHLORIDE 495 ML IV SCH ×2 (07:27→11:16)
--- NOTE | 2017-06-13 08:14 | PN ---
Progress Note (short form) - Note Progress Note: Podiatry F/U: Seen/evaluated at bedside, NAD. Pain is constant throbbing to the left foot, patient states it's different than pre-operative. Denies F/V/N/C/SOB/CP. Afebrile. S/p L trans-metatarsal amputation POD # 1. SHARON: L foot: dressing C/D/I, no active bleeding. Lang drain intact with medial aspect of stump open. Sutures well coapted, no stump dehiscence noted. There is some duskiness to the plantar stump, particularly medially. There is no purulence, no fluctuance, no periwound erythema, no ascending cellulitis, no signs of active infection. There is significant tenderness to palpation. There are no kitty gangrenous changes to the foot. WBC: 11.7 Wound Cx: pending Imp: 56 year old vasculopath s/p L foot trans-metatarsal amputation 1. [place] drain removed at bedside 2. DSD L foot 3. Pain control 4. Patient may keep foot dependent as this improves pain 5. Strict NWB L foot 6. Will need to monitor TMA stump closely over the weekend. If he has necrosis or ischemia to the stump over the next few days, will likely need BKA. Will closely follow. Lillian Simpson DPM
[2017-06-13 08:48] LABS: MCH 32.8 pg (25.7-33.7); MCHC 32.8 g/dl (32.0-35.9); MEAN CELL VOLUME 100.2 fl (80-96); MEAN PLT VOLUME 6.9 fl (7.5-11.1); PLATELET COUNT 451 K/MM3 (134-434); RDW 14.2 % (11.9-15.9); WHITE BLOOD COUNT 13.2 K/mm3 (4.0-10.0)
[2017-06-13 09:19] LABS: INR 1.12 (0.82-1.09); PROTHROMBIN TIME (PATIENT) 12.7 SEC (9.98-11.88)
[2017-06-13] MEDS: NICOTINE 14 MG/24 HOURS TOPICAL PATCH TD SCH (10:02)
[2017-06-13] MEDS: morphine SO4 SUSTAINED ACTING 15 MG TABLET.SA PO SCH ×2 (10:03→21:40)
[2017-06-13] MEDS: PANTOPRAZOLE 20 MG TABLET (FP) PO SCH ×2 (10:04→21:40)
[2017-06-13] MEDS ORDERED: HEPARIN NA (PORCINE) 5,000 UNITS/ML 1ML VIAL IVPUSH ONE (11:30)
--- NOTE | 2017-06-13 12:13 | PN ---
Progress Note (short form) - Note Progress Note: Anesthesia POD#1 S/P Left Transmetatarsal amputation under GA VSS,pain is bearable,no N/V No complications to GA seen. Ana Bronson MD.
--- NOTE | 2017-06-13 14:21 | PN ---
Physical Exam: SUBJECTIVE: Patient seen and examined in the am C/o about a different sensation on the lateral spect of the TMA stump. Received his pain medication and slept with feet dependent. No longer has the R groin discomfort, no fevers or chills, no visible bleeding through dressing of stump site OBJECTIVE: Vital Signs Period Temp Pulse Resp BP Sys/Castillo Pulse Ox Last 24 Hr 98.0 F-98.9 F 91-112 18-20 126-136/65-85 93 GENERAL: The patient is awake, alert, looks a bit anxious EYES: sclera anicteric, conjunctiva clear ENT: moist mucous membranes. LUNGS: Breath sounds equal, clear to auscultation bilaterally, no wheezes, no crackles, no accessory muscle use. HEART: Regular rate and rhythm, S1, S2 ABDOMEN: Soft, nontender, nondistended, normoactive bowel sounds EXTREMITIES: Swollen R LLE, reduced today compared to yesterday. No R groin tenderness. [place] and warm. Pulses difficult to palpate due to edema. LLE, bandaged TMA stump. Clean dressing. Pulses difficult to palpate on L from occlusion of dressing. NEUROLOGICAL: Normal speech, gait not observed. Laboratory Results - last 24 hr 06/12/17 06/12/17 06/13/17 16:00 23:00 07:12 WBC 13.2 H RBC 3.44 L Hgb 11.3 L Hct 34.5 L MCV 100.2 H MCH 32.8 MCHC 32.8 RDW 14.2 Plt Count 451 H MPV 6.9 L PT with INR INR PTT (Actin FS) 45.3 H 64.4 H D 06/13/17 06/13/17 07:12 07:12 WBC RBC Hgb Hct MCV MCH MCHC RDW Plt Count MPV PT with INR 12.70 H INR 1.12 PTT (Actin FS) 53.6 H Microbiology 06/12/17 09:57 Foot - Lt Transmetatarsal Amp Site Gram Stain - Final 06/12/17 09:57 Foot - Lt Transmetatarsal Amp Site Wound Culture - Preliminary Presumptive Ps Aeruginosa Staphylococcus Latex Coag Pos Active Medications Generic Name Dose Route Start Last Admin Trade Name Freq PRN Reason Stop Dose Admin Acetaminophen 650 mg 06/13/17 13:22 Tylenol - PO Q4H PRN PAIN SCALE 1-3 Acetaminophen 325 mg 06/13/17 13:27 Tylenol - PO Q4H PRN PAIN SCALE 4-7 Diphenhydramine HCl 50 mg 06/12/17 09:49 06/13/17 00:06 Benadryl - PO 50 mg HS PRN Administration INSOMNIA Docusate Sodium 100 mg 06/12/17 09:49 Colace - PO TID PRN CONSTIPATION Heparin Sodium (Porcine) 1,000 unit 06/12/17 09:49 Heparin - IVPUSH PRN PRN Heparin Heparin Sodium (Porcine) 5,000 unit 06/12/17 09:49 06/13/17 11:17 Heparin - IVPUSH 5,000 unit PRN PRN Administration Heparin Heparin Sodium (Porcine) 25, 500 mls @ 30 mls/hr 06/12/17 09:57 06/13/17 11:16 000 unit/ Sodium Chloride IV 35 mls/hr TITR KHALIF Administration Protocol 1,500 UNIT/HR Morphine Sulfate 15 mg 06/12/17 11:15 06/13/17 10:03 Ms Contin - PO 15 mg BID KHALIF Administration Morphine Sulfate 2 mg 06/13/17 09:04 Morphine Injection - IVPUSH Q3H PRN PAIN SCALE 8-10 Nicotine 14 mg 06/12/17 10:00 06/13/17 10:02 Nicoderm Patch - TD 14 mg DAILY KHALIF Administration Oxycodone HCl 5 mg 06/13/17 13:27 Roxicodone - PO Q4H PRN PAIN SCALE 4-7 Pantoprazole Sodium 20 mg 06/12/17 11:30 06/13/17 10:04 Protonix - PO 20 mg BID KHALIF Administration Rosuvastatin Calcium 5 mg 06/12/17 22:00 06/12/17 21:35 Crestor - PO 5 mg HS KHALIF Administration ASSESSMENT/PLAN: A 56 year old smoker with PMHx of CVA, PAD, HLD admitted for Sepsis with ischemia of L great toe, s/p thrombectomy, now s/p TMA # Arterial insufficiency - in a chronic active smoker with ischemic L big toe s/ p thrombectomy and angioplasty (05/22, 05/23, 05/30), TMA 06/12/17 - On 15 mg morphine PO bid - On oxycodone Q3H - Iv push morphine 2mg Q3H - On Heparin drip - Goal is PTT 60-80, now at 1750/hr - Coumadin on hold for now D/W Dr Clancy, since there was poor perfusion distal to the metatarsals, wound is going to be monitored for signs of poor healing/infection for probable revision to BKA by Friday - Pt received 5,000u bolus of heparin stat around 11.00am with PTT-53.6 (was therapeutic at midnight) - follow PTT in next 6 hours- next PTT for 5pm - if subtherapeutic or every 24hrs if therapeutic - Note heparin protocol in order set is not being followed because the PTT goal in the order set is inadequate - Manual orders for PTT and direct orders for boluses to nurses is needed - Monitor foot #Swollen R limb; No DVT (duplext US 06/12/17) -Patient sleeps dependent, less swollen R lower limb today #Smoker -Nicotine patch 14 mg TDS- not craving, continue #Tachycardia: Some improvement _Likely secondary to pain -Will monitor, on pain med regimen # hypercholesterolemia - Crestor 5mg po daily # GERD - Continue pantoprazole 20mg BID #FEN -Oral fluids -Electrolytes stable -Regular Diet Visit type - Emergency Visit Emergency Visit: Yes ED Registration Date: 05/21/17 Care time: The patient presented to the Emergency Department on the above date and was hospitalized for further evaluation of their emergent condition. - New Patient This patient is new to me today: No - Critical Care Critical Care patient: No - Discharge Referral Referred to [facility] Med P.C.: No
[2017-06-13] MEDS: DOCUSATE SODIUM 100 MG CAPSULE (FP) PO PRN (18:22)
[2017-06-13] MEDS: ACETAMINOPHEN 325 MG TABLET (FP) PO PRN (18:28)
--- NOTE | 2017-06-13 18:58 | PN ---
Teaching Attending Note Name of Resident: Tracie Almonte ATTENDING PHYSICIAN STATEMENT I saw and evaluated the patient. I reviewed the resident's note and discussed the case with the resident. I agree with the resident's findings and plan as documented. SUBJECTIVE: pain is controlled with pain meds OBJECTIVE: NAD CV: RRR, no MRG Lungs; CTAB Ext: L foot in a surgical dressing, L leg with no edema . PT on L is not R leg edema . can't feel DP due to edema on R side ASSESSMENT AND PLAN: 56 y/o man with h/o smoking, CVA , and HTN who presented with L foot pain and was found to have acute arterial insufficiency and gangrene of L foot toes 1- Acute arterial insufficiency : s/p revascularization and s/p TMA 06/12 - cont heparin infusion. - repeat PTT - PTT goal 60-80 - will not start coumadin at this time after d/w Dr. Simpson in case further amputation is needed - cont pain meds , - soft tissue culture from surgery grew presumptive pseudomonas. ( Not bone cx ) . I am not sure about the need to treat this. will give a dose of zosyn and will d/w ID . 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 rest of w/u as out pt - cont statin 2- Nicotine dependence - cont nicotine patch HLOC
[2017-06-13] MEDS ORDERED: PIPERACILLIN/TAZOB 3.375 GM 50 ML IVPB ONE (18:59)
[2017-06-13] MEDS: ROSUVASTATIN CA 5 MG TABLET (FP) PO SCH (21:40)
[2017-06-14] MEDS: HEPARIN - 25,000 UNIT in SODIUM CHLORIDE 495 ML IV SCH (00:16)
[2017-06-14] MEDS: morphine CARPU-JECT 4 MG/1 ML DISP.SYRIN IVPUSH PRN ×2 (00:17→04:59)
[2017-06-14] MEDS: oxyCODONE HCL 5 MG TABLET PO PRN ×4 (02:03→17:26)
[2017-06-14] MEDS: ACETAMINOPHEN 325 MG TABLET (FP) PO PRN ×4 (02:03→17:26)
[2017-06-14] MEDS ORDERED: PIPERACILLIN/TAZOB 3.375 GM 50 ML IVPB ONE (03:00)
[2017-06-14] MEDS ORDERED: PIPERACIL/TAZOB 3.375 GM 3.375 GM/50 ML PREMIX IVPB ONE (03:00)
[2017-06-14] MEDS: morphine CARPU-JECT 2 MG/1 ML DISP.SYRIN IVPUSH PRN ×5 (08:25→22:02)
--- NOTE | 2017-06-14 08:51 | PN ---
Physical Exam: SUBJECTIVE: Patient seen and examined. He was unable to sleep last night due to the pain. says pain is adequately controlled on current regimen, he is more anxious than in pain. just prior to my physical exam he started to have bleeding on the anterior portion of this dressing soaking through to the pillow and he started to shake c /o sudden pain in his left foot 10/10 with ttp past the dressing. discussed with Dr. Simpson about the bleeding: do not remove dressing, reinfornce with gauze, abdominal pad and benja bandage. continue reinforcement as need, call him if it continues to worsen, he will see the patient later today. OBJECTIVE: Vital Signs Period Temp Pulse Resp BP Sys/Castillo Pulse Ox Last 24 Hr 97.2 F-98.6 F 97-107 18-20 115-141/66-86 95 GENERAL: anxious EYES: conjunctiva clear, eomi, shania ENT: moist mucous membranes, no LAD, no JVD, no cartid bruits. LUNGS: Breath sounds equal, clear to auscultation bilaterally, no wheezes, no crackles, no accessory muscle use. HEART: Regular rate and rhythm, S1, S2 ABDOMEN: Soft, nontender, nondistended, normoactive bowel sounds EXTREMITIES: Left lower ext: left foot covered in dressing with bright red blood anteriorly, nonpalpable popliteal pulse, doppler TP pulse, TTP around ankle and lower part of leg. warm. Right lower ext: pitting 2+ edema upto knee, warm, +popliteal and dP pulses ue: 5/5 handgrip, + b/l radial pulses. Neuro: facial symmetry, normal speech, uvula midline. Laboratory Results - last 24 hr 06/13/17 06/13/17 06/13/17 07:12 07:12 07:12 WBC 13.2 H RBC 3.44 L Hgb 11.3 L Hct 34.5 L MCV 100.2 H MCH 32.8 MCHC 32.8 RDW 14.2 Plt Count 451 H MPV 6.9 L PT with INR 12.70 H INR 1.12 PTT (Actin FS) 53.6 H 06/13/17 16:30 WBC RBC Hgb Hct MCV MCH MCHC RDW Plt Count MPV PT with INR INR PTT (Actin FS) 66.4 H Active Medications Generic Name Dose Route Start Last Admin Trade Name Freq PRN Reason Stop Dose Admin Acetaminophen 650 mg 06/13/17 13:22 06/14/17 07:02 Tylenol - PO 650 mg Q4H PRN Administration PAIN SCALE 1-3 Acetaminophen 325 mg 06/13/17 13:27 06/13/17 18:28 Tylenol - PO 325 mg Q4H PRN Administration PAIN SCALE 4-7 Diphenhydramine HCl 50 mg 06/12/17 09:49 06/13/17 21:40 Benadryl - PO 50 mg HS PRN Administration INSOMNIA Docusate Sodium 100 mg 06/12/17 09:49 06/13/17 18:22 Colace - PO 100 mg TID PRN Administration CONSTIPATION Heparin Sodium (Porcine) 1,000 unit 06/12/17 09:49 Heparin - IVPUSH PRN PRN Heparin Heparin Sodium (Porcine) 5,000 unit 06/12/17 09:49 06/13/17 11:17 Heparin - IVPUSH 5,000 unit PRN PRN Administration Heparin Heparin Sodium (Porcine) 25, 500 mls @ 30 mls/hr 06/12/17 09:57 06/14/17 00:16 000 unit/ Sodium Chloride IV 35 mls/hr TITR KHALIF Administration Protocol 1,500 UNIT/HR Morphine Sulfate 15 mg 06/12/17 11:15 06/13/17 21:40 Ms Contin - PO 15 mg BID KHALIF Administration Morphine Sulfate 2 mg 06/14/17 08:21 06/14/17 08:25 Morphine Injection - IVPUSH 2 mg Q3H PRN Administration PAIN SCALE 8-10 Nicotine 14 mg 06/12/17 10:00 06/13/17 10:02 Nicoderm Patch - TD 14 mg DAILY KHALIF Administration Oxycodone HCl 5 mg 06/13/17 13:27 06/14/17 07:03 Roxicodone - PO 5 mg Q4H PRN Administration PAIN SCALE 4-7 Pantoprazole Sodium 20 mg 06/12/17 11:30 06/13/17 21:40 Protonix - PO 20 mg BID KHALIF Administration Rosuvastatin Calcium 5 mg 06/12/17 22:00 06/13/17 21:40 Crestor - PO 5 mg HS KHALIF Administration ASSESSMENT/PLAN: 56 yr old man with HTN, smoking hx, hx of CVA and arterial insufficiency s/p TMA due on 06/12. # TMA POD #2 (06/12) due to arterial insufficiency likely due to chronic smoking Wound care: - continuous monitoring of pulses with doppler - currently bleeding at site, instructions as per Dr. Simpson for reinforcement with additional gauze/abd pad/benja as surgical site is open; due to poor perfusion distal to the metatarsals, wound is going to be monitored for signs of poor healing/infection for probable revision to BKA by Friday Heparin drip to prevent occlusion: - PTT goal 60-80, drip adjusted this morning due to PTT of 43.8, increased to 38cc/hr (1900units/hr) and given bolus of 6000 units(pt's weight 75kg x 80unit) - PTT repeat in 6hours at 3:30pm - Pain control: -- 15 mg morphine PO bid -- oxycodone Q3H -- tylenol 325 + 650 on pain scale -- Iv push morphine 2mg Q3H - Buspar 5mg po daily added today to relieve anxiety - with bowel regimen: colace #Nicotine dependence - nicotine patch 14 mg TDS apply daily #HLD - Crestor 5mg po daily # GERD -pantoprazole 20mg BID DVT: on heparin drip Diet: sodium controlled diet Visit type - Emergency Visit Emergency Visit: No - New Patient This patient is new to me today: Yes Date on this admission: 06/14/17 - Critical Care Critical Care patient: No - Discharge Referral Referred to [facility] Med P.C.: No
[2017-06-14 08:56] LABS: BASOPHIL 0.7 % (0-2.0); EOSINOPHIL 0.9 % (0-4.5); MCH 33.1 pg (25.7-33.7); MCHC 32.7 g/dl (32.0-35.9); MEAN CELL VOLUME 101.4 fl (80-96); MEAN PLT VOLUME 7.7 fl (7.5-11.1); NEUTROPHILS 67.5 % (42.8-82.8); PLATELET COUNT 430 K/MM3 (134-434); RDW 14.2 % (11.9-15.9); WHITE BLOOD COUNT 14.3 K/mm3 (4.0-10.0)
[2017-06-14] MEDS: morphine SO4 SUSTAINED ACTING 15 MG TABLET.SA PO SCH ×2 (09:09→21:07)
[2017-06-14] MEDS: PANTOPRAZOLE 20 MG TABLET (FP) PO SCH ×2 (09:10→21:08)
[2017-06-14] MEDS: NICOTINE 14 MG/24 HOURS TOPICAL PATCH TD SCH (09:10)
[2017-06-14] MEDS ORDERED: HEPARIN NA (PORCINE) 5,000 UNITS/ML 1ML VIAL IVPUSH ONE ×2 (09:45→18:33)
[2017-06-14] MEDS ORDERED: PT OWN MED DRAWER 7, Y5N ONE ×4 (10:06→21:06)
[2017-06-14] MEDS ORDERED: HEPARIN - 25,000 UNIT in SODIUM CHLORIDE 495 ML IV SCH ×2 (10:45→18:34)
--- NOTE | 2017-06-14 12:11 | PN ---
Teaching Attending Note Name of Resident: James Hodges ATTENDING PHYSICIAN STATEMENT I saw and evaluated the patient. I reviewed the resident's note and discussed the case with the resident. I agree with the resident's findings and plan as documented. SUBJECTIVE:seen at 9:50 am no fever or chills . has no SOB, has pain in L foot especially at level of surgery site OBJECTIVE: NAD Ext: L foot in a surgical dressing, after partially removing the dressing, the dorsum of the foot is warm, and PT pulse was detected with doppler R leg edema . can't feel DP due to edema on R side ASSESSMENT AND PLAN: 56 y/o man with h/o smoking, CVA , and HTN who presented with L foot pain and was found to have acute arterial insufficiency and gangrene of L foot toes 1- Acute arterial insufficiency : s/p revascularization and s/p TMA 06/12 - PTT in 40s . increase heparin infusion to 1900 units , and bolus 6000 units . - PTT at 4 pm - PTT goal 60-80 - will not start coumadin at this time in case further amputation is needed - cont pain meds , - soft tissue culture from surgery grew pseudomonas and MSSA. this was d/w Dr. Son who recommended no need for Abx - continued hypercoagulable w/u as out pt - cont statin 2- Nicotine dependence - cont nicotine patch HLOC
[2017-06-14] MEDS: busPIRone HCL 5 MG TABLET PO SCH (13:42)
[2017-06-14 18:07] LABS: INR 1.04 (0.82-1.09); PROTHROMBIN TIME (PATIENT) 11.7 SEC (9.98-11.88)
[2017-06-14 18:10] LABS: ACTIVATED PTT 58.3 SECONDS (26.9-34.4)
[2017-06-14] MEDS: ROSUVASTATIN CA 5 MG TABLET (FP) PO SCH (21:07)
[2017-06-14] MEDS: DOCUSATE SODIUM 100 MG CAPSULE (FP) PO PRN (21:08)
[2017-06-14] MEDS: diphenhydrAMINE HCL 25 MG CAPSULE (FP) PO PRN (22:02)
[2017-06-15] MEDS: ACETAMINOPHEN 325 MG TABLET (FP) PO PRN ×6 (01:01→23:38)
[2017-06-15] MEDS: oxyCODONE HCL 5 MG TABLET PO PRN ×6 (01:01→23:38)
[2017-06-15] MEDS: morphine CARPU-JECT 2 MG/1 ML DISP.SYRIN IVPUSH PRN ×7 (01:02→22:44)
[2017-06-15] MEDS ORDERED: HEPARIN INFUSION - 500 ML IVPB SCH ×2 (02:00→13:20)
[2017-06-15 08:30] LABS: MCH 33.3 pg (25.7-33.7); MCHC 33.5 g/dl (32.0-35.9); MEAN CELL VOLUME 99.4 fl (80-96); MEAN PLT VOLUME 7.3 fl (7.5-11.1); PLATELET COUNT 391 K/MM3 (134-434); RDW 14.4 % (11.9-15.9); WHITE BLOOD COUNT 14.2 K/mm3 (4.0-10.0)
--- NOTE | 2017-06-15 08:57 | PN ---
Progress Note (short form) - Note Progress Note: Podiatry F/U: Seen/evaluated at bedside, in significant pain. Patient reports quality of pain is generalized throbbing with intermittent spasms and shooting pain. Denies F/V/N/C/SOB/CP. Afebrile, VSS. S/p L transmetatarsal amputation. SHARON: L foot: dressing C/D/I with mild strikethrough, no active bleeding. Sutures coapted with medial most aspect of transmetatarsal stump open. NO dehiscence laterally. There is duskiness and pallor to the plantar flap of the stump. There is mild periwound erythema surrounding stump. There is no purulent drainage, no fluctuance, no ascending cellulitis, no signs of active infection. There is severe tenderness to palpation. The stump is cool to touch. WBC: 14.2 Wound Cx: group D strep, staph aureus, pseudomonas Imp: 56 year old PVD M s/p L transmetatarsal amputation 1. Pain control 2. Dressing change today 3. Patient may keep leg dependent and avoid elevation 4. I am concerned over significance of pain and ischemic changes to stump. Will need vascular reevaluation. 5. Will follow Lillian Simpson DPM
[2017-06-15] MEDS: morphine SO4 SUSTAINED ACTING 15 MG TABLET.SA PO SCH ×2 (08:59→21:33)
[2017-06-15] MEDS: PANTOPRAZOLE 20 MG TABLET (FP) PO SCH ×2 (08:59→21:33)
[2017-06-15] MEDS: DOCUSATE SODIUM 100 MG CAPSULE (FP) PO PRN ×2 (09:00→21:34)
[2017-06-15] MEDS: NICOTINE 14 MG/24 HOURS TOPICAL PATCH TD SCH (09:01)
[2017-06-15] MEDS ORDERED: PT OWN MED DRAWER 7, Y5N ONE ×3 (09:37→19:36)
[2017-06-15] MEDS: busPIRone HCL 5 MG TABLET PO SCH (10:22)
[2017-06-15] MEDS ORDERED: HEPARIN NA (PORCINE) 5,000 UNITS/ML 1ML VIAL IVPUSH ONE (14:30)
[2017-06-15] MEDS ORDERED: HEPARIN NA (PORCINE) 5,000 UNITS/ML 1ML VIAL IVPUSH PRN ×4 (15:05→17:38)
--- NOTE | 2017-06-15 15:31 | PN ---
Progress Note (short form) - Note Progress Note: Subjective: pain is tolerable in L foot . No SOB Objective: Vital Signs: Last Vital Signs Temp Pulse Resp BP Pulse Ox 98.5 F 97 H 18 128/73 94 L 06/15/17 14:44 06/15/17 14:44 06/15/17 14:44 06/15/17 14:44 06/15/17 11:36 Laboratory Results - last 24 hr 06/14/17 06/15/17 06/15/17 17:00 00:30 06:00 WBC 14.2 H RBC 3.29 L Hgb 11.0 L Hct 32.7 L MCV 99.4 H MCH 33.3 MCHC 33.5 RDW 14.4 Plt Count 391 MPV 7.3 L PT with INR 11.70 INR 1.04 PTT (Actin FS) 58.3 H D 73.5 H Stool Occult Blood 06/15/17 06/15/17 06/15/17 06:00 10:10 10:20 WBC RBC Hgb Hct MCV MCH MCHC RDW Plt Count MPV PT with INR INR PTT (Actin FS) 46.1 H D 43.3 H Stool Occult Blood Negative Physical Exam: NAD CV: RRR Lungs: CTAB Ext: L foot in a dressing that was changed this am by podiatry . dressing not removed. L leg is warm, R leg edema . can't feel DP due to edema on R side ASSESSMENT AND PLAN: 56 y/o man with h/o smoking, CVA , and HTN who presented with L foot pain and was found to have acute arterial insufficiency and gangrene of L foot toes 1- Acute arterial insufficiency : s/p revascularization and s/p TMA 06/12 - PTT in 40s . increase heparin infusion to 2150 units , and bolus 6000 units . - PTT at 9 pm - PTT goal 60-80 - will not start coumadin at this time in case further amputation is needed - cont pain meds, - continued hypercoagulable w/u as out pt - cont statin 2- Nicotine dependence - cont nicotine patch HLOC Visit type - Emergency Visit Emergency Visit: Yes ED Registration Date: 05/21/17 Care time: The patient presented to the Emergency Department on the above date and was hospitalized for further evaluation of their emergent condition. - New Patient This patient is new to me today: No - Critical Care Critical Care patient: No
[2017-06-15] MEDS: HEPARIN - 25,000 UNIT in SODIUM CHLORIDE 495 ML IV SCH ×2 (15:43→23:24)
[2017-06-15] MEDS: ROSUVASTATIN CA 5 MG TABLET (FP) PO SCH (21:33)
[2017-06-15] MEDS: HEPARIN NA (PORCINE) 5,000 UNITS/ML 1ML VIAL IVPUSH PRN (23:25)
[2017-06-15] MEDS: diphenhydrAMINE HCL 25 MG CAPSULE (FP) PO PRN (23:39)
[2017-06-16] MEDS ORDERED: HEPARIN - 25,000 UNIT in SODIUM CHLORIDE 495 ML IV SCH (01:03)
[2017-06-16] MEDS: HEPARIN - 25,000 UNIT in SODIUM CHLORIDE 495 ML IV SCH ×2 (01:15→15:36)
[2017-06-16] MEDS: morphine CARPU-JECT 2 MG/1 ML DISP.SYRIN IVPUSH PRN ×7 (01:45→23:48)
[2017-06-16] MEDS: oxyCODONE HCL 5 MG TABLET PO PRN ×4 (03:35→19:52)
[2017-06-16] MEDS: ACETAMINOPHEN 325 MG TABLET (FP) PO PRN ×4 (03:35→19:52)
[2017-06-16 07:06] LABS: BASOPHIL 1.9 % (0-2.0); EOSINOPHIL 1.4 % (0-4.5); MCH 32.6 pg (25.7-33.7); MCHC 32.8 g/dl (32.0-35.9); MEAN CELL VOLUME 99.2 fl (80-96); MEAN PLT VOLUME 7.7 fl (7.5-11.1); NEUTROPHILS 66.1 % (42.8-82.8); PLATELET COUNT 394 K/MM3 (134-434); RDW 14.6 % (11.9-15.9); WHITE BLOOD COUNT 12.6 K/mm3 (4.0-10.0)
[2017-06-16] MEDS ORDERED: PT OWN MED DRAWER 7, Y5N ONE ×4 (09:07→21:29)
[2017-06-16] MEDS: morphine SO4 SUSTAINED ACTING 15 MG TABLET.SA PO SCH ×2 (09:13→21:40)
[2017-06-16] MEDS: NICOTINE 14 MG/24 HOURS TOPICAL PATCH TD SCH ×2 (09:13→15:35)
[2017-06-16] MEDS: PANTOPRAZOLE 20 MG TABLET (FP) PO SCH ×2 (09:14→21:40)
[2017-06-16] MEDS: busPIRone HCL 5 MG TABLET PO SCH (09:14)
[2017-06-16] MEDS: DOCUSATE SODIUM 100 MG CAPSULE (FP) PO PRN (13:38)
--- NOTE | 2017-06-16 14:17 | PN ---
Progress Note (short form) - Note Progress Note: Vascular Surgery Pt seen and examined. Still has pain at left TMA site. Dressing changed. Flap looks healthy, no pain there. Spoke to pt about BKA if pain doesnt get better. He is gonna take the next two days and think about it If flap gets more dusky will need bka . Will re-evaluate. Doug Fernández DO
--- NOTE | 2017-06-16 14:34 | PN ---
Progress Note (short form) - Note Progress Note: Subjective: pain last night, improved today . No SOB or fever Objective: Vital Signs: Last Vital Signs Temp Pulse Resp BP Pulse Ox 98.6 F 100 H 18 138/82 94 L 06/16/17 10:00 06/16/17 10:00 06/16/17 10:00 06/16/17 10:00 06/16/17 09:00 Laboratory Results - last 24 hr 06/15/17 06/16/17 06/16/17 21:00 05:40 05:40 WBC 12.6 H RBC 3.41 L Hgb 11.1 L Hct 33.8 L MCV 99.2 H MCH 32.6 MCHC 32.8 RDW 14.6 Plt Count 394 MPV 7.7 Neutrophils % 66.1 Lymphocytes % 23.6 Monocytes % 7.0 Eosinophils % 1.4 Basophils % 1.9 PTT (Actin FS) 41.1 H 60.6 H D Physical Exam: NAD CV: RRR Lungs: CTAB Ext: L foot with dressing on. warm leg. leg with edema . ASSESSMENT AND PLAN: 56 y/o man with h/o smoking, CVA , and HTN who presented with L foot pain and was found to have acute arterial insufficiency and gangrene of L foot toes 1- Acute arterial insufficiency : s/p revascularization and s/p TMA 06/12 - PTT in 60 this am . PTT at 5 PM. - PTT goal 60-80 - Consult heme to help with his AC as it has been hard to control his PTT . - Might need BKA on Friday . D/W Dr. Fernández - cont pain meds. - continued hypercoagulable w/u as out pt - cont statin 2- Nicotine dependence - decrease nicotine patch to 7 mg HLOC Visit type - Emergency Visit Emergency Visit: Yes ED Registration Date: 05/21/17 Care time: The patient presented to the Emergency Department on the above date and was hospitalized for further evaluation of their emergent condition. - New Patient This patient is new to me today: No - Critical Care Critical Care patient: No
--- NOTE | 2017-06-16 15:23 | PATH ---
Surgical Pathology Report Patient Name: KRISTIAN HERNANDEZ [facility]. Rec. #: [id number] /Age/Gender: 1960 (Age: 56) / M Account: [id number] Location: [address] [place] [address]/[facility] Taken: 06/12/2017 Received: 06/12/2017 Reported: 06/16/2017 Physicians: MERA Amador M.D. Specimen(s) Received LEFT TRANSMETATARSAL AMPUTATION Clinical History Arterial insufficiency Final Diagnosis FOOT, LEFT, TRANSMETATARSAL AMPUTATION: PORTION OF FOOT WITH ACUTE AND CHRONIC INFLAMMATION, ULCERATION AND GANGRENOUS NECROSIS. BONE WITH FOCAL ACUTE OSTEOMYELITIS. SURGICAL MARGINS ARE VIABLE. Electronically Signed Monica Singh M.D. Gross Description Received in formalin labeled "left transmetatarsal amputation," is a 9.5 x 7.5 x 3.3 cm product of a left transmetatarsal amputation. The first and second digits display a black, gangrenous lesion involving the underlying bone. The lesion on the first digit focally extends to 0.5 cm from the skin and soft tissue margin. Separately received within the same container are 5 additional, undesignated portions of metatarsal bones, consistent with the true bone margins. There is a 4.7 x 4.3 x 1.4 cm additional separately received aggregate of soft tissue fragments. Aircraft Dispatcher sections are submitted in 8 cassettes as follows: 1-lesion with underlying bone, following decalcification; 2-skin and soft tissue margin; 3-bone marrow from margin of probable first metatarsal, following decalcification; 4-bone marrow from margin of probable second metatarsal, following decalcification; 5-7-bone marrow from margins of undesignated probable third, fourth and fifth metatarsals, following decalcification; 8-separately received soft tissue fragments. 06/13/201706/13/2017
[2017-06-16] MEDS: HEPARIN NA (PORCINE) 5,000 UNITS/ML 1ML VIAL IVPUSH PRN (18:53)
[2017-06-16] MEDS: ROSUVASTATIN CA 5 MG TABLET (FP) PO SCH (21:40)
--- NOTE | 2017-06-16 21:42 | CONSULT ---
Consult - text type - Consultation Consultation Note: Patient seen and examined This is a 56 year old man with HTN, PAD/PVD, active smoker, CVA in the past with residual gait deficit who presented to the ED with pain to his left great toe. Reported stubbing his toe approximately 1 month ago and had visited the ED at the time and had been discharged. Re-presented days later with concern for infection and was hospitalized for a week and received IV antibiotics. After he was discharged pain and erythema worsened and his toe became cool to touch. Denied nausea, vomiting, fevers, chillds chest pain, and shortness of breath at time of admission. CTA was performed revealing occlusion of left popliteal artery. No direct runoff to foot. Underwent LLE angiogram, tibial and popliteal artery angioplasty, with thrombolysis. 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 Cardio/Vascular: Yes: Hyperlipdemia - Alcohol/Substance Use Hx Alcohol Use: Yes (SOCIAL) - Smoking History Smoking history: Current every day smoker Home Medications - Allergies Allergies/Adverse Reactions: Allergies Allergy/AdvReac Type Severity Reaction Status Date / Time No Known Drug Allergies Allergy Verified 05/21/17 11:50 - Home Medications Home Medications: Ambulatory Orders NK [No Known Home Medication] 05/21/17 Physical Exam Vital Signs: AFVSS Constitutional: Yes: Well Nourished, Pallor Eyes: Yes: WNL HENT: Yes: WNL Neck: Yes: WNL Cardiovascular: Yes: Regular Rate and Rhythm Respiratory: Yes: Regular, CTA Bilaterally Gastrointestinal: Yes: Normal Bowel Sounds, Soft Renal/: Yes: WNL Extremities: Lt. TMA Edema: LUE: Trace, RUE: Trace, LLE: Trace, RLE: Trace Wound/Incision: Yes: Reddened Neurological: Yes: WNL, Alert, Oriented ...Motor Strength: WNL Labs: reviewed Assessment/Plan 56 y/o patient smoker with h/o CVA, PVD, comes in withLt. foot pain Acute arterial insufficiency : s/p revascularization and s/p TMA 06/12 Possible need for Lt. BKA On heparin drip--PTT ranging low to high check lupus anticoagulant/anticardiolipin antibody profile prothrombin gene [id number] neg. ? switch to lovenox will discuss with primary team MAcrocytic anemia--? liver disease, occult check B12/folate/TSH/fT4
[2017-06-16] MEDS: diphenhydrAMINE HCL 25 MG CAPSULE (FP) PO PRN (22:59)
[2017-06-17] MEDS: oxyCODONE HCL 5 MG TABLET PO PRN ×5 (00:50→21:35)
[2017-06-17] MEDS: ACETAMINOPHEN 325 MG TABLET (FP) PO PRN ×5 (00:51→21:34)
[2017-06-17] MEDS: HEPARIN - 25,000 UNIT in SODIUM CHLORIDE 495 ML IV SCH ×3 (02:41→15:36)
[2017-06-17] MEDS: morphine CARPU-JECT 2 MG/1 ML DISP.SYRIN IVPUSH PRN ×4 (02:55→18:38)
[2017-06-17] MEDS ORDERED: PT OWN MED DRAWER 7, Y5N ONE (09:30)
[2017-06-17] MEDS: morphine SO4 SUSTAINED ACTING 15 MG TABLET.SA PO SCH ×2 (09:33→21:34)
[2017-06-17] MEDS: PANTOPRAZOLE 20 MG TABLET (FP) PO SCH ×2 (09:34→21:34)
[2017-06-17] MEDS: NICOTINE 14 MG/24 HOURS TOPICAL PATCH TD SCH (09:34)
[2017-06-17] MEDS: DOCUSATE SODIUM 100 MG CAPSULE (FP) PO PRN ×3 (09:34→21:34)
[2017-06-17] MEDS: busPIRone HCL 5 MG TABLET PO SCH (09:34)
[2017-06-17 09:35] LABS: EOSINOPHIL 1.3 % (0-4.5); MCH 32.6 pg (25.7-33.7); MCHC 33.1 g/dl (32.0-35.9); MEAN CELL VOLUME 98.7 fl (80-96); NEUTROPHILS 77.8 % (42.8-82.8); PLATELET COUNT 418 K/MM3 (134-434); RDW 14.3 % (11.9-15.9); WHITE BLOOD COUNT 11.8 K/mm3 (4.0-10.0)
--- NOTE | 2017-06-17 15:29 | PN ---
Progress Note (short form) - Note Progress Note: Patient seen and examined. No overnight events Chart reviewed. O/E: General: Sitting in bed in NAD Head: NCAT Lungs: Clear LE: mild dusky ,LLE , in dressing seen Abdomen: normal Last Vital Signs Temp Pulse Resp BP Pulse Ox 98.1 F 103 H 18 143/92 96 06/17/17 06:00 06/17/17 06:00 06/17/17 06:00 06/17/17 06:00 06/16/17 21:00 CBC, BMP 06/17/17 08:10 06/12/17 07:20 Current Medications Generic Name Dose Route Start Last Admin Trade Name Freq PRN Reason Stop Dose Admin Acetaminophen 650 mg 06/13/17 13:22 06/17/17 10:42 Tylenol - PO 650 mg Q4H PRN Administration PAIN SCALE 1-3 Acetaminophen 325 mg 06/13/17 13:27 06/17/17 05:13 Tylenol - PO 325 mg Q4H PRN Administration PAIN SCALE 4-7 Buspirone HCl 5 mg 06/14/17 11:24 06/17/17 09:34 Buspar - PO 5 mg DAILY KHALIF Administration Diphenhydramine HCl 50 mg 06/12/17 09:49 06/16/17 22:59 Benadryl - PO 50 mg HS PRN Administration INSOMNIA Docusate Sodium 100 mg 06/12/17 09:49 06/17/17 09:34 Colace - PO 100 mg TID PRN Administration CONSTIPATION Heparin Sodium (Porcine) 6,000 unit 06/15/17 17:38 06/16/17 18:53 Heparin - IVPUSH 6,000 unit PRN PRN Administration Heparin Sodium (Porcine) 3,000 unit 06/15/17 17:38 Heparin - IVPUSH PRN PRN Heparin Sodium (Porcine) 2,000 unit 06/15/17 17:38 Heparin - IVPUSH PRN PRN Heparin Sodium (Porcine) 25, 500 mls @ 48 mls/hr 06/16/17 01:15 06/17/17 02:44 000 unit/ Sodium Chloride IV 48 mls/hr TITR KHALIF Administration Protocol 2,400 UNIT/HR Morphine Sulfate 15 mg 06/12/17 11:15 06/17/17 09:33 Ms Contin - PO 15 mg BID KHALIF Administration Morphine Sulfate 2 mg 06/14/17 08:21 06/17/17 11:25 Morphine Injection - IVPUSH 2 mg Q3H PRN Administration PAIN SCALE 8-10 Nicotine 14 mg 06/16/17 14:45 06/17/17 09:34 Nicoderm Patch - TD 14 mg DAILY KHALIF Administration Oxycodone HCl 5 mg 06/13/17 13:27 06/17/17 10:41 Roxicodone - PO 5 mg Q4H PRN Administration PAIN SCALE 4-7 Pantoprazole Sodium 20 mg 06/12/17 11:30 06/17/17 09:34 Protonix - PO 20 mg BID KHALIF Administration Rosuvastatin Calcium 5 mg 06/12/17 22:00 06/16/17 21:40 Crestor - PO 5 mg HS KHALIF Administration Assessment/Plan: Acute arterial insufficiency : s/p revascularization and s/p TMA 06/12 Possible need for Lt. BKA ?timing On heparin drip--PTT ranging low to high, apparently his PTT gets very low on 1330cc/hr of heparin. f/u lupus anticoagulant/anticardiolipin antibody profile prothrombin gene [id number] neg. consider switching to Lovenox if the BKA is being delayed. Macrocytic anemia: consider US liver ?steatohepatitis f/u B12/folate/TSH/fT4 d/w .
--- NOTE | 2017-06-17 15:48 | PN ---
Progress Note (short form) - Note Progress Note: Podiatry F/U: Seen and evaluated at bedside, NAD. Patient is still experiencing sharp pain to the left foot, intermittent and frequent in nature. Denies F/V/N/C/SOB/CP. S/p L foot trans-metatarsal amputation. Afebrile, VSS. SHARON: L foot: dressing C/D/I, no active bleeding, no strikethrough. Sutures coapted with medial aspect of surgical site open, no purulent drainage, no fluctuance, no bogginess, no ascending cellulitis, no signs of active infection. There is mild duskiness to the plantar flap, however the flap is warmer to touch. There is some ischemic change to the dorsal medial aspect of the stump. There is no active necrosis presently. There is significant tenderness to palpation. WBC: 11.8 OR Cx: pseudomonas, E. Faecalis, staph aureus Imp: 56 year old PVD M s/p L foot transmetatarsal amputation 1. Xeroform + DSD applied to left foot 2. Keep dressing C/D/I 3. Pain control 4. I had a thorough discussion with the patient and Dr. Fernández at bedside. We both discussed treatment options with patient at length. Will continue to observe over the next 72 hours roughly. I discussed that if the stump goes necrotic and if his resting ischemic pain continues he will likely need BKA. Patient understands and wishes to proceed with plan of observation. Will watch. Lillian Simpson DPM
--- NOTE | 2017-06-17 19:51 | PN ---
Teaching Attending Note Name of Resident: Diamante Powers ATTENDING PHYSICIAN STATEMENT I saw and evaluated the patient. I reviewed the resident's note and discussed the case with the resident. I agree with the resident's findings and plan as documented. SUBJECTIVE: cont with resting pain OBJECTIVE: NAD CV: RRR Lungs: CTAB Ext: L foot with dressing on. warm leg. leg with edema . ASSESSMENT AND PLAN: 56 y/o man with h/o smoking, CVA , and HTN who presented with L foot pain and was found to have acute arterial insufficiency and gangrene of L foot toes 1- Acute arterial insufficiency : s/p revascularization and s/p TMA 06/12 - stop heparin gtt and start lovenox since surgery is not to be done soon . - monitor leg exam. if pain continues will need BKA - cont pain meds. - hypercoagulable w/u started - cont statin 2- Nicotine dependence - Cont nicotine patch HLOC
[2017-06-17] MEDS: ENOXAPARIN NA (PORCINE) 80 MG/0.8 ML DISP.SYRIN SQ SCH (20:25)
[2017-06-17] MEDS: ROSUVASTATIN CA 5 MG TABLET (FP) PO SCH (21:34)
[2017-06-17] MEDS: diphenhydrAMINE HCL 25 MG CAPSULE (FP) PO PRN (21:34)
--- NOTE | 2017-06-17 22:52 | PN ---
Physical Exam: SUBJECTIVE: Patient seen and examined. Pt still c/o 03/03 pain to Left LE. Pt has d/w Dr. Fernández and will re-address BKA possibility on Friday, after giving flap 72 hrs more to heal. 24 hr events: PTT 129 -> Heparin drip held. PTT 71 at 8am. OBJECTIVE: Vital Signs - 24 hr 06/17/17 06/17/17 06/17/17 02:00 06:00 09:00 Temperature 99.3 F 98.1 F Pulse Rate 74 103 H Respiratory 18 18 20 Rate Blood Pressure 129/66 143/92 O2 Sat by Pulse 96 Oximetry (%) 06/17/17 06/17/17 14:52 18:00 Temperature 98.0 F 98.4 F Pulse Rate 101 H 100 H Respiratory 20 20 Rate Blood Pressure 123/80 135/76 O2 Sat by Pulse Oximetry (%) GENERAL: The patient is awake, alert, and fully oriented, in no acute distress. HEAD: Normal with no signs of trauma. EYES: Extraocular movements intact, sclera anicteric, conjunctiva clear. No ptosis. ENT: Moist mucous membranes. NECK: Trachea midline, supple. LUNGS: Breath sounds equal, clear to auscultation bilaterally, no wheezes, no crackles, no accessory muscle use. HEART: Regular rate and rhythm, S1, S2 without murmur, rub or gallop. ABDOMEN: Soft, nontender, nondistended, no guarding, no rebound. EXTREMITIES: Left LE s/p TMA 06/12 -> dressing intact. Tee LE warm, with 1+ pitting edema noted. PSYCH: Normal mood, normal affect. SKIN: Warm, dry, normal turgor, no rashes or lesions noted Laboratory Results - last 24 hr 06/17/17 06/17/17 06/17/17 00:40 08:10 08:10 WBC 11.8 H RBC 3.37 L Hgb 11.0 L Hct 33.3 L MCV 98.7 H MCH 32.6 MCHC 33.1 RDW 14.3 Plt Count 418 MPV 7.0 L Neutrophils % 77.8 Lymphocytes % 16.3 D Monocytes % 3.6 L Eosinophils % 1.3 Basophils % 1.0 PTT (Actin FS) 129.6 H D 71.3 H D Stool Occult Blood 06/17/17 10:00 WBC RBC Hgb Hct MCV MCH MCHC RDW Plt Count MPV Neutrophils % Lymphocytes % Monocytes % Eosinophils % Basophils % PTT (Actin FS) Stool Occult Blood Negative Active Medications Generic Name Dose Route Start Last Admin Trade Name Freq PRN Reason Stop Dose Admin Acetaminophen 650 mg 06/13/17 13:22 06/17/17 16:07 Tylenol - PO 650 mg Q4H PRN Administration PAIN SCALE 1-3 Acetaminophen 325 mg 06/13/17 13:27 06/17/17 21:34 Tylenol - PO 325 mg Q4H PRN Administration PAIN SCALE 4-7 Buspirone HCl 5 mg 06/14/17 11:24 06/17/17 09:34 Buspar - PO 5 mg DAILY KHALIF Administration Diphenhydramine HCl 50 mg 06/12/17 09:49 06/17/17 21:34 Benadryl - PO 50 mg HS PRN Administration INSOMNIA Docusate Sodium 100 mg 06/12/17 09:49 06/17/17 21:34 Colace - PO 100 mg TID PRN Administration CONSTIPATION Enoxaparin Sodium 75 mg 06/17/17 20:00 06/17/17 20:25 Lovenox - SQ 75 mg Q12H KHALIF Administration Morphine Sulfate 15 mg 06/12/17 11:15 06/17/17 21:34 Ms Contin - PO 15 mg BID KHALIF Administration Morphine Sulfate 2 mg 06/14/17 08:21 06/17/17 18:38 Morphine Injection - IVPUSH 2 mg Q3H PRN Administration PAIN SCALE 8-10 Nicotine 14 mg 06/16/17 14:45 06/17/17 09:34 Nicoderm Patch - TD 14 mg DAILY KHALIF Administration Oxycodone HCl 5 mg 06/13/17 13:27 06/17/17 21:35 Roxicodone - PO 5 mg Q4H PRN Administration PAIN SCALE 4-7 Pantoprazole Sodium 20 mg 06/12/17 11:30 06/17/17 21:34 Protonix - PO 20 mg BID KHALIF Administration Rosuvastatin Calcium 5 mg 06/12/17 22:00 06/17/17 21:34 Crestor - PO 5 mg HS KHALIF Administration ASSESSMENT/PLAN: 56yo M with PMH of CVA, PAD, HLD, presented with Left great toe pain, was found to have arterial insufficiency and gangrene of Left toes. 1) arterial insufficiency - s/p revascularization x 2, s/p Left TMA 06/12/17 - Dr. Mejia ([facility]) recommendations appreciated: - f/u lupus anticoagulant / anticardiolipin antibody profile - f/u B12, folate, TSH, free T4 - D/C heparin drip - initiate Lovenox 1mg/kg - continue Tylenol, Percocet, MS Contin, and Morphine for pain control - continue Crestor - stool occult blood (-) 2) nicotine dependence - nicotine patch reduced to 7mg daily 3) anxiety - continue Buspar 4) FEN - Fluids: encourage po - Electrolytes: wnl - Nutrition: sodium controlled diet 5) Prophylaxis - GI ppx with Protonix - deconditioning ppx with PT Consult Visit type - Emergency Visit Emergency Visit: Yes ED Registration Date: 05/21/17 Care time: The patient presented to the Emergency Department on the above date and was hospitalized for further evaluation of their emergent condition. - New Patient This patient is new to me today: No - Critical Care Critical Care patient: No
[2017-06-18] MEDS: oxyCODONE HCL 5 MG TABLET PO PRN ×4 (01:45→22:47)
[2017-06-18] MEDS: morphine CARPU-JECT 2 MG/1 ML DISP.SYRIN IVPUSH PRN ×3 (04:08→20:08)
[2017-06-18] MEDS: ACETAMINOPHEN 325 MG TABLET (FP) PO PRN ×3 (06:55→22:56)
[2017-06-18 07:14] LABS: MCH 33.2 pg (25.7-33.7); MCHC 34.1 g/dl (32.0-35.9); MEAN CELL VOLUME 97.5 fl (80-96); MEAN PLT VOLUME 7.1 fl (7.5-11.1); PLATELET COUNT 450 K/MM3 (134-434); RDW 14.6 % (11.9-15.9); WHITE BLOOD COUNT 10.4 K/mm3 (4.0-10.0)
[2017-06-18 07:52] LABS: FREE T4 1.18 ng/dl (0.76-1.16); THYROID STIMULATING HORMONE 4.07 uIU/ml (0.358-3.74)
[2017-06-18] MEDS: ENOXAPARIN NA (PORCINE) 80 MG/0.8 ML DISP.SYRIN SQ SCH ×2 (09:03→20:08)
[2017-06-18] MEDS ORDERED: morphine SO4 SUSTAINED ACTING 30 MG TABLET.SA PO SCH (10:45)
[2017-06-18] MEDS ORDERED: morphine SO4 SUSTAINED ACTING 15 MG TABLET.SA PO ONE ×2 (11:30→11:45)
[2017-06-18] MEDS ORDERED: PT OWN MED DRAWER 7, Y5N ONE (11:30)
[2017-06-18] MEDS: busPIRone HCL 5 MG TABLET PO SCH (11:32)
[2017-06-18] MEDS: NICOTINE 7 MG/24 HOURS TOPICAL PATCH TD SCH (11:32)
[2017-06-18] MEDS: PANTOPRAZOLE 20 MG TABLET (FP) PO SCH ×2 (11:32→21:43)
[2017-06-18] MEDS: morphine SO4 SUSTAINED ACTING 15 MG TABLET.SA PO SCH (11:42)
--- NOTE | 2017-06-18 16:53 | PN ---
Teaching Attending Note Name of Resident: Diamante Powers ATTENDING PHYSICIAN STATEMENT I saw and evaluated the patient. I reviewed the resident's note and discussed the case with the resident. I agree with the resident's findings and plan as documented. SUBJECTIVE:c/o pain at rest, not controlled with pain medications. denies Cp, SOB, fever, chills, N/V/C/D OBJECTIVE: Last Vital Signs Temp Pulse Resp BP Pulse Ox 99.0 F 106 H 20 123/81 97 06/18/17 14:34 06/18/17 14:34 06/18/17 14:34 06/18/17 14:34 06/18/17 09:00 General NAD Extremity LLE +TP pulse with doppler ASSESSMENT AND PLAN: 56 yo M with PMH smoking, CVA , and HTN who presented with L foot pain and was found to have acute arterial insufficiency and gangrene of L foot toes 1. Acute arterial insufficiency- s/p revascularization and s/p TMA 06/12. pain is not controlled. will increase MS contin to 30mg BID standing in order for pt to require less for breakthrough pain. Heparin ggt switched to lovenox yesterday. will be evaluated in 48H to determine if BKA is necessary. on statin 2. COntinuous Nicotine dependence- Cont nicotine patch 3. DVT ppx- full dose lovenox
--- NOTE | 2017-06-18 18:20 | PN ---
Physical Exam: SUBJECTIVE: Patient seen and examined. Pt continues to c/o pain on rest. Pt having regular bowel movements. Pt denies chest pain, palpitations, sob. Pt reports he slept well last night. No events overnight. OBJECTIVE: Vital Signs Period Temp Pulse Resp BP Sys/Castillo Pulse Ox Last 24 Hr 97.9 F-99.0 F 92-106 18-20 123-138/72-82 96-97 GENERAL: The patient is awake, alert, and fully oriented, in no acute distress. HEAD: Normal with no signs of trauma. EYES: Extraocular movements intact, sclera anicteric, conjunctiva clear. No ptosis. ENT: Moist mucous membranes. NECK: Trachea midline, supple. LUNGS: Breath sounds equal, clear to auscultation bilaterally, no wheezes, no crackles, no accessory muscle use. HEART: Regular rate and rhythm, S1, S2 without murmur, rub or gallop. ABDOMEN: Soft, nontender, nondistended, no guarding, no rebound. EXTREMITIES: 1+ pitting edema magalie. Dressing to Left LE intact. Bi-phasic posterior tibialis pulse heard with doppler on Left LE. PSYCH: Normal mood, normal affect. SKIN: Warm, dry, normal turgor, no rashes or lesions noted Laboratory Results - last 24 hr 06/17/17 06/18/17 06/18/17 23:00 05:56 05:56 WBC 10.4 H RBC 3.44 L Hgb 11.4 L Hct 33.5 L MCV 97.5 H MCH 33.2 MCHC 34.1 RDW 14.6 Plt Count 450 H MPV 7.1 L PTT (Actin FS) 31.2 D 25.2 L Vitamin B12 TSH Free T4 06/18/17 05:56 WBC RBC Hgb Hct MCV MCH MCHC RDW Plt Count MPV PTT (Actin FS) Vitamin B12 314 D TSH 4.07 H D Free T4 1.18 H Active Medications Generic Name Dose Route Start Last Admin Trade Name Freq PRN Reason Stop Dose Admin Acetaminophen 650 mg 06/13/17 13:22 06/17/17 16:07 Tylenol - PO 650 mg Q4H PRN Administration PAIN SCALE 1-3 Acetaminophen 325 mg 06/13/17 13:27 06/18/17 15:35 Tylenol - PO 325 mg Q4H PRN Administration PAIN SCALE 4-7 Buspirone HCl 5 mg 06/14/17 11:24 06/18/17 11:32 Buspar - PO 5 mg DAILY KHALIF Administration Diphenhydramine HCl 50 mg 06/12/17 09:49 06/17/17 21:34 Benadryl - PO 50 mg HS PRN Administration INSOMNIA Docusate Sodium 100 mg 06/12/17 09:49 06/17/17 21:34 Colace - PO 100 mg TID PRN Administration CONSTIPATION Enoxaparin Sodium 75 mg 06/17/17 20:00 06/18/17 09:03 Lovenox - SQ 75 mg Q12H KHALIF Administration Morphine Sulfate 2 mg 06/14/17 08:21 06/18/17 11:31 Morphine Injection - IVPUSH 2 mg Q3H PRN Administration PAIN SCALE 8-10 Morphine Sulfate 30 mg 06/18/17 22:00 Ms Contin - PO BID KHALIF Nicotine 7 mg 06/17/17 22:52 06/18/17 11:32 Nicoderm Patch - TD 7 mg DAILY KHALIF Administration Oxycodone HCl 5 mg 06/13/17 13:27 06/18/17 15:36 Roxicodone - PO 5 mg Q4H PRN Administration PAIN SCALE 4-7 Pantoprazole Sodium 20 mg 06/12/17 11:30 06/18/17 11:32 Protonix - PO 20 mg BID KHALIF Administration Rosuvastatin Calcium 5 mg 06/12/17 22:00 06/17/17 21:34 Crestor - PO 5 mg HS KHALIF Administration ASSESSMENT/PLAN: 56yo M with PMH of CVA, PAD, HLD, presented with Left great toe pain, was found to have arterial insufficiency and gangrene of Left toes. 1) arterial insufficiency - s/p revascularization x 2, s/p Left TMA 06/12/17 - pain is not controlled with current pain medication regimen - incr MS Contin to 30mg po BID -> pt will hopefully require less medication for break through pain - continue Morphine, Percocet, Tylenol for pain - Dr. Mejia ([facility]) recommendations appreciated: - f/u lupus anticoagulant / anticardiolipin antibody profile / folate - B12 / TSH / free T4 wnl - continue Crestor - pt d/w Dr. Fernández and plans to give flap 48 hrs more to heal, will then re- consider BKA if necessary 2) nicotine dependence - nicotine patch reduced to 7mg daily 3) anxiety - continue Buspar 4) FEN - Fluids: encourage po - Electrolytes: wnl - Nutrition: sodium controlled diet 5) Prophylaxis - DVT ppx with Lovenox 75mg SQ q12hr - deconditioning ppx with PT Visit type - Emergency Visit Emergency Visit: Yes ED Registration Date: 05/21/17 Care time: The patient presented to the Emergency Department on the above date and was hospitalized for further evaluation of their emergent condition. - New Patient This patient is new to me today: No - Critical Care Critical Care patient: No
[2017-06-18] MEDS: DOCUSATE SODIUM 100 MG CAPSULE (FP) PO PRN (21:43)
[2017-06-18] MEDS: ROSUVASTATIN CA 5 MG TABLET (FP) PO SCH (21:43)
[2017-06-18] MEDS: diphenhydrAMINE HCL 25 MG CAPSULE (FP) PO PRN (21:45)
[2017-06-18] MEDS: morphine SO4 SUSTAINED ACTING 30 MG TABLET.SA PO SCH (21:45)
[2017-06-19] MEDS ORDERED: LORazepam 0.5 MG TABLET PO ONE ×2 (00:25→21:49)
[2017-06-19] MEDS: ACETAMINOPHEN 325 MG TABLET (FP) PO PRN ×4 (02:42→22:18)
[2017-06-19] MEDS: oxyCODONE HCL 5 MG TABLET PO PRN ×4 (02:43→22:18)
[2017-06-19] MEDS ORDERED: PT OWN MED DRAWER 7, Y5N ONE ×2 (07:26→09:27)
[2017-06-19] MEDS: morphine SO4 SUSTAINED ACTING 30 MG TABLET.SA PO SCH ×2 (09:54→22:17)
[2017-06-19] MEDS: ENOXAPARIN NA (PORCINE) 80 MG/0.8 ML DISP.SYRIN SQ SCH ×2 (09:55→20:33)
[2017-06-19] MEDS: PANTOPRAZOLE 20 MG TABLET (FP) PO SCH ×2 (09:55→22:17)
[2017-06-19] MEDS: busPIRone HCL 5 MG TABLET PO SCH (09:56)
[2017-06-19] MEDS: NICOTINE 7 MG/24 HOURS TOPICAL PATCH TD SCH (09:56)
[2017-06-19] MEDS ORDERED: morphine CARPU-JECT 4 MG/1 ML DISP.SYRIN ONE ×2 (11:36→18:22)
[2017-06-19] MEDS: morphine CARPU-JECT 2 MG/1 ML DISP.SYRIN IVPUSH PRN ×2 (11:39→18:28)
--- NOTE | 2017-06-19 12:09 | PN ---
Progress Note (short form) - Note Progress Note: Podiatry F/U: Seen/evaluated at bedside, NAD. Patient states that pain is improving with less sharp, excruciating pain; however, his morphine dosage was increased, which can be contributing. Denies F/V/N/C/SOB/CP. AFebrile, VSS. S/P L transmetatarsal amputation for dry gangrene. SHARON: L foot: dressing C/D/I with minimal strikethrough and no active bleeding. Sutures are coapted well, minimal dehiscence laterally and medial aspect of incision open. There is some necrosis along the incision line. There is some blistering and ischemia noted along the dorsal flap centrally. The flap is warmer to touch. There is some duskiness associated with the flap. There is minimal periwound erythema, no ascending cellulitis, no purulent drainage, no signs of acute infection. There is significant tenderness to palpation. OR Cx: pseudomonas, enterococcus, staph aureus Imp: 56 year old M s/p L transmetatarsal amputation for gangrene 1. DSD + xeroform at bedside. 2. Non-weightbearing left foot. 3. Appropriate pain control. Still having stabbing, ischemic pain, however somewhat improved. IF pain does not improve and stump goes necrotic, will likely need proximal amputation. I do not believe due to his peripheral vascularization that further stump debridement would not benefit the patient. Will follow. Lillian Simpson DPM
--- NOTE | 2017-06-19 13:15 | PN ---
Progress Note (short form) - Note Progress Note: Vascular Surgery Pt seen and examined with medical team. Dressing on left foot changed. Pt's pain much better being on morphine po. Left tMa site --flap is viable and warm. palpated wound and nothing can be expressed. Will do PT so that he can attempt to ambulate. Pt understands that if his pain doesn't get better, he will need bka, however right now the tma site is viable. Will give it a chance. Will cont to follow Doug Fernández DO
--- NOTE | 2017-06-19 16:49 | PN ---
Teaching Attending Note Name of Resident: Diamante Powers ATTENDING PHYSICIAN STATEMENT I saw and evaluated the patient. I reviewed the resident's note and discussed the case with the resident. I agree with the resident's findings and plan as documented. SUBJECTIVE: Patient seen with Dr. hale of vascular surgery at bedside. Left foot was painful with palpation. OBJECTIVE: Last Vital Signs Temp Pulse Resp BP Pulse Ox 99.3 F 104 H 22 123/77 97 06/19/17 14:30 06/19/17 14:30 06/19/17 14:30 06/19/17 14:30 06/18/17 22:00 General NAD MSK- no joint swelling Left foot wound s/p TMA, sutures in place, some tenderness to palpation. No discharge appreciated. No clinical signs of infection. Extremity LLE +TP pulse with doppler ASSESSMENT AND PLAN: 56 yo M with PMH smoking, CVA , and HTN who presented with L foot pain and was found to have acute arterial insufficiency and gangrene of L foot toes, s/p left TMA. Pathology of tissue margins negative for infection and shows viable tissue. #Acute arterial insufficiency- s/p revascularization and s/p TMA of LLE 06/12. pain is better controlled. -pain management -dressing changes with vascular surgery -continue statin -will reassess to determine whether left BKA is necessary #COntinuous Nicotine dependence -Cont nicotine patch # DVT ppx - full dose lovenox
--- NOTE | 2017-06-19 21:27 | PN ---
Physical Exam: SUBJECTIVE: Patient seen and examined. Pt reports pain better controlled with MS Contin 30mg BID, but resting pain is still present. Pt reports anxiety about making the decision to proceed with the BKA or not. Pt denies fever, chills, nausea, vomiting, diarrhea, constipation, chest pain, palpitations, sob , abdominal pain. No events overnight. OBJECTIVE: Vital Signs Period Temp Pulse Resp BP Sys/Castillo Pulse Ox Last 24 Hr 98.2 F-99.3 F 94-107 18-22 117-139/68-89 97-97 GENERAL: The patient is awake, alert, and fully oriented, in no acute distress. HEAD: Normal with no signs of trauma. EYES: Extraocular movements intact, sclera anicteric, conjunctiva clear. No ptosis. ENT: Moist mucous membranes. NECK: Trachea midline, supple. LUNGS: Breath sounds equal, clear to auscultation bilaterally, no wheezes, no crackles, no accessory muscle use. HEART: Regular rate and rhythm, S1, S2 without murmur, rub or gallop. ABDOMEN: Soft, nontender, nondistended, no guarding, no rebound. EXTREMITIES: Left LE examined with Dr. Fernández. Dressing removed. Flap is viable and warm. Sutures in place. No discharge, even on palpation. No clinical signs of infection. Left LE tender to palpation. PSYCH: Normal mood, normal affect. SKIN: Warm, dry, normal turgor, no rashes or lesions noted Active Medications Generic Name Dose Route Start Last Admin Trade Name Freq PRN Reason Stop Dose Admin Acetaminophen 650 mg 06/13/17 13:22 06/19/17 13:23 Tylenol - PO 650 mg Q4H PRN Administration PAIN SCALE 1-3 Acetaminophen 325 mg 06/13/17 13:27 06/19/17 06:46 Tylenol - PO 325 mg Q4H PRN Administration PAIN SCALE 4-7 Buspirone HCl 5 mg 06/14/17 11:24 06/19/17 09:56 Buspar - PO 5 mg DAILY KHALIF Administration Diphenhydramine HCl 50 mg 06/12/17 09:49 06/18/17 21:45 Benadryl - PO 50 mg HS PRN Administration INSOMNIA Docusate Sodium 100 mg 06/12/17 09:49 06/18/17 21:43 Colace - PO 100 mg TID PRN Administration CONSTIPATION Enoxaparin Sodium 75 mg 06/17/17 20:00 06/19/17 20:33 Lovenox - SQ 75 mg Q12H KHALIF Administration Morphine Sulfate 2 mg 06/14/17 08:21 06/19/17 18:28 Morphine Injection - IVPUSH 2 mg Q3H PRN Administration PAIN SCALE 8-10 Morphine Sulfate 30 mg 06/18/17 22:00 06/19/17 09:54 Ms Contin - PO 30 mg BID KHALIF Administration Nicotine 7 mg 06/17/17 22:52 06/19/17 09:56 Nicoderm Patch - TD 7 mg DAILY KHALIF Administration Oxycodone HCl 5 mg 06/13/17 13:27 06/19/17 13:23 Roxicodone - PO 5 mg Q4H PRN Administration PAIN SCALE 4-7 Pantoprazole Sodium 20 mg 06/12/17 11:30 06/19/17 09:55 Protonix - PO 20 mg BID KHALIF Administration Rosuvastatin Calcium 5 mg 06/12/17 22:00 06/18/17 21:43 Crestor - PO 5 mg HS KHALIF Administration ASSESSMENT/PLAN: 56yo M with PMH of CVA, PAD, HLD, presented with Left great toe pain, was found to have arterial insufficiency and gangrene of Left toes. 1) arterial insufficiency - s/p revascularization x 2, s/p Left TMA 06/12/17 - pathology of tissue margins (-) for infection - pain is better controlled with current pain medication regimen. Continue MS Contin 30mg BID, Morphine prn, Percocet prn, and Tylenol prn. - continue Crestor - pt d/w Dr. Fernández and plans to give flap through the weekend to heal, will then re-consider BKA if necessary 2) nicotine dependence - nicotine patch reduced to 7mg daily 3) anxiety - continue Buspar 4) FEN - Fluids: encourage po - Electrolytes: wnl - Nutrition: sodium controlled diet 5) Prophylaxis - DVT ppx with Lovenox 75mg SQ q12hr - deconditioning ppx with PT Visit type - Emergency Visit Emergency Visit: Yes ED Registration Date: 05/21/17 Care time: The patient presented to the Emergency Department on the above date and was hospitalized for further evaluation of their emergent condition. - New Patient This patient is new to me today: No - Critical Care Critical Care patient: No
[2017-06-19] MEDS ORDERED: morphine CARPU-JECT 4 MG/1 ML DISP.SYRIN IVPUSH PRN (22:16)
[2017-06-19] MEDS: ROSUVASTATIN CA 5 MG TABLET (FP) PO SCH (22:17)
[2017-06-19] MEDS: DOCUSATE SODIUM 100 MG CAPSULE (FP) PO PRN (22:18)
[2017-06-20 00:07] LABS: LAC INTERPRETATION Comment: (.)
[2017-06-20] MEDS: oxyCODONE HCL 5 MG TABLET PO PRN ×4 (03:40→22:46)
[2017-06-20] MEDS: ACETAMINOPHEN 325 MG TABLET (FP) PO PRN ×4 (03:41→22:47)
[2017-06-20] MEDS: morphine CARPU-JECT 8 MG/1 ML DISP.SYRIN IVPUSH PRN ×4 (04:43→21:37)
[2017-06-20 06:07] LABS: HEMATOCRIT 34.2 % (37.5-51.0)
[2017-06-20] MEDS: ENOXAPARIN NA (PORCINE) 80 MG/0.8 ML DISP.SYRIN SQ SCH ×2 (08:07→21:28)
[2017-06-20] MEDS: PANTOPRAZOLE 20 MG TABLET (FP) PO SCH ×2 (09:25→21:36)
[2017-06-20] MEDS: NICOTINE 7 MG/24 HOURS TOPICAL PATCH TD SCH (09:25)
[2017-06-20] MEDS: busPIRone HCL 5 MG TABLET PO SCH (09:25)
[2017-06-20] MEDS: morphine SO4 SUSTAINED ACTING 30 MG TABLET.SA PO SCH ×2 (09:25→21:36)
[2017-06-20] MEDS: DOCUSATE SODIUM 100 MG CAPSULE (FP) PO PRN ×2 (09:28→21:40)
--- NOTE | 2017-06-20 14:14 | PN ---
Progress Note (short form) - Note Progress Note: PAtient seen and examiend Denies any complaints Last Vital Signs Temp Pulse Resp BP Pulse Ox 98.0 F 103 H 20 131/76 97 06/20/17 06:00 06/20/17 06:00 06/20/17 06:00 06/20/17 06:00 06/19/17 21:00 Cor: RSR, No murmurs, No gallops Lungs: Clear to P&A Abd: Soft, Normal bowel sounds, No organomegaly Ext:No significant edema Skin: No rashes, Integument intact Abnormal Lab Results 06/18/17 05:56 Hct 34.2 L Active Medications Generic Name Dose Route Start Last Admin Trade Name Freq PRN Reason Stop Dose Admin Acetaminophen 650 mg 06/13/17 13:22 06/19/17 13:23 Tylenol - PO 650 mg Q4H PRN Administration PAIN SCALE 1-3 Acetaminophen 325 mg 06/13/17 13:27 06/20/17 08:08 Tylenol - PO 325 mg Q4H PRN Administration PAIN SCALE 4-7 Buspirone HCl 5 mg 06/14/17 11:24 06/20/17 09:25 Buspar - PO 5 mg DAILY KHALIF Administration Diphenhydramine HCl 50 mg 06/12/17 09:49 06/18/17 21:45 Benadryl - PO 50 mg HS PRN Administration INSOMNIA Docusate Sodium 100 mg 06/12/17 09:49 06/20/17 09:28 Colace - PO 100 mg TID PRN Administration CONSTIPATION Enoxaparin Sodium 75 mg 06/17/17 20:00 06/20/17 08:07 Lovenox - SQ 75 mg Q12H KHALIF Administration Morphine Sulfate 30 mg 06/18/17 22:00 06/20/17 09:25 Ms Contin - PO 30 mg BID KHALIF Administration Morphine Sulfate 2 mg 06/20/17 03:32 06/20/17 13:53 Morphine Sulfate IVPUSH 2 mg Q3H PRN Administration PAIN SCALE 8-10 Nicotine 7 mg 06/17/17 22:52 06/20/17 09:25 Nicoderm Patch - TD 7 mg DAILY KHALIF Administration Oxycodone HCl 5 mg 06/13/17 13:27 06/20/17 08:07 Roxicodone - PO 5 mg Q4H PRN Administration PAIN SCALE 4-7 Pantoprazole Sodium 20 mg 06/12/17 11:30 06/20/17 09:25 Protonix - PO 20 mg BID KHALIF Administration Rosuvastatin Calcium 5 mg 06/12/17 22:00 06/19/17 22:17 Crestor - PO 5 mg HS KHALIF Administration A?P 56 y/o patient smoker with h/o CVA, PVD, comes in withLt. foot pain Acute arterial insufficiency : s/p revascularization and s/p TMA 06/12 Possible need for Lt. BKA on lovenox checl antiphospholipid panel MAcrocytic anemia--? liver disease, occult >? alcohol B12/folate---nl elevated TSH--per primary team
--- NOTE | 2017-06-20 17:38 | PN ---
Teaching Attending Note Name of Resident: Diamante Powers ATTENDING PHYSICIAN STATEMENT I saw and evaluated the patient. I reviewed the resident's note and discussed the case with the resident. I agree with the resident's findings and plan as documented. SUBJECTIVE: Patient reports walking with PT. Pain in left lower extremity has improved from yesterday. OBJECTIVE: Last Vital Signs Temp Pulse Resp BP Pulse Ox 97.8 F 105 H 20 135/79 97 06/20/17 15:47 06/20/17 15:47 06/20/17 15:47 06/20/17 15:47 06/20/17 10:00 General NAD neck -supple MSK- no joint swelling Left foot wound - wrapped in dressing , dressing appears clean, dry ASSESSMENT AND PLAN: 56 yo M with PMH smoking, CVA , and HTN who presented with L foot pain and was found to have acute arterial insufficiency and gangrene of L foot toes, s/p left TMA. Pathology of tissue margins shows viable tissue. #Acute arterial insufficiency- s/p revascularization and s/p TMA of LLE 06/12. pain is better controlled. Infected tissue was amputated. -pain management -dressing changes with vascular surgery -continue statin -will reassess to determine whether left BKA is necessary # DVT ppx - full dose lovenox as patient is believed to have formed emboli
--- NOTE | 2017-06-20 18:05 | PN ---
Physical Exam: SUBJECTIVE: Patient seen and examined. Pt reports pain is better controlled and he is asking for prn pain meds less. Pt reports walking with PT. No events overnight. OBJECTIVE: Vital Signs Period Temp Pulse Resp BP Sys/Castillo Pulse Ox Last 24 Hr 97.3 F-98.2 F 103-114 18-20 127-136/76-81 97-97 GENERAL: The patient is awake, alert, and fully oriented, in no acute distress. LUNGS: Breath sounds equal, clear to auscultation bilaterally, no wheezes, no crackles, no accessory muscle use. HEART: Regular rate and rhythm, S1, S2 without murmur, rub or gallop. ABDOMEN: Soft, nontender, nondistended. EXTREMITIES: Dressing intact to Left LE. 1+ pitting edema to magalie LE noted. SKIN: Warm, dry, normal turgor, no rashes or lesions noted Laboratory Results - last 24 hr 06/18/17 05:56 Hct 34.2 L LA PTT Baseline 40.2 dRVVT Confirm Interp 43.1 Folate 995 Folate Hemolysate 340.2 Active Medications Generic Name Dose Route Start Last Admin Trade Name Freq PRN Reason Stop Dose Admin Acetaminophen 650 mg 06/13/17 13:22 06/19/17 13:23 Tylenol - PO 650 mg Q4H PRN Administration PAIN SCALE 1-3 Acetaminophen 325 mg 06/13/17 13:27 06/20/17 15:34 Tylenol - PO 325 mg Q4H PRN Administration PAIN SCALE 4-7 Buspirone HCl 5 mg 06/14/17 11:24 06/20/17 09:25 Buspar - PO 5 mg DAILY KHALIF Administration Diphenhydramine HCl 50 mg 06/12/17 09:49 06/18/17 21:45 Benadryl - PO 50 mg HS PRN Administration INSOMNIA Docusate Sodium 100 mg 06/12/17 09:49 06/20/17 09:28 Colace - PO 100 mg TID PRN Administration CONSTIPATION Enoxaparin Sodium 75 mg 06/17/17 20:00 06/20/17 08:07 Lovenox - SQ 75 mg Q12H KHALIF Administration Morphine Sulfate 30 mg 06/18/17 22:00 06/20/17 09:25 Ms Contin - PO 30 mg BID KHALIF Administration Morphine Sulfate 2 mg 06/20/17 03:32 06/20/17 17:40 Morphine Sulfate IVPUSH 2 mg Q3H PRN Administration PAIN SCALE 8-10 Nicotine 7 mg 06/17/17 22:52 06/20/17 09:25 Nicoderm Patch - TD 7 mg DAILY KHALIF Administration Oxycodone HCl 5 mg 06/13/17 13:27 06/20/17 15:33 Roxicodone - PO 5 mg Q4H PRN Administration PAIN SCALE 4-7 Pantoprazole Sodium 20 mg 06/12/17 11:30 06/20/17 09:25 Protonix - PO 20 mg BID KHALIF Administration Rosuvastatin Calcium 5 mg 06/12/17 22:00 06/19/17 22:17 Crestor - PO 5 mg HS KHALIF Administration ASSESSMENT/PLAN: 56yo M with PMH of CVA, PAD, HLD, presented with Left great toe pain, was found to have arterial insufficiency and gangrene of Left toes. 1) arterial insufficiency - s/p revascularization x 2, s/p Left TMA 06/12/17 - pain is better controlled with current pain medication regimen. Continue MS Contin, Morphine prn, Percocet prn, and Tylenol prn. - continue Crestor - pt d/w Dr. Fernández and plans to give flap through the weekend to heal, will then re-consider BKA if necessary 2) nicotine dependence - nicotine patch reduced to 7mg daily 3) anxiety - continue Buspar 4) FEN - Fluids: encourage po - Electrolytes: wnl - Nutrition: sodium controlled diet 5) Prophylaxis - DVT ppx with Lovenox 75mg SQ q12hr - full dose as pt is believed to have a formed emboli - deconditioning ppx with PT Visit type - Emergency Visit Emergency Visit: Yes ED Registration Date: 05/21/17 Care time: The patient presented to the Emergency Department on the above date and was hospitalized for further evaluation of their emergent condition. - New Patient This patient is new to me today: No - Critical Care Critical Care patient: No
[2017-06-20] MEDS ORDERED: LORazepam 0.5 MG TABLET PO ONE (21:50)
[2017-06-20] MEDS: ROSUVASTATIN CA 5 MG TABLET (FP) PO SCH (22:46)
[2017-06-21] MEDS: morphine CARPU-JECT 8 MG/1 ML DISP.SYRIN IVPUSH PRN ×4 (01:13→22:45)
[2017-06-21] MEDS: oxyCODONE HCL 5 MG TABLET PO PRN ×3 (06:45→20:45)
[2017-06-21] MEDS: ACETAMINOPHEN 325 MG TABLET (FP) PO PRN ×3 (06:45→20:45)
[2017-06-21] MEDS: NICOTINE 7 MG/24 HOURS TOPICAL PATCH TD SCH (09:07)
[2017-06-21] MEDS: PANTOPRAZOLE 20 MG TABLET (FP) PO SCH ×2 (09:08→21:28)
[2017-06-21] MEDS: morphine SO4 SUSTAINED ACTING 30 MG TABLET.SA PO SCH ×2 (09:08→21:28)
[2017-06-21] MEDS: ENOXAPARIN NA (PORCINE) 80 MG/0.8 ML DISP.SYRIN SQ SCH ×2 (09:08→20:44)
[2017-06-21] MEDS: busPIRone HCL 5 MG TABLET PO SCH (09:08)
--- NOTE | 2017-06-21 13:10 | PN ---
Physical Exam: SUBJECTIVE: Patient seen and examined Patient is feeling better but continues to have lower extremity pain s/p amputation of all left toes. OBJECTIVE: Vital Signs Temperature 98.2 F 06/20/17 23:00 Pulse Rate 106 H 06/20/17 23:00 Respiratory Rate 18 06/20/17 23:00 Blood Pressure 133/74 06/20/17 23:00 O2 Sat by Pulse Oximetry (%) 97 06/20/17 21:00 GENERAL: The patient is awake, alert, and fully oriented, in no acute distress. HEAD: Normal with no signs of trauma. EYES: PERRL, extraocular movements intact, sclera anicteric, conjunctiva clear. No ptosis. ENT: Ears normal, nares patent, oropharynx clear without exudates, moist mucous membranes. NECK: Trachea midline, full range of motion, supple. LUNGS: Breath sounds equal, clear to auscultation bilaterally, no wheezes, no crackles, no accessory muscle use. HEART:slight tachycardia , S1, S2 positive ,no rub or gallop. ABDOMEN: Soft, nontender, nondistended, normoactive bowel sounds, no guarding, no rebound, no hepatosplenomegaly, no masses. EXTREMITIES: LLE positive for doppler pulse, positive for dressing of the left, trace edema bl , S/p amputation of all left toes NEUROLOGICAL: Cranial nerves II through XII grossly intact. Normal speech, gait not observed. PSYCH: Normal mood, normal affect. SKIN: Warm, dry, normal turgor, no rashes or lesions noted CBCD WBC 10.4 K/mm3 (4.0-10.0) H 06/18/17 05:56 RBC 3.44 M/mm3 (4.00-5.60) L 06/18/17 05:56 Hgb 11.4 GM/dL (11.7-16.9) L 06/18/17 05:56 Hct 34.2 % (37.5-51.0) L 06/18/17 05:56 MCV 97.5 fl (80-96) H 06/18/17 05:56 MCHC 34.1 g/dl (32.0-35.9) 06/18/17 05:56 RDW 14.6 % (11.9-15.9) 06/18/17 05:56 Plt Count 450 K/MM3 (134-434) H 06/18/17 05:56 MPV 7.1 fl (7.5-11.1) L 06/18/17 05:56 CMP Sodium 137 mmol/L (136-145) 06/12/17 07:20 Potassium 4.4 mmol/L (3.5-5.1) 06/12/17 07:20 Chloride 99 mmol/L (98-107) 06/12/17 07:20 Carbon Dioxide 29 mmol/L (21-32) 06/12/17 07:20 Anion Gap 9 (8-16) 06/12/17 07:20 BUN 12 mg/dL (7-18) 06/12/17 07:20 Creatinine 0.6 mg/dL (0.7-1.3) L 06/12/17 07:20 Creat Clearance w eGFR > 60 (>60) 06/03/17 07:00 Random Glucose 95 mg/dL (74-106) 06/12/17 07:20 Calcium 9.0 mg/dL (8.5-10.1) 06/12/17 07:20 Total Bilirubin 0.5 mg/dL (0.2-1.0) 06/03/17 07:00 AST 16 U/L (15-37) D 06/03/17 07:00 ALT 31 U/L (12-78) D 06/03/17 07:00 Alkaline Phosphatase 97 U/L (45-117) 06/03/17 07:00 Total Protein 7.2 g/dl (6.4-8.2) 06/03/17 07:00 Albumin 3.1 g/dl (3.4-5.0) L 06/03/17 07:00 Active Medications Generic Name Dose Route Start Last Admin Trade Name Freq PRN Reason Stop Dose Admin Acetaminophen 650 mg 06/13/17 13:22 06/19/17 13:23 Tylenol - PO 650 mg Q4H PRN Administration PAIN SCALE 1-3 Acetaminophen 325 mg 06/13/17 13:27 06/21/17 06:45 Tylenol - PO 325 mg Q4H PRN Administration PAIN SCALE 4-7 Buspirone HCl 5 mg 06/14/17 11:24 06/21/17 09:08 Buspar - PO 5 mg DAILY KHALIF Administration Diphenhydramine HCl 50 mg 06/12/17 09:49 06/18/17 21:45 Benadryl - PO 50 mg HS PRN Administration INSOMNIA Docusate Sodium 100 mg 06/12/17 09:49 06/20/17 21:40 Colace - PO 100 mg TID PRN Administration CONSTIPATION Enoxaparin Sodium 75 mg 06/17/17 20:00 06/21/17 09:08 Lovenox - SQ 75 mg Q12H KHALIF Administration Morphine Sulfate 30 mg 06/18/17 22:00 06/21/17 09:08 Ms Contin - PO 30 mg BID KHALIF Administration Morphine Sulfate 2 mg 06/20/17 03:32 06/21/17 05:03 Morphine Sulfate IVPUSH 2 mg Q3H PRN Administration PAIN SCALE 8-10 Nicotine 7 mg 06/17/17 22:52 06/21/17 09:07 Nicoderm Patch - TD 7 mg DAILY KHALIF Administration Oxycodone HCl 5 mg 06/13/17 13:27 06/21/17 06:45 Roxicodone - PO 5 mg Q4H PRN Administration PAIN SCALE 4-7 Pantoprazole Sodium 20 mg 06/12/17 11:30 06/21/17 09:08 Protonix - PO 20 mg BID KHALIF Administration Rosuvastatin Calcium 5 mg 06/12/17 22:00 06/20/17 22:46 Crestor - PO 5 mg HS KHALIF Administration Home Medications Medication Instructions Recorded Ranitidine [Zantac -] 150 mg PO BID #30 tablet 05/27/17 Nicotine Patch [Nicoderm Patch -] 14 mg TD DAILY #7 patch 06/09/17 Rosuvastatin [Crestor -] 5 mg PO HS 30 Days 06/09/17 ASSESSMENT/PLAN: Patient is a 56 yo M with PMHx smoking, CVA , and HTN who presented with L foot pain and was found to have acute arterial insufficiency and gangrene of L foot toes, s/p left TMA. Pathology of tissue margins shows viable tissue. #Acute arterial insufficiency- s/p revascularization and s/p TMA of LLE 06/12. pain is better controlled. Infected tissue was amputated. Pain is better controlled dressing changes as per vascular surgery , continue statin, will increase crestor 10mg , waiting for vascular surgeon for possible left BKA if necessary. Patient was on coumadin was discontinued due to uncontrolled INR, on steady dose of lovenox now. s/p thrombectomy x 3 as per . # Macrocytic anemia: stable HB. # Nicotine dependence cont nicotine patch # DVT ppx: full dose lovenox Visit type - Emergency Visit Emergency Visit: Yes ED Registration Date: 05/21/17 Care time: The patient presented to the Emergency Department on the above date and was hospitalized for further evaluation of their emergent condition. - New Patient This patient is new to me today: Yes Date on this admission: 06/21/17 - Critical Care Critical Care patient: No - Discharge Referral Referred to [facility] Med [facility] No
[2017-06-21] MEDS ORDERED: PT OWN MED DRAWER 7, Y5N ONE (17:34)
[2017-06-21] MEDS: diphenhydrAMINE HCL 25 MG CAPSULE (FP) PO PRN (21:28)
[2017-06-21] MEDS: DOCUSATE SODIUM 100 MG CAPSULE (FP) PO PRN (21:28)
[2017-06-21] MEDS: ROSUVASTATIN CA 5 MG TABLET (FP) PO SCH (21:28)
[2017-06-21] MEDS ORDERED: LORazepam 0.5 MG TABLET PO ONE (22:22)
[2017-06-22] MEDS: morphine CARPU-JECT 8 MG/1 ML DISP.SYRIN IVPUSH PRN ×3 (02:48→23:04)
[2017-06-22] MEDS: oxyCODONE HCL 5 MG TABLET PO PRN ×3 (05:56→19:01)
[2017-06-22] MEDS: ACETAMINOPHEN 325 MG TABLET (FP) PO PRN ×3 (05:57→19:02)
--- NOTE | 2017-06-22 08:27 | PN ---
Teaching Attending Note Name of Resident: Diamante Powers ATTENDING PHYSICIAN STATEMENT I saw and evaluated the patient. I reviewed the resident's note and discussed the case with the resident. I agree with the resident's findings and plan as documented. SUBJECTIVE: Patient is feeling better today, is having less pain of LLE. OBJECTIVE: Vital Signs Temperature 98.0 F 06/22/17 06:00 Pulse Rate 106 H 06/22/17 06:00 Respiratory Rate 18 06/22/17 06:00 Blood Pressure 129/63 06/22/17 06:00 O2 Sat by Pulse Oximetry (%) 97 06/21/17 22:00 CBCD WBC 10.4 K/mm3 (4.0-10.0) H 06/18/17 05:56 RBC 3.44 M/mm3 (4.00-5.60) L 06/18/17 05:56 Hgb 11.4 GM/dL (11.7-16.9) L 06/18/17 05:56 Hct 34.2 % (37.5-51.0) L 06/18/17 05:56 MCV 97.5 fl (80-96) H 06/18/17 05:56 MCHC 34.1 g/dl (32.0-35.9) 06/18/17 05:56 RDW 14.6 % (11.9-15.9) 06/18/17 05:56 Plt Count 450 K/MM3 (134-434) H 06/18/17 05:56 MPV 7.1 fl (7.5-11.1) L 06/18/17 05:56 CMP Sodium 137 mmol/L (136-145) 06/12/17 07:20 Potassium 4.4 mmol/L (3.5-5.1) 06/12/17 07:20 Chloride 99 mmol/L (98-107) 06/12/17 07:20 Carbon Dioxide 29 mmol/L (21-32) 06/12/17 07:20 Anion Gap 9 (8-16) 06/12/17 07:20 BUN 12 mg/dL (7-18) 06/12/17 07:20 Creatinine 0.6 mg/dL (0.7-1.3) L 06/12/17 07:20 Creat Clearance w eGFR > 60 (>60) 06/03/17 07:00 Random Glucose 95 mg/dL (74-106) 06/12/17 07:20 Calcium 9.0 mg/dL (8.5-10.1) 06/12/17 07:20 Total Bilirubin 0.5 mg/dL (0.2-1.0) 06/03/17 07:00 AST 16 U/L (15-37) D 06/03/17 07:00 ALT 31 U/L (12-78) D 06/03/17 07:00 Alkaline Phosphatase 97 U/L (45-117) 06/03/17 07:00 Total Protein 7.2 g/dl (6.4-8.2) 06/03/17 07:00 Albumin 3.1 g/dl (3.4-5.0) L 06/03/17 07:00 Current Medications Generic Name Dose Route Start Last Admin Trade Name Freq PRN Reason Stop Dose Admin Acetaminophen 650 mg 06/13/17 13:22 06/21/17 13:32 Tylenol - PO 650 mg Q4H PRN Administration PAIN SCALE 1-3 Acetaminophen 325 mg 06/13/17 13:27 06/22/17 05:57 Tylenol - PO 325 mg Q4H PRN Administration PAIN SCALE 4-7 Buspirone HCl 5 mg 06/14/17 11:24 06/21/17 09:08 Buspar - PO 5 mg DAILY KHALIF Administration Diphenhydramine HCl 50 mg 06/12/17 09:49 06/21/17 21:28 Benadryl - PO 50 mg HS PRN Administration INSOMNIA Docusate Sodium 100 mg 06/12/17 09:49 06/21/17 21:28 Colace - PO 100 mg TID PRN Administration CONSTIPATION Enoxaparin Sodium 75 mg 06/17/17 20:00 06/21/17 20:44 Lovenox - SQ 75 mg Q12H KHALIF Administration Morphine Sulfate 30 mg 06/18/17 22:00 06/21/17 21:28 Ms Contin - PO 30 mg BID KHALIF Administration Morphine Sulfate 2 mg 06/20/17 03:32 06/22/17 02:48 Morphine Sulfate IVPUSH 2 mg Q3H PRN Administration PAIN SCALE 8-10 Nicotine 7 mg 06/17/17 22:52 06/21/17 09:07 Nicoderm Patch - TD 7 mg DAILY KHALIF Administration Oxycodone HCl 5 mg 06/13/17 13:27 06/22/17 05:56 Roxicodone - PO 5 mg Q4H PRN Administration PAIN SCALE 4-7 Pantoprazole Sodium 20 mg 06/12/17 11:30 06/21/17 21:28 Protonix - PO 20 mg BID KHALIF Administration Rosuvastatin Calcium 5 mg 06/12/17 22:00 06/21/17 21:28 Crestor - PO 5 mg HS KHALIF Administration Home Medications Medication Instructions Recorded Ranitidine [Zantac -] 150 mg PO BID #30 tablet 05/27/17 Nicotine Patch [Nicoderm Patch -] 14 mg TD DAILY #7 patch 06/09/17 Rosuvastatin [Crestor -] 5 mg PO HS 30 Days 06/09/17 Laboratory Tests 05/22/17 05/22/17 05/22/17 06:40 06:40 06:40 Triglycerides 106 D Cholesterol 146 D Total LDL Cholesterol 80 D HDL Cholesterol 44 Vitamin B12 824 D Folate 1159 Folate Hemolysate 444.0 PE: per resident's note ASSESSMENT AND PLAN: Patient is a 56 yo M with PMHx smoking, CVA , and HTN who presented with L foot pain and was found to have acute arterial insufficiency and gangrene of L foot toes, s/p left TMA. Pathology of tissue margins shows viable tissue. #Acute arterial insufficiency- s/p revascularization and s/p TMA of LLE 06/12. pain is better controlled today s/p of amputation of the Infected left toes with arterial insuffiency .dressing was changed today by , feels better after the change .continue statin , waiting for vascular surgeon for possible left BKA if necessary in am . Patient was on coumadin was discontinued due to uncontrolled INR, on steady dose of lovenox now. s/p thrombectomy x 3 as per . will increase crestor to 10mg. since patient has severe PVD. # Macrocytic anemia: stable HB. # Nicotine dependence cont. nicotine patch # DVT ppx: full dose lovenox
[2017-06-22] MEDS: morphine SO4 SUSTAINED ACTING 30 MG TABLET.SA PO SCH ×2 (10:17→23:10)
[2017-06-22] MEDS: ENOXAPARIN NA (PORCINE) 80 MG/0.8 ML DISP.SYRIN SQ SCH ×2 (10:18→19:50)
[2017-06-22] MEDS: busPIRone HCL 5 MG TABLET PO SCH (10:18)
[2017-06-22] MEDS: PANTOPRAZOLE 20 MG TABLET (FP) PO SCH ×2 (10:18→23:04)
[2017-06-22] MEDS: NICOTINE 7 MG/24 HOURS TOPICAL PATCH TD SCH (10:18)
--- NOTE | 2017-06-22 11:26 | PN ---
Physical Exam: SUBJECTIVE: Patient seen and examined. Pt feels well today. Pt has no complaints. No events overnight. OBJECTIVE: Vital Signs Period Temp Pulse Resp BP Sys/Castillo Pulse Ox Last 24 Hr 97.9 F-99.0 F 100-106 18-20 116-133/63-83 97 GENERAL: The patient is awake, alert, and fully oriented, in no acute distress. HEAD: Normal with no signs of trauma. EYES: Extraocular movements intact, sclera anicteric, conjunctiva clear. No ptosis. ENT: Moist mucous membranes. NECK: Trachea midline, supple. LUNGS: Breath sounds equal, clear to auscultation bilaterally, no wheezes, no crackles, no accessory muscle use. HEART: Slight tachycardia, S1, S2 without murmur, rub or gallop. EXTREMITIES: 1+ pitting edema to magalie LE. Dressing intact to Left LE. PSYCH: Normal mood, normal affect. SKIN: Warm, dry, normal turgor, no rashes or lesions noted Laboratory Results - last 24 hr 06/20/17 13:40 Anti-Cardiolipin IgG Ab <9 Anti-Cardiolipin IgA Ab <9 Anti-Cardiolipin IgM Ab 11 Active Medications Generic Name Dose Route Start Last Admin Trade Name Freq PRN Reason Stop Dose Admin Acetaminophen 650 mg 06/13/17 13:22 06/21/17 13:32 Tylenol - PO 650 mg Q4H PRN Administration PAIN SCALE 1-3 Acetaminophen 325 mg 06/13/17 13:27 06/22/17 05:57 Tylenol - PO 325 mg Q4H PRN Administration PAIN SCALE 4-7 Buspirone HCl 5 mg 06/14/17 11:24 06/22/17 10:18 Buspar - PO 5 mg DAILY KHALIF Administration Diphenhydramine HCl 50 mg 06/12/17 09:49 06/21/17 21:28 Benadryl - PO 50 mg HS PRN Administration INSOMNIA Docusate Sodium 100 mg 06/12/17 09:49 06/21/17 21:28 Colace - PO 100 mg TID PRN Administration CONSTIPATION Enoxaparin Sodium 75 mg 06/17/17 20:00 06/22/17 10:18 Lovenox - SQ 75 mg Q12H KHALIF Administration Morphine Sulfate 30 mg 06/18/17 22:00 06/22/17 10:17 Ms Contin - PO 30 mg BID KHALIF Administration Morphine Sulfate 2 mg 06/20/17 03:32 06/22/17 02:48 Morphine Sulfate IVPUSH 2 mg Q3H PRN Administration PAIN SCALE 8-10 Nicotine 7 mg 06/17/17 22:52 06/22/17 10:18 Nicoderm Patch - TD 7 mg DAILY KHALIF Administration Oxycodone HCl 5 mg 06/13/17 13:27 06/22/17 05:56 Roxicodone - PO 5 mg Q4H PRN Administration PAIN SCALE 4-7 Pantoprazole Sodium 20 mg 06/12/17 11:30 06/22/17 10:18 Protonix - PO 20 mg BID KHALIF Administration Rosuvastatin Calcium 10 mg 06/22/17 08:31 Crestor - PO HS [facility] ASSESSMENT/PLAN: 56yo M with PMH of CVA, PAD, HLD, presented with Left great toe pain, was found to have arterial insufficiency and gangrene of Left toes. 1) arterial insufficiency - s/p revascularization x 2, s/p Left TMA 06/12/17 - pain is better controlled with current pain medication regimen. Continue MS Contin, Morphine prn, Percocet prn, and Tylenol prn. - dressing changes as per Vascular Surgery - still considering Left BKA - Crestor increased to 10mg daily - Heme w/u anticardiolipin labs wnl 2) nicotine dependence - nicotine patch reduced to 7mg daily 3) anxiety - continue Buspar 4) FEN - Fluids: encourage po - Electrolytes: wnl - Nutrition: sodium controlled diet 5) Prophylaxis - DVT ppx with full dose Lovenox 75mg SQ q12hr - deconditioning ppx with PT Visit type - Emergency Visit Emergency Visit: Yes ED Registration Date: 05/21/17 Care time: The patient presented to the Emergency Department on the above date and was hospitalized for further evaluation of their emergent condition. - New Patient This patient is new to me today: No - Critical Care Critical Care patient: No
--- NOTE | 2017-06-22 12:12 | PN ---
Progress Note (short form) - Note Progress Note: Podiatry F/U: Seen/evaluated at bedside, NAD. Pain being controlled still with IM morphine, does have strikethrough pain with use of PO oxycodone. Denies F/V/N/C/SOB/CP. Afebrile, VSS. S/p L transmetatarsal amputation. S/p LLE angio x 3 for critical limb ischemia. SHARON: L foot: dressing C/D/I, no active bleeding. There is some eschar formation at the incision line. There is an open wound along the incision line medial aspect of incision with mixed fibrogranular base, some slough noted, no purulence, no fluctuance, no soft tissue crepitus, no signs of active infection. There is some ischemia noted lateral aspect of incision. The plantar flap is warmer to touch. There is still significant tenderness to palpation. Imp: 56 year old PVD M s/p LLE angio, s/p L transmetatarsal amputation for critical limb ischemia and dry gangrene 1. Xeroform + DSD L foot 2. Non-weightbearing L foot 3. Pain control has been an issue. I am concerned pain related to ischemia. I have discussed with patient attempting to wean off of strong analgesics. He continues to use morphine for pain control. If his pain related to ischemia does not improve, not sure if we can discharge him in this state. 4. I do not recommend discharge planning at this juncture unless pain is more appropriately controlled. Lillian Simpson DPM
[2017-06-22] MEDS: DOCUSATE SODIUM 100 MG CAPSULE (FP) PO PRN ×2 (15:12→23:04)
[2017-06-22] MEDS ORDERED: LORazepam 0.5 MG TABLET PO ONE ×2 (20:32→23:15)
[2017-06-22] MEDS: ROSUVASTATIN CA 10 MG TABLET (FP) PO SCH (23:04)
[2017-06-22] MEDS: diphenhydrAMINE HCL 25 MG CAPSULE (FP) PO PRN (23:04)
[2017-06-23] MEDS: oxyCODONE HCL 5 MG TABLET PO PRN ×4 (02:38→20:06)
[2017-06-23] MEDS: ACETAMINOPHEN 325 MG TABLET (FP) PO PRN ×4 (02:39→20:06)
[2017-06-23 06:38] LABS: BETA-2-GLYCOPROTEIN I IGA <9 (0-25)
--- NOTE | 2017-06-23 06:53 | PN ---
Physical Exam: SUBJECTIVE: Patient seen and examined. Pt has no complaints. Pt reports pain in Left LE is better controlled now. Pt still considering BKA, trying to give the flap adequate time to heal. Pt will f/u with Dr. Fernández as an outpatient regarding flap healing. No events overnight. OBJECTIVE: Vital Signs Period Temp Pulse Resp BP Sys/Castillo Pulse Ox Last 24 Hr 99.3 F-99.8 F 98-104 20-20 105-109/73-74 97-97 GENERAL: The patient is awake, alert, and fully oriented, in no acute distress. HEAD: Normal with no signs of trauma. EYES: Extraocular movements intact, sclera anicteric, conjunctiva clear. No ptosis. ENT: Moist mucous membranes. NECK: Trachea midline, supple. LUNGS: Breath sounds equal, clear to auscultation bilaterally, no wheezes, no crackles, no accessory muscle use. HEART: Regular rate and rhythm, S1, S2 without murmur, rub or gallop. EXTREMITIES: 1+ pitting edema to magalie LE. Dressing intact to Left LE. No additional warmth or erythema to the Left LE as compared to the Right LE. PSYCH: Normal mood, normal affect. SKIN: Warm, dry, normal turgor, no rashes or lesions noted Laboratory Results - last 24 hr 06/20/17 06/23/17 06/23/17 13:40 06:58 06:58 WBC 8.9 RBC 3.37 L Hgb 11.1 L Hct 32.7 L MCV 97.2 H MCH 33.1 MCHC 34.0 RDW 14.8 Plt Count 581 H D MPV 7.3 L PT with INR 11.60 INR 1.03 LA PTT Baseline 40.7 dRVVT Confirm Interp 53.4 H dRVVT Mixing Study 44.0 Sodium Potassium Chloride Carbon Dioxide Anion Gap BUN Creatinine Creat Clearance w eGFR Random Glucose Calcium Total Bilirubin AST ALT Alkaline Phosphatase Total Protein Albumin Yhnl-8-Tshwchzpalic <9 Rfsm-9-Yqrbgdzgcdcm Ab <9 Beta-2-GPI IgM Ab <9 Anti-Cardiolipin IgG Ab <9 Anti-Cardiolipin IgA Ab <9 Anti-Cardiolipin IgM Ab 11 06/23/17 06:58 WBC RBC Hgb Hct MCV MCH MCHC RDW Plt Count MPV PT with INR INR LA PTT Baseline dRVVT Confirm Interp dRVVT Mixing Study Sodium 134 L Potassium 4.8 Chloride 95 L Carbon Dioxide 30 Anion Gap 9 BUN 12 Creatinine 0.6 L Creat Clearance w eGFR > 60 Random Glucose 83 Calcium 9.4 Total Bilirubin 0.4 AST 8 L D ALT 23 D Alkaline Phosphatase 110 Total Protein 7.4 Albumin 3.0 L Mriw-1-Zurlvpfczngr Suzt-6-Ghafpvpcidrb Ab Beta-2-GPI IgM Ab Anti-Cardiolipin IgG Ab Anti-Cardiolipin IgA Ab Anti-Cardiolipin IgM Ab Active Medications Generic Name Dose Route Start Last Admin Trade Name Freq PRN Reason Stop Dose Admin Acetaminophen 650 mg 06/13/17 13:22 06/22/17 19:02 Tylenol - PO 650 mg Q4H PRN Administration PAIN SCALE 1-3 Acetaminophen 325 mg 06/13/17 13:27 06/23/17 02:39 Tylenol - PO 325 mg Q4H PRN Administration PAIN SCALE 4-7 Buspirone HCl 5 mg 06/14/17 11:24 06/22/17 10:18 Buspar - PO 5 mg DAILY KHALIF Administration Diphenhydramine HCl 50 mg 06/12/17 09:49 06/22/17 23:04 Benadryl - PO 50 mg HS PRN Administration INSOMNIA Docusate Sodium 100 mg 06/12/17 09:49 06/22/17 23:04 Colace - PO 100 mg TID PRN Administration CONSTIPATION Enoxaparin Sodium 75 mg 06/17/17 20:00 06/22/17 19:50 Lovenox - SQ 75 mg Q12H KHALIF Administration Morphine Sulfate 30 mg 06/18/17 22:00 06/22/17 23:10 Ms Contin - PO 30 mg BID KHALIF Administration Morphine Sulfate 2 mg 06/20/17 03:32 06/22/17 23:04 Morphine Sulfate IVPUSH 2 mg Q3H PRN Administration PAIN SCALE 8-10 Nicotine 7 mg 06/17/17 22:52 06/22/17 10:18 Nicoderm Patch - TD 7 mg DAILY KHALIF Administration Oxycodone HCl 5 mg 06/13/17 13:27 06/23/17 02:38 Roxicodone - PO 5 mg Q4H PRN Administration PAIN SCALE 4-7 Pantoprazole Sodium 20 mg 06/12/17 11:30 06/22/17 23:04 Protonix - PO 20 mg BID KHALIF Administration Rosuvastatin Calcium 10 mg 06/22/17 08:31 06/22/17 23:04 Crestor - PO 10 mg HS KHALIF Administration ASSESSMENT/PLAN: 56yo M with PMH of CVA, PAD, HLD, presented with Left great toe pain, was found to have arterial insufficiency and gangrene of Left toes. 1) arterial insufficiency - s/p revascularization x 2, s/p Left TMA 06/12/17 - pain is better controlled with current pain medication regimen. Continue MS Contin, Morphine prn, Percocet prn, and Tylenol prn. - dressing changes as per Vascular Surgery - pt will f/u with Vascular Surgery as an outpatient regarding flap healing and possibility of BKA - continue Crestor at 10mg po daily 2) nicotine dependence - nicotine patch reduced to 7mg daily 3) anxiety - continue Buspar 4) FEN - Fluids: encourage po - Electrolytes: wnl - Nutrition: sodium controlled diet 5) Prophylaxis - DVT ppx - Lovenox D/Zac - Eliquis 5mg po BID - deconditioning ppx with PT - Pt will walk on front off-loading shoe with PT 6) Dispo - If pt cannot walk, he will need to go to SNF. - If pt can walk, he can be D/Zac home. Visit type - Emergency Visit Emergency Visit: Yes ED Registration Date: 05/21/17 Care time: The patient presented to the Emergency Department on the above date and was hospitalized for further evaluation of their emergent condition. - New Patient This patient is new to me today: No - Critical Care Critical Care patient: No
[2017-06-23 08:15] LABS: MCH 33.1 pg (25.7-33.7); MEAN CELL VOLUME 97.2 fl (80-96); MEAN PLT VOLUME 7.3 fl (7.5-11.1); PLATELET COUNT 581 K/MM3 (134-434); RDW 14.8 % (11.9-15.9); WHITE BLOOD COUNT 8.9 K/mm3 (4.0-10.0)
[2017-06-23 08:42] LABS: INR 1.03 (0.82-1.09); PROTHROMBIN TIME (PATIENT) 11.6 SEC (9.98-11.88)
[2017-06-23 08:50] LABS: ANION GAP 9 (8-16); CALCIUM 9.4 mg/dL (8.5-10.1); CO2 30 mmol/L (21-32); GLUCOSE,RANDOM 83 mg/dL (74-106)
[2017-06-23 08:53] LABS: ALK PHOS 110 U/L (45-117); BILIRUBIN,TOTAL 0.4 mg/dL (0.2-1.0); CREATININE 0.6 mg/dL (0.7-1.3); SGOT/AST 8 U/L (15-37); SGPT/ALT 23 U/L (12-78); TOT PROT 7.4 g/dl (6.4-8.2)
[2017-06-23] MEDS: morphine SO4 SUSTAINED ACTING 30 MG TABLET.SA PO SCH ×2 (10:06→23:17)
[2017-06-23] MEDS: PANTOPRAZOLE 20 MG TABLET (FP) PO SCH ×2 (10:06→23:17)
[2017-06-23] MEDS: NICOTINE 7 MG/24 HOURS TOPICAL PATCH TD SCH (10:06)
[2017-06-23 10:07] LABS: LAC INTERPRETATION Comment: (.)
[2017-06-23] MEDS: ENOXAPARIN NA (PORCINE) 80 MG/0.8 ML DISP.SYRIN SQ SCH (10:07)
--- NOTE | 2017-06-23 10:08 | PN ---
Progress Note (short form) - Note Progress Note: Vascular Surgery Pt seem and examined. Left foot dressing changed. Pain under control. Flap looks viable, medial portion a little ischemic. pt understands that if flap doesn't heal he will need a bka. Pt will walk with PT with front offloading show. If he cannot walk will need to go SNF. He is now 10 days post op TMA and flap is still viable, so it is worth it to give him a chance. Pt needs to be bridged to [facility] according to what his insurance will allow. Will follow Doug Fernández DO
[2017-06-23] MEDS: morphine CARPU-JECT 8 MG/1 ML DISP.SYRIN IVPUSH PRN (11:05)
[2017-06-23] MEDS: busPIRone HCL 5 MG TABLET PO SCH (11:05)
[2017-06-23] MEDS: BACITRACIN 15 GM TUBE TOPICAL OINTMENT TP SCH (11:05)
[2017-06-23] MEDS ORDERED: APIXABAN 5 MG TABLET PO SCH (11:15)
[2017-06-23] MEDS ORDERED: PT OWN MED DRAWER 7, Y5N ONE ×2 (13:53→18:45)
--- NOTE | 2017-06-23 14:12 | PN ---
Teaching Attending Note Name of Resident: Diamante Powers ATTENDING PHYSICIAN STATEMENT I saw and evaluated the patient. I reviewed the resident's note and discussed the case with the resident. I agree with the resident's findings and plan as documented. SUBJECTIVE: Patient is feeling better, with no acute distress. OBJECTIVE: Vital Signs Temperature 98.6 F 06/23/17 09:00 Pulse Rate 104 H 06/23/17 09:00 Respiratory Rate 18 06/23/17 09:00 Blood Pressure 110/51 06/23/17 09:00 O2 Sat by Pulse Oximetry (%) 94 L 06/23/17 09:52 CBCD WBC 8.9 K/mm3 (4.0-10.0) 06/23/17 06:58 RBC 3.37 M/mm3 (4.00-5.60) L 06/23/17 06:58 Hgb 11.1 GM/dL (11.7-16.9) L 06/23/17 06:58 Hct 32.7 % (35.4-49) L 06/23/17 06:58 MCV 97.2 fl (80-96) H 06/23/17 06:58 MCHC 34.0 g/dl (32.0-35.9) 06/23/17 06:58 RDW 14.8 % (11.9-15.9) 06/23/17 06:58 Plt Count 581 K/MM3 (134-434) H D 06/23/17 06:58 MPV 7.3 fl (7.5-11.1) L 06/23/17 06:58 CMP Sodium 134 mmol/L (136-145) L 06/23/17 06:58 Potassium 4.8 mmol/L (3.5-5.1) 06/23/17 06:58 Chloride 95 mmol/L (98-107) L 06/23/17 06:58 Carbon Dioxide 30 mmol/L (21-32) 06/23/17 06:58 Anion Gap 9 (8-16) 06/23/17 06:58 BUN 12 mg/dL (7-18) 06/23/17 06:58 Creatinine 0.6 mg/dL (0.7-1.3) L 06/23/17 06:58 Creat Clearance w eGFR > 60 (>60) 06/23/17 06:58 Random Glucose 83 mg/dL (74-106) 06/23/17 06:58 Calcium 9.4 mg/dL (8.5-10.1) 06/23/17 06:58 Total Bilirubin 0.4 mg/dL (0.2-1.0) 06/23/17 06:58 AST 8 U/L (15-37) L D 06/23/17 06:58 ALT 23 U/L (12-78) D 06/23/17 06:58 Alkaline Phosphatase 110 U/L (45-117) 06/23/17 06:58 Total Protein 7.4 g/dl (6.4-8.2) 06/23/17 06:58 Albumin 3.0 g/dl (3.4-5.0) L 06/23/17 06:58 Current Medications Generic Name Dose Route Start Last Admin Trade Name Freq PRN Reason Stop Dose Admin Acetaminophen 650 mg 06/13/17 13:22 06/23/17 13:56 Tylenol - PO 650 mg Q4H PRN Administration PAIN SCALE 1-3 Acetaminophen 325 mg 06/13/17 13:27 06/23/17 06:56 Tylenol - PO 325 mg Q4H PRN Administration PAIN SCALE 4-7 Apixaban 5 mg 06/23/17 22:00 Eliquis - PO BID KHALIF Bacitracin 1 applic 06/23/17 10:15 06/23/17 11:05 Bacitracin - TP 1 applic DAILY KHALIF Administration Buspirone HCl 5 mg 06/14/17 11:24 06/23/17 11:05 Buspar - PO 5 mg DAILY KHALIF Administration Diphenhydramine HCl 50 mg 06/12/17 09:49 06/22/17 23:04 Benadryl - PO 50 mg HS PRN Administration INSOMNIA Docusate Sodium 100 mg 06/12/17 09:49 06/22/17 23:04 Colace - PO 100 mg TID PRN Administration CONSTIPATION Morphine Sulfate 30 mg 06/18/17 22:00 06/23/17 10:06 Ms Contin - PO 30 mg BID KHALIF Administration Morphine Sulfate 2 mg 06/20/17 03:32 06/23/17 11:05 Morphine Sulfate IVPUSH 2 mg Q3H PRN Administration PAIN SCALE 8-10 Nicotine 7 mg 06/17/17 22:52 06/23/17 10:06 Nicoderm Patch - TD 7 mg DAILY KHALIF Administration Oxycodone HCl 5 mg 06/13/17 13:27 06/23/17 13:57 Roxicodone - PO 5 mg Q4H PRN Administration PAIN SCALE 4-7 Pantoprazole Sodium 20 mg 06/12/17 11:30 06/23/17 10:06 Protonix - PO 20 mg BID KHALIF Administration Rosuvastatin Calcium 10 mg 06/22/17 08:31 06/22/17 23:04 Crestor - PO 10 mg HS KHALIF Administration Home Medications Medication Instructions Recorded Rosuvastatin [Crestor -] 5 mg PO HS 30 Days 06/09/17 Apixaban [Eliquis -] 5 mg PO BID #60 tablet 06/23/17 Bacitracin - [Bacitracin Topical 1 applic TP DAILY #1 tube 06/23/17 Ointment -] Buspirone HCl [Buspar -] 5 mg PO DAILY #30 tablet 06/23/17 Docusate Sodium [Colace -] 100 mg PO TID PRN #90 cap 06/23/17 Morphine *Sr* [MS Contin -] 30 mg PO BID #6 tab MDD 2 06/23/17 Nicotine Patch [Nicoderm Patch -] 7 mg TD DAILY #30 patch 06/23/17 Oxycodone HCl [Roxicodone -] 5 mg PO Q6H PRN #12 tablet NS MDD 4 06/23/17 Pantoprazole Sodium [Protonix -] 20 mg PO BID #60 tab 06/23/17 Rosuvastatin [Crestor -] 10 mg PO HS #30 tablet 06/23/17 PE: per resident's note ASSESSMENT AND PLAN: Patient is a 56 yo M with PMHx smoking, CVA , and HTN who presented with L foot pain and was found to have acute arterial insufficiency and gangrene of L foot toes, s/p left TMA. Pathology of tissue margins shows viable tissue. #Acute arterial insufficiency- s/p revascularization and s/p TMA of LLE 06/12. pain is better controlled today s/p of amputation of the Infected left toes with arterial insuffiency .continue to follow with and Dr. Burton. Discussed with will send the patient home on . will follow with on Friday. # Macrocytic anemia: stable HB. # Nicotine dependence cont. nicotine patch # DVT ppx: on Eliquis
--- NOTE | 2017-06-23 16:04 | DS ---
Physical Exam: SUBJECTIVE: Patient seen and examined. Pt has no complaints. Pt reports pain in Left LE is better controlled now. Pt still considering BKA, trying to give the flap adequate time to heal. Pt will f/u with Dr. Fernández as an outpatient regarding flap healing. No events overnight. OBJECTIVE: Vital Signs Period Temp Pulse Resp BP Sys/Castillo Pulse Ox Last 24 Hr 98.2 F-99.3 F 95-104 18-20 105-122/51-76 94-97 PHYSICAL EXAM GENERAL: The patient is awake, alert, and fully oriented, in no acute distress. HEAD: Normal with no signs of trauma. EYES: Extraocular movements intact, sclera anicteric, conjunctiva clear. No ptosis. ENT: Moist mucous membranes. NECK: Trachea midline, supple. LUNGS: Breath sounds equal, clear to auscultation bilaterally, no wheezes, no crackles, no accessory muscle use. HEART: Regular rate and rhythm, S1, S2 without murmur, rub or gallop. EXTREMITIES: 1+ pitting edema to magalie LE. Dressing intact to Left LE. No additional warmth or erythema to the Left LE as compared to the Right LE. PSYCH: Normal mood, normal affect. SKIN: Warm, dry, normal turgor, no rashes or lesions noted LABS Laboratory Results - last 24 hr 06/20/17 06/23/17 06/23/17 13:40 06:58 06:58 WBC 8.9 RBC 3.37 L Hgb 11.1 L Hct 32.7 L MCV 97.2 H MCH 33.1 MCHC 34.0 RDW 14.8 Plt Count 581 H D MPV 7.3 L PT with INR 11.60 INR 1.03 LA PTT Baseline 40.7 dRVVT Confirm Interp 53.4 H dRVVT Mixing Study 44.0 Sodium Potassium Chloride Carbon Dioxide Anion Gap BUN Creatinine Creat Clearance w eGFR Random Glucose Calcium Total Bilirubin AST ALT Alkaline Phosphatase Total Protein Albumin Oeib-8-Hznvnyuuqfdi <9 Jbce-0-Lqbyzvvwqizw Ab <9 Beta-2-GPI IgM Ab <9 Anti-Cardiolipin IgG Ab <9 Anti-Cardiolipin IgA Ab <9 Anti-Cardiolipin IgM Ab 11 06/23/17 06:58 WBC RBC Hgb Hct MCV MCH MCHC RDW Plt Count MPV PT with INR INR LA PTT Baseline dRVVT Confirm Interp dRVVT Mixing Study Sodium 134 L Potassium 4.8 Chloride 95 L Carbon Dioxide 30 Anion Gap 9 BUN 12 Creatinine 0.6 L Creat Clearance w eGFR > 60 Random Glucose 83 Calcium 9.4 Total Bilirubin 0.4 AST 8 L D ALT 23 D Alkaline Phosphatase 110 Total Protein 7.4 Albumin 3.0 L Mfpp-7-Arxyflyrctiy Miek-9-Knthzpxjsfvw Ab Beta-2-GPI IgM Ab Anti-Cardiolipin IgG Ab Anti-Cardiolipin IgA Ab Anti-Cardiolipin IgM Ab HOSPITAL COURSE: Date of Admission:05/21/17 Date of Discharge: 06/23/17 56yo M with PMH of CVA, PAD, HLD, presented with Left great toe pain, was found to have arterial insufficiency and gangrene of Left toes. Pt received 2 revascularization procedures while. Pt ultimately received a Left TMA on . During the course of his stay, it was difficult to anti-coagulate him. Coumadin was used at first, but INR would remain therapeutic. Heparin drip was used next, but it was very difficult to raise the PTT to a therapeutic level. Lovenox was then used. Prior to D/C, pt converted to oral Eliquis for anticoagulation. Pt also struggled with pain during this admission. Different pain regimens were used, eventually landing on MS Contin 30mg po BID and Morphine prn (for breaththrough pain 8-10/10), Percocet prn (for breakthrough pain 4-7/10), and Tylenol prn (for breakthrough pain 1-3/10). TMA flap was closely monitored by Vascular surgery. TMA flap was determined to be viable 10 days post-op, so a BKA was not opted for at this time. Pt has worked with PT, and is stable to discharge home. Minutes to complete discharge: 35 Discharge Summary Reason For Visit: ARTERIAL INSUFFICIENCY Current Active Problems Arterial insufficiency (Acute) Arteriosclerotic gangrene (Acute) Critical lower limb ischemia (Acute) GERD (gastroesophageal reflux disease) (Chronic) HLD (hyperlipidemia) (Chronic) PAD (peripheral artery disease) (Chronic) Smoker (Chronic) Condition: Improved - Instructions Diet, Activity, Other Instructions: You were admitted with infection and lack of blood flow to your Left great toe. You had surgery to open up the blocked vessels and had pulses felt in your Left foot. You then had surgery to remove the toes on your Left foot with a procedure called a Transmetatarsal Amputation. You received antibiotics and blood thinners while here and had your pain managed. Please continue to take your medications as directed. You have an appointment with Dr. Mejia at 10am on 06/26/17. Please follow-up with your Vascular Surgeon (Dr. Feránndez) within 1 week of leaving the hospital. Please follow-up with your Primary Care Doctor within 1 week of leaving the hospital. Please follow-up with Dr. Aguilar for hyperbaric treatment for wound healing within 1 week of leaving the hospital. If your Left leg pain persists or worsens, you may need amputation below the knee to prevent infection spreading to the rest of your body. Please return to the hospital immediately if you experience persistent or worsening Left leg pain, or for any medical emergency. Referrals: Oz Aguilar MD [Staff Physician] - 1 Week Christine Mejia MD [Staff Physician] - 2 Weeks (To determine why you are clotting excessively) Doug Fernández MD [Staff Physician] - 1 Week Fahad Herrera MD [Staff Physician] - 1 Week (You will need to follow up daily with the primary care doctor at [address] [place] [address]) Disposition: HOME - Home Medications Comprehensive Discharge Medication List: Ambulatory Orders Rosuvastatin [Crestor -] 5 mg PO HS 30 Days 06/09/17 Apixaban [Eliquis -] 5 mg PO BID #60 tablet 06/23/17 Bacitracin - [Bacitracin Topical Ointment -] 1 applic TP DAILY #1 tube 06/23/17 Buspirone HCl [Buspar -] 5 mg PO DAILY #30 tablet 06/23/17 Docusate Sodium [Colace -] 100 mg PO TID PRN #90 cap 06/23/17 Morphine *Sr* [MS Contin -] 30 mg PO BID #6 tab MDD 2 06/23/17 Nicotine Patch [Nicoderm Patch -] 7 mg TD DAILY #30 patch 06/23/17 Oxycodone HCl [Roxicodone -] 5 mg PO Q6H PRN #12 tablet NS MDD 4 06/23/17 Pantoprazole Sodium [Protonix -] 20 mg PO BID #60 tab 06/23/17 Rosuvastatin [Crestor -] 10 mg PO HS #30 tablet 06/23/17 This patient is new to me today: No Emergency Visit: Yes ED Registration Date: 05/21/17 Care time: The patient presented to the Emergency Department on the above date and was hospitalized for further evaluation of their emergent condition. Critical Care patient: No - Discharge Referral Referred to [facility] Med [facility].C[facility] Yes Physician Referral: Doug Fernández DO ([facility])
[2017-06-23] MEDS ORDERED: LORazepam 0.5 MG TABLET PO SCH (20:15)
[2017-06-23] MEDS: APIXABAN 5 MG TABLET PO SCH (23:17)
[2017-06-23] MEDS: ROSUVASTATIN CA 10 MG TABLET (FP) PO SCH (23:18)
[2017-06-24] MEDS: oxyCODONE HCL 5 MG TABLET PO PRN ×2 (00:10→04:17)
[2017-06-24] MEDS: ACETAMINOPHEN 325 MG TABLET (FP) PO PRN ×2 (00:10→04:18)
[2017-06-24] MEDS: morphine CARPU-JECT 8 MG/1 ML DISP.SYRIN IVPUSH PRN ×2 (02:36→06:09)
[2017-06-24] MEDS: DOCUSATE SODIUM 100 MG CAPSULE (FP) PO PRN (08:53)
[2017-06-24] MEDS ORDERED: PT OWN MED DRAWER 7, Y5N ONE (09:29)
[2017-06-24] MEDS: morphine SO4 SUSTAINED ACTING 30 MG TABLET.SA PO SCH (09:32)
[2017-06-24] MEDS: PANTOPRAZOLE 20 MG TABLET (FP) PO SCH (09:32)
[2017-06-24] MEDS: APIXABAN 5 MG TABLET PO SCH (09:33)
[2017-06-24] MEDS: BACITRACIN 15 GM TUBE TOPICAL OINTMENT TP SCH (09:33)
[2017-06-24] MEDS: NICOTINE 7 MG/24 HOURS TOPICAL PATCH TD SCH (09:33)
[2017-06-24] MEDS: busPIRone HCL 5 MG TABLET PO SCH (09:33)
[2017-06-24 09:42] VITALS: BP 123/76; PULSE 105; TEMP 98
== END 2017-06-24 10:26 | disposition home health service (06) | DRG 173 ==
LOC: JER 11:45 → JERBED 18:45 → J6S 23:35 → JICU 05-22 19:41 → J6S 05-26 13:21 → JICU 05-30 20:47 → J5S 06-02 17:23
PROVIDERS: ADMIT Internal Medicine; ATTEND Internal Medicine
PROC: 047N3ZZ Dilation of Left Popliteal Artery, Percutaneous Approach (ICD-10-PCS; 2017-05-22)
PROC: 047S3ZZ Dilation of Left Posterior Tibial Artery, Percutaneous Approach (ICD-10-PCS; 2017-05-22)
PROC: B41GYZZ Fluoroscopy of Left Lower Extremity Arteries using Other Contrast (ICD-10-PCS; 2017-05-22)
PROC: B41DYZZ Fluoroscopy of Aorta and Bilateral Lower Extremity Arteries using Other Contrast (ICD-10-PCS; 2017-05-22)
PROC: 3E03317 Introduction of Other Thrombolytic into Peripheral Vein, Percutaneous Approach (ICD-10-PCS; 2017-05-22)
PROC: 047 Lower Arteries, Dilation (ICD-10-PCS; 2017-05-23)
PROC: 047S0ZZ Dilation of Left Posterior Tibial Artery, Open Approach (ICD-10-PCS; 2017-05-23)
PROC: B41GYZZ Fluoroscopy of Left Lower Extremity Arteries using Other Contrast (ICD-10-PCS; 2017-05-23)
PROC: 0Y6N0Z8 Detachment at Left Foot, Complete 5th Ray, Open Approach (ICD-10-PCS; principal; 2017-06-12 07:30)
DX: I70.262 Atherosclerosis of native arteries of extremities with gangrene, left leg (principal); A41.9 Sepsis, unspecified organism; L03.116 Cellulitis of left lower limb; E87.1 Hypo-osmolality and hyponatremia; E78.00 Pure hypercholesterolemia, unspecified; K21.9 Gastro-esophageal reflux disease without esophagitis; D47.3 Essential (hemorrhagic) thrombocythemia; D75.89 Other specified diseases of blood and blood-forming organs; F17.210 Nicotine dependence, cigarettes, uncomplicated; L97.529 Non-pressure chronic ulcer of other part of left foot with unspecified severity; R11.0 Nausea; F41.9 Anxiety disorder, unspecified
CPT/HCPCS: 36415; 71010-TC; 73660-TC; 75635-TC; 76000-TC; 76001-TC; 80048; 80053; 80061; 81240; 82272; 82607; 82747; 83605; 83721; 83735; 83880; 84100; 84439; 84443; 85014; 85025; 85027; 85384; 85610; 85613; 85651; 85730; 85732; 86140; 86146; 86850; 86900; 86901; 87040; 87070; 87186; 87205; 88305-TC; 88311-TC; 93005; 93010; 93306-TC; 93926-TC; 93970-TC; 93971-TC; 94760; 97116-GP; 97161-GP; 99282-25; G0480; J1644; J2997

== ENCOUNTER 2017-06-30 16:32 | Inpatient (IN) | payer OTHER ==
[2017-06-30 16:52] VITALS: BMI 24.6
--- NOTE | 2017-06-30 16:53 | PDOC ---
Rapid Medical Evaluation Chief Complaint: Wound Infection Time Seen by Provider: 06/30/17 16:48 Medical Evaluation: Allergies Allergy/AdvReac Type Severity Reaction Status Date / Time No Known Drug Allergies Allergy Verified 06/30/17 16:47 06/30/17 16:48 I have performed a brief in person evaluation of this patient. The patient presents with chief complaint of : c/o pain to the foot left s/p partial amputation. taking ER morphine without relief. sent by for eval. Pertinent PE findings: sat 92%RA stopped smoking 7 weeks ago. I have ordered the following: The patient will proceed to the ER for further evaluation. 06/30/17 16:52
[2017-06-30] MEDS ORDERED: morphine CARPU-JECT 2 MG/1 ML DISP.SYRIN IVPUSH ONE (19:51)
[2017-06-30] MEDS ORDERED: morphine SULFATE 4 MG/ML VIAL ONE ×3 (20:10→23:48)
--- NOTE | 2017-06-30 20:31 | PDOC ---
History of Present Illness - General Chief Complaint: Wound Infection Stated Complaint: SENT BY PCP Time Seen by Provider: 06/30/17 16:48 - History of Present Illness Initial Comments: 06/30/17 20:28 CHIEF COMPLAINT: sent in by surgeon for pre-op admission HISTORY OF PRESENT ILLNESS: 56 yo M with hx of CVA, HLD, s/p TMA to L foot sent in by vascular surgeon Pradeep for admission prior to BKA surgery this coming Friday. Patient reports that he has had uncontrolled pain to the stump of his left foot s/p surgery and discussed with Dr. Hobbs option for BKA to control pain. Patient denies any fever, chills, vomiting, diarrhea or any other infectious symptoms at this time and only complains of pain. No recent travel or sick contacts. PAST MEDICAL HISTORY: Denies past medical history FAMILY HISTORY: Denies SOCIAL HISTORY: Denies tobacco, alcohol, illicit drug use. SURGICAL HISTORY: Denies ALLERGIES: No known drug allergies REVIEW OF SYSTEMS General/Constitutional: Denies fever or chills. Denies weakness, weight change. HEENT: Denies change in vision. Denies ear pain or discharge. Denies sore throat. Cardiovascular: Denies chest pain or shortness of breath. Respiratory: Denies cough, wheezing, or hemoptysis. Gastrointestinal: Denies nausea, vomiting, diarrhea or constipation. Denies rectal bleeding. Genitourinary: Denies dysuria, frequency, or change in urination. Musculoskeletal: Pain to L stump of foot s/p transmetatarsal amputation. PHYSICAL EXAM General Appearance: Well-appearing, appropriately dressed. No apparent distress. HEENT: EOMI, PERRLA, normal ENT inspection, normal voice, TMs normal, pharynx normal. No conjunctival pallor. No photophobia, scleral icterus. Respiratory/Chest: Lungs CTAB. Cardiovascular: RRR. S1, S2. Vascular Pulses: Dorsalis-Pedis (R): 2+, Dorsalis-Pedis (L): absent Gastrointestinal/Abdominal: Normal bowel sounds. Abdomen soft, non-distended. No tenderness or rebound tenderness. No organomegaly, pulsatile mass, guarding , hernia, hepatomegaly, splenomegaly.. Musculoskeletal/Extremities: Normal inspection. FROM of all extremities, normal capillary refill. Pelvis Stable. No CVA tenderness. No tenderness to extremities, pedal edema, swelling, erythema or deformity. Integumentary: 2+ pitting edema and mild erythema to lower left leg above site of surgery, 1+ edema to RLE. 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 Fully oriented, alert. Appropriate mood/affect. Motor strength 5/5. No appreciable EOM palsy, facial droop or sensory deficit. 06/30/17 20:49 Past History - Past Medical History Allergies/Adverse Reactions: Allergies Allergy/AdvReac Type Severity Reaction Status Date / Time No Known Drug Allergies Allergy Verified 06/30/17 16:47 Home Medications: Ambulatory Orders Bacitracin - [Bacitracin Topical Ointment -] 1 applic TP DAILY #1 tube 06/24/17 Buspirone HCl [Buspar -] 5 mg PO DAILY #30 tablet 06/24/17 Docusate Sodium [Colace -] 100 mg PO TID PRN #90 cap 06/24/17 Nicotine Patch [Nicoderm Patch -] 7 mg TD DAILY #30 patch 06/24/17 Pantoprazole Sodium [Protonix -] 20 mg PO BID #60 tab 06/24/17 Rosuvastatin [Crestor -] 10 mg PO HS #30 tablet 06/24/17 Morphine *Sr* [Ms Contin -] 30 mg PO Q8H #40 tablet.er MDD 3 06/27/17 Rivaroxaban [Xarelto -] 20 mg PO DAILY 06/30/17 Anemia: No Asthma: No Cancer: No Cardiac Disorders: No CVA: Yes (January 2016) COPD: No CHF: No Dementia: No Diabetes: No GI Disorders: No Disorders: No HTN: No Hypercholesterolemia: No Liver Disease: No Seizures: No Thyroid Disease: No - Immunization History Immunization Up to Date: Yes - Suicide/Smoking/Psychosocial Hx Smoking History: Former smoker Have you smoked in the past 12 months: Yes Number of Cigarettes Smoked Daily: 20 If you are a former smoker, when did you quit?: 7 weeks Information on smoking cessation initiated: No 'Breaking Loose' booklet given: 06/04/17 Hx Alcohol Use: No Drug/Substance Use Hx: No Substance Use Type: None Hx Substance Use Treatment: No *Physical Exam - Vital Signs Last Vital Signs Temp Pulse Resp BP Pulse Ox 98.7 F 115 H 18 113/83 92 L 06/30/17 16:47 06/30/17 16:47 06/30/17 16:47 06/30/17 16:47 06/30/17 16:47 ED Treatment Course - LABORATORY CBC & Chemistry Diagram: 06/30/17 19:48 06/30/17 19:48 - Medications Given in the ED: ED Medications Discontinued Medications Generic Name Dose Route Start Last Admin Trade Name Emmy PRN Reason Stop Dose Admin Morphine Sulfate 2 mg 06/30/17 19:51 06/30/17 20:15 Morphine Injection - IVPUSH 06/30/17 19:52 2 mg ONCE ONE Administration Medical Decision Making - Medical Decision Making 06/30/17 21:11 56 yo M with hx of CVA s/p TMA to L foot sent in by vascular surgeon Pradeep for admission prior to BKA surgery this coming Friday. Discussed case with MD Fernández, who requests that patient have Eliquis held for 24 hours prior to surgery on Friday. Dr. Fernández requests admission to hospitalist service until operation. *DC/Admit/Observation/Transfer Diagnosis at time of Disposition: Arterial insufficiency, Critical lower limb ischemia - Discharge Dispostion Admit: Yes
[2017-06-30 20:34] LABS: EOSINOPHIL 1.1 % (0-4.5); MCH 32.1 pg (25.7-33.7); MCHC 34.2 g/dl (32.0-35.9); NEUTROPHILS 78.3 % (42.8-82.8); PLATELET COUNT 596 K/MM3 (134-434); RDW 15.7 % (11.9-15.9); WHITE BLOOD COUNT 10.5 K/mm3 (4.0-10.0)
[2017-06-30 21:00] LABS: INR 1.31 (0.82-1.09); PROTHROMBIN TIME (PATIENT) 14.8 SEC (9.98-11.88)
[2017-06-30] MEDS ORDERED: LACTATED RINGERS SOLUTION 1,000 ML IV SCH (21:00)
[2017-06-30 21:03] LABS: ACTIVATED PTT 29.8 SECONDS (26.9-34.4); ALK PHOS 117 U/L (45-117); ANION GAP 8 (8-16); BILIRUBIN,TOTAL 0.5 mg/dL (0.2-1.0); CO2 31 mmol/L (21-32); CREATININE 0.8 mg/dL (0.7-1.3); GLUCOSE,RANDOM 95 mg/dL (74-106); SGOT/AST 18 U/L (15-37); SGPT/ALT 24 U/L (12-78); TOT PROT 7.4 g/dl (6.4-8.2)
[2017-06-30] MEDS ORDERED: morphine CARPU-JECT 4 MG/1 ML DISP.SYRIN IVPUSH ONE (21:54)
[2017-06-30] MEDS ORDERED: HEPARIN - 25,000 UNIT in SODIUM CHLORIDE 495 ML IV SCH (22:30)
[2017-06-30] MEDS ORDERED: HEPARIN INFUSION - 500 ML IVPB ONE (23:05)
--- NOTE | 2017-06-30 23:31 | HP ---
CHIEF COMPLAINT: Worsening pain in L TMA site X3 days PCP: HISTORY OF PRESENT ILLNESS: 56yo M with PMH of CVA, PAD, HLD hx of dry gangrene of L 1st, 2nd, 3rd toes s/p Left TMA on 06/12/17 discharged home on 06/23/17 presenting with worsening pain at site of L TMA for 3 days. Pain is described as a 10/10, intermittent, constricting pain, initially relieved by pain meds, worsened with elevation of the foot and happens spontaneously at rest. There is associated intermittent twitching of the LLE that the patient described as starling and severe enough for him to drop his phone. Patient has not noticed pus, but the stump is still draining blood and the pain is poorly controlled on the pain regimen. Patient had a VNS come in on alternate days to dress the wound. On Friday, he followed up at the wound clinic with Dr Fernández, who noticed that stump is has been darkening (appearing gangrenous-per the patient). Dr Fernández D/W about revising the stump and doing a BKA on Friday. Patient has been on xarelto, the last dose was taken on 06/30/17 at night and he has quit smoking, is still on nicotine patch. No history of fever, no dizziness, no cough or chest pain. No constipation or dysuria, no palpitations. 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 s/p Left TMA PAST SURGICAL HISTORY: Left TMA 06/12/17 Social History: Smoking:Quit 7 weeks ago (on 7TD nicotine patch) Alcohol: Drugs: Family History: Allergies No Known Drug Allergies Allergy (Verified 06/30/17 16:47) HOME MEDICATIONS: Home Medications Medication Instructions Recorded Bacitracin - [Bacitracin Topical 1 applic TP DAILY #1 tube 06/24/17 Ointment -] Buspirone HCl [Buspar -] 5 mg PO DAILY #30 tablet 06/24/17 Docusate Sodium [Colace -] 100 mg PO TID PRN #90 cap 06/24/17 Nicotine Patch [Nicoderm Patch -] 7 mg TD DAILY #30 patch 06/24/17 Pantoprazole Sodium [Protonix -] 20 mg PO BID #60 tab 06/24/17 Rosuvastatin [Crestor -] 10 mg PO HS #30 tablet 06/24/17 Morphine *Sr* [Ms Contin -] 30 mg PO Q8H #40 tablet.er MDD 3 06/27/17 Rivaroxaban [Xarelto -] 20 mg PO DAILY 06/30/17 REVIEW OF SYSTEMS CONSTITUTIONAL: Absent: fever, chills, diaphoresis, generalized weakness, malaise, loss of appetite, weight change HEENT: Absent: rhinorrhea, nasal congestion, throat pain, throat swelling, difficulty swallowing, mouth swelling, ear pain, eye pain, visual changes CARDIOVASCULAR: Absent: chest pain, syncope, palpitations, irregular heart rate, lightheadedness , peripheral edema RESPIRATORY: Absent: cough, shortness of breath, dyspnea with exertion, orthopnea, wheezing, stridor, hemoptysis GASTROINTESTINAL: Absent: abdominal pain, abdominal distension, nausea, vomiting, diarrhea, constipation, melena, hematochezia GENITOURINARY: Absent: dysuria, frequency, urgency, hesitancy, hematuria, flank pain, genital pain MUSCULOSKELETAL: Absent: myalgia, arthralgia, joint swelling, back pain, neck pain, LLE pain+ SKIN: Absent: rash, itching, pallor HEMATOLOGIC/IMMUNOLOGIC: Absent: easy bleeding, easy bruising, lymphadenopathy, frequent infections ENDOCRINE: Absent: unexplained weight gain, unexplained weight loss, heat intolerance, cold intolerance NEUROLOGIC: Absent: headache, focal weakness or paresthesias, dizziness, seizure, mental status changes, bladder or bowel incontinence PSYCHIATRIC: anxiety about the BKA, + Absent: depression, suicidal or homicidal ideation, hallucinations. PHYSICAL EXAMINATION GENERAL: Awake, alert, and fully oriented, in mild painful distress. EYES: sclera anicteric, conjunctiva clear EARS, NOSE, THROAT: Moist mucous membranes. NECK: Normal range of motion, supple without lymphadenopathy, JVD, or masses. LUNGS: Breath sounds equal, clear to auscultation bilaterally. HEART: Regular rhythm, tachycardic, S1 and S2 without murmur, ABDOMEN: Soft, nontender, not distended, normoactive bowel sounds MUSCULOSKELETAL: Normal range of motion at all joints. No bony deformities or tenderness. No CVA tenderness. UPPER EXTREMITIES: 2+ pulses, warm, well-perfused. No cyanosis. No clubbing. No peripheral edema. LOWER EXTREMITIES: RLE Pedal edema 1+. R LE, warm, pink colored foot and toes. Peripheral pulses hard to palpate on R due to edema. L TMA stump blood stained dressing, tender to palpation close to edge of stump, 1+ ankle edema, warm, no calf tenderness, TP artery difficult to palpate. NEUROLOGICAL: Normal speech. PSYCHIATRIC: Cooperative. Good eye contact. Appropriate mood and affect. 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 s/p Left TMA on 06/12/17, presenting with worsening pain at stump site and admitted for BKA on Friday (07/03/17) #Left LE intractable pain s/p TMA - Hold xarelto for 24 hours prior to procedure - Heparin 80u/kg body wt bolus- stat - 18u/kgbody wt/hr -goal PTT-60-80 -EKG- initial EKG was not clear as t was was anxious and trembling, repeat EKG ordered but Pt declined -CXR -Consult- Dr Fernández -Iv morphine -CMP, CBC, MG, P, PTT -IV fluid LR @75ml/hr -Type and screen -Left TMA for BKA # R/O PE Well's score-6, PE is equally likely, HR-greater 100, recent surgery in previous 4 weeks and immobilization at least 3 days, bilateral leg swelling and pain in L thigh although patient has been taking his xarelto consistently, he was very difficult to anticoagulate both on coumadin and heparin However, pt has been tachycardic for long likely both due to pain and from anxiety over amputation -CTA chest #Anxiety Pt was severely anxious Tabs 5mg diazepam given Resume buspirone #Intractable pain Cont iv morphine 4mg Q4H Add Tabs percocet 10/650 Q6H Hold morphine tabs #Smoking hx -Nicotine patch 7 TD -Counseling #HLD -Resume Crestor 10mg HS #GERD -Resume Protonix 20mg PO bid #FEN -IV LR@75mls/hr -Monitor Lytes -Sodium controlled diet #Prophylaxis -DVT- heaprin gtt -GI-protonix 20mg PO bi #Dispo -Med-surg Visit type - Emergency Visit Emergency Visit: Yes ED Registration Date: 06/30/17 Care time: The patient presented to the Emergency Department on the above date and was hospitalized for further evaluation of their emergent condition. - New Patient This patient is new to me today: Yes Date on this admission: 07/01/17 - Critical Care Critical Care patient: No
--- NOTE | 2017-07-01 00:04 | PN ---
Teaching Attending Note Name of Resident: Tracie Almonte ATTENDING PHYSICIAN STATEMENT I saw and evaluated the patient. I reviewed the resident's note and discussed the case with the resident. I agree with the resident's findings and plan as documented. SUBJECTIVE: 56 M with pmhx of PVD, CVA, former smoker with admission in 05/11 for gangrene of left toes and arterial insufficiency. On 06/12/17 he recieved L. TMA surgery. He now presents from Dr. Fernández with pain in LLE. No fever or chills. No foul drainage. He is independent at home and can preform ADLs. OBJECTIVE: Physical: VS: Vital Signs Period Temp Pulse Resp BP Sys/Castillo Pulse Ox Last 24 Hr 98.7 F 115 18 113/83 92 Pulse Ox 97 on RA upon arrival GEN: NAD, AAox3, resting in bed HEENT: NCAT, PERRL, Throat without erythema or exudates CARD: RRR S1, S2 RESP: CTAB ABD: BSX4, NTD to palpation EXT: Pain on palpation of LLE CBCD WBC 10.5 K/mm3 (4.0-10.0) H 06/30/17 19:48 RBC 3.71 M/mm3 (4.00-5.60) L 06/30/17 19:48 Hgb 11.9 GM/dL (11.7-16.9) 06/30/17 19:48 Hct 34.8 % (35.4-49) L 06/30/17 19:48 MCV 94.0 fl (80-96) 06/30/17 19:48 MCHC 34.2 g/dl (32.0-35.9) 06/30/17 19:48 RDW 15.7 % (11.9-15.9) 06/30/17 19:48 Plt Count 596 K/MM3 (134-434) H 06/30/17 19:48 MPV 7.0 fl (7.5-11.1) L 06/30/17 19:48 CMP Sodium 134 mmol/L (136-145) L 06/30/17 19:48 Potassium 4.1 mmol/L (3.5-5.1) 06/30/17 19:48 Chloride 95 mmol/L (98-107) L 06/30/17 19:48 Carbon Dioxide 31 mmol/L (21-32) 06/30/17 19:48 Anion Gap 8 (8-16) 06/30/17 19:48 BUN 9 mg/dL (7-18) D 06/30/17 19:48 Creatinine 0.8 mg/dL (0.7-1.3) D 06/30/17 19:48 Creat Clearance w eGFR > 60 (>60) 06/30/17 19:48 Random Glucose 95 mg/dL (74-106) 06/30/17 19:48 Calcium 9.0 mg/dL (8.5-10.1) 06/30/17 19:48 Total Bilirubin 0.5 mg/dL (0.2-1.0) D 06/30/17 19:48 AST 18 U/L (15-37) D 06/30/17 19:48 ALT 24 U/L (12-78) 06/30/17 19:48 Alkaline Phosphatase 117 U/L (45-117) 06/30/17 19:48 Total Protein 7.4 g/dl (6.4-8.2) 06/30/17 19:48 Albumin 3.0 g/dl (3.4-5.0) L 06/30/17 19:48 CXR- No acute process EKG: Home Medications Medication Instructions Recorded Bacitracin - [Bacitracin Topical 1 applic TP DAILY #1 tube 06/24/17 Ointment -] Buspirone HCl [Buspar -] 5 mg PO DAILY #30 tablet 06/24/17 Docusate Sodium [Colace -] 100 mg PO TID PRN #90 cap 06/24/17 Nicotine Patch [Nicoderm Patch -] 7 mg TD DAILY #30 patch 06/24/17 Pantoprazole Sodium [Protonix -] 20 mg PO BID #60 tab 06/24/17 Rosuvastatin [Crestor -] 10 mg PO HS #30 tablet 06/24/17 Morphine *Sr* [Ms Contin -] 30 mg PO Q8H #40 tablet.er MDD 3 06/27/17 Rivaroxaban [Xarelto -] 20 mg PO DAILY 06/30/17 ASSESSMENT AND PLAN: 56 M with pmhx of PVD, CVA, former smoker, LPenelope TMA who presents with left leg pain, being admitted for L. BKA 1.) Left Leg Pain - Even though on Xarelto, with hypoxia, recent sx, and tachy (Wells score 6)- STAT CTA 1.) Arterial Insufficiency of LLE/ hx. of PVD - S/P Revascularization and TMA 06/12 - [facility] for Weds - Hep. gtt started in ED - D/C Xarelto - Coags - C/W statin - CBC - Type & Screen - Vascular consult 2.) Dvt Ppx - Hep. gtt Rest as per resident note Place in med-Sx
--- NOTE | 2017-07-01 00:07 | HP ---
CHIEF COMPLAINT: "im here for surgery" PCP: Dr Aguilar Vascular: Dr Fernández HISTORY OF PRESENT ILLNESS: This is a 56 yo M with PMH of CVA, HLD, s/p TMA of L foot 06/23 due to gangrene , who presents for scheduled BKA this Wed by Dr Fernández. Patient reports worsening, uncontrolled pain of L foot despite surgery and will undergo BKA for pain control. He denies f/c, diaphoresis, malaise, cp, sob, cough, hemoptysis. n/v, abd pain, diarrhea, dysuria. ER course was notable for: (1)labs (2)cxr, ekg (3)morphine, hep drip, LR Recent Travel: denies PAST MEDICAL HISTORY: as above PAST SURGICAL HISTORY: as above Social History: lives at home with , has vns Smoking: quit recently Alcohol: denies Drugs: denies Family History: noncontributory Allergies No Known Drug Allergies Allergy (Verified 06/30/17 16:47) HOME MEDICATIONS: Home Medications Medication Instructions Recorded Bacitracin - [Bacitracin Topical 1 applic TP DAILY #1 tube 06/24/17 Ointment -] Buspirone HCl [Buspar -] 5 mg PO DAILY #30 tablet 06/24/17 Docusate Sodium [Colace -] 100 mg PO TID PRN #90 cap 06/24/17 Nicotine Patch [Nicoderm Patch -] 7 mg TD DAILY #30 patch 06/24/17 Pantoprazole Sodium [Protonix -] 20 mg PO BID #60 tab 06/24/17 Rosuvastatin [Crestor -] 10 mg PO HS #30 tablet 06/24/17 Morphine *Sr* [Ms Contin -] 30 mg PO Q8H #40 tablet.er MDD 3 06/27/17 Rivaroxaban [Xarelto -] 20 mg PO DAILY 06/30/17 REVIEW OF SYSTEMS CONSTITUTIONAL: Absent: fever, chills HEENT: Absent: rhinorrhea, nasal congestion, throat pain CARDIOVASCULAR: Absent: chest pain, syncope, palpitations, lightheadedness RESPIRATORY: Absent: cough, shortness of breath, hemoptysis GASTROINTESTINAL: Absent: abdominal pain, abdominal distension, nausea, vomiting, diarrhea, constipation, melena, hematochezia GENITOURINARY: Absent: dysuria MUSCULOSKELETAL: Absent: back pain, neck pain SKIN: Absent: rash, itching, pallor HEMATOLOGIC/IMMUNOLOGIC: Absent: easy bleeding, easy bruising ENDOCRINE: Absent: unexplained weight gain, unexplained weight loss NEUROLOGIC: Absent: headache, focal weakness or paresthesias PSYCHIATRIC: Absent: anxiety, depression PHYSICAL EXAMINATION GENERAL: Awake, alert, and fully oriented, in no acute distress. HEAD: Normal with no signs of trauma. EYES: Pupils equal, round and reactive to light, extraocular movements intact, sclera anicteric, conjunctiva clear. EARS, NOSE, THROAT: Moist mucous membranes. NECK: supple without JVD LUNGS: Breath sounds equal, clear to auscultation bilaterally. HEART: tachy rate and reg rhythm, normal S1 and S2 ABDOMEN: Soft, nontender, not distended, normoactive bowel sounds, no guarding MUSCULOSKELETAL: No CVA tenderness. UPPER EXTREMITIES: 2+ pulses, warm, well-perfused. No peripheral edema. LOWER EXTREMITIES: RLE 1+ edema, warm, well perfused, DP not palpated LLE TMA stump, blood stained dressing, tender 1+ edema, warm, well perfused, no calf tenderness, DP pulse not palpable. NEUROLOGICAL: Cranial nerves II-XII grossly intact. Normal speech. PSYCHIATRIC: Cooperative. Good eye contact. Appropriate mood and affect. SKIN: Warm, dry, lesions as above ASSESSMENT/PLAN: This is a 56 yo M with PMH of CVA, HLD, s/p TMA of L foot 06/23 due to gangrene , who presents for scheduled BKA this Wed by Dr Fernández. LLE pain s/p TMA -due to PAD -Plan BKA wed -stop xeralto, start Hep gtt -monitor PTT -type/screen -vascular chinedu consult r/o PE -hypoxia, tachy (chronic), recent surgery -[place] 6 -CTA -IV hydration HLD -resume statin Dispo: adm med chinedu Problem List - Problem (1) Arterial insufficiency Code(s): I77.1 - STRICTURE OF ARTERY (2) Arteriosclerotic gangrene Code(s): I70.269 - ATHSCL HO-CHUNK ARTERIES OF EXTRM W GANGRENE, UNSP EXTREMITY (3) CVA (cerebral vascular accident) Code(s): I63.9 - CEREBRAL INFARCTION, UNSPECIFIED Qualifiers: CVA mechanism: unspecified Qualified Code(s): I63.9 - Cerebral infarction, unspecified; I63.9 - Cerebral infarction, unspecified; I63.9 - Cerebral infarction, unspecified; I63.9 - Cerebral infarction, unspecified (4) GERD (gastroesophageal reflux disease) Code(s): K21.9 - GASTRO-ESOPHAGEAL REFLUX DISEASE WITHOUT ESOPHAGITIS (5) HLD (hyperlipidemia) Code(s): E78.5 - HYPERLIPIDEMIA, UNSPECIFIED (6) PAD (peripheral artery disease) Code(s): I73.9 - PERIPHERAL VASCULAR DISEASE, UNSPECIFIED (7) Smoker Code(s): F17.200 - NICOTINE DEPENDENCE, UNSPECIFIED, UNCOMPLICATED Visit type - Emergency Visit Emergency Visit: Yes ED Registration Date: 06/30/17 Care time: The patient presented to the Emergency Department on the above date and was hospitalized for further evaluation of their emergent condition. - New Patient This patient is new to me today: Yes Date on this admission: 07/01/17 - Critical Care Critical Care patient: No
[2017-07-01] MEDS: morphine CARPU-JECT 2 MG/1 ML DISP.SYRIN IVPUSH PRN ×6 (00:30→23:14)
[2017-07-01] MEDS ORDERED: diazePAM 5 MG TABLET PO ONE ×2 (01:32→02:45)
[2017-07-01] MEDS ORDERED: DOCUSATE SODIUM 100 MG CAPSULE (FP) PO PRN (05:39)
[2017-07-01] MEDS: oxyCODONE HCL 5 MG TABLET PO PRN ×2 (06:04→18:56)
[2017-07-01] MEDS: ACETAMINOPHEN 325 MG TABLET (FP) PO PRN ×2 (06:04→18:58)
--- NOTE | 2017-07-01 07:26 | SPA.PREOP ---
- PRE-OP NOTE Dx: LLE gangrene Planned Procedure: Left BKA Surgeon: Doug Fernández Consent: To be obtained by surgeon after risks, benefits and alternatives explained to patient. Last Vital Signs Temp Pulse Resp BP Pulse Ox 97.9 F 108 H 20 112/63 92 L 07/01/17 05:23 07/01/17 05:23 07/01/17 05:57 07/01/17 05:23 06/30/17 16:47 Lab Results WBC 10.5 K/mm3 (4.0-10.0) H 06/30/17 19:48 RBC 3.71 M/mm3 (4.00-5.60) L 06/30/17 19:48 Hgb 11.9 GM/dL (11.7-16.9) 06/30/17 19:48 Hct 34.8 % (35.4-49) L 06/30/17 19:48 MCV 94.0 fl (80-96) 06/30/17 19:48 MCHC 34.2 g/dl (32.0-35.9) 06/30/17 19:48 RDW 15.7 % (11.9-15.9) 06/30/17 19:48 Plt Count 596 K/MM3 (134-434) H 06/30/17 19:48 Sodium 134 mmol/L (136-145) L 06/30/17 19:48 Potassium 4.1 mmol/L (3.5-5.1) 06/30/17 19:48 Chloride 95 mmol/L (98-107) L 06/30/17 19:48 Carbon Dioxide 31 mmol/L (21-32) 06/30/17 19:48 Anion Gap 8 (8-16) 06/30/17 19:48 BUN 9 mg/dL (7-18) D 06/30/17 19:48 Creatinine 0.8 mg/dL (0.7-1.3) D 06/30/17 19:48 Random Glucose 95 mg/dL (74-106) 06/30/17 19:48 Calcium 9.0 mg/dL (8.5-10.1) 06/30/17 19:48 Blood Type AB POSITIVE 06/30/17 19:40 Antibody Screen Negative 06/30/17 19:40 INR 1.31 (0.82-1.09) H 06/30/17 19:48 - ASSESSMENT/PLAN 56 year old male s/p left TMA on 06/12/17, worsening pain at operative site. Left TMA site gangrene. Pre-op for Left BKA. NPO after midnight except PO meds GI / DVT ppx Medical optimization / clearance 2 PRBC on-hold for OR 07/02 Visit type - Case Type Case Type: ED Admission - Emergency Emergency Visit: Yes ED Registration Date: 06/30/17 Care time: The patient presented to the Emergency Department on the above date and was hospitalized for further evaluation of their emergent condition. - New patient This patient is new to me today: Yes Date on this admission: 07/01/17
[2017-07-01 07:38] LABS: BASOPHIL 0.9 % (0-2.0); EOSINOPHIL 1.6 % (0-4.5); MCH 31.5 pg (25.7-33.7); MCHC 33.8 g/dl (32.0-35.9); MEAN CELL VOLUME 93.3 fl (80-96); MEAN PLT VOLUME 6.8 fl (7.5-11.1); NEUTROPHILS 69.1 % (42.8-82.8); PLATELET COUNT 537 K/MM3 (134-434); WHITE BLOOD COUNT 7.8 K/mm3 (4.0-10.0)
[2017-07-01 07:47] LABS: ALBUMIN 2.8 g/dl (3.4-5.0); ANION GAP 11 (8-16); BILIRUBIN,TOTAL 0.5 mg/dL (0.2-1.0); CALCIUM 8.6 mg/dL (8.5-10.1); CO2 27 mmol/L (21-32); CREATININE 0.6 mg/dL (0.7-1.3); GLUCOSE,RANDOM 87 mg/dL (74-106); MAGNESIUM 1.8 mg/dL (1.8-2.4); PHOSPHOROUS 3.5 mg/dL (2.5-4.9); SGOT/AST 17 U/L (15-37); SGPT/ALT 23 U/L (12-78)
[2017-07-01 07:48] LABS: ALK PHOS 104 U/L (45-117); TOT PROT 6.8 g/dl (6.4-8.2)
[2017-07-01] MEDS: busPIRone HCL 5 MG TABLET PO SCH (09:23)
[2017-07-01] MEDS ORDERED: NICOTINE 7 MG/24 HOURS TOPICAL PATCH TD SCH (10:00)
[2017-07-01] MEDS: PANTOPRAZOLE 20 MG TABLET (FP) PO SCH ×2 (11:50→21:06)
[2017-07-01] MEDS: NICOTINE 7 MG/24 HOURS TOPICAL PATCH TD SCH (11:50)
[2017-07-01] MEDS: oxyCODONE HCL 10 MG SUSTAINED ACTING TABLET PO SCH ×2 (11:50→21:06)
[2017-07-01] MEDS: BACITRACIN 15 GM TUBE TOPICAL OINTMENT TP SCH (11:52)
[2017-07-01] MEDS: HEPARIN NA (PORCINE) 5,000 UNITS/ML 1ML VIAL IVPUSH PRN ×3 (12:07→20:39)
--- NOTE | 2017-07-01 16:44 | CONSULT ---
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 Cardio/Vascular: Yes: Hyperlipdemia Pulmonary: Yes: Other (Heavy Smoker) - Alcohol/Substance Use Hx Alcohol Use: No - Smoking History Smoking history: Former smoker Have you smoked in the past 12 months: Yes Aproximately how many cigarettes per day: 20 If you are a former smoker, when did you quit?: 7 weeks - Social History History of Recent Travel: No Home Medications - Allergies Allergies/Adverse Reactions: Allergies Allergy/AdvReac Type Severity Reaction Status Date / Time No Known Drug Allergies Allergy Verified 06/30/17 16:47 - Home Medications Home Medications: Ambulatory Orders Bacitracin - [Bacitracin Topical Ointment -] 1 applic TP DAILY #1 tube 06/24/17 Buspirone HCl [Buspar -] 5 mg PO DAILY #30 tablet 06/24/17 Docusate Sodium [Colace -] 100 mg PO TID PRN #90 cap 06/24/17 Nicotine Patch [Nicoderm Patch -] 7 mg TD DAILY #30 patch 06/24/17 Pantoprazole Sodium [Protonix -] 20 mg PO BID #60 tab 06/24/17 Rosuvastatin [Crestor -] 10 mg PO HS #30 tablet 06/24/17 Morphine *Sr* [Ms Contin -] 30 mg PO Q8H #40 tablet.er MDD 3 06/27/17 Rivaroxaban [Xarelto -] 20 mg PO DAILY 06/30/17 Physical Exam Vital Signs: Vital Signs Temperature 97.9 F 07/01/17 14:42 Pulse Rate 98 H 07/01/17 14:42 Respiratory Rate 20 07/01/17 14:42 Blood Pressure 101/61 07/01/17 14:42 O2 Sat by Pulse Oximetry (%) 95 07/01/17 09:00 Labs: CBC, BMP 07/01/17 06:00 07/01/17 06:00 Assessment/Plan VAscular Surgery 56 yo M with hx of CVA, HLD, s/p TMA to L foot sent in by myself for admission prior to BKA surgery this coming Friday. Patient reports that he has had uncontrolled pain to the stump of his left foot s/p surgery and discussed with Dr. Hobbs option for BKA to control pain. Patient denies any fever, chills, vomiting, diarrhea or any other infectious symptoms at this time and only complains of pain. No recent travel or sick contacts. PAST MEDICAL HISTORY: Denies past medical history FAMILY HISTORY: Denies SOCIAL HISTORY: Denies tobacco, alcohol, illicit drug use. SURGICAL HISTORY: Denies ALLERGIES: No known drug allergies PE Head - NC/At Lung - CTA Heart - RRR abd - soft,nt,nd ext -- Left foot gangrene A/P Left foot gangrene -- tma site 1. For left bka duane Fernnádez DO
[2017-07-01] MEDS ORDERED: HEPARIN - 25,000 UNIT in SODIUM CHLORIDE 495 ML IV SCH (17:07)
--- NOTE | 2017-07-01 18:11 | PN ---
Physical Exam: SUBJECTIVE: Patient seen and examined OBJECTIVE: Vital Signs Period Temp Pulse Resp BP Sys/Castillo Pulse Ox Last 24 Hr 97.7 F-97.9 F 98-115 20-20 101-119/61-73 95 GENERAL: The patient is awake, alert, and fully oriented, in no acute distress. HEAD: Normal with no signs of trauma. EYES: PERRL, extraocular movements intact, sclera anicteric, conjunctiva clear. No ptosis. ENT: Ears normal, nares patent, oropharynx clear without exudates, moist mucous membranes. NECK: Trachea midline, full range of motion, supple. LUNGS: Breath sounds equal, clear to auscultation bilaterally, no wheezes, no crackles, no accessory muscle use. HEART: Regular rate and rhythm, S1, S2 without murmur, rub or gallop. ABDOMEN: Soft, nontender, nondistended, normoactive bowel sounds, no guarding, no rebound, no hepatosplenomegaly, no masses. EXTREMITIES: 2+ pulses, warm, well-perfused, no edema. NEUROLOGICAL: Cranial nerves II through XII grossly intact. Normal speech, gait not observed. PSYCH: Normal mood, normal affect. SKIN: Warm, dry, normal turgor, no rashes or lesions noted Laboratory Results - last 24 hr 07/01/17 07/01/17 07/01/17 06:00 06:00 06:00 WBC 7.8 RBC 3.44 L Hgb 10.8 L Hct 32.1 L MCV 93.3 MCH 31.5 MCHC 33.8 RDW 16.0 H Plt Count 537 H MPV 6.8 L Neutrophils % 69.1 Lymphocytes % 20.6 D Monocytes % 7.8 Eosinophils % 1.6 Basophils % 0.9 PTT (Actin FS) 31.9 Sodium 134 L Potassium 3.8 Chloride 96 L Carbon Dioxide 27 Anion Gap 11 BUN 9 Creatinine 0.6 L D Creat Clearance w eGFR > 60 Random Glucose 87 Calcium 8.6 Phosphorus 3.5 Magnesium 1.8 Total Bilirubin 0.5 AST 17 ALT 23 Alkaline Phosphatase 104 Total Protein 6.8 Albumin 2.8 L Active Medications Generic Name Dose Route Start Last Admin Trade Name Freq PRN Reason Stop Dose Admin Acetaminophen 650 mg 07/01/17 05:43 07/01/17 06:04 Tylenol - PO 650 mg Q6H PRN Administration PAIN LEVEL 6-10 Bacitracin 1 applic 07/01/17 10:00 07/01/17 11:52 Bacitracin - TP Not Given DAILY KHALIF Buspirone HCl 5 mg 07/01/17 10:00 07/01/17 09:23 Buspar - PO 5 mg DAILY KHALIF Administration Docusate Sodium 100 mg 07/01/17 05:39 Colace - PO TID PRN CONSTIPATION Heparin Sodium (Porcine) 1,000 unit 06/30/17 22:27 Heparin - IVPUSH PRN PRN Heparin Heparin Sodium (Porcine) 5,000 unit 06/30/17 22:27 07/01/17 12:07 Heparin - IVPUSH 5,000 unit PRN PRN Administration Heparin Heparin Sodium (Porcine) 25, 500 mls @ 20 mls/hr 07/01/17 17:07 07/01/17 17:19 000 unit/ Sodium Chloride IV 20 mls/hr TITR KHALIF Administration Protocol 1,000 UNIT/HR Morphine Sulfate 2 mg 06/30/17 23:02 07/01/17 16:03 Morphine Injection - IVPUSH 2 mg Q4H PRN Administration PAIN LEVEL 6-10 Nicotine 7 mg 07/01/17 10:00 07/01/17 11:50 Nicoderm Patch - TD 7 mg DAILY KHALIF Administration Oxycodone HCl 10 mg 07/01/17 05:43 07/01/17 06:04 Roxicodone - PO 10 mg Q6H PRN Administration PAIN LEVEL 6-10 Oxycodone HCl 30 mg 07/01/17 11:30 07/01/17 11:50 Oxycontin - PO 30 mg BID KHALIF Administration Pantoprazole Sodium 20 mg 07/01/17 10:00 07/01/17 11:50 Protonix - PO 20 mg BID KHALIF Administration Rosuvastatin Calcium 10 mg 07/01/17 22:00 Crestor - PO HS [facility] ASSESSMENT/PLAN:
--- NOTE | 2017-07-01 19:09 | PN ---
Physical Exam: SUBJECTIVE: Patient seen and examined by me at bedside. Patient is slightly anxious today and complains of uncontrolled pain on the stump of his left foot. Patient is aware of his BKA tomorrow. Otherwise, patient denies fever, chills, nausea, vomiting, abdominal pain, chest pain, headaches, acute vision changes. OBJECTIVE: Vital Signs Period Temp Pulse Resp BP Sys/Castillo Pulse Ox Last 24 Hr 97.7 F-97.9 F 98-115 20-20 101-119/61-73 95 GENERAL: The patient is awake, alert, and fully oriented, in no acute distress. HEAD: Normal with no signs of trauma. EYES: Sclera anicteric, conjunctiva clear. ENT: Oropharynx clear without exudates, moist mucous membranes. LUNGS: Breath sounds equal, clear to auscultation bilaterally, no wheezes, no crackles, no accessory muscle use. HEART: Regular rate and rhythm, normal S1 and S2 without murmur, rub or gallop. ABDOMEN: Soft, nontender, nondistended, normoactive bowel sounds, no guarding, no rebound. EXTREMITIES: 2+ Pitting edema in bilateral LE. DP not palpated in LLE with gangrenous TMA stump and blood stained dressing. NEUROLOGICAL: Cranial nerves II through XII grossly intact. Normal speech. Motor strength 5/5 bilaterally. Sensory intact. Laboratory Results - last 24 hr 07/01/17 07/01/17 07/01/17 06:00 06:00 06:00 WBC 7.8 RBC 3.44 L Hgb 10.8 L Hct 32.1 L MCV 93.3 MCH 31.5 MCHC 33.8 RDW 16.0 H Plt Count 537 H MPV 6.8 L Neutrophils % 69.1 Lymphocytes % 20.6 D Monocytes % 7.8 Eosinophils % 1.6 Basophils % 0.9 PTT (Actin FS) 31.9 Sodium 134 L Potassium 3.8 Chloride 96 L Carbon Dioxide 27 Anion Gap 11 BUN 9 Creatinine 0.6 L D Creat Clearance w eGFR > 60 Random Glucose 87 Calcium 8.6 Phosphorus 3.5 Magnesium 1.8 Total Bilirubin 0.5 AST 17 ALT 23 Alkaline Phosphatase 104 Total Protein 6.8 Albumin 2.8 L Active Medications Generic Name Dose Route Start Last Admin Trade Name Freq PRN Reason Stop Dose Admin Acetaminophen 650 mg 07/01/17 05:43 07/01/17 06:04 Tylenol - PO 650 mg Q6H PRN Administration PAIN LEVEL 6-10 Bacitracin 1 applic 07/01/17 10:00 07/01/17 11:52 Bacitracin - TP Not Given DAILY [facility] Buspirone HCl 5 mg 07/01/17 10:00 07/01/17 09:23 Buspar - PO 5 mg DAILY KHALIF Administration Docusate Sodium 100 mg 07/01/17 05:39 Colace - PO TID PRN CONSTIPATION Heparin Sodium (Porcine) 1,000 unit 06/30/17 22:27 Heparin - IVPUSH PRN PRN Heparin Heparin Sodium (Porcine) 5,000 unit 06/30/17 22:27 07/01/17 12:07 Heparin - IVPUSH 5,000 unit PRN PRN Administration Heparin Heparin Sodium (Porcine) 25, 500 mls @ 20 mls/hr 07/01/17 17:07 07/01/17 17:19 000 unit/ Sodium Chloride IV 20 mls/hr TITR KHALIF Administration Protocol 1,000 UNIT/HR Morphine Sulfate 2 mg 06/30/17 23:02 07/01/17 16:03 Morphine Injection - IVPUSH 2 mg Q4H PRN Administration PAIN LEVEL 6-10 Nicotine 7 mg 07/01/17 10:00 07/01/17 11:50 Nicoderm Patch - TD 7 mg DAILY [facility] Administration Oxycodone HCl 10 mg 07/01/17 05:43 07/01/17 06:04 Roxicodone - PO 10 mg Q6H PRN Administration PAIN LEVEL 6-10 Oxycodone HCl 30 mg 07/01/17 11:30 07/01/17 11:50 Oxycontin - PO 30 mg BID KHALIF Administration Pantoprazole Sodium 20 mg 07/01/17 10:00 07/01/17 11:50 Protonix - PO 20 mg BID [facility] Administration Rosuvastatin Calcium 10 mg 07/01/17 22:00 Crestor - PO HS [facility] IMAGES Chest X-ray (06/30/17): Unremarkable contour of the cardiomediastinal silhouette. The lungs are well aerated. No evidence of a pulmonary consolidations, atelectasis, CHF. No pleural effusion or pneumothorax is seen. Intact visualized osseous structures. No evidence of bulky hilar adenopathy. Bilateral apical pleural thickening. Chest CTA/Thorax (07/01/17): 1. No evidence of pulmonary artery embolus through the segmental branches. 2. Moderate upper lobe predominant centrilobular emphysematous changes with bilateral bullae. 3. No focal opacity to suggest pneumonia. No pleural effusion. 4. Mildly prominent, nonspecific right hilar lymph nodes, measuring less than 1 cm in short axis. 5. Approximately 50% stenosis in the proximal left subclavian artery, located proximal to the origin of the left vertebral artery. ASSESSMENT/PLAN: Patient is a 56 year old male with a PMHx of HLD, CVA, TMA of left foot on previous discharge (06/23) who presented for a scheduled left below the knee amputation by Vascular Surgeon. Patient admitted to med/surg for further monitoring and management. Arterial Insufficiency S/P TMA and Revascularization -Secondary to severe Peripheral Arterial Disease -Scheduled for BKA tomorrow -Continue Heparin drip with PTT goal of 60-90 -Continue Crestor 10mg daily -Continue Pain control with Morphine 2mg IVP Q4H, Oxycontin 30mg BID, Roxicodone 10mg Q6H PRN -NPO at midnight -Preop stratification: Patient is moderate risk for intermediate risk for non urgent surgery. Patient medically cleared for tomorrow's procedure Chronic Systolic CHF -Will discontinue IV Fluids due to pitting edema -Patient saturating >93% on RA -CTA negative for PE. Patient given IV dye for imaging so will also hold off on diuresis. Will avoid IV fluids for now. Will evaluate patient post operatively for fluids vs. diuresis. HLD -Continue Crestor 10mg daily F/E/N -IV Fluids Discontinued -Electrolytes wnl -NPO After midnight Prophylaxis -High risk. Heparin drip for DVT prophylaxis -Protonix 20mg PO BID Deconditioning -PT ordered to avoid Disposition -Full code -BKA tomorrow. Will remain inpatient overnight. Visit type - Emergency Visit Emergency Visit: Yes ED Registration Date: 06/30/17 Care time: The patient presented to the Emergency Department on the above date and was hospitalized for further evaluation of their emergent condition. - New Patient This patient is new to me today: Yes Date on this admission: 07/01/17 - Critical Care Critical Care patient: No
--- NOTE | 2017-07-01 19:21 | PN ---
Teaching Attending Note Name of Resident: Nicole Alberts ATTENDING PHYSICIAN STATEMENT I saw and evaluated the patient. I reviewed the resident's note and discussed the case with the resident. I agree with the resident's findings and plan as documented. SUBJECTIVE: no fever or chills . has pain in L foot and leg OBJECTIVE: NAD CV: RRR Lungs: CTAB Ext: L foot with dressing on, removed. TMA site with dusky skin, no discharge , no surrounding erythema non palpable DP or PT pulses. b/l LE edema ASSESSMENT AND PLAN: 56 y/o man with h/o smoking, CVA , and HTN , and aterial insufficiency in L LE s/p revascularization then TMA who presented for increase pain . 1- Arterial insufficiency in L LE : s/p revascularization and s/p TMA 06/12 . -pain control , add MS contin to regimen - dc IVF - for BKA tomorrow at 10 am - Pre-op risk stratification: this is an intermediate risk non urgent surgery. the patient has no arrhythmias and no ACS. he has a mildly reduced EF on echo from april . SAt O2 94-95 % on RA , and has LE edema. mild fluid overload. he has h/o stroke and PVD . he is at intermediate risk for rah-op cardiac complications for this type of procedure. Hold fluids. No further cardiac imaging before surgery is indicated 2- Chronic Systolic CHF : with LE edema, last echo reviewed. - dc IVF - D/W VAscular, no excessive fluids with Surgery - just received IV dye. will hold off diuresis now , but will need to be diuresed after surgery. avoid IVF after surgery unless there is a lot of blood loss 3- aterial thrombosis : cont heparin gtt goal ptt 60-90 switch to lovenox or NOACS ater surgery when appropriate 4- received CT scan for low nl Sat O2. NO pE on CT L subclavian artery stenosis ( 50 % ) 5- HLP: cont lipitor HLOC
[2017-07-01] MEDS ORDERED: ROSUVASTATIN CA 10 MG TABLET (FP) PO SCH (22:00)
[2017-07-02] MEDS: ACETAMINOPHEN 325 MG TABLET (FP) PO PRN ×2 (01:05→17:14)
[2017-07-02] MEDS: oxyCODONE HCL 5 MG TABLET PO PRN ×2 (01:07→17:15)
[2017-07-02] MEDS: morphine CARPU-JECT 2 MG/1 ML DISP.SYRIN IVPUSH PRN ×2 (03:32→08:00)
[2017-07-02] MEDS: HEPARIN NA (PORCINE) 5,000 UNITS/ML 1ML VIAL IVPUSH PRN ×2 (03:49)
[2017-07-02] MEDS ORDERED: ceFAZolin SODIUM 1 GM VIAL IVPB ONE (08:05)
[2017-07-02 08:15] LABS: MCH 31.6 pg (25.7-33.7); MCHC 33.6 g/dl (32.0-35.9); MEAN PLT VOLUME 7.2 fl (7.5-11.1); PLATELET COUNT 565 K/MM3 (134-434); RDW 15.5 % (11.9-15.9); WHITE BLOOD COUNT 8.5 K/mm3 (4.0-10.0)
--- NOTE | 2017-07-02 08:33 | PN ---
Teaching Attending Note Name of Resident: Diamante Powers ATTENDING PHYSICIAN STATEMENT I saw and evaluated the patient. I reviewed the resident's note and discussed the case with the resident. I agree with the resident's findings and plan as documented. SUBJECTIVE: Patient is comfortable, going to OR for BKA since continues to have pain of LE OBJECTIVE: Vital Signs Temperature 98.4 F 07/01/17 21:03 Pulse Rate 98 H 07/01/17 21:03 Respiratory Rate 22 07/01/17 21:03 Blood Pressure 127/72 07/01/17 21:03 O2 Sat by Pulse Oximetry (%) 97 07/01/17 21:45 CBCD WBC 8.5 K/mm3 (4.0-10.0) 07/02/17 07:00 RBC 3.48 M/mm3 (4.00-5.60) L 07/02/17 07:00 Hgb 11.0 GM/dL (11.7-16.9) L 07/02/17 07:00 Hct 32.7 % (35.4-49) L 07/02/17 07:00 MCV 94.0 fl (80-96) 07/02/17 07:00 MCHC 33.6 g/dl (32.0-35.9) 07/02/17 07:00 RDW 15.5 % (11.9-15.9) 07/02/17 07:00 Plt Count 565 K/MM3 (134-434) H 07/02/17 07:00 MPV 7.2 fl (7.5-11.1) L 07/02/17 07:00 CMP Sodium 134 mmol/L (136-145) L 07/01/17 06:00 Potassium 3.8 mmol/L (3.5-5.1) 07/01/17 06:00 Chloride 96 mmol/L (98-107) L 07/01/17 06:00 Carbon Dioxide 27 mmol/L (21-32) 07/01/17 06:00 Anion Gap 11 (8-16) 07/01/17 06:00 BUN 9 mg/dL (7-18) 07/01/17 06:00 Creatinine 0.6 mg/dL (0.7-1.3) L D 07/01/17 06:00 Creat Clearance w eGFR > 60 (>60) 07/01/17 06:00 Random Glucose 87 mg/dL (74-106) 07/01/17 06:00 Calcium 8.6 mg/dL (8.5-10.1) 07/01/17 06:00 Total Bilirubin 0.5 mg/dL (0.2-1.0) 07/01/17 06:00 AST 17 U/L (15-37) 07/01/17 06:00 ALT 23 U/L (12-78) 07/01/17 06:00 Alkaline Phosphatase 104 U/L (45-117) 07/01/17 06:00 Total Protein 6.8 g/dl (6.4-8.2) 07/01/17 06:00 Albumin 2.8 g/dl (3.4-5.0) L 07/01/17 06:00 Current Medications Generic Name Dose Route Start Last Admin Trade Name Freq PRN Reason Stop Dose Admin Acetaminophen 650 mg 07/01/17 05:43 07/02/17 01:05 Tylenol - PO 650 mg Q6H PRN Administration PAIN LEVEL 6-10 Bacitracin 1 applic 07/01/17 10:00 07/01/17 11:52 Bacitracin - TP Not Given DAILY KHALIF Buspirone HCl 5 mg 07/01/17 10:00 07/01/17 09:23 Buspar - PO 5 mg DAILY KHALIF Administration Docusate Sodium 100 mg 07/01/17 05:39 Colace - PO TID PRN CONSTIPATION Furosemide 20 mg 07/02/17 08:31 Lasix Injection - IVPUSH 07/02/17 08:32 ONCE ONE Morphine Sulfate 2 mg 06/30/17 23:02 07/02/17 08:00 Morphine Injection - IVPUSH 2 mg Q4H PRN Administration PAIN LEVEL 6-10 Nicotine 7 mg 07/01/17 10:00 07/01/17 11:50 Nicoderm Patch - TD 7 mg DAILY KHALIF Administration Oxycodone HCl 10 mg 07/01/17 05:43 07/02/17 01:07 Roxicodone - PO 10 mg Q6H PRN Administration PAIN LEVEL 6-10 Oxycodone HCl 30 mg 07/01/17 11:30 07/01/17 21:06 Oxycontin - PO 30 mg BID KHALIF Administration Pantoprazole Sodium 20 mg 07/01/17 10:00 11/07/17 21:06 Protonix - PO 20 mg BID KHALIF Administration Rosuvastatin Calcium 10 mg 07/01/17 22:00 07/01/17 21:06 Crestor - PO 10 mg HS KHALIF Administration Home Medications Medication Instructions Recorded Bacitracin - [Bacitracin Topical 1 applic TP DAILY #1 tube 06/24/17 Ointment -] Buspirone HCl [Buspar -] 5 mg PO DAILY #30 tablet 06/24/17 Docusate Sodium [Colace -] 100 mg PO TID PRN #90 cap 06/24/17 Nicotine Patch [Nicoderm Patch -] 7 mg TD DAILY #30 patch 06/24/17 Pantoprazole Sodium [Protonix -] 20 mg PO BID #60 tab 06/24/17 Rosuvastatin [Crestor -] 10 mg PO HS #30 tablet 06/24/17 Morphine *Sr* [Ms Contin -] 30 mg PO Q8H #40 tablet.er MDD 3 06/27/17 Rivaroxaban [Xarelto -] 20 mg PO DAILY 06/30/17 PE: per resident's note ASSESSMENT AND PLAN: 56 y/o man with h/o smoking, CVA , and HTN , and aterial insufficiency in L LE s/p revascularization then TMA who presented for increase pain . #Arterial insufficiency in L LE : s/p revascularization and s/p TMA 06/12 . going to OR this morning for BKA , continue pain management for now, IVF was discontinued due to edema of lower extremities and given a dose of Lasix 20IV x1 dose today. Pre-op risk stratification: this is an intermediate risk non urgent surgery. the patient has no arrhythmias and no ACS. he has a mildly reduced EF on echo from april . SAt O2 94-95 % on RA , and has LE edema. mild fluid overload. he has h/o stroke and PVD . he is at intermediate risk for rah-op cardiac complications for this type of procedure. Hold fluids. No further cardiac imaging before surgery is indicated #Chronic Systolic CHF : with LE edema, last echo reviewed. IVF discontinued and given one dose of IV lasix 20mg x once prior to OR. - D/W Vascular, no excessive fluids with Surgery ,will need to be diurrsed after surgery. avoid IVF after surgery unless there is a lot of blood loss # aterial thrombosis :cont heparin gtt , goal ptt 60-90 , switch to lovenox or NOACS after surgery if appropriate #PE was r/o since patient was found to have low sat. in ED. NO pE on CT ; left subclavian artery stenosis ( 50 % ) # HLP: cont lipitor DVT Px: On heparin drip
[2017-07-02] MEDS: oxyCODONE HCL 10 MG SUSTAINED ACTING TABLET PO SCH (09:31)
[2017-07-02] MEDS: BACITRACIN 15 GM TUBE TOPICAL OINTMENT TP SCH (09:32)
[2017-07-02] MEDS: PANTOPRAZOLE 20 MG TABLET (FP) PO SCH ×2 (09:32→21:09)
[2017-07-02] MEDS: NICOTINE 7 MG/24 HOURS TOPICAL PATCH TD SCH (09:32)
[2017-07-02] MEDS ORDERED: PT OWN MED DRAWER 7, Y5N ONE (09:33)
[2017-07-02] MEDS: busPIRone HCL 5 MG TABLET PO SCH (09:34)
[2017-07-02] MEDS: FUROSEMIDE 40 MG/4 ML INJECTABLE VIAL IVPUSH ONE ×2 (09:34→09:40)
[2017-07-02] MEDS ORDERED: MIDAZOLAM HCL 2 MG/2 ML SINGLE DOSE VIAL ONE ×2 (10:04→12:51)
[2017-07-02] MEDS ORDERED: PROPOFOL 20 ML ONE ×2 (10:04→11:13)
[2017-07-02] MEDS ORDERED: ROCURONIUM BROMIDE 50 MG/5 ML VIAL ONE (11:12)
[2017-07-02] MEDS ORDERED: ceFAZolin SODIUM 1 GM VIAL ONE (11:17)
--- NOTE | 2017-07-02 12:48 | OP ---
Operative Note - Note: Operative Date: 07/02/17 Pre-Operative Diagnosis: left foot gangrene Operation: left below knee amputation Post-Operative Diagnosis: Same as Pre-op Surgeon: Doug Fernández Telemetry Registered Nurse: Nataly Joseph Anesthesia: General Specimens Removed: left leg Estimated Blood Loss (mls): 100 Operative Report Dictated: Yes
[2017-07-02] MEDS ORDERED: morphine SULFATE 4 MG/ML VIAL IVPUSH PRN (12:50)
[2017-07-02] MEDS ORDERED: HEPARIN NA (PORCINE) 5,000 UNITS/ML 1ML VIAL IVPUSH PRN ×3 (12:56→16:56)
[2017-07-02] MEDS ORDERED: HYDROmorphone HCL CARPU-JECT 2 MG/1 ML DISP.SYRIN ONE ×2 (13:09→13:51)
[2017-07-02] MEDS: HYDROmorphone HCL CARPU-JECT 1 MG/1 ML DISP.SYRIN IVPUSH PRN ×2 (13:11→13:21)
[2017-07-02] MEDS ORDERED: DOCUSATE SODIUM 100 MG CAPSULE (FP) PO PRN (13:16)
[2017-07-02] MEDS ORDERED: HEPARIN - 25,000 UNIT in SODIUM CHLORIDE 495 ML IV SCH (16:00)
[2017-07-02] MEDS ORDERED: morphine CARPU-JECT 2 MG/1 ML DISP.SYRIN IVPUSH PRN (16:49)
[2017-07-02] MEDS ORDERED: oxyCODONE HCL 40 MG SUSTAINED ACTING TABLET PO SCH (17:00)
[2017-07-02] MEDS ORDERED: FUROSEMIDE 40 MG/4 ML INJECTABLE VIAL IVPUSH ONE (17:02)
[2017-07-02] MEDS: RIVAROXABAN 20 MG TABLET PO SCH (17:14)
--- NOTE | 2017-07-02 17:24 | PN ---
Physical Exam: SUBJECTIVE: Patient seen and examined. Pt denies fever, chills, chest pain, abdominal pain. Pt is anxious for surgery today. No events overnight. OBJECTIVE: Vital Signs Period Temp Pulse Resp BP Sys/Castillo Pulse Ox Last 24 Hr 97.2 F-98.5 F 94-113 16-22 94-127/60-97 96-99 GENERAL: The patient is awake, alert, and fully oriented, anxious. LUNGS: Breath sounds equal, clear to auscultation bilaterally, no wheezes, no crackles, no accessory muscle use. HEART: Regular rate and rhythm, S1, S2 without murmur, rub or gallop. EXTREMITIES: 2+ pitting edema to magalie LE. Slight erythema and warmth to Left LE up to the knee. SKIN: Warm, dry, normal turgor, no rashes or lesions noted Laboratory Results - last 24 hr 06/30/17 07/01/17 07/02/17 19:40 18:40 02:45 WBC RBC Hgb Hct MCV MCH MCHC RDW Plt Count MPV PTT (Actin FS) 29.3 32.8 Blood Type AB POSITIVE Antibody Screen Negative Crossmatch See Detail 07/02/17 07/02/17 07/02/17 07:00 07:00 10:07 WBC 8.5 RBC 3.48 L Hgb 11.0 L Hct 32.7 L MCV 94.0 MCH 31.6 MCHC 33.6 RDW 15.5 Plt Count 565 H MPV 7.2 L PTT (Actin FS) 124.7 H D 31.1 D Blood Type Antibody Screen Crossmatch Active Medications Generic Name Dose Route Start Last Admin Trade Name Freq PRN Reason Stop Dose Admin Acetaminophen 650 mg 07/02/17 13:16 Tylenol - PO Q6H PRN PAIN LEVEL 6-10 Buspirone HCl 5 mg 07/03/17 10:00 Buspar - PO DAILY KHALIF Docusate Sodium 100 mg 07/02/17 13:16 Colace - PO TID PRN CONSTIPATION Morphine Sulfate 2 mg 07/02/17 16:49 Morphine Injection - IVPUSH Q4H PRN PAIN Morphine Sulfate 30 mg 07/02/17 17:00 Ms Contin - PO Q12H KHALIF Nicotine 7 mg 07/03/17 10:00 Nicoderm Patch - TD DAILY KHALIF Oxycodone HCl 10 mg 07/02/17 16:49 Roxicodone - PO Q6H PRN PAIN Pantoprazole Sodium 20 mg 07/02/17 22:00 Protonix - PO BID KHALIF Rivaroxaban 20 mg 07/02/17 17:00 Xarelto - PO DAILY KHALIF Rosuvastatin Calcium 10 mg 07/02/17 22:00 Crestor - PO HS KHALIF IMAGIN07/01/17 CTA -> IMPRESSION: 1. No evidence of pulmonary artery embolus through the segmental branches. 2. Moderate upper lobe predominant centrilobular emphysematous changes with bilateral bullae. 3. No focal opacity to suggest pneumonia. No pleural effusion. 4. Mildly prominent, nonspecific right hilar lymph nodes, measuring less than 1 cm in short axis. 5. Approximately 50% stenosis in the proximal left subclavian artery, located proximal to the origin of the left vertebral artery. ASSESSMENT/PLAN: 56yo M with PMH of smoking, CVA, PAD, hld, s/p TMA on 06/12/17, presents for BKA 2/2 worsening/uncontrolled Left foot pain. 1) Left LE arterial insufficiency s/p TMA 06/12/17 - s/p Left BKA today - pain control with MS Contin 30mg q12hr, Oxycodone 10mg q6hr prn, Morphine 2mg q4hr prn, and Tylenol 650mg q6hr prn - Lasix 20mg IVpush given this morning and Lasix 40mg IVpush once given this evening 2/2 2+ pitting edema to magalie LE - home med of Xarelto 20mg daily resumed for anticoagulation 2) hld - continue home med of Crestor 10mg at HS 3) FEN - Fluids: po - Electrolytes: continue to monitor - Nutrition: regular diet 4) DVT prophylaxis - Xarelto Visit type - Emergency Visit Emergency Visit: Yes ED Registration Date: 06/30/17 Care time: The patient presented to the Emergency Department on the above date and was hospitalized for further evaluation of their emergent condition. - New Patient This patient is new to me today: No - Critical Care Critical Care patient: No
[2017-07-02] MEDS: ROSUVASTATIN CA 10 MG TABLET (FP) PO SCH (21:09)
[2017-07-03] MEDS: morphine SO4 SUSTAINED ACTING 30 MG TABLET.SA PO SCH ×3 (00:32→22:12)
[2017-07-03] MEDS: oxyCODONE HCL 5 MG TABLET PO PRN ×4 (01:32→23:55)
[2017-07-03] MEDS: ACETAMINOPHEN 325 MG TABLET (FP) PO PRN ×4 (01:33→23:55)
[2017-07-03 07:36] LABS: ANION GAP 8 (8-16); CALCIUM 8.5 mg/dL (8.5-10.1); CO2 30 mmol/L (21-32); CREATININE 0.6 mg/dL (0.7-1.3); GLUCOSE,RANDOM 98 mg/dL (74-106)
[2017-07-03] MEDS ORDERED: PT OWN MED DRAWER 7, Y5N ONE ×2 (08:44→09:55)
--- NOTE | 2017-07-03 09:03 | PN ---
Physical Exam: SUBJECTIVE: Patient seen and examined by me at bedside. Overnight events noted for hypotension as low as SBP 88 and DBP 55. Patient's Morphine was held overnight and I discontinued it as patient is having adequate pain control with Roxicodone and Oxycontin. Patient otherwise denies any fever, chills, nausea, vomiting, abdominal pain, chest pain. OBJECTIVE: Vital Signs Period Temp Pulse Resp BP Sys/Castillo Pulse Ox Last 24 Hr 97.2 F-98.9 F 90-113 16-22 88-127/55-97 96-99 GENERAL: The patient is awake, alert, and fully oriented, in no acute distress. EYES: Sclera anicteric, conjunctiva clear. ENT: Oropharynx clear without exudates, moist mucous membranes. LUNGS: Breath sounds equal, clear to auscultation bilaterally, no wheezes, no crackles, no accessory muscle use. HEART: Tachycardic with regular rhythm, normal S1 and S2 without murmur, rub or gallop. ABDOMEN: Soft, nontender, nondistended, normoactive bowel sounds, no guarding, no rebound. EXTREMITIES: Below knee amputation of left extremity with knee immobilizer, 2+ Pitting edema in right LE up to the thighs NEUROLOGICAL: Normal speech. Motor strength 5/5 in right LE and Left LE above the knee. Sensory intact. Laboratory Results - last 24 hr 06/30/17 07/02/17 07/03/17 19:40 10:07 06:00 PTT (Actin FS) 31.1 D Sodium 137 Potassium 4.0 Chloride 99 Carbon Dioxide 30 Anion Gap 8 BUN 8 Creatinine 0.6 L Random Glucose 98 Calcium 8.5 Blood Type AB POSITIVE Antibody Screen Negative Crossmatch See Detail Active Medications Generic Name Dose Route Start Last Admin Trade Name Freq PRN Reason Stop Dose Admin Acetaminophen 650 mg 07/02/17 13:16 07/03/17 08:47 Tylenol - PO 650 mg Q6H PRN Administration PAIN LEVEL 6-10 Buspirone HCl 5 mg 07/03/17 10:00 Buspar - PO DAILY KHALIF Docusate Sodium 100 mg 07/02/17 13:16 Colace - PO TID PRN CONSTIPATION Morphine Sulfate 2 mg 07/02/17 16:49 07/02/17 18:53 Morphine Injection - IVPUSH 2 mg Q4H PRN Administration PAIN Morphine Sulfate 30 mg 07/02/17 22:00 07/03/17 00:32 Ms Contin - PO 30 mg BID KHALIF Administration Nicotine 7 mg 07/03/17 10:00 Nicoderm Patch - TD DAILY KHALIF Oxycodone HCl 10 mg 07/02/17 16:49 07/03/17 08:47 Roxicodone - PO 10 mg Q6H PRN Administration PAIN Pantoprazole Sodium 20 mg 07/02/17 22:00 07/02/17 21:09 Protonix - PO 20 mg BID KHALIF Administration Rivaroxaban 20 mg 07/02/17 17:00 07/02/17 17:14 Xarelto - PO 20 mg DAILY KHALIF Administration Rosuvastatin Calcium 10 mg 07/02/17 22:00 07/02/17 21:09 Crestor - PO 10 mg HS KHALIF Administration IMAGES Chest X-ray (06/30/17): Unremarkable contour of the cardiomediastinal silhouette. The lungs are well aerated. No evidence of a pulmonary consolidations, atelectasis, CHF. No pleural effusion or pneumothorax is seen. Intact visualized osseous structures. No evidence of bulky hilar adenopathy. Bilateral apical pleural thickening. Chest CTA/Thorax (07/01/17): 1. No evidence of pulmonary artery embolus through the segmental branches. 2. Moderate upper lobe predominant centrilobular emphysematous changes with bilateral bullae. 3. No focal opacity to suggest pneumonia. No pleural effusion. 4. Mildly prominent, nonspecific right hilar lymph nodes, measuring less than 1 cm in short axis. 5. Approximately 50% stenosis in the proximal left subclavian artery, located proximal to the origin of the left vertebral artery. ASSESSMENT/PLAN: Patient is a 56 year old male with a PMHx of HLD, CVA, TMA of left foot on previous discharge (06/23) who presented for a scheduled left below the knee amputation by Vascular Surgeon. Patient admitted to med/surg for further monitoring and management. Arterial Insufficiency S/P TMA and Revascularization-Chronic -Secondary to severe Peripheral Arterial Disease -POD #1 S/P Left BKA -Heparin drip discontinued and now on Xarelto 20mg daily -Continue Crestor 10mg daily -On Pain control with Morphine 2mg IVP Q4H, Oxycontin 30mg BID, Roxicodone 10mg Q6H PRN. Will hold due to hypotension -Continue knee immobilizer -Vascular Surgeon recommendations appreciated Hypotension- Acute and improving -Likely secondary to morphine -Morphine discontinued. -Continue to monitor BP Chronic Systolic CHF -Lasix 40mg IV given yesterday. Will begin Lasix 20mg po daily -Patient saturating >95% on RA -Monitor I&O's HLD -Continue Crestor 10mg daily F/E/N -On no fluids -Electrolytes wnl -Regular diet Prophylaxis -High risk. Xarelto 20mg for DVT -Protonix 20mg PO BID Deconditioning -PT ordered to avoid Disposition -Full code -Patient hypotensive overnight. Will likely require another hospital night for monitoring as well as PT Visit type - Emergency Visit Emergency Visit: Yes ED Registration Date: 06/30/17 Care time: The patient presented to the Emergency Department on the above date and was hospitalized for further evaluation of their emergent condition. - New Patient This patient is new to me today: Yes Date on this admission: 07/03/17 - Critical Care Critical Care patient: No - Discharge Referral Referred to [facility] Med P.C.: Yes Physician Referral: Doug Fernández DO ([facility])
[2017-07-03] MEDS: PANTOPRAZOLE 20 MG TABLET (FP) PO SCH ×2 (10:02→22:12)
[2017-07-03] MEDS: RIVAROXABAN 20 MG TABLET PO SCH (10:02)
--- NOTE | 2017-07-03 10:02 | OP ---
DATE OF OPERATION: 07/02/2017 PREOPERATIVE DIAGNOSIS: Left foot gangrene. POSTOPERATIVE DIAGNOSIS: Left foot gangrene. PROCEDURE: Left below-knee amputation. SURGEON: Doug Caban DO ANESTHESIA: General. BLOOD LOSS: 100 mL INDICATION FOR PROCEDURE: The patient is a 56-year-old male who comes in with a 4-week history of left lower extremity ischemia. He came in with thrombosis of his left lower extremity and was given tissue plasminogen activator for over 20 hours in the ICU, and in the operating room, we were able to restore his pulse to his foot. However, he developed gangrene of his forefoot, and Podiatry went ahead and did a TMA on him. However, the TMA flap is not healing and now needs a below-knee amputation. Patient understands all risks, benefits, and alternatives and signed consent for the procedure. DESCRIPTION OF PROCEDURE: Patient was then brought into the operating room, and general anesthesia was administered. We then went 4 fingerbreadths below the left tibial tuberosity and artur a step-down incision for our flap using a skin marker. We then prepped and draped the left lower extremity in a sterile surgical manner. Using a 15 blade, we cut along our incision. Bovie electrocautery was used to control hemostasis. We used Bovie electrocautery and got down to the anterior compartment, and in the anterior compartment, we were able to take down the muscles using Bovie electrocautery and get down to the anterior tibial artery. The anterior tibial artery and vein were dissected using Metzenbaum scissors and then clamped and suture ligated using 0 silk. We went to the lateral compartment next, and we were able to take down the muscular attachments using Bovie electrocautery and get down to the posterior tibial vein and artery. Those were dissected using Metzenbaum scissors, then clamped, and suture ligated using 0 silk suture ligature. We then, using Bovie electrocautery, dissected out the tibia and the fibula before we transected them. We then were able to go posteriorly and cut all the muscular attachments in the posterior compartment. Using Bovie electrocautery, we were able to take down the attachments to the gastrocnemius muscle as well. At this point, once we were freed and we had created a good flap, we used a bone saw and we transected the tibia and the fibula and the leg was sent down to Pathology. Bovie electrocautery was then used to control hemostasis. We were able to bevel the tibia using our bone saw. We had enough padding for our flap. The wound was then copiously irrigated. We then used 2-0 Vicryl, and the fascia was approximated in an interrupted manner. We then used 3-0 Vicryl and the subcutaneous tissue was closed in an interrupted manner to bring the 2 wound edges together and the skin was closed with skin mirtha. Area was wet and dried. Xeroform, 4 x 4's, ABD pads, Kerlix, and Coban were placed, and the leg was placed in a knee immobilizer. Patient tolerated the procedure with no complications. Total blood loss: 100 mL. Patient transferred to the PACU in stable condition. DOUG CABAN DO [id number]
[2017-07-03] MEDS: NICOTINE 7 MG/24 HOURS TOPICAL PATCH TD SCH (10:03)
[2017-07-03] MEDS: busPIRone HCL 5 MG TABLET PO SCH (12:50)
[2017-07-03] MEDS: FUROSEMIDE 20 MG TABLET (FP) PO SCH (12:50)
--- NOTE | 2017-07-03 13:12 | PN ---
Progress Note (short form) - Note Progress Note: ANESTHESIOLOGY POST-OP CHECK 56M s/p left BKA under general anesthesia. POD #1. No acute complaints. Pain 10/ 10 --> 6/10 and tolerable with pain meds. Denies N/V. No acute events overnight Vital Signs Temperature 98.2 F 07/03/17 12:48 Pulse Rate 95 H 07/03/17 12:48 Respiratory Rate 20 07/03/17 12:48 Blood Pressure 105/56 07/03/17 12:48 O2 Sat by Pulse Oximetry (%) 96 07/03/17 09:00 Active Medications Acetaminophen (Tylenol -) 650 mg PO Q6H PRN PRN Reason: PAIN LEVEL 6-10 Last Admin: 07/03/17 08:47 Dose: 650 mg Buspirone HCl (Buspar -) 5 mg PO DAILY [facility] Last Admin: 07/03/17 12:50 Dose: 5 mg Docusate Sodium (Colace -) 100 mg PO TID PRN PRN Reason: CONSTIPATION Furosemide (Lasix -) 20 mg PO DAILY [facility] Last Admin: 07/03/17 12:50 Dose: 20 mg Morphine Sulfate (Ms Contin -) 30 mg PO BID [facility] Last Admin: 07/03/17 10:02 Dose: 30 mg Nicotine (Nicoderm Patch -) 7 mg TD DAILY [facility] Last Admin: 07/03/17 10:03 Dose: 7 mg Oxycodone HCl (Roxicodone -) 10 mg PO Q6H PRN PRN Reason: PAIN Last Admin: 07/03/17 08:47 Dose: 10 mg Pantoprazole Sodium (Protonix -) 20 mg PO BID [facility] Last Admin: 07/03/17 10:02 Dose: 20 mg Rivaroxaban (Xarelto -) 20 mg PO DAILY [facility] Last Admin: 07/03/17 10:02 Dose: 20 mg Rosuvastatin Calcium (Crestor -) 10 mg PO HS [facility] Last Admin: 07/02/17 21:09 Dose: 10 mg Gen: Awake, alert, NAD No apparent anesthesia complications. Continue management as per primary team.
--- NOTE | 2017-07-03 15:27 | PN ---
Progress Note (short form) - Note Progress Note: Pt with complaints of pain in back of his leg from immobilizer. Vital Signs Period Temp Pulse Resp BP Sys/Castillo Pulse Ox Last 24 Hr 97.4 F-98.9 F 90-105 20-22 88-127/53-66 96-96 GEN: A&0x3 Left knee: dressing in place and dry/knee immobilizer. Placed abd pad behind knee and to surrounding the knee. A/P: s/p left BKA, POD#1 pain managment as tolerated cont knee immobilizer plan for dressing change tomorrow
--- NOTE | 2017-07-03 20:27 | PN ---
Teaching Attending Note Name of Resident: Diamante Powers ATTENDING PHYSICIAN STATEMENT I saw and evaluated the patient. I reviewed the resident's note and discussed the case with the resident. I agree with the resident's findings and plan as documented. SUBJECTIVE: Patient is s/p left BKA. c/o having LLE pain. OBJECTIVE: Vital Signs Temperature 98.0 F 07/03/17 18:30 Pulse Rate 94 H 07/03/17 18:30 Respiratory Rate 18 07/03/17 18:30 Blood Pressure 99/56 07/03/17 18:30 O2 Sat by Pulse Oximetry (%) 96 07/03/17 09:00 CBCD WBC 8.5 K/mm3 (4.0-10.0) 07/02/17 07:00 RBC 3.48 M/mm3 (4.00-5.60) L 07/02/17 07:00 Hgb 11.0 GM/dL (11.7-16.9) L 07/02/17 07:00 Hct 32.7 % (35.4-49) L 07/02/17 07:00 MCV 94.0 fl (80-96) 07/02/17 07:00 MCHC 33.6 g/dl (32.0-35.9) 07/02/17 07:00 RDW 15.5 % (11.9-15.9) 07/02/17 07:00 Plt Count 565 K/MM3 (134-434) H 07/02/17 07:00 MPV 7.2 fl (7.5-11.1) L 07/02/17 07:00 CMP Sodium 137 mmol/L (136-145) 07/03/17 06:00 Potassium 4.0 mmol/L (3.5-5.1) 07/03/17 06:00 Chloride 99 mmol/L (98-107) 07/03/17 06:00 Carbon Dioxide 30 mmol/L (21-32) 07/03/17 06:00 Anion Gap 8 (8-16) 07/03/17 06:00 BUN 8 mg/dL (7-18) 07/03/17 06:00 Creatinine 0.6 mg/dL (0.7-1.3) L 07/03/17 06:00 Creat Clearance w eGFR > 60 (>60) 07/01/17 06:00 Random Glucose 98 mg/dL (74-106) 07/03/17 06:00 Calcium 8.5 mg/dL (8.5-10.1) 07/03/17 06:00 Total Bilirubin 0.5 mg/dL (0.2-1.0) 07/01/17 06:00 AST 17 U/L (15-37) 07/01/17 06:00 ALT 23 U/L (12-78) 07/01/17 06:00 Alkaline Phosphatase 104 U/L (45-117) 07/01/17 06:00 Total Protein 6.8 g/dl (6.4-8.2) 07/01/17 06:00 Albumin 2.8 g/dl (3.4-5.0) L 07/01/17 06:00 Current Medications Generic Name Dose Route Start Last Admin Trade Name Freq PRN Reason Stop Dose Admin Acetaminophen 650 mg 07/02/17 13:16 07/03/17 14:47 Tylenol - PO 650 mg Q6H PRN Administration PAIN LEVEL 6-10 Buspirone HCl 5 mg 07/03/17 10:00 07/03/17 12:50 Buspar - PO 5 mg DAILY KHALIF Administration Docusate Sodium 100 mg 07/02/17 13:16 Colace - PO TID PRN CONSTIPATION Furosemide 20 mg 07/03/17 11:30 07/03/17 12:50 Lasix - PO 20 mg DAILY KHALIF Administration Morphine Sulfate 30 mg 07/02/17 22:00 07/03/17 10:02 Ms Contin - PO 30 mg BID KHALIF Administration Nicotine 7 mg 07/03/17 10:00 07/03/17 10:03 Nicoderm Patch - TD 7 mg DAILY KHALIF Administration Oxycodone HCl 10 mg 07/02/17 16:49 07/03/17 14:47 Roxicodone - PO 10 mg Q6H PRN Administration PAIN Pantoprazole Sodium 20 mg 07/02/17 22:00 07/03/17 10:02 Protonix - PO 20 mg BID KHALIF Administration Rivaroxaban 20 mg 07/02/17 17:00 07/03/17 10:02 Xarelto - PO 20 mg DAILY KHALIF Administration Rosuvastatin Calcium 10 mg 07/02/17 22:00 07/02/17 21:09 Crestor - PO 10 mg HS KHALIF Administration Home Medications Medication Instructions Recorded Bacitracin - [Bacitracin Topical 1 applic TP DAILY #1 tube 06/24/17 Ointment -] Buspirone HCl [Buspar -] 5 mg PO DAILY #30 tablet 06/24/17 Docusate Sodium [Colace -] 100 mg PO TID PRN #90 cap 06/24/17 Nicotine Patch [Nicoderm Patch -] 7 mg TD DAILY #30 patch 06/24/17 Pantoprazole Sodium [Protonix -] 20 mg PO BID #60 tab 06/24/17 Rosuvastatin [Crestor -] 10 mg PO HS #30 tablet 06/24/17 Morphine *Sr* [Ms Contin -] 30 mg PO Q8H #40 tablet.er MDD 3 06/27/17 Rivaroxaban [Xarelto -] 20 mg PO DAILY 06/30/17 ASSESSMENT AND PLAN: 56 y/o man with h/o smoking, CVA , and HTN , and aterial insufficiency in L LE s/p revascularization then TMA who presented for increase pain . #Arterial insufficiency of LLE s/p Left BKA by Vascular surgeon Dr.Nirav Fernández since patient continued to have LLE pain. s/p revascularization and s/p TMA . #Chronic Systolic CHF : Continue Lasix IV daily # Arterial thrombosis : s/p heparin gtt , continue with Xarelto #PE was r/o since patient was found to have low sat. in ED. NO pE on CT ; left subclavian artery stenosis ( 50 % ) # HLP: cont lipitor DVT Px: On Xarelto continue
[2017-07-03] MEDS: ROSUVASTATIN CA 10 MG TABLET (FP) PO SCH (22:12)
[2017-07-04 07:07] LABS: MCH 31.2 pg (25.7-33.7); MCHC 33.3 g/dl (32.0-35.9); MEAN CELL VOLUME 93.7 fl (80-96); MEAN PLT VOLUME 6.7 fl (7.5-11.1); PLATELET COUNT 490 K/MM3 (134-434); RDW 16.2 % (11.9-15.9); WHITE BLOOD COUNT 7.6 K/mm3 (4.0-10.0)
--- NOTE | 2017-07-04 08:08 | PN ---
Physical Exam: SUBJECTIVE: Patient seen and examined by me at bedside. Patient refuses knee immobilizer due to feeling constricted. Patient continues to have hypotension but due to fluid overload and patient requiring lasix, unable to give fluids. Will reassess to see if fluids should be given later on today. OBJECTIVE: Vital Signs Period Temp Pulse Resp BP Sys/Castillo Pulse Ox Last 24 Hr 98.0 F-98.7 F 90-103 18-20 95-110/53-71 95-96 GENERAL: The patient is awake, alert, and fully oriented, in no acute distress. EYES: Sclera anicteric, conjunctiva clear. ENT: Oropharynx clear without exudates, moist mucous membranes. LUNGS: Breath sounds equal, clear to auscultation bilaterally, no wheezes, no crackles, no accessory muscle use. HEART: Tachycardic with regular rhythm, normal S1 and S2 without murmur, rub or gallop. ABDOMEN: Soft, nontender, nondistended, normoactive bowel sounds, no guarding, no rebound. EXTREMITIES: Below knee amputation of left extremity with knee immobilizer, 2+ Pitting edema in right LE up to the thighs NEUROLOGICAL: Normal speech. Motor strength 5/5 in right LE and Left LE above the knee. Sensory intact. Laboratory Results - last 24 hr 06/30/17 07/04/17 19:40 06:00 WBC 7.6 RBC 3.11 L Hgb 9.7 L D Hct 29.1 L MCV 93.7 MCH 31.2 MCHC 33.3 RDW 16.2 H Plt Count 490 H MPV 6.7 L Blood Type AB POSITIVE Antibody Screen Negative Crossmatch See Detail Active Medications Generic Name Dose Route Start Last Admin Trade Name Freq PRN Reason Stop Dose Admin Acetaminophen 650 mg 07/02/17 13:16 07/03/17 23:55 Tylenol - PO 650 mg Q6H PRN Administration PAIN LEVEL 6-10 Buspirone HCl 5 mg 07/03/17 10:00 07/03/17 12:50 Buspar - PO 5 mg DAILY KHALIF Administration Docusate Sodium 100 mg 07/02/17 13:16 Colace - PO TID PRN CONSTIPATION Furosemide 20 mg 07/03/17 11:30 07/03/17 12:50 Lasix - PO 20 mg DAILY KHALIF Administration Morphine Sulfate 30 mg 07/02/17 22:00 07/03/17 22:12 Ms Contin - PO 30 mg BID KHALIF Administration Nicotine 7 mg 07/03/17 10:00 07/03/17 10:03 Nicoderm Patch - TD 7 mg DAILY KHALIF Administration Oxycodone HCl 10 mg 07/02/17 16:49 07/03/17 23:55 Roxicodone - PO 10 mg Q6H PRN Administration PAIN Pantoprazole Sodium 20 mg 07/02/17 22:00 07/03/17 22:12 Protonix - PO 20 mg BID KHALIF Administration Rivaroxaban 20 mg 07/02/17 17:00 07/03/17 10:02 Xarelto - PO 20 mg DAILY KHALIF Administration Rosuvastatin Calcium 10 mg 07/02/17 22:00 07/03/17 22:12 Crestor - PO 10 mg HS KHALIF Administration IMAGES Chest X-ray (06/30/17): Unremarkable contour of the cardiomediastinal silhouette. The lungs are well aerated. No evidence of a pulmonary consolidations, atelectasis, CHF. No pleural effusion or pneumothorax is seen. Intact visualized osseous structures. No evidence of bulky hilar adenopathy. Bilateral apical pleural thickening. Chest CTA/Thorax (07/01/17): 1. No evidence of pulmonary artery embolus through the segmental branches. 2. Moderate upper lobe predominant centrilobular emphysematous changes with bilateral bullae. 3. No focal opacity to suggest pneumonia. No pleural effusion. 4. Mildly prominent, nonspecific right hilar lymph nodes, measuring less than 1 cm in short axis. 5. Approximately 50% stenosis in the proximal left subclavian artery, located proximal to the origin of the left vertebral artery. ASSESSMENT/PLAN: Patient is a 56 year old male with a PMHx of HLD, CVA, TMA of left foot on previous discharge (06/23) who presented for a scheduled left below the knee amputation by Vascular Surgeon. Patient admitted to med/surg for further monitoring and management. Arterial Insufficiency S/P Left BKA-Chronic -Secondary to severe Peripheral Arterial Disease -POD #2 S/P Left BKA -Heparin drip discontinued and now on Xarelto 20mg daily -Continue Crestor 10mg daily -On Pain control with Oxycontin 30mg BID, Roxicodone 10mg Q6H PRN. -Continue knee immobilizer -Vascular Surgeon recommendations appreciated Hypotension- Acute and improving -Likely secondary to morphine -Morphine discontinued. -Continue to monitor BP -Unable to adminster fluids due to history of CHF and patient having fluid overload Chronic Systolic CHF -Continue Lasix 20mg po daily -Patient saturating >95% on RA -Monitor I&O's HLD -Continue Crestor 10mg daily F/E/N -On no fluids -Electrolytes wnl -Regular diet Prophylaxis -High risk. Xarelto 20mg for DVT -Protonix 20mg PO BID Deconditioning -PT ordered to avoid Disposition -Full code -Patient remains hypotensive overnight. Will likely require another hospital night for monitoring as well as PT
--- NOTE | 2017-07-04 08:55 | PN ---
Progress Note (short form) - Note Progress Note: POD #2 Alert. Sitting in bed with knee immobilizer off. RN informs me he hasn't been wearing it as it's uncomfortable. Patient noted to be slightly hypotensive 90/ 59 (since yesterday) without CP, tachycardia, SOB, dizziness, weak or diaphoresis. According to OP note, blood loss ~ 100mL. Last Vital Signs Temp Pulse Resp BP Pulse Ox 98.4 F 90 18 96/71 95 07/04/17 05:34 07/04/17 05:34 07/04/17 05:34 07/04/17 05:34 07/03/17 21:00 H/H TREND 07/02/17 07/04/17 07:00 06:00 Hgb 11.0 L 9.7 L D Hct 32.7 L 29.1 L General: alert. nad. LLE: dressing taken down and stump evaluated. Mirtha intact. Flap viable without signs of vascular congestion Problem List - Problems (1) Status post below knee amputation of left lower extremity Assessment/Plan: 1. Dressing changed on rounds 2. Educated patient as to importance of wearing his knee immobilizer as much as possible to prevent limb contracture. Will make learning to ambulate with prosthesis easier if still maintains ROM 3. Monitor BP 4. Pain management PRN, take vitals prior to administering narcotic pain management. If SBP < 100 or HR < 60, notify medical attending prior to admin of medication 5. Patient needs to go to SNF (unable to go home as he lives in a walk-up building) 6. Cleared for discharge to SNF (once accepted) from a surgical standpoint 7. F/u with Dr. Fernández in 2 weeks for post-op visit and removal of mirtha On behalf of Dr. Fernández, thank you for the opportunity to participate in your patient's care. Code(s): Z89.512 - ACQUIRED ABSENCE OF LEFT LEG BELOW KNEE
[2017-07-04] MEDS: PANTOPRAZOLE 20 MG TABLET (FP) PO SCH (09:04)
[2017-07-04] MEDS: FUROSEMIDE 20 MG TABLET (FP) PO SCH (09:04)
[2017-07-04] MEDS: RIVAROXABAN 20 MG TABLET PO SCH (09:04)
[2017-07-04] MEDS: oxyCODONE HCL 5 MG TABLET PO PRN ×2 (09:05→17:38)
[2017-07-04] MEDS: NICOTINE 7 MG/24 HOURS TOPICAL PATCH TD SCH (09:05)
[2017-07-04] MEDS: ACETAMINOPHEN 325 MG TABLET (FP) PO PRN ×2 (09:06→17:36)
[2017-07-04] MEDS: busPIRone HCL 5 MG TABLET PO SCH (09:14)
--- NOTE | 2017-07-04 10:52 | SURG ---
Surgery Supervisor [employer] Note Supervisor [employer]ary Production: Nataly Joseph PA-C Date of Service: 07/02/17 Diagnosis: Pre-Operative Diagnosis: left foot gangrene Procedure: left below knee amputation I was present for the entirety of the operative procedure. For further detail, please refer to operative report. Visit type - Case Type Case Type: ED Admission - Emergency Emergency Visit: Yes ED Registration Date: 06/30/17 Care time: The patient presented to the Emergency Department on the above date and was hospitalized for further evaluation of their emergent condition. - New patient This patient is new to me today: Yes Date on this admission: 07/02/17
[2017-07-04] MEDS: morphine SO4 SUSTAINED ACTING 30 MG TABLET.SA PO SCH (11:12)
--- NOTE | 2017-07-04 11:28 | EKG ---
Test Reason : Blood Pressure : / mmHG Vent. Rate : 110 BPM Atrial Rate : 110 BPM P-R Int : 136 ms QRS Dur : 110 ms QT Int : 366 ms P-R-T Axes : 114 002 021 degrees QTc Int : 495 ms POOR DATA QUALITY, INTERPRETATION MAY BE ADVERSELY AFFECTED SINUS TACHYCARDIA RIGHT BUNDLE BRANCH BLOCK ABNORMAL ECG WHEN COMPARED WITH ECG OF 21-MAY-2017 16:16, PREMATURE VENTRICULAR COMPLEXES ARE NO LONGER PRESENT Confirmed by CRISTAL GOLD MD ([id number]) on 07/04/2017 11:28:10 AM Referred By: Confirmed By:CRISTAL GOLD MD
--- NOTE | 2017-07-04 12:18 | PATH ---
Surgical Pathology Report Patient Name: KRISTIAN ECHOLS Med. Rec. #: [id number] /Age/Gender: 1960 (Age: 56) / M Account: [id number] Location: [facility] MED/SURG Taken: 07/02/2017 Received: 07/02/2017 Reported: 07/04/2017 Physicians: Doug Fernández Specimen(s) Received LEFT BELOW KNEE AMPUTATION Clinical History Arterial insufficiency Final Diagnosis LEFT LEG, BELOW KNEE AMPUTATION: BELOW KNEE AMPUTATION SPECIMEN STATUS POST TRANSMETATARSAL AMPUTATION ([id number]). ATHEROSCLEROSIS WITH ASSOCIATED THROMBOSIS AND RECANALIZATION IS PRESENT. GANGRENOUS NECROSIS OF SKIN AND SOFT TISSUE AT PRIOR AMPUTATION SITE PRESENT, WITH ASSOCIATED ACUTE OSTEOMYELITIS. SKIN FROM MARGIN APPEARS VIABLE. BONE MARROW FROM MARGIN IS FREE OF OSTEOMYELITIS. Electronically Signed Jose Echols M.D. Gross Description Received fresh labeled "left below knee amputation," is a 31 cm in length product of a left below the knee amputation specimen. All 5 digits have been previously amputated. The remaining proximal foot measures 18 cm in length. There is an 8.0 x 4.5 cm black, gangrenous lesion with black suture material at the previous amputation site. The lesion does not appear to grossly invade into the underlying bone. Sectioning of the vasculature reveals focal, segmental, moderate to severe atherosclerosis, particularly within the posterior tibial artery. Dealer Sales Manager sections are submitted in 7 cassettes as follows: 1-lesion from previous amputation site; 2-bone marrow from bone underlying lesion at previous amputation site, following decalcification; 3-skin and soft tissue margin; 4-bone marrow from margin, following decalcification; 5-anterior tibial artery; 6-posterior tibial artery; 7-dorsalis pedis. 07/03/2017 saudi07/03/2017
--- NOTE | 2017-07-04 13:24 | PN ---
Teaching Attending Note Name of Resident: Diamante Powers ATTENDING PHYSICIAN STATEMENT I saw and evaluated the patient. I reviewed the resident's note and discussed the case with the resident. I agree with the resident's findings and plan as documented. SUBJECTIVE: Patient continues to have pain. OBJECTIVE: Vital Signs Temperature 98.2 F 07/04/17 09:39 Pulse Rate 96 H 07/04/17 09:39 Respiratory Rate 18 07/04/17 09:39 Blood Pressure 110/59 07/04/17 09:39 O2 Sat by Pulse Oximetry (%) 95 07/03/17 21:00 CBCD WBC 7.6 K/mm3 (4.0-10.0) 07/04/17 06:00 RBC 3.11 M/mm3 (4.00-5.60) L 07/04/17 06:00 Hgb 9.7 GM/dL (11.7-16.9) L D 07/04/17 06:00 Hct 29.1 % (35.4-49) L 07/04/17 06:00 MCV 93.7 fl (80-96) 07/04/17 06:00 MCHC 33.3 g/dl (32.0-35.9) 07/04/17 06:00 RDW 16.2 % (11.9-15.9) H 07/04/17 06:00 Plt Count 490 K/MM3 (134-434) H 07/04/17 06:00 MPV 6.7 fl (7.5-11.1) L 07/04/17 06:00 CMP Sodium 137 mmol/L (136-145) 07/03/17 06:00 Potassium 4.0 mmol/L (3.5-5.1) 07/03/17 06:00 Chloride 99 mmol/L (98-107) 07/03/17 06:00 Carbon Dioxide 30 mmol/L (21-32) 07/03/17 06:00 Anion Gap 8 (8-16) 07/03/17 06:00 BUN 8 mg/dL (7-18) 07/03/17 06:00 Creatinine 0.6 mg/dL (0.7-1.3) L 07/03/17 06:00 Creat Clearance w eGFR > 60 (>60) 07/01/17 06:00 Random Glucose 98 mg/dL (74-106) 07/03/17 06:00 Calcium 8.5 mg/dL (8.5-10.1) 07/03/17 06:00 Total Bilirubin 0.5 mg/dL (0.2-1.0) 07/01/17 06:00 AST 17 U/L (15-37) 07/01/17 06:00 ALT 23 U/L (12-78) 07/01/17 06:00 Alkaline Phosphatase 104 U/L (45-117) 07/01/17 06:00 Total Protein 6.8 g/dl (6.4-8.2) 07/01/17 06:00 Albumin 2.8 g/dl (3.4-5.0) L 07/01/17 06:00 Current Medications Generic Name Dose Route Start Last Admin Trade Name Freq PRN Reason Stop Dose Admin Acetaminophen 650 mg 07/02/17 13:16 07/04/17 09:06 Tylenol - PO 650 mg Q6H PRN Administration PAIN LEVEL 6-10 Buspirone HCl 5 mg 07/03/17 10:00 07/04/17 09:14 Buspar - PO 5 mg DAILY KHALIF Administration Docusate Sodium 100 mg 07/02/17 13:16 Colace - PO TID PRN CONSTIPATION Furosemide 20 mg 07/03/17 11:30 07/04/17 09:04 Lasix - PO 20 mg DAILY KHALIF Administration Morphine Sulfate 30 mg 07/02/17 22:00 07/04/17 11:12 Ms Contin - PO 30 mg BID KHALIF Administration Nicotine 7 mg 07/03/17 10:00 07/04/17 09:05 Nicoderm Patch - TD 7 mg DAILY KHALIF Administration Oxycodone HCl 10 mg 07/02/17 16:49 07/04/17 09:05 Roxicodone - PO 10 mg Q6H PRN Administration PAIN Pantoprazole Sodium 20 mg 07/02/17 22:00 07/04/17 09:04 Protonix - PO 20 mg BID KHALIF Administration Rivaroxaban 20 mg 07/02/17 17:00 07/04/17 09:04 Xarelto - PO 20 mg DAILY KHALIF Administration Rosuvastatin Calcium 10 mg 07/02/17 22:00 07/03/17 22:12 Crestor - PO 10 mg HS KHALIF Administration Home Medications Medication Instructions Recorded Bacitracin - [Bacitracin Topical 1 applic TP DAILY #1 tube 06/24/17 Ointment -] Buspirone HCl [Buspar -] 5 mg PO DAILY #30 tablet 06/24/17 Docusate Sodium [Colace -] 100 mg PO TID PRN #90 cap 06/24/17 Nicotine Patch [Nicoderm Patch -] 7 mg TD DAILY #30 patch 06/24/17 Pantoprazole Sodium [Protonix -] 20 mg PO BID #60 tab 06/24/17 Rosuvastatin [Crestor -] 10 mg PO HS #30 tablet 06/24/17 Morphine *Sr* [Ms Contin -] 30 mg PO Q8H #40 tablet.er MDD 3 06/27/17 Rivaroxaban [Xarelto -] 20 mg PO DAILY 06/30/17 PE: LLE: positive for immobilizer ASSESSMENT AND PLAN: 56 y/o man with h/o smoking, CVA , and HTN , and aterial insufficiency in L LE s/p revascularization then TMA who presented for increase pain . #Arterial insufficiency in L LE s/p BKA POd #1 : s/p revascularization and s/p TMA 06/12 . continue pain management for now. #Chronic Systolic CHF : Continue Lasix IV daily # Arterial thrombosis : on Xarelto now , s/p heparin gtt. #PE was r/o since patient was found to have low sat. in ED. NO pE on CT ; left subclavian artery stenosis ( 50 % ) # HLP: cont lipitor DVT Px: Xarelto waiting for authrization for rehab.
[2017-07-04 17:05] VITALS: BP 91/60; PULSE 97; TEMP 98.5
--- NOTE | 2017-07-04 17:41 | DS ---
Physical Exam: SUBJECTIVE: Patient seen and examined by me at bedside. Patient was initially refusing knee immobilizer but after the risks of not using it was explained patient was compliant with it. Patient still continues of pain but is adequately controlled with pain control medication. Otherwise, patient denies fever, chills, nausea, vomiting, abdominal pain, chest pain, palpitation, shortness of breath, dizziness, headaches, acute vision changes. OBJECTIVE: Vital Signs Period Temp Pulse Resp BP Sys/Castillo Pulse Ox Last 24 Hr 97.9 F-98.7 F 90-98 18-20 91-111/55-71 93-95 PHYSICAL EXAM GENERAL: The patient is awake, alert, and fully oriented, in no acute distress. EYES: Sclera anicteric, conjunctiva clear. ENT: Oropharynx clear without exudates, moist mucous membranes. LUNGS: Breath sounds equal, clear to auscultation bilaterally, no wheezes, no crackles, no accessory muscle use. HEART: Tachycardic with regular rhythm, normal S1 and S2 without murmur, rub or gallop. ABDOMEN: Soft, nontender, nondistended, normoactive bowel sounds, no guarding, no rebound. EXTREMITIES: Below knee amputation of left extremity with knee immobilizer, 2+ Pitting edema in right LE up to the thighs NEUROLOGICAL: Normal speech. Motor strength 5/5 in right LE and Left LE above the knee. Sensory intact. LABS Laboratory Results - last 24 hr 06/30/17 07/04/17 19:40 06:00 WBC 7.6 RBC 3.11 L Hgb 9.7 L D Hct 29.1 L MCV 93.7 MCH 31.2 MCHC 33.3 RDW 16.2 H Plt Count 490 H MPV 6.7 L Crossmatch See Detail IMAGES Chest X-ray (06/30/17): Unremarkable contour of the cardiomediastinal silhouette. The lungs are well aerated. No evidence of a pulmonary consolidations, atelectasis, CHF. No pleural effusion or pneumothorax is seen. Intact visualized osseous structures. No evidence of bulky hilar adenopathy. Bilateral apical pleural thickening. Chest CTA/Thorax (07/01/17): 1. No evidence of pulmonary artery embolus through the segmental branches. 2. Moderate upper lobe predominant centrilobular emphysematous changes with bilateral bullae. 3. No focal opacity to suggest pneumonia. No pleural effusion. 4. Mildly prominent, nonspecific right hilar lymph nodes, measuring less than 1 cm in short axis. 5. Approximately 50% stenosis in the proximal left subclavian artery, located proximal to the origin of the left vertebral artery. HOSPITAL COURSE: Patient is a 56 year old male with a PMHx of HLD, Chronic systolic CHF, CVA, TMA of left foot on previous discharge (06/23) who presented for a scheduled left below the knee amputation by Vascular Surgeon. Patient had left BKA on 04/10 and tolerated surgery well with no post operative complications. Patient was found to have pitting edema of bilateral lower extremities and was diuresed with Lasix IV once and PO the following day. Patient responded appropriately with good urine output. Patient had a couple of episodes of hypotension and his morphine was discontinued. Once Morphine was discontinued his blood pressure improved. Patients dressing changed and patient was educated on the importance of wearing a knee immobilizer to prevent limb contracture by the surgery team. Patient was then cleared by surgery for discharge and was accepted to SNF at [facility]. Patient stable for discharge. Date of Admission:06/30/17 Date of Discharge: 07/04/17 Minutes to complete discharge: 35 Discharge Summary Reason For Visit: ARTERIAL INSUFFICIENCY Current Active Problems Arterial insufficiency (Acute) Critical lower limb ischemia (Acute) Status post below knee amputation of left lower extremity (Acute) Condition: Stable - Instructions Diet, Activity, Other Instructions: You received a Below Knee Amputation of your Left leg. Bacitracin dressing daily then apply kerlix; left knee immobilizer on 12 hours in daytime and off 12 hours at night per Dr Aguilar. Follow-up [facility] Dr[facility] for post-op wound check and removal of mirtha. Wear your knee immobilizer as much as possible. If you must take off the knee immobilizer, make sure you try and keep the leg straight as to prevent limb contracture. Please resume physical activity as tolerated. Please continue to take your medications as prescribed. Please take Xarelto once a day for anticoagulation. Please return to the hospital immediately if you experience persistent or increased pain in your Left leg, if the pain starts to spread up your leg, or for any medical emergency. Referrals: Doug Fernández MD [Staff Physician] - 2 Weeks (for staple removal) Disposition: LONG-TERM FACILITY - Home Medications Comprehensive Discharge Medication List: Ambulatory Orders Bacitracin - [Bacitracin Topical Ointment -] 1 applic TP DAILY #1 tube 06/24/17 Buspirone HCl [Buspar -] 5 mg PO DAILY #30 tablet 06/24/17 Docusate Sodium [Colace -] 100 mg PO TID PRN #90 cap 06/24/17 Nicotine Patch [Nicoderm Patch -] 7 mg TD DAILY #30 patch 06/24/17 Pantoprazole Sodium [Protonix -] 20 mg PO BID #60 tab 06/24/17 Rosuvastatin [Crestor -] 10 mg PO HS #30 tablet 06/24/17 Morphine *Sr* [MS Contin -] 30 mg PO Q8H #40 tablet.er MDD 3 06/27/17 Rivaroxaban [Xarelto -] 20 mg PO DAILY 06/30/17 Acetaminophen [Tylenol .Regular Strength -] 650 mg PO Q6H PRN tablet 07/04/17 Oxycodone HCl [Roxicodone -] 10 mg PO Q6H PRN #12 tablet MDD 4 tabs 07/04/17 This patient is new to me today: No Emergency Visit: Yes ED Registration Date: 06/30/17 Care time: The patient presented to the Emergency Department on the above date and was hospitalized for further evaluation of their emergent condition. Critical Care patient: No - Discharge Referral Referred to [facility] Med [facility] Yes Physician Referral: Doug Fernández DO ([facility])
[2017-07-05] MEDS ORDERED: BACITRACIN 15 GM TUBE TOPICAL OINTMENT TP SCH (10:00)
== END 2017-07-04 19:57 | DRG 305 ==
LOC: JER 16:32 → JERBED 22:34 → UNDOADMIN 23:08 → JERBED 23:08 → J7W 07-01 02:25 → JERBED 07-01 02:43 → J7W 07-01 02:43
PROVIDERS: ADMIT Internal Medicine; ATTEND Internal Medicine
PROC: 0Y6J0Z1 Detachment at Left Lower Leg, High, Open Approach (ICD-10-PCS; principal; 2017-07-02 10:00)
DX: I70.262 Atherosclerosis of native arteries of extremities with gangrene, left leg (principal); I74.9 Embolism and thrombosis of unspecified artery; I11.0 Hypertensive heart disease with heart failure; I95.2 Hypotension due to drugs; Z86.73 Personal history of transient ischemic attack (TIA), and cerebral infarction without residual deficits; E78.5 Hyperlipidemia, unspecified; I77.1 Stricture of artery; F41.9 Anxiety disorder, unspecified; K21.9 Gastro-esophageal reflux disease without esophagitis; Z87.891 Personal history of nicotine dependence; Z89.432 Acquired absence of left foot; R00.0 Tachycardia, unspecified; M79.672 Pain in left foot; I77.9 Disorder of arteries and arterioles, unspecified; Z89.421 Acquired absence of other right toe(s)
CPT/HCPCS: 36415; 36430; 71010-TC; 71275-TC; 80048; 80053; 83735; 84100; 85025; 85027; 85610; 85730; 86850; 86900; 86901; 86922; 88307-TC; 88311-TC; 93005; 93010; 94760; 97116-GP; 97162-GP; 99282-25; J1644

== ENCOUNTER 2018-04-01 13:32 | Emergency (ER) | payer OTHER ==
[2018-04-01 13:59] VITALS: BP 105/64; PULSE 98; TEMP 98.2; BMI 26.6
--- NOTE | 2018-04-01 16:01 | PDOC ---
History of Present Illness - General Chief Complaint: Injury Stated Complaint: FINGER INJURY Time Seen by Provider: 04/01/18 16:00 History Source: Patient Exam Limitations: No Limitations - History of Present Illness Initial Comments: 04/01/18 19:01 Mr. Echols is a 57 yo M with a hx of peripheral arterial disease s/p BKA left leg who presents to the emergency department with left 4th digit distal pain. He states he believes he struck his hand against the bed rail on Friday night. He had purulent discharge and blood express out of the wound in the 4th digit distal portion adjacent to the nail bed. He saw his PCP 2 days ago and was prescribed bactrim for the infection. His PCP, Dr. Cordoba, sent him to the ED for follow up to rule out further infection. He states there is pain in the distal portion of the 4th digit left side. Denies fever, chest pain, SOB, headaches, chills, dysuria, and diarrhea. Pmhx: PAD Shx: BTK 2017 Meds: xarelto, crestor, neurontin Allergies: none Social: 9 cigarettes/day, no alcohol and drug use. Past History - Past Medical History Allergies/Adverse Reactions: Allergies Allergy/AdvReac Type Severity Reaction Status Date / Time No Known Drug Allergies Allergy Verified 04/01/18 13:51 Home Medications: Ambulatory Orders Buspirone HCl [Buspar -] 5 mg PO DAILY #30 tablet 06/24/17 Docusate Sodium [Colace -] 100 mg PO TID PRN #90 cap 06/24/17 Nicotine Patch [Nicoderm Patch -] 7 mg TD DAILY #30 patch 06/24/17 Rosuvastatin [Crestor -] 10 mg PO HS #30 tablet 06/24/17 Morphine *Sr* [MS Contin -] 30 mg PO Q8H #40 tablet.er MDD 3 06/27/17 Rivaroxaban [Xarelto -] 20 mg PO DAILY 06/30/17 Acetaminophen [Tylenol .Regular Strength -] 650 mg PO Q6H PRN tablet 07/04/17 oxyCODONE HCL [Roxicodone -] 10 mg PO Q6H PRN #12 tablet MDD 4 tabs 07/04/17 Furosemide [Lasix] 1 tab PO BID 08/29/17 Omeprazole Magnesium [Prilosec Otc] 1 tab PO DAILY 08/29/17 Ranitidine HCl [Zantac] 1 tab PO BID 08/29/17 Anemia: No Asthma: No Cancer: No Cardiac Disorders: No CVA: Yes (January 2016) COPD: No CHF: No Dementia: No Diabetes: No GI Disorders: No Disorders: No HTN: No Hypercholesterolemia: No Liver Disease: No Seizures: No Thyroid Disease: No - Immunization History Immunization Up to Date: Yes - Suicide/Smoking/Psychosocial Hx Smoking History: Current every day smoker Have you smoked in the past 12 months: Yes Number of Cigarettes Smoked Daily: 9 If you are a former smoker, when did you quit?: april 2017 Information on smoking cessation initiated: No 'Breaking Loose' booklet given: 07/01/17 Hx Alcohol Use: No Drug/Substance Use Hx: No Substance Use Type: None Hx Substance Use Treatment: No Review of Systems - Review of Systems Constitutional: No: Chills, Diaphoresis, Fever HEENTM: No: Recent change in vision, Nose Pain, Throat Pain, Mouth Pain Respiratory: No: Cough, Shortness of Breath Cardiac (ROS): No: Chest Pain ABD/GI: No: Constipated, Diarrhea, Nausea, Rectal Bleeding, Vomiting, Tarry Stools : No: Burning, Dysuria, Hematuria Musculoskeletal: No: Back Pain Integumentary: Yes: Lesions (puss dishcarge distal tip of 4th digit left). No: Rash Neurological: No: Headache, Numbness Psychiatric: No: Change in Appetite Endocrine: No: Unexplained Weight Gain Hematologic/Lymphatic: No: Anemia *Physical Exam - Vital Signs Last Vital Signs Temp Pulse Resp BP Pulse Ox 98.2 F 98 H 18 105/64 94 L 04/01/18 13:53 04/01/18 13:53 04/01/18 13:53 04/01/18 13:53 04/01/18 13:53 - Physical Exam General Appearance: Yes: Nourished, Appropriately Dressed HEENT: positive: EOMI, DEANGELO Neck: negative: Lymphadenopathy (R), Lymphadenopathy (L) Respiratory/Chest: positive: Lungs Clear, Normal Breath Sounds Cardiovascular: positive: Regular Rhythm, Regular Rate, S1, S2, Systolic Murmur (grade 1) Gastrointestinal/Abdominal: positive: Normal Bowel Sounds. negative: Tender Lymphatic: negative: Adenopathy Musculoskeletal: negative: CVA Tenderness Extremity: positive: Normal Capillary Refill. 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 Echols is a 57 yo M with peripheral arterial disease s/p BTK amputation Jun 2017 presenting to the ED with injury to distal tip of left 4th digit. Likely a paronchyia given the presentation and hx Initial vitals: Initial Vital Signs Temp Pulse Resp BP Pulse Ox 98.2 F 98 H 18 105/64 94 L 04/01/18 13:53 04/01/18 13:53 04/01/18 13:53 04/01/18 13:53 04/01/18 13:53 Work up: Laboratory Tests 04/01/18 04/01/18 18:08 18:08 WBC 10.6 H RBC 4.81 Hgb 14.1 Hct 43.4 D MCV 90.2 MCH 29.2 MCHC 32.4 RDW 19.1 H Plt Count 416 MPV 7.8 D Absolute Neuts (auto) 6.6 Neutrophils % 62.6 Lymphocytes % 25.4 D Monocytes % 7.7 Eosinophils % 2.8 Basophils % 1.5 Nucleated RBC % 0 Sodium 142 Potassium 4.5 Chloride 106 Carbon Dioxide 25 Anion Gap 11 BUN 18 Creatinine 0.9 Creat Clearance w eGFR > 60 Random Glucose 92 Calcium 9.2 Total Bilirubin 0.4 AST 11 L D ALT 24 Alkaline Phosphatase 112 Total Protein 7.4 Albumin 3.7 Incision and drainage was performed (refer to procedure note). Pt was discharged back to his rehabilitation facility. No complications noted in the procedure. Disposition: dc to home. *DC/Admit/Observation/Transfer Diagnosis at time of Disposition: Paronychia - Discharge Dispostion Disposition: HOME Decision to Admit order: No - Referrals Referrals: Leann Kirkland MD [Primary Care Provider] - - Patient Instructions Printed Discharge Instructions: DI for Wound Infection Additional Instructions: You have been diagnosed with a paronchyia of the left hand in the 4th digit ( ring finger). Please follow up with Dr. Cordoba within 1-2 days. Please return to the emergency department if concerning symptoms that are new arise or symptoms worsen. If red streaks develop that go up in the hand, please return to the emergency department. Continue to take the antibiotics prescribed by your physician as prescribed. Please follow with Dr. Cordoba for wound check within 1-2 days. - Post Discharge Activity
--- NOTE | 2018-04-01 16:50 | PDOC ---
Attending Attestation - Resident Resident Name: JakeKrzysztof - ED Attending Attestation I have performed the following: I have examined & evaluated the patient, The case was reviewed & discussed with the resident, I agree w/resident's findings & plan, Exceptions are as noted - HPI HPI: 04/01/18 18:57 Mr Echols is a 57 yo M s/p trauma to the left ring finger 4 days ago He has noted swelling, erythema and purulence No fevers or chills He was seen by his PMD and started on Bactrim yesterday Pt was sent to the ER today because PMD was concerned - Physicial Exam PE: 04/01/18 16:50 GENERAL: The patient is in no acute distress. EXTREMITIES: Left ring finger paronychia NEUROLOGICAL: Cranial nerves II through XII grossly intact. MUSCULOSKELETAL: Back non-tender to palpation, no CVA tenderness SKIN: paronychia, local erythema, no streaking erythema 04/01/18 19:00 - Medical Decision Making 04/01/18 19:03 57 yo M s/p left finger trauma, (+) hematoma (+) paronychia S/p drainage No systemic signs of illness D/c to home Continue abx Follow up with PMD
[2018-04-01] MEDS ORDERED: LIDOCAINE HCL 2% (20ML MULTI-DOSE VIAL) NR ONE (18:28)
[2018-04-01 18:29] LABS: BASO % 1.5 % (0-2.0); EOS % 2.8 % (0-4.5); HEMATOCRIT 43.4 % (35.4-49); HEMOGLOBIN 14.1 GM/dL (11.7-16.9); LYMPH % 25.4 % (8-40); MCH 29.2 pg (25.7-33.7); MCHC 32.4 g/dl (32.0-35.9); MEAN CELL VOLUME 90.2 fl (80-96); MEAN PLT VOLUME 7.8 fl (7.5-11.1); MONO % 7.7 % (3.8-10.2); NEUT % 62.6 % (42.8-82.8); PLATELET COUNT 416 K/MM3 (134-434); RBC 4.81 M/mm3 (4.00-5.60); RDW 19.1 % (11.9-15.9); WHITE BLOOD COUNT 10.6 K/mm3 (4.0-10.0)
[2018-04-01 18:49] LABS: ALBUMIN 3.7 g/dl (3.4-5.0); ANION GAP 11 (8-16); BILIRUBIN,TOTAL 0.4 mg/dL (0.2-1.0); BLOOD UREA NITROGEN 18 mg/dL (7-18); CALCIUM 9.2 mg/dL (8.5-10.1); CHLORIDE 106 mmol/L (98-107); CO2 25 mmol/L (21-32); CREATININE 0.9 mg/dL (0.7-1.3); GLUCOSE,RANDOM 92 mg/dL (74-106); POTASSIUM 4.5 mmol/L (3.5-5.1); SGOT/AST 11 U/L (15-37); SGPT/ALT 24 U/L (12-78); SODIUM 142 mmol/L (136-145); TOT PROT 7.4 g/dl (6.4-8.2)
[2018-04-01 18:50] LABS: ALK PHOS 112 U/L (45-117)
--- NOTE | 2018-04-05 08:54 | EKG ---
Test Reason : Blood Pressure : / mmHG Vent. Rate : 095 BPM Atrial Rate : 095 BPM P-R Int : 130 ms QRS Dur : 118 ms QT Int : 382 ms P-R-T Axes : 040 037 032 degrees QTc Int : 480 ms SINUS RHYTHM WITH MARKED SINUS ARRHYTHMIA RIGHT BUNDLE BRANCH BLOCK ABNORMAL ECG WHEN COMPARED WITH ECG OF 30-JUN-2017 23:33, T WAVE INVERSION NO LONGER EVIDENT IN ANTERIOR LEADS Confirmed by NEMESIO DAO, DUC ([id number]) on 04/05/2018 8:54:00 AM Referred By: Confirmed By:DUC HERR MD
== END 2018-04-01 21:43 | disposition home or self-care (01) ==
LOC: JER 13:32
PROC: 0H9QXZZ Drainage of Finger Nail, External Approach (ICD-10-PCS; principal; 2018-04-01)
DX: L03.012 Cellulitis of left finger (principal); F17.210 Nicotine dependence, cigarettes, uncomplicated; Z86.73 Personal history of transient ischemic attack (TIA), and cerebral infarction without residual deficits; X58.XXXA Exposure to other specified factors, initial encounter; Y93.89 Activity, other specified; Y92.9 Unspecified place or not applicable
CPT/HCPCS: 36415; 80053; 85025; 93005; 93010; 99282-25

== ENCOUNTER 2023-01-21 04:11 | Day surgery (SDC) | payer OTHER ==
[2023-01-13 19:04] VITALS: BMI 26.6
[2023-01-21] MEDS ORDERED: LIDOCAINE HCL/PF 1% SDV 5ML VIAL ONE (07:30)
[2023-01-21] MEDS ORDERED: LIDOCAINE HCL 1% PRESERVATIVE FREE - 30ML VIAL IJ ONE (09:18)
[2023-01-21 10:17] VITALS: TEMP 97
[2023-01-21 10:20] VITALS: PULSE 84; RESP 20
[2023-01-21 10:41] VITALS: BP 124/69
[2023-01-21] MEDS ORDERED: ACETAMINOPHEN 500 MG TABLET (FP) PO PRN (13:23)
== END 2023-01-21 10:30 | disposition home or self-care (01) ==
LOC: JASU-SURG 04:11
PROVIDERS: ATTEND Pain Medicine Pain Medicine
PROC: 01HY3MZ Insertion of Neurostimulator Lead into Peripheral Nerve, Percutaneous Approach (ICD-10-PCS; principal; 2023-01-21 09:15)
DX: G89.4 Chronic pain syndrome (principal); M25.512 Pain in left shoulder; I10 Essential (primary) hypertension; R73.03 Prediabetes
CPT/HCPCS: 64555; C1778; 82962